=== PATIENT | female | born 1950 | race Caucasian/White ===

== ENCOUNTER → 2017-08-19 10:47 | Outpatient (CLI) | payer MEDICARE, SELFPAY ==
--- NOTE | 2017-08-19 | DI.ECHO.S_ITS ---
[facility]---------+ [facility] +---------+ : : [address] : : : : [id number] : : : : Phone: [phone]+ Echocardiogram Report + + :Name: TODD WELLER Study Date: 08/19/2017 Height: 67 in : :[facility] Weight: 182 lb : : Gender: Female BSA: 1.9 m2 : :: 1950 Age: 67 yrs BP: 110/58 mmHg: :Reason For Study: Aortic valve stenosis : :Ordering Physician: Irma : :Cousins Performed By: Ana Kendall : :Referring: Liset Sullivan : + + Interpretation Summary The left ventricle is normal in size. The left ventricle is hyperdynamic. The ejection fraction is estimated to be 70-75%. There has been no significant change in LV EF since the previous study. The right ventricle is normal size. The right ventricular systolic function is normal. The aortic valve is not well visualized. Leaflet mobility is mild to moderately reduced. The peak aortic velocity is 2.7 m/sec. The peak aortic velocity on the previous exam was 3.2 m/sec. The aortic valve mean gradient is 16 mmHg. The calculated aortic valve area is 1.4 cm2. There is mild to moderate aortic stenosis. Procedure: A two-dimensional transthoracic echocardiogram with color flow and Doppler was performed. The study quality was technically adequate. Comparison is made with the echocardiogram of 08-01-16. The patient was in normal sinus rhythm during the exam. Left Ventricle: The left ventricle is normal in size. There is normal left ventricular wall thickness. There is no echo evidence for significant left ventricular outflow tract obstruction. There is no thrombus. The ejection fraction is estimated to be 70-75%. The left ventricle is hyperdynamic. There has been no significant change since the previous study. There are no focal wall motion abnormalities. MV E/A: 0.69 Med Peak E' Adrian: 5.6 cm/sec E/E' med: 12.0. Right Ventricle: The right ventricle is normal size. The right ventricular systolic function is normal. Atria: The left atrium is mildly dilated. The left atrium has mildly increased in size since the prior echo exam. Right atrial size is normal. The interatrial septum is intact with no evidence for an atrial septal defect. Mitral Valve: There is mild to moderate mitral annular calcification. The mitral valve leaflets appear thickened, but open well. There is no mitral valve stenosis. There is trace mitral regurgitation. Aortic Valve: The aortic valve is not well visualized. There is discrete nodular thickening of the non- coronary cusp. The aortic valve is moderately calcified. Leaflet mobility is mild to moderately reduced. The calculated aortic valve area is 1.4 cm2. The aortic valve area is 1.2 centimeters squared by planimetry. The peak aortic velocity is 2.7 m/sec. The peak aortic velocity on the previous exam was 3.2 m/sec. The aortic valve mean gradient is 16 mmHg. Severity ratio is 0.35. There is mild to moderate aortic stenosis. No aortic regurgitation is present. Tricuspid Valve: The tricuspid valve is normal in structure and function. There is trace tricuspid regurgitation. Right ventricular systolic pressure is estimated to be 23.5 mmHg plus the clinically estimated CVP which cannot be estimated on this exam. Pulmonic Valve: The pulmonic valve is not well seen, but is grossly normal. There is trace pulmonic regurgitation. Great Vessels: The aortic root is normal size. The dimensions of the ascending aorta are normal. The inferior vena cava was not visualized. Pericardium/ Pleura There is no pericardial effusion. There is an anterior echo-free space consistent with a fat pad. There is no pleural effusion. MMode/2D Measurements & Calculations LVIDd: 4.2 cm LVOT diam: 2.2 cm LVIDs: 2.4 cm Ao root diam: 3.2 cm FS: 43.4 % Aortic Jxn: 2.5 cm EPSS: 0.86 cm asc Aorta Diam: 3.2 cm IVSd: 1.0 cm LVPWd: 0.69 cm LV norwood. diameter/BSA (cm/m^2): 2.1 LV sys. diameter/BSA (cm/m^2): 1.2 LA dimension: 4.0 cm RA long axis: 4.1 cm LA A2 area: 22.8 cm2 RA area: 14.9 cm2 LA A4 area: 19.9 cm2 RA vol: 45.7 ml LA length (vol): 5.1 cm RA : 23.5 ml/m2 LA vol: 75.9 ml RVDd major: 4.7 cm LA vol index: 39.1 ml/m2 RVD1 (basal): 3.1 cm RVD2 (mid): 2.9 cm SANG (plan): 1.2 cm2 Doppler Measurements & Calculations Ao V2 max: 273.3 cm/sec LVOT Max Adrian: 96.3 cm/sec Ao V2 mean: 187.5 cm/sec LV V1 max P.7 mmHg Ao max P.9 mmHg LV V1 VTI: 20.7 cm Ao mean P.3 mmHg SANG(I,D): 1.4 cm2 Ao V2 VTI: 59.3 cm SANG(V,D): 1.4 cm2 sev ratio: 0.35 SANG indexed to BSA (cm^2/m^2): 0.71 MV E max adrian: 67.2 cm/sec TR max adrian: 242.6 cm/sec MV A max adrian: 97.1 cm/sec TR max P.5 mmHg MV E/A: 0.69 PA V2 max: 85.6 cm/sec Med Peak E' Adrian: 5.6 cm/sec PA V2 mean: 59.4 cm/sec E/E' med: 12.0 PA mean P.6 mmHg Lat Peak E' Adrian: 4.2 cm/sec PA Accel Time: 0.14 sec E/E' lat: 16.0 E/e' average: 14.0 MV dec time: 0.26 sec MV P1/2t: 77.3 msec MVA(traced): 1.2 cm2 MV P1/2t max adrian: 66.7 cm/sec MVA(P1/2t): 2.8 cm2 Reading Physician:PM
--- NOTE | 2017-08-19 | DI.MG.S_ITS ---
BILATERAL DIGITAL SCREENING MAMMOGRAM 3D/2D WITH CAD: 08/19/2017 CLINICAL: Routine screening. Comparison is made to exams dated: 10/12/2014 mammogram, 03/22/2014 mammogram, and 08/06/2013 mammogram - [facility]. The tissue of both breasts is predominantly fatty. Current study was also evaluated with a Computer Aided Detection (CAD) system. No significant masses, calcifications, or other findings are seen in either breast. There has been no significant interval change. IMPRESSION: NEGATIVE There is no mammographic evidence of malignancy. A 1 year screening mammogram is recommended. Please note examination is limited by suboptimal patient positioning due to physical limitations and body habitus. Please evaluate posterior tissues with physical exam as they could not be included on this examination. This exam was interpreted at Station ID: [id number]. NOTE: For mammograms, a report in lay terms will be sent to the patient. Approximately 15% of breast malignancies will not be visualized mammographically. In the management of a palpable breast mass, a negative mammogram must not discourage biopsy of a clinically suspicious lesion. Electronically Signed By: Rajiv Simons M.D. cj/:08/19/2017 16:20:58 letter sent: Normal Exam ACR BI-RADS Category 1: Negative [id number]
== END ==
PROVIDERS: Family Provider Family Medicine; PCP Family Medicine; Referring Provider Internal Medicine Cardiovascular Disease; Visit Provider Family Medicine
DX: Z12.31 Encounter for screening mammogram for malignant neoplasm of breast (principal); I35.0 Nonrheumatic aortic (valve) stenosis; R01.1 Cardiac murmur, unspecified
CPT/HCPCS: 77063; 77067; 93306

== ENCOUNTER → 2017-08-21 07:16 | Outpatient (CLI) | payer MEDICARE, SELFPAY ==
[2017-08-21 08:50] LABS: Alanine Aminotransferase 68 IU/L (9-52); Albumin 3.9 g/dL (3.5-5.0); Albumin Globulin Ratio 1.3 (1.0-2.8); Alkaline Phosphatase 105 U/L (38-126); Aspartate Aminotransferase 50 IU/L (14-36); Bilirubin Total 0.4 mg/dL (0.2-1.3); Blood Urea Nitrogen 21 mg/dL (7-17); Calcium 9.7 mg/dL (8.4-10.2); Carbon Dioxide 29 mmol/L (22-32); Chloride 94 mmol/L (98-107); Cholesterol 107 mg/dL (140-199); Estimated Glomerular Filt Rate > 60.0 mL/min (>60); Glucose 251 mg/dL (80-110); HDL Cholesterol 29 mg/dL (40-60); HEMOLYSIS < 15 (0-50); LDL Cholesterol Calculated 33 mg/dL (<100); Potassium 3.9 mmol/L (3.4-5.1); Sodium 136 mmol/L (137-145); Total Protein 6.9 g/dL (6.3-8.2); Triglycerides 223 mg/dL (35-150)
== END ==
PROVIDERS: PCP Family Medicine; Visit Provider Internal Medicine Cardiovascular Disease
DX: I10 Essential (primary) hypertension (principal); E78.5 Hyperlipidemia, unspecified
CPT/HCPCS: 36415; 80053; 80061

== ENCOUNTER → 2017-09-05 07:10 | Outpatient (CLI) | payer MEDICARE, SELFPAY ==
[2017-09-05 08:40] LABS: Hemoglobin A1C% w Est Avg Glu 9.8 % (4.0-6.0)
[2017-09-05 09:06] LABS: Creatinine Urine Random 64.4 mg/dL
[2017-09-05 09:10] LABS: Microalbumi Creatinin Ratio Ur 9.3 ug/mg CR (<30); Microalbumin Urine Random 0.6 mg/dL (0-1.6)
== END ==
PROVIDERS: PCP Family Medicine; Visit Provider Family Medicine
DX: E11.9 Type 2 diabetes mellitus without complications (principal)
CPT/HCPCS: 36415; 82043; 82570; 83036

== ENCOUNTER → 2018-05-29 07:24 | Outpatient (CLI) | payer MEDICARE, SELFPAY ==
[2018-05-29 08:13] LABS: Hemoglobin A1C% w Est Avg Glu 11.3 % (4.0-6.0)
[2018-05-29 08:22] LABS: Alanine Aminotransferase 40 IU/L (9-52); Albumin 4.3 g/dL (3.5-5.0); Albumin Globulin Ratio 1.4 (1.0-2.8); Alkaline Phosphatase 112 U/L (38-126); Aspartate Aminotransferase 29 IU/L (14-36); BUN Creatinine Ratio 31.4 (6-22); Bilirubin Total 0.5 mg/dL (0.2-1.3); Blood Urea Nitrogen 22 mg/dL (7-17); Carbon Dioxide 30 mmol/L (22-32); Chloride 91 mmol/L (98-107); Cholesterol 138 mg/dL (140-199); Estimated Glomerular Filt Rate > 60.0 mL/min (>60); Globulin 3.1 g/dL (1.7-4.1); Glucose 285 mg/dL (80-110); HDL Cholesterol 37 mg/dL (40-60); HEMOLYSIS < 15 (0-50); LDL Cholesterol Calculated 47 mg/dL (<100); Magnesium 1.9 mg/dL (1.6-2.3); Potassium 3.8 mmol/L (3.4-5.1); Sodium 134 mmol/L (137-145); Total Protein 7.4 g/dL (6.3-8.2); Triglycerides 268 mg/dL (35-150)
[2018-05-29 09:43] LABS: Creatinine Urine Random 85.6 mg/dL
[2018-05-29 09:49] LABS: Microalbumi Creatinin Ratio Ur 19.8 ug/mg CR (<30); Microalbumin Urine Random 1.7 mg/dL (0-1.6)
== END ==
PROVIDERS: Visit Provider Internal Medicine
DX: E11.9 Type 2 diabetes mellitus without complications (principal); E78.5 Hyperlipidemia, unspecified; I10 Essential (primary) hypertension; Z79.4 Long term (current) use of insulin
CPT/HCPCS: 36415; 80053; 80061; 82043; 82570; 83036; 83735

== ENCOUNTER → 2018-11-20 13:02 | Outpatient (CLI) | payer MEDICARE, SELFPAY ==
--- NOTE | 2018-11-20 | DI.MG.S_ITS ---
BILATERAL DIGITAL SCREENING MAMMOGRAM 3D/2D WITH CAD: 11/20/2018 CLINICAL: Routine screening. Comparison is made to exams dated: 08/19/2017 mammogram, 08/19/2017 mammogram - [facility], and 10/12/2014 mammogram - [facility]. The tissue of both breasts is predominantly fatty. Current study was also evaluated with a Computer Aided Detection (CAD) system. There are benign calcifications in both breasts. There also is a biopsy clip in the right breast. Additionally, there are benign post operative findings in the left breast. No significant masses, calcifications, or other findings are seen in either breast. There has been no significant interval change. IMPRESSION: There is no mammographic evidence of malignancy. A 1 year screening mammogram is recommended. This exam was interpreted at Station ID: [id number]. NOTE: For mammograms, a report in lay terms will be sent to the patient. Approximately 15% of breast malignancies will not be visualized mammographically. In the management of a palpable breast mass, a negative mammogram must not discourage biopsy of a clinically suspicious lesion. Electronically Signed By: Maty ferraro/mahsa:11/20/2018 14:54:20 letter sent: Normal Exam ACR BI-RADS Category 2: Benign Finding(s) 3342F
== END ==
PROVIDERS: PCP Internal Medicine; Visit Provider Internal Medicine
DX: Z12.31 Encounter for screening mammogram for malignant neoplasm of breast (principal)
CPT/HCPCS: 77063; 77067

== ENCOUNTER → 2018-12-28 08:05 | Outpatient (CLI) | payer MEDICARE, SELFPAY ==
[2018-12-28 09:27] LABS: Hemoglobin A1C% w Est Avg Glu 8.2 % (4.0-6.0)
[2018-12-28 09:57] LABS: BUN Creatinine Ratio 27.1 (6-22); Blood Urea Nitrogen 19 mg/dL (7-17); Calcium 10.6 mg/dL (8.4-10.2); Carbon Dioxide 31 mmol/L (22-32); Chloride 94 mmol/L (98-107); Estimated Glomerular Filt Rate > 60.0 mL/min (>60); Glucose 155 mg/dL (80-110); HEMOLYSIS < 15 (0-50); Potassium 4.2 mmol/L (3.4-5.1); Sodium 138 mmol/L (137-145)
== END ==
PROVIDERS: PCP Internal Medicine; Visit Provider Internal Medicine
DX: E11.9 Type 2 diabetes mellitus without complications (principal); Z79.4 Long term (current) use of insulin
CPT/HCPCS: 36415; 80048; 83036

== ENCOUNTER → 2019-08-20 08:08 | Outpatient (CLI) | payer MEDICARE, SELFPAY ==
[2019-08-20 09:39] LABS: Hemoglobin A1C% w Est Avg Glu 8.8 % (4.0-6.0)
[2019-08-20 09:51] LABS: Alanine Aminotransferase 34 IU/L (<35); Albumin 4.5 g/dL (3.5-5.0); Albumin Globulin Ratio 1.7 (1.0-2.8); Alkaline Phosphatase 89 U/L (38-126); Aspartate Aminotransferase 49 IU/L (14-36); BUN Creatinine Ratio 27.4 (6-22); Bilirubin Total 0.4 mg/dL (0.2-1.3); Blood Urea Nitrogen 20 mg/dL (7-17); Calcium 10.4 mg/dL (8.4-10.2); Carbon Dioxide 29 mmol/L (22-32); Chloride 95 mmol/L (98-107); Cholesterol 133 mg/dL (140-199); Estimated Glomerular Filt Rate > 60.0 mL/min (>60); Globulin 2.7 g/dL (1.7-4.1); Glucose 163 mg/dL (80-110); HDL Cholesterol 36 mg/dL (40-60); HEMOLYSIS < 15 (0-50); LDL Cholesterol Calculated 47 mg/dL (<100); Potassium 4.5 mmol/L (3.4-5.1); Sodium 136 mmol/L (137-145); Total Protein 7.2 g/dL (6.3-8.2); Triglycerides 252 mg/dL (35-150)
[2019-08-20 10:42] LABS: Creatinine Urine Random 134.1 mg/dL
[2019-08-20 10:46] LABS: Microalbumi Creatinin Ratio Ur 21.6 ug/mg CR (<30); Microalbumin Urine Random 2.9 mg/dL (0-1.6)
== END ==
PROVIDERS: PCP Internal Medicine; Referring Provider Internal Medicine; Visit Provider Internal Medicine
DX: E11.9 Type 2 diabetes mellitus without complications (principal); E78.5 Hyperlipidemia, unspecified; I10 Essential (primary) hypertension; Z79.4 Long term (current) use of insulin
CPT/HCPCS: 36415; 80053; 80061; 82043; 82570; 83036

== ENCOUNTER → 2019-09-17 09:02 | Outpatient (CLI) | payer MEDICARE, SELFPAY ==
--- NOTE | 2019-09-17 09:35 | DI.ECHO.S_ITS ---
Echocardiogram Report + + :Name: TODD WELLER Study Date: 09/17/2019 Height: 62 in : :[facility] Weight: 185 lb : : Gender: Female BSA: 1.8 m2 : :: 1950 Age: 69 yrs BP: 110/65 mmHg: :Reason For Study: : : Performed By: Nickolas Burgos : :Referring: RANDY ARANDA : + + Interpretation Summary The left ventricle is normal in size. The left ventricle is hyperdynamic. The ejection fraction is estimated to be 70-75%. There is no echo evidence for significant left ventricular outflow tract obstruction. MV E/A: 0.61 Med Peak E' Adrian: 2.9 cm/sec E/E' med: 22.4 The right ventricle is normal in size and function. The aortic valve is moderately calcified. There is moderate to severely reduced leaflet mobility. The peak aortic velocity is 3.72 m/sec. The aortic valve mean gradient is 34.7 mmHg. The peak aortic velocity on the previous exam was 2.7 m/sec. The calculated aortic valve area is 1.0 cm2. There is moderate to severe aortic stenosis. Compared to the prior echo study, there has been an increase in the severity of aortic stenosis. Procedure: A two-dimensional transthoracic echocardiogram with color flow and Doppler was performed. The study quality was technically adequate. Comparison is made with the echocardiogram of 08/19/17. The subcostal views were difficult to obtain and are suboptimal in quality. The suprasternal notch views were difficult to obtain and are suboptimal in quality. The patient was in normal sinus rhythm during the exam. Left Ventricle: The left ventricle is normal in size. Proximal septal thickening is noted. There is no echo evidence for significant left ventricular outflow tract obstruction. There is no thrombus. The ejection fraction is estimated to be 70-75%. The left ventricle is hyperdynamic. There are no focal wall motion abnormalities. MV E/A: 0.61 Med Peak E' Adrian: 2.9 cm/sec E/E' med: 22.4. Right Ventricle: The right ventricle is normal in size and function. Atria: The left atrium is moderately dilated. The left atrium has mildly increased in size since the prior echo exam. Right atrial size is normal. The interatrial septum is intact with no evidence for an atrial septal defect. Mitral Valve: There is mild to moderate mitral annular calcification. The mitral valve chordae are thickened and/or calcified. There is trace mitral regurgitation. Aortic Valve: The aortic valve is trileaflet. The aortic valve is moderately calcified. There is moderate to severely reduced leaflet mobility. The peak aortic velocity is 3.72 m/sec. The aortic valve mean gradient is 34.7 mmHg. The calculated aortic valve area is 1.0 cm2. The aortic valve area is 0.92 centimeters squared by planimetry. There is moderate to severe aortic stenosis. The peak aortic velocity on the previous exam was 2.7 m/sec. Compared to the prior echo study, there has been an increase in the severity of aortic stenosis. There is trace aortic regurgitation. Tricuspid Valve: The tricuspid valve is normal in structure and function. There is trace tricuspid regurgitation. Right ventricular systolic pressure is estimated to be 22 mmHg plus the clinically estimated CVP which cannot be estimated on this exam. Pulmonic Valve: The pulmonic valve is not well seen, but is grossly normal. There is trace pulmonic regurgitation. Great Vessels: The aortic root is normal size. The dimensions of the ascending aorta are normal. The pulmonary artery is normal size. The inferior vena cava was not visualized. Pericardium/ Pleura There is no pericardial effusion. There is an anterior echo-free space consistent with a fat pad. There is no pleural effusion. MMode/2D Measurements & Calculations LVIDd: 4.2 cm LVOT diam: 2.2 cm LVIDs: 2.6 cm Ao root diam: 3.1 cm FS: 37.6 % asc Aorta Diam: 3.2 cm EPSS: 0.74 cm IVSd: 1.0 cm LVPWd: 0.99 cm LV norwood. diameter/BSA (cm/m^2): 2.3 LV sys. diameter/BSA (cm/m^2): 1.4 LA dimension: 3.4 cm RA long axis: 4.4 cm LA A2 area: 22.4 cm2 RA area: 14.4 cm2 LA A4 area: 22.5 cm2 RA vol: 39.9 ml LA length (vol): 5.4 cm RA : 21.6 ml/m2 LA vol: 79.8 ml LA vol index: 43.2 ml/m2 SANG (plan): 0.92 cm2 Doppler Measurements & Calculations Ao V2 max: 372.5 cm/sec LVOT Max Adrian: 97.8 cm/sec Ao V2 mean: 283.7 cm/sec LV V1 max P.8 mmHg Ao max P.5 mmHg LV V1 VTI: 23.3 cm Ao mean P.7 mmHg SANG(I,D): 1.2 cm2 Ao V2 VTI: 74.5 cm SANG(V,D): 1.0 cm2 sev ratio: 0.31 SANG indexed to BSA (cm^2/m^2): 0.66 MV E max adrian: 66.0 cm/sec TR max adrian: 233.5 cm/sec MV A max adrian: 108.9 cm/sec TR max P.8 mmHg MV E/A: 0.61 PA V2 max: 111.6 cm/sec Med Peak E' Adrian: 2.9 cm/sec PA V2 mean: 80.7 cm/sec E/E' med: 22.4 PA mean P.9 mmHg Lat Peak E' Adrian: 2.8 cm/sec PA pr(Accel): 41.3 mmHg E/E' lat: 23.2 E/e' average: 22.8 MV dec time: 0.25 sec SV(LVOT): 90.3 ml Reading Physician:04:21 PM
== END ==
PROVIDERS: PCP Internal Medicine; Referring Provider Internal Medicine Cardiovascular Disease; Visit Provider Internal Medicine Cardiovascular Disease
DX: I35.0 Nonrheumatic aortic (valve) stenosis (principal)
CPT/HCPCS: 93306

== ENCOUNTER → 2020-01-03 08:06 | Outpatient (CLI) | payer MEDICARE, SELFPAY ==
[2020-01-03 09:19] LABS: Hemoglobin A1C% w Est Avg Glu 8.9 % (4.0-6.0)
[2020-01-03 10:02] LABS: BUN Creatinine Ratio 29.8 (6-22); Blood Urea Nitrogen 17 mg/dL (7-17); Calcium 10.3 mg/dL (8.4-10.2); Carbon Dioxide 33 mmol/L (22-32); Chloride 96 mmol/L (98-107); Estimated Glomerular Filt Rate > 60.0 mL/min (>60); Glucose 187 mg/dL (80-110); HEMOLYSIS < 15 (0-50); Potassium 4.3 mmol/L (3.4-5.1); Sodium 137 mmol/L (137-145)
== END ==
PROVIDERS: PCP Internal Medicine; Referring Provider Internal Medicine; Visit Provider Internal Medicine
DX: E11.9 Type 2 diabetes mellitus without complications (principal); Z79.4 Long term (current) use of insulin
CPT/HCPCS: 36415; 80048; 83036

== ENCOUNTER 2020-09-06 23:16 | Emergency (ER) | payer MEDICARE, SELFPAY ==
[2020-09-06 23:36] VITALS: BP 215/99; PULSE 96; RESP 22; TEMP 36.8; O2SAT 96; BMI 32.9
[2020-09-06 23:49] VITALS: PULSE 90; O2SAT 93
[2020-09-06 23:51] LABS: Add Manual Diff / Slide Review NO; Basophils Absolute Auto 100 /uL (0-100); Basophils Percent Auto 0.6 % (0-2); Eosinophils Absolute Auto 0 /uL (0-450); Hematocrit 38.8 % (36-46); Hemoglobin 12.7 g/dL (12.0-16.0); Lymphocytes Absolute Auto 2000 /uL (1100-4500); Lymphocytes Percent Auto 12.6 % (25-40); Mean Corpuscular HGB Conc 32.7 % (30-36); Mean Corpuscular Hemoglobin 27.8 PG (26-34); Mean Corpuscular Volume 85.1 fL (80-100); Monocytes Absolute Auto 400 /uL (0-900); Monocytes Percent Auto 2.8 % (3-14); Neutrophils Absolute Auto 13200 /uL (1500-7000); Platelet Count 350 X10^3/uL (150-400); Red Blood Cell Count 4.55 X10^6/uL (4.0-5.2); Red Cell Distribution Width 13.9 % (11.6-14.8); White Blood Cell Count 15.7 X10^3/uL (4.5-11.0)
[2020-09-06 23:57] LABS: Alanine Aminotransferase 31 IU/L (<35); Albumin 4.7 g/dL (3.5-5.0); Albumin Globulin Ratio 1.5 (1.0-2.8); Alkaline Phosphatase 93 U/L (38-126); Aspartate Aminotransferase 39 IU/L (14-36); BUN Creatinine Ratio 41.3 (6-22); Bilirubin Total 0.8 mg/dL (0.2-1.3); Blood Urea Nitrogen 26 mg/dL (7-17); Calcium 10.8 mg/dL (8.4-10.2); Carbon Dioxide 28 mmol/L (22-32); Chloride 95 mmol/L (98-107); Estimated Glomerular Filt Rate > 60.0 mL/min (>60); Globulin 3.1 g/dL (1.7-4.1); Glucose 337 mg/dL (80-110); HEMOLYSIS < 15 (0-50); Sodium 136 mmol/L (137-145); Total Protein 7.8 g/dL (6.3-8.2)
[2020-09-06] MEDS: SODIUM CHLORIDE 0.9% 1,000 ML 1000 ML IV (23:57)
[2020-09-06] MEDS: ONDANSETRON 4 MG/2 ML INJ IV (23:58)
[2020-09-07] VITALS: PULSE 94; O2SAT 95
[2020-09-07 00:22] VITALS: BP 184/87; PULSE 95; O2SAT 93
--- NOTE | 2020-09-07 00:23 | ED_ITS ---
HPI - Nausea/Vomiting/Diarrhea General Chief complaint: Nausea/Vomiting/Diarrhea Stated complaint: nausea/vomiting Time Seen by Provider: 09/06/20 23:27 Source: patient Mode of arrival: Ambulatory Limitations: no limitations History of Present Illness HPI Narrative: Patient is a 70-year-old insulin-dependent diabetic who also reportedly smokes marijuana on a daily basis here for evaluation after she woke up 2 days ago with nausea. She also states she has had some diarrhea. Had vomiting during this time but has not had any vomiting now. She states that the symptoms do improve with taking a shower. No abdominal discomfort. States she cannot keep anything down. Is still taking her insulin. Related Data Home Medications Medication Instructions Recorded Confirmed aspirin 81 mg tablet,delayed 81 mg PO DAILY 04/28/18 01/04/20 release chlorthalidone 25 mg tablet 25 mg PO DAILY #60 tab 04/28/18 01/04/20 lactobacillus combination no.8 3 3,000 mmu cells PO DAILY 04/28/18 01/04/20 billion cell capsule (Adult Probiotic) lansoprazole 15 mg capsule,delayed 15 mg PO DAILY 04/28/18 01/04/20 release magnesium oxide 400 mg PO BID cap 04/28/18 01/04/20 Previous Rx's Medication Instructions Recorded cyclobenzaprine 10 mg tablet 10 mg PO TID PRN #30 tab 09/04/18 B-D PEN NEEDLE #100 each 02/22/19 blood sugar diagnostic (Blood #250 each 09/14/19 Glucose Test) blood-glucose meter #1 each 09/23/19 metformin 1,000 mg tablet 1,000 mg PO BIDCC #180 tab 03/24/20 (Glucophage) metoprolol succinate 100 mg 100 mg PO BID #180 tab 03/24/20 tablet,extended release 24 hr insulin glargine 100 unit/mL (3 40 unit SUBCUT HS #30 ml 03/31/20 mL) subcutaneous pen (Lantus Solostar U-100 Insulin) hydrocodone 5 mg-acetaminophen 325 1 tab PO QID PRN #360 tab 05/12/20 mg tablet ([place]) Droplet Pen [place] #250 ea 07/18/20 glipizide 5 mg tablet See Rx Instructions .ROUTE 09/04/20 .COMPLEX #180 tab lisinopril 40 mg tablet See Rx Instructions .ROUTE 09/04/20 .COMPLEX #90 tablet meloxicam 15 mg tablet (Mobic) 15 mg PO Q DAY PRN PRN #90 tab 09/04/20 simvastatin 20 mg tablet 20 mg PO HS #90 tab 09/04/20 Allergies Allergy/AdvReac Type Severity Reaction Status Date / Time No Known Allergies Allergy Uncoded 01/04/20 10:45 Review of Systems Constitutional Constitutional: Denies fever(s) Eyes Eyes: Reports system reviewed and no additional complaints, except as documented Cardiovascular Comments: No chest pain Respiratory Comments: No shortness of breath Gastrointestinal Comments: Nausea vomiting and diarrhea Genitourinary Comments: No urinary symptoms Musculoskeletal Comments: Has her chronic back pain Integumentary/Breasts Comments: No rashes Neurologic Neurologic: Reports system reviewed and no additional complaints, except as documented Psychiatric Psychiatric: Reports system reviewed and no additional complaints, except as documented Hematologic/Lymphatic On Anticoagulants: No Allergic/Immunologic Allergic/Immunologic: Reports system reviewed and no additional complaints, except as documented Patient History Medical History Anemia Ankylosing spondylitis (~1994) Aortic stenosis Chicken pox Chronic back pain Colitis Diabetes mellitus (2003) Diabetes mellitus, type II, insulin dependent Diabetic peripheral neuropathy Gastrointestinal irritation Hyperlipidemia Hypertension IBS (irritable bowel syndrome) Measles Mumps RLS (restless legs syndrome) Sepsis Surgical History Anesthesia Status post appendectomy (1964) Status post breast biopsy (1991) Status post breast biopsy (2013) Status post cholecystectomy (1991) Status post hysterectomy (1993) Family History Father Cancer Diabetes mellitus Hypertension High cholesterol Mother Heart disease Hypertension Brother Ankylosing spondylitis Son Ankylosing spondylitis Social History Smoking Status: Current every day smoker Smoking Status: Current every day smoker Substance Use Type: marijuana Exam Initial Vital Signs Initial Vital Signs: Vital Signs Temperature 98.3 F 09/06/20 23:36 Pulse Rate 96 H 09/06/20 23:36 Respiratory Rate 22 09/06/20 23:36 Blood Pressure 215/99 H 09/06/20 23:36 Pulse Oximetry 96 09/06/20 23:36 Const General: cooperative Resp Effort & Inspection: normal respiratory effort Cardio Rate: regular rate GI Inspection: normal to inspection Palpation: soft Skin General: no rashes or lesions noted Neuro General: patient alert, patient awake and patient oriented x3 Extrem General: normal to inspection Course Orders Ordered: ED Orders 09/06/20 23:35 Complete Blood Count AUTO DIFF Stat Comprehensive Metabolic Panel Stat Discontinued Medications Sodium Chloride (Normal Saline 0.9%) 1,000 mls @ 1,000 mls/hr IV BOLUS ONE Stop: 09/07/20 00:41 Last Infusion: 09/07/20 01:11 Dose: 0 mls/hr Documented by: Admin: 09/06/20 23:57 Dose: 1,000 mls/hr Documented by: CHANDAN Ondansetron HCl (Ondansetron 4 Mg/2 Ml Inj) 4 mg IV NOW ONE Stop: 09/06/20 23:43 Last Admin: 09/06/20 23:58 Dose: 4 mg Documented by: CHANDAN Ondansetron HCl (Ondansetron 4 Mg Odt Prepack) 1 bottle MISC SEEINSTR ONE Stop: 09/07/20 01:10 Last Admin: 09/07/20 01:14 Dose: 1 bottle Documented by: CHANDAN Vital Signs Vital signs: Vital Signs - 8 hr 09/06/20 23:36 09/06/20 23:49 09/07/20 00:00 Temperature 98.3 F Pulse Rate 96 H 90 94 H Respiratory Rate 22 Blood Pressure 215/99 H Pulse Oximetry 96 93 95 09/07/20 00:22 09/07/20 00:30 09/07/20 01:00 Temperature Pulse Rate 95 H 94 H 92 H Respiratory Rate Blood Pressure 184/87 H 178/78 H 166/72 H Pulse Oximetry 93 90 L 91 MDM - Nausea/Vomiting/Diarrhea Lab Data Attestation: I reviewed the patient's lab results. Result diagrams: 09/06/20 23:35 09/06/20 23:35 Labs: Lab Results 09/06/20 09/06/20 Range/Units 23:35 23:35 WBC 15.7 H (4.5-11.0) X10^3/uL RBC 4.55 (4.0-5.2) X10^6/uL Hgb 12.7 (12.0-16.0) g/dL Hct 38.8 (36-46) % MCV 85.1 (80-100) fL MCH 27.8 (26-34) PG MCHC 32.7 (30-36) % RDW 13.9 (11.6-14.8) % Plt Count 350 (150-400) X10^3/uL Neut % (Auto) 84.0 H (50-75) % Lymph % (Auto) 12.6 L (25-40) % [place] % (Auto) 2.8 L (3-14) % Eos % (Auto) 0.0 L (2-4) % Baso % (Auto) 0.6 (0-2) % Neut # (Auto) 74817 H (3915-4264) /uL Lymph # (Auto) 2000 (7523-0593) /uL [place] # (Auto) 400 (0-900) /uL Eos # (Auto) 0 (0-450) /uL Baso # (Auto) 100 (0-100) /uL Sodium 136 L (137-145) mmol/L Potassium 4.0 (3.4-5.1) mmol/L Chloride 95 L (98-107) mmol/L Carbon Dioxide 28 (22-32) mmol/L BUN 26 H (7-17) mg/dL Creatinine 0.63 (0.52-1.04) mg/dL Estimated GFR > 60.0 (>60) mL/min BUN/Creatinine Ratio 41.3 H (6-22) Glucose 337 H (80-110) mg/dL Calcium 10.8 H (8.4-10.2) mg/dL Total Bilirubin 0.8 (0.2-1.3) mg/dL AST 39 H (14-36) IU/L ALT 31 (<35) IU/L Alkaline Phosphatase 93 (38-126) U/L Total Protein 7.8 (6.3-8.2) g/dL Albumin 4.7 (3.5-5.0) g/dL Globulin 3.1 (1.7-4.1) g/dL Albumin/Globulin Ratio 1.5 (1.0-2.8) Point of Care Testing Glucose POC 335 MDM Narrative Medical decision making narrative: Patient does have leukocytosis however I suspect this is secondary to stress reaction due to all of the vomiting that she has been having. She does have a elevated blood sugar however is not acidotic. After 1 dose of nausea medication she stated that she no longer had any nausea and was able to tolerate a small amount of fluid. She was also given fluids here in the ER. Feel that we can hold on further workup for now. I have strong suspicion that her symptoms related to the amount of marijuana that she smokes. She was given return precautions follow-up instructions. She expressed understanding and agreement. Discharge Plan Departure Patient Disposition: Home Clinical Impression: Nausea, Hyperglycemia Instructions: DI for Nausea -- Adult Activity Restrictions/Additional Instructions: Use the nausea medicine as needed. Recommend that you eat a bland diet and increase your fluid intake. Return to the emergency department for any new or worsening symptoms Prescriptions: No Action (DME) B-D PEN NEEDLE Qty: 100 RF: 3 (DME) blood-glucose meter Misc See Rx Instructions .ROUTE .MEDSUPPLY Qty: 1 RF: 0 metformin [Glucophage] 1,000 mg tablet 1,000 mg PO BIDCC Qty: 180 RF: 3 metoprolol succinate 100 mg tablet extended release 24 hr 100 mg PO BID Qty: 180 RF: 3 Lantus Solostar U-100 Insulin 100 unit/mL (3 mL) insulin pen 40 unit SUBCUT HS Qty: 30 RF: 3 hydrocodone-acetaminophen [[place]] 5-325 mg tablet 1 tab PO QID PRN (Reason: joint pain) Qty: 360 RF: 0 (DME) Droplet Pen [place] 32G X 5MM Qty: 250 RF: 6 glipizide 5 mg tablet See Rx Instructions .ROUTE .COMPLEX Qty: 180 RF: 0 meloxicam [Mobic] 15 mg tablet 15 mg PO Q DAY PRN PRN (Reason: pain (scale score 4-6)) Qty: 90 RF: 0 lisinopril 40 mg tablet See Rx Instructions .ROUTE .COMPLEX Qty: 90 RF: 0 simvastatin 20 mg tablet 20 mg PO HS Qty: 90 RF: 0 chlorthalidone 25 mg tablet 25 mg PO DAILY Qty: 60 RF: 0 lansoprazole 15 mg capsule,delayed release(DR/EC) 15 mg PO DAILY RF: 0 Adult Probiotic 3 billion cell capsule 3,000 mmu cells PO DAILY RF: 0 aspirin 81 mg tablet,delayed release (DR/EC) 81 mg PO DAILY RF: 0 magnesium oxide 400 mg capsule 400 mg PO BID RF: 0 cyclobenzaprine 10 mg tablet 10 mg PO TID PRN (Reason: muscle spasm) Qty: 30 RF: 0 (DME) blood sugar diagnostic [Blood Glucose Test] Strip See Rx Instructions .ROUTE .MEDSUPPLY Qty: 250 RF: 12 Referrals: Javed Velez MD [Primary Care Provider] -
[2020-09-07 00:30] VITALS: BP 178/78; PULSE 94; O2SAT 90
[2020-09-07 01:00] VITALS: BP 166/72; PULSE 92; O2SAT 91
[2020-09-07] MEDS: ONDANSETRON 4 MG ODT PREPACK 1 BOTTLE MISC (01:14)
== END 2020-09-07 01:27 | disposition home or self-care (01) ==
PROVIDERS: Emergency Provider Emergency Medicine; PCP Internal Medicine
DX: E11.65 Type 2 diabetes mellitus with hyperglycemia (principal); Z79.4 Long term (current) use of insulin; R19.7 Diarrhea, unspecified; R11.2 Nausea with vomiting, unspecified
CPT/HCPCS: 36415; 80053; 82962; 85025; 99284; J2405

== ENCOUNTER 2020-09-08 10:09 | Inpatient (IN) | payer MEDICARE, SELFPAY ==
[2020-09-08] VITALS (23 sets, daily range): BP systolic 132–231; BP diastolic 62–116; PULSE 75–121; RESP 16–24; TEMP 36.6–38.2; O2SAT 92–99; BMI 32.9
[2020-09-08 10:57] LABS: Add Manual Diff / Slide Review NO; Basophils Absolute Auto 100 /uL (0-100); Basophils Percent Auto 0.4 % (0-2); Eosinophils Absolute Auto 0 /uL (0-450); Hematocrit 38.8 % (36-46); Hemoglobin 12.6 g/dL (12.0-16.0); Lymphocytes Absolute Auto 2000 /uL (1100-4500); Lymphocytes Percent Auto 10.6 % (25-40); Mean Corpuscular HGB Conc 32.4 % (30-36); Mean Corpuscular Hemoglobin 27.7 PG (26-34); Mean Corpuscular Volume 85.3 fL (80-100); Monocytes Absolute Auto 600 /uL (0-900); Monocytes Percent Auto 3.4 % (3-14); Neutrophils Absolute Auto 16000 /uL (1500-7000); Neutrophils Percent Auto 85.6 % (50-75); Platelet Count 394 X10^3/uL (150-400); Red Blood Cell Count 4.54 X10^6/uL (4.0-5.2); Red Cell Distribution Width 14.2 % (11.6-14.8); White Blood Cell Count 18.7 X10^3/uL (4.5-11.0)
[2020-09-08] MEDS: ONDANSETRON 4 MG/2 ML INJ IV (11:01)
[2020-09-08 11:06] LABS: Alanine Aminotransferase 34 IU/L (<35); Albumin 4.9 g/dL (3.5-5.0); Albumin Globulin Ratio 1.7 (1.0-2.8); Alkaline Phosphatase 94 U/L (38-126); Aspartate Aminotransferase 53 IU/L (14-36); BUN Creatinine Ratio 29.1 (6-22); Bilirubin Total 0.7 mg/dL (0.2-1.3); Blood Urea Nitrogen 23 mg/dL (7-17); Calcium 10.7 mg/dL (8.4-10.2); Carbon Dioxide 29 mmol/L (22-32); Chloride 91 mmol/L (98-107); Estimated Glomerular Filt Rate > 60.0 mL/min (>60); Globulin 2.9 g/dL (1.7-4.1); Glucose 399 mg/dL (80-110); HEMOLYSIS < 15 (0-50); Lipase 56 U/L (23-300); Potassium 3.3 mmol/L (3.4-5.1); Sodium 132 mmol/L (137-145); Total Protein 7.8 g/dL (6.3-8.2)
--- NOTE | 2020-09-08 11:09 | ED_ITS ---
HPI - Nausea/Vomiting/Diarrhea General Chief complaint: Nausea/Vomiting/Diarrhea Stated complaint: nausea beyond belief since Fri Time Seen by Provider: 09/08/20 10:59 Source: patient and old records reviewed Mode of arrival: Ambulatory Limitations: no limitations History of Present Illness HPI Narrative: This is a 70-year-old female comes with complaint of nausea ?beyond bone leaf? since Friday or Friday morning. Patient states she has just had nausea she denies any pain. She has not had active vomiting but has had occasional dry heaves. She has been able to sick water but has not had an appetite and not eating much oral solids. Patient denies any fevers or chills. She denies any chest pain or pressure. She denies any abdominal, back or flank pain. She has not had any major changes to bowel movements. No diarrhea, no constipation. Patient denies any polyuria, polydipsia or frequency. Patient states she has been urinating regularly. Patient has been taking Zofran which was been helpful but continues to have symptoms this morning. She has not had symptoms regularly in the past. She does have a history of ankylosing spondylitis, insulin-dependent diabetes and states her normal glucose is around 130, she takes medication for dyslipidemia as well as daily NSAIDs. Patient was seen here several days ago. She also smokes marijuana daily, no tobacco, no alcohol. Related Data Home Medications Medication Instructions Recorded Confirmed aspirin 81 mg tablet,delayed 81 mg PO DAILY 04/28/18 09/08/20 release chlorthalidone 25 mg tablet 25 mg PO DAILY #60 tab 04/28/18 09/08/20 lactobacillus combination no.8 3 3,000 mmu cells PO DAILY 04/28/18 09/08/20 billion cell capsule (Adult Probiotic) lansoprazole 15 mg capsule,delayed 15 mg PO DAILY 04/28/18 09/08/20 release magnesium oxide 400 mg PO BID cap 04/28/18 09/08/20 hydralazine 10 mg tablet 10 mg PO DAILY 09/08/20 09/08/20 insulin glargine 100 unit/mL (3 55 unit SUBCUT HS 09/08/20 09/08/20 mL) subcutaneous pen (Lantus Solostar U-100 Insulin) lisinopril 40 mg tablet 40 mg PO DAILY 09/08/20 09/08/20 Previous Rx's Medication Instructions Recorded B-D PEN NEEDLE #100 each 02/22/19 blood sugar diagnostic (Blood #250 each 09/14/19 Glucose Test) blood-glucose meter #1 each 09/23/19 metformin 1,000 mg tablet 1,000 mg PO BIDCC #180 tab 03/24/20 (Glucophage) metoprolol succinate 100 mg 100 mg PO BID #180 tab 03/24/20 tablet,extended release 24 hr hydrocodone 5 mg-acetaminophen 325 1 tab PO QID PRN #360 tab 05/12/20 mg tablet ([place]) Droplet Pen [place] #250 ea 07/18/20 glipizide 5 mg tablet See Rx Instructions .ROUTE 09/04/20 .COMPLEX #180 tab meloxicam 15 mg tablet (Mobic) 15 mg PO Q DAY PRN PRN #90 tab 09/04/20 simvastatin 20 mg tablet 20 mg PO HS #90 tab 09/04/20 Allergies Allergy/AdvReac Type Severity Reaction Status Date / Time No Known Drug Allergies Allergy Verified 09/08/20 14:16 Review of Systems Review of Systems ROS Unobtainable: All systems reviewed & are unremarkable except as noted in HPI and below Patient History Medical History Anemia Ankylosing spondylitis (~1994) Aortic stenosis Chicken pox Chronic back pain Colitis Diabetes mellitus (2003) Diabetes mellitus, type II, insulin dependent Diabetic peripheral neuropathy Gastrointestinal irritation Hyperlipidemia Hypertension IBS (irritable bowel syndrome) Measles Mumps RLS (restless legs syndrome) Sepsis Surgical History Anesthesia Status post appendectomy (1964) Status post breast biopsy (1991) Status post breast biopsy (2013) Status post cholecystectomy (1991) Status post hysterectomy (1993) Family History Father Cancer Diabetes mellitus Hypertension High cholesterol Mother Heart disease Hypertension Brother Ankylosing spondylitis Son Ankylosing spondylitis Social History household members: none Smoking Status: Former smoker alcohol intake: never Smoking Status: Current every day smoker Substance Use Type: marijuana Exam Narrative Exam Narrative: GENERAL: Alert and oriented x three, female in mild distress. HEENT: Head normocephalic, atraumatic, EOMI, pupils reactive, face symmetric, moist mucous membranes NECK: Supple, full range of motion CARDIOVASCULAR: Regular rate and rhythm without murmurs, rubs or gallops. No JVD. RESPIRATORY: Breath sounds equal bilaterally, no wheezes rales or rhonchi. No tachypnea accessory muscle use. ABDOMEN: Soft, nontender. Normoactive bowel sounds all 4 quadrants. No guarding or rebound, rigidity, no mass : No CVA tenderness bilaterally EXTREMITIES: Normal range of motion, no clubbing or edema. Neurovascularly intact NEUROLOGICAL: Cranial nerves II through XII grossly intact. Moving all extremities SKIN: Warm, dry, no petechiae, no rashes or lesions. Initial Vital Signs Initial Vital Signs: Vital Signs Temperature 97.8 F 09/08/20 10:19 Pulse Rate 108 H 09/08/20 10:19 Respiratory Rate 18 09/08/20 10:19 Blood Pressure 186/116 H 09/08/20 10:19 Pulse Oximetry 96 09/08/20 10:19 Scores qSOFA Altered Mental Status (GCS <15): No Respiratory rate greater than/equal to 22: No Systolic blood pressure less than or equal to 100: No qSOFA Total: 0 0-1 Not High Risk 1-3 High risk Course Orders Ordered: ED Orders 09/08/20 13:03 CT abdomen pelvis w con Stat 09/08/20 13:30 Urine Culture Stat Urine Microscopic Stat 09/08/20 14:19 Lactate (Lactic Acid) Stat 09/08/20 14:30 COVID19 - ADMIT ([employer] swab/PCR) Stat Acetaminophen (Acetaminophen 325 Mg Tablet) 650 mg PO Q6HR PRN PRN Reason: Fever/Mild Pain (1-3) Hydrocodone Bitart/Acetaminophen (Hydrocodone/Acet 5/325 Tablet) 1 tab PO QID PRN PRN Reason: joint pain Last Admin: 09/08/20 18:27 Dose: 1 tab Documented by: RLAZANI Aspirin (Aspirin Ec 81 Mg Tablet) 81 mg PO DAILY YANN Atorvastatin Calcium (Atorvastatin 20 Mg Tablet) 10 mg PO BEDTIME YANN Last Admin: 09/08/20 20:59 Dose: 10 mg Documented by: [email or web address] Bisacodyl (Bisacodyl 10 Mg Supp) 10 mg IA DAILY PRN PRN Reason: Constipation Chlorthalidone (Chlorthalidone 25 Mg Tablet) 25 mg PO DAILY [facility] Dextrose (Dextrose 50 % In Water 25 Gm/50 Ml Syringe) 25 gm IV PRN PRN PRN Reason: Hypoglycemia Enoxaparin Sodium (Enoxaparin 40 Mg/0.4 Ml Syringe) 40 mg SUBCUT DAILY YANN Glipizide (Glipizide 5 Mg Tablet) 5 mg PO BIDAC [facility] Hydralazine HCl (Hydralazine 10 Mg Tablet) 10 mg PO DAILY [facility] Dextrose/Lactated Ringer's (Dextrose 5%-Lactated Ringers) 1,000 mls @ 50 mls/hr IV CONT [facility] Last Admin: 09/08/20 17:29 Dose: 50 mls/hr Documented by: JACKIE Ceftriaxone Sodium 1,000 mg/ (Sodium Chloride) 100 mls @ 200 mls/hr IV Q24H [facility] Insulin Glargine (Insulin Glargine 100 Unit/Ml 3ml Pen) 55 unit SUBCUT BEDTIME [facility] Last Admin: 09/08/20 21:02 Dose: 55 unit Documented by: ULISSES Cosigned by: JACKIE Insulin Human Lispro (Insulin Lispro 100 Unit/Ml 3ml Vial) 0 unit SUBCUT ACHS [facility]; Protocol Last Admin: 09/08/20 21:03 Dose: 5 unit Documented by: ULISSES Cosigned by: JACKIE Lisinopril (Lisinopril 20 Mg Tablet) 40 mg PO DAILY [facility] Magnesium Oxide (Magnesium Oxide 400 Mg Tablet) 400 mg PO BID [facility] Last Admin: 09/08/20 20:59 Dose: 400 mg Documented by: ULISSES Meloxicam (Meloxicam 7.5 Mg Tablet) 15 mg PO DAILY PRN PRN Reason: Pain, Mild (1-3) Metformin HCl (Metformin Hcl 500 Mg Tablet) 1,000 mg PO BIDWM [facility] Last Admin: 09/08/20 17:45 Dose: 1,000 mg Documented by: JACKIE Metoclopramide HCl (Metoclopramide 10 Mg/2 Ml Inj) 5 mg IV Q6HR PRN PRN Reason: Nausea And Vomiting Metoprolol Succinate (Metoprolol Er 50 Mg Tablet) 100 mg PO BID [facility] Last Admin: 09/08/20 21:00 Dose: 100 mg Documented by: ULISSES Naloxone HCl (Naloxone 0.4 Mg/Ml Vial) 0.2 mg IV Q2MIN PRN PRN Reason: Opiate Reversal Ondansetron HCl (Ondansetron 4 Mg/2 Ml Inj) 4 mg IV Q4HR PRN PRN Reason: Nausea And Vomiting Pantoprazole Sodium (Pantoprazole Dr 20 Mg Tablet) 20 mg PO 0600 YANN Discontinued Medications Sodium Chloride (Normal Saline 0.9%) 1,000 mls @ 1,000 mls/hr IV BOLUS ONE Stop: 09/08/20 12:43 Last Infusion: 09/08/20 13:27 Dose: 0 mls/hr Documented by: Admin: 09/08/20 12:17 Dose: 1,000 mls/hr Documented by: JADEN Sodium Chloride (Normal Saline 0.9%) 1,000 mls @ 1,000 mls/hr IV BOLUS ONE Stop: 09/08/20 13:22 Last Infusion: 09/08/20 14:35 Dose: 0 mls/hr Documented by: Admin: 09/08/20 13:26 Dose: 1,000 mls/hr Documented by: JADEN Sodium Chloride (Normal Saline 0.9%) 1,000 mls @ 1,000 mls/hr IV BOLUS ONE Stop: 09/08/20 14:04 Last Infusion: 09/08/20 16:15 Dose: 0 mls/hr Documented by: Admin: 09/08/20 15:35 Dose: 1,000 mls/hr Documented by: CTRNADINE Piperacillin Sod/Tazobactam (Sod 4.5 gm/ Sodium Chloride) 100 mls @ 200 mls/hr IV NOW ONE Stop: 09/08/20 14:11 Last Infusion: 09/08/20 15:36 Dose: 0 mls/hr Documented by: Admin: 09/08/20 14:36 Dose: 200 mls/hr Documented by: CTRNADINE Ceftriaxone Sodium 1,000 mg/ (Sodium Chloride) 100 mls @ 200 mls/hr IV NOW ONE Stop: 09/08/20 17:17 Last Admin: 09/08/20 17:32 Dose: 200 mls/hr Documented by: JACKIE Metoclopramide HCl (Metoclopramide 10 Mg/2 Ml Inj) 10 mg IV NOW ONE Stop: 09/08/20 12:39 Last Admin: 09/08/20 12:49 Dose: 10 mg Documented by: JADEN Metoprolol Tartrate (Metoprolol Tartrate 5 Mg/5 Ml Inj) 5 mg IV Q5M [facility] Stop: 09/08/20 14:41 Last Admin: 09/08/20 15:57 Dose: 5 mg Documented by: CTR.VELVET Admin: 09/08/20 15:39 Dose: 5 mg Documented by: CTR.VELVET Admin: 09/08/20 15:30 Dose: 5 mg Documented by: CTR.VELVET Non-Formulary Medication (Lactobacillus Combination No.8 [Adult Probiotic]) 3,000 mmu cells PO DAILY [facility] Ondansetron HCl (Ondansetron 4 Mg/2 Ml Inj) 4 mg IV NOW ONE Stop: 09/08/20 10:45 Last Admin: 09/08/20 11:01 Dose: 4 mg Documented by: JADEN Potassium Chloride (Potassium Chloride 20 Meq/15 Ml Udc) 40 meq PO NOW ONE Stop: 09/08/20 12:23 Last Admin: 09/08/20 12:50 Dose: 40 meq Documented by: JADEN Reevaluation(s) Reevaluation #1: Patient has had increased heart rate sometimes up into the 1 teens. He even after fluids. She is tachycardic as well as hypertensive. Discussed with patient and she had not had her daily medications including her blood pressure medications or her oral diabetic medications. Patient and I also reviewed her imaging which shows possible renal cell carcinoma. Or reviewed uro logy thoughts and recommendations that they did not suspect abscess at this point. She will need to follow-up with Oncology. We discussed that does this is a definitive diagnosis and she will be further workup. Patient has been able to tolerate orals. She is feeling better after antinausea medications. Consultations Consultation #1: Dr. King, urology [facility] he recommends treating as UTI sepsis at this point. He states patient does not sound like she has a renal abscess he would recommend after treatment of UTI sepsis outpatient evaluation with Urology last Oncology but could start initially with her local urology group. Consultation #2: Dr. Rodriguez, accepts for UTI/sepsis. Hyperglycemia. Discussed mask patient case was discussed with [facility] Urology they do not feel that she has an abscess at this time and is much more suspicious for cancer. They do not recommend transfer for emergent urologic treatment (we do not have inpatient urology today) but do recommend outpatient follow-up with urology/Oncology and could be initiated with her local urology. Patient recommendations from Urology discussed. Vital Signs Vital signs: Vital Signs - 8 hr 09/08/20 13:52 09/08/20 14:00 09/08/20 14:43 Pulse Rate 115 H 110 H 121 H Respiratory Rate 20 Blood Pressure Pulse Oximetry 97 97 09/08/20 14:45 09/08/20 15:00 Pulse Rate 110 H 109 H Respiratory Rate 20 17 Blood Pressure 194/88 H 194/89 H Pulse Oximetry 96 95 MDM - Nausea/Vomiting/Diarrhea Lab Data Result diagrams: 09/08/20 10:52 09/08/20 10:52 Labs: Lab Results 09/08/20 09/08/20 09/08/20 Range/Units 10:52 10:52 10:52 WBC 18.7 H (4.5-11.0) X10^3/uL RBC 4.54 (4.0-5.2) X10^6/uL Hgb 12.6 (12.0-16.0) g/dL Hct 38.8 (36-46) % MCV 85.3 (80-100) fL MCH 27.7 (26-34) PG MCHC 32.4 (30-36) % RDW 14.2 (11.6-14.8) % Plt Count 394 (150-400) X10^3/uL Neut % (Auto) 85.6 H (50-75) % Lymph % (Auto) 10.6 L (25-40) % [place] % (Auto) 3.4 (3-14) % Eos % (Auto) 0.0 L (2-4) % Baso % (Auto) 0.4 (0-2) % Neut # (Auto) 77824 H (5387-5337) /uL Lymph # (Auto) 2000 (1929-7082) /uL [place] # (Auto) 600 (0-900) /uL Eos # (Auto) 0 (0-450) /uL Baso # (Auto) 100 (0-100) /uL VBG pH (7.33-7.43) VBG pCO2 (45-50) mmHg VBG pO2 (35-45) mmHg VBG HCO3 (23-28) mmol/L VBG Total CO2 (24-29) mmol/L VBG O2 Saturation (70-75) % VBG Base Excess (0-4) mmol/L Sodium 132 L (137-145) mmol/L Potassium 3.3 L (3.4-5.1) mmol/L Chloride 91 L (98-107) mmol/L Carbon Dioxide 29 (22-32) mmol/L BUN 23 H (7-17) mg/dL Creatinine 0.79 (0.52-1.04) mg/dL Estimated GFR > 60.0 (>60) mL/min BUN/Creatinine Ratio 29.1 H (6-22) Glucose 399 H (80-110) mg/dL Hemoglobin A1c (4.0-6.0) % Lactate 3.0 H (0.7-2.1) mmol/L Calcium 10.7 H (8.4-10.2) mg/dL Magnesium (1.6-2.3) mg/dL Total Bilirubin 0.7 (0.2-1.3) mg/dL AST 53 H (14-36) IU/L ALT 34 (<35) IU/L Alkaline Phosphatase 94 (38-126) U/L Total Creatine Kinase (30-135) U/L CK-MB (CK-2) (<2.37) ng/mL CK-MB (CK-2) Rel Index (1.5-5.0) % Troponin I (0.01-0.034) ng/mL Total Protein 7.8 (6.3-8.2) g/dL Albumin 4.9 (3.5-5.0) g/dL Globulin 2.9 (1.7-4.1) g/dL Albumin/Globulin Ratio 1.7 (1.0-2.8) Lipase 56 (23-300) U/L Procalcitonin (<0.5) ng/mL Urine RBC (0-5/HPF) Urine WBC (0-5/HPF) Urine Bacteria (None) Ur Culture Indicated? Ketones (<0.27) mmol/L SARS-CoV-2 (PCR) (Negative) 09/08/20 09/08/20 09/08/20 Range/Units 10:52 10:52 10:52 WBC (4.5-11.0) X10^3/uL RBC (4.0-5.2) X10^6/uL Hgb (12.0-16.0) g/dL Hct (36-46) % MCV (80-100) fL MCH (26-34) PG MCHC (30-36) % RDW (11.6-14.8) % Plt Count (150-400) X10^3/uL Neut % (Auto) (50-75) % Lymph % (Auto) (25-40) % [place] % (Auto) (3-14) % Eos % (Auto) (2-4) % Baso % (Auto) (0-2) % Neut # (Auto) (0564-7808) /uL Lymph # (Auto) (3608-9032) /uL [place] # (Auto) (0-900) /uL Eos # (Auto) (0-450) /uL Baso # (Auto) (0-100) /uL VBG pH (7.33-7.43) VBG pCO2 (45-50) mmHg VBG pO2 (35-45) mmHg VBG HCO3 (23-28) mmol/L VBG Total CO2 (24-29) mmol/L VBG O2 Saturation (70-75) % VBG Base Excess (0-4) mmol/L Sodium (137-145) mmol/L Potassium (3.4-5.1) mmol/L Chloride (98-107) mmol/L Carbon Dioxide (22-32) mmol/L BUN (7-17) mg/dL Creatinine (0.52-1.04) mg/dL Estimated GFR (>60) mL/min BUN/Creatinine Ratio (6-22) Glucose (80-110) mg/dL Hemoglobin A1c 9.3 H (4.0-6.0) % Lactate (0.7-2.1) mmol/L Calcium (8.4-10.2) mg/dL Magnesium (1.6-2.3) mg/dL Total Bilirubin (0.2-1.3) mg/dL AST (14-36) IU/L ALT (<35) IU/L Alkaline Phosphatase (38-126) U/L Total Creatine Kinase 232 H (30-135) U/L CK-MB (CK-2) 0.85 (<2.37) ng/mL CK-MB (CK-2) Rel Index 0.4 L (1.5-5.0) % Troponin I 0.014 (0.01-0.034) ng/mL Total Protein (6.3-8.2) g/dL Albumin (3.5-5.0) g/dL Globulin (1.7-4.1) g/dL Albumin/Globulin Ratio (1.0-2.8) Lipase (23-300) U/L Procalcitonin 0.10 (<0.5) ng/mL Urine RBC (0-5/HPF) Urine WBC (0-5/HPF) Urine Bacteria (None) Ur Culture Indicated? Ketones 0.50 H (<0.27) mmol/L SARS-CoV-2 (PCR) (Negative) 09/08/20 09/08/20 09/08/20 Range/Units 10:52 11:56 13:30 WBC (4.5-11.0) X10^3/uL RBC (4.0-5.2) X10^6/uL Hgb (12.0-16.0) g/dL Hct (36-46) % MCV (80-100) fL MCH (26-34) PG MCHC (30-36) % RDW (11.6-14.8) % Plt Count (150-400) X10^3/uL Neut % (Auto) (50-75) % Lymph % (Auto) (25-40) % [place] % (Auto) (3-14) % Eos % (Auto) (2-4) % Baso % (Auto) (0-2) % Neut # (Auto) (8264-4131) /uL Lymph # (Auto) (0878-0802) /uL [place] # (Auto) (0-900) /uL Eos # (Auto) (0-450) /uL Baso # (Auto) (0-100) /uL VBG pH 7.49 H (7.33-7.43) VBG pCO2 42.4 L (45-50) mmHg VBG pO2 48 H (35-45) mmHg VBG HCO3 32 H (23-28) mmol/L VBG Total CO2 34 H (24-29) mmol/L VBG O2 Saturation 86 H (70-75) % VBG Base Excess 9.0 H (0-4) mmol/L Sodium (137-145) mmol/L Potassium (3.4-5.1) mmol/L Chloride (98-107) mmol/L Carbon Dioxide (22-32) mmol/L BUN (7-17) mg/dL Creatinine (0.52-1.04) mg/dL Estimated GFR (>60) mL/min BUN/Creatinine Ratio (6-22) Glucose (80-110) mg/dL Hemoglobin A1c (4.0-6.0) % Lactate (0.7-2.1) mmol/L Calcium (8.4-10.2) mg/dL Magnesium 1.4 L (1.6-2.3) mg/dL Total Bilirubin (0.2-1.3) mg/dL AST (14-36) IU/L ALT (<35) IU/L Alkaline Phosphatase (38-126) U/L Total Creatine Kinase (30-135) U/L CK-MB (CK-2) (<2.37) ng/mL CK-MB (CK-2) Rel Index (1.5-5.0) % Troponin I (0.01-0.034) ng/mL Total Protein (6.3-8.2) g/dL Albumin (3.5-5.0) g/dL Globulin (1.7-4.1) g/dL Albumin/Globulin Ratio (1.0-2.8) Lipase (23-300) U/L Procalcitonin (<0.5) ng/mL Urine RBC None seen (0-5/HPF) Urine WBC 5-10/hpf H (0-5/HPF) Urine Bacteria Many (>30) H (None) Ur Culture Indicated? Specimen cultured Ketones (<0.27) mmol/L SARS-CoV-2 (PCR) (Negative) 09/08/20 09/08/20 Range/Units 14:19 14:30 WBC (4.5-11.0) X10^3/uL RBC (4.0-5.2) X10^6/uL Hgb (12.0-16.0) g/dL Hct (36-46) % MCV (80-100) fL MCH (26-34) PG MCHC (30-36) % RDW (11.6-14.8) % Plt Count (150-400) X10^3/uL Neut % (Auto) (50-75) % Lymph % (Auto) (25-40) % [place] % (Auto) (3-14) % Eos % (Auto) (2-4) % Baso % (Auto) (0-2) % Neut # (Auto) (1618-6332) /uL Lymph # (Auto) (8568-4397) /uL [place] # (Auto) (0-900) /uL Eos # (Auto) (0-450) /uL Baso # (Auto) (0-100) /uL VBG pH (7.33-7.43) VBG pCO2 (45-50) mmHg VBG pO2 (35-45) mmHg VBG HCO3 (23-28) mmol/L VBG Total CO2 (24-29) mmol/L VBG O2 Saturation (70-75) % VBG Base Excess (0-4) mmol/L Sodium (137-145) mmol/L Potassium (3.4-5.1) mmol/L Chloride (98-107) mmol/L Carbon Dioxide (22-32) mmol/L BUN (7-17) mg/dL Creatinine (0.52-1.04) mg/dL Estimated GFR (>60) mL/min BUN/Creatinine Ratio (6-22) Glucose (80-110) mg/dL Hemoglobin A1c (4.0-6.0) % Lactate 3.5 H (0.7-2.1) mmol/L Calcium (8.4-10.2) mg/dL Magnesium (1.6-2.3) mg/dL Total Bilirubin (0.2-1.3) mg/dL AST (14-36) IU/L ALT (<35) IU/L Alkaline Phosphatase (38-126) U/L Total Creatine Kinase (30-135) U/L CK-MB (CK-2) (<2.37) ng/mL CK-MB (CK-2) Rel Index (1.5-5.0) % Troponin I (0.01-0.034) ng/mL Total Protein (6.3-8.2) g/dL Albumin (3.5-5.0) g/dL Globulin (1.7-4.1) g/dL Albumin/Globulin Ratio (1.0-2.8) Lipase (23-300) U/L Procalcitonin (<0.5) ng/mL Urine RBC (0-5/HPF) Urine WBC (0-5/HPF) Urine Bacteria (None) Ur Culture Indicated? Ketones (<0.27) mmol/L SARS-CoV-2 (PCR) Negative (Negative) Point of Care Testing Glucose POC 317 Urine Dip Bedside Urine Glucose 1000 mg/dl Bedside Urine Bilirubin - Negative Bedside Urine Ketone +/- 5 Urine Specific [place] 1.020 Bedside Urine Occult Blood + Bedside Urine pH 6.0 Bedside Urine Protein + 30 Bedside Urine Urobilinogen - Negative Bedside Urine Nitrite + Positive Bedside Urine Leukocytes - Negative Esterase Imaging Data CT scan - abdomen/pelvis: Radiologist's Impression: [address] [id number] Scan ReportSigned Patient: Ben LamarMR#: [id number]: 9Acct:[id number]/Sex: 70 / FDate of Service: 09/08/20Loc: EDAccession Number: [id number] Procedure: CT abdomen pelvis w con Ordering Provider: Jennifer Andino D.O. PROCEDURE: CT ABDOMEN PELVIS W CON INDICATIONS: + nausea/vomiting, ? infection, no pain TECHNIQUE: After the administration of intravenous contrast, axial sections acquired from the lung bases to the pubic symphysis. Coronal and sagittal reformats were performed. For radiation dose reduction, the following was used: automated exposure control, adjustment of mA and/or kV according to patient size. COMPARISON: [facility], CT, ABDOMEN/PELVIS WITH CONTRAST, 03/03/2017, 21:58. FINDINGS: ABDOMEN: Lung bases: Scattered scarring/atelectasis. 2-3 mm nodule seen in the right middle lobe on image 2/3 which is indeterminate although not definitely seen on the comparison study. Additional 2 mm nodule seen in the peripheral right lower lobe on image 9/3. 3 mm left basilar pulmonary nodule on image 9/3. These 2 nodules were seen on the prior study from 2017. Heart: Mild coronary artery calcifications. No cardiomegaly. No pericardial effusion. Liver: Mild hepatic steatosis. No focal hepatic lesion identified. Gallbladder: Surgically absent. Bile ducts: Normal. Pancreas: Normal. Spleen: Normal. Adrenals: Mild nodular hypertrophy of the left adrenal gland. The right ad renal gland unremarkable. 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 There is a 1.9 cm right exophytic lesion seen on image 51/2 demonstrating solid appearance. Additional 2.5 cm left renal lesion demonstrating slightly greater expected attenuation 4 water. Additional subcentimeter renal foci, statistically cysts, although technically too small to characterize accurately and therefore nonspecific. No hydronephrosis. Nonobstructive multiple right greater than left renal calculi are noted measuring up to 5 mm on the right and 2 mm on the left. Stomach and duodenum: Normal. Bowel: Colonic diverticulosis is seen without evidence of acute complication. Appendix is not clearly identified however no suspicious pericecal inflammatory changes are seen. Other: No free fluid or air. Abdominal nodes: Normal. Aorta and IVC: Normal in size. Scattered vascular calcifications. Ventral wall: Normal. PELVIS: Bladder: Intraluminal gas seen within the bladder which could be due to recent catheterization although cannot exclude infection with gas-forming organism or occult fistula and therefore recommend correlation to history. Inguinal region: No hernia. Pelvic nodes: Normal. Bones: Spondylytic changes and facet arthropathy. No vertebral body compression fracture. There is ankylosis of both SI joints, and prominent multilevel synde smophyte formation throughout the visualized spine suggestive of ankylosing spondylitis. Diffuse osteopenia. IMPRESSION: No acute abnormality identified. Exophytic solid-appearing lesion involving the right kidney, which is new and suspicious for renal cell carcinoma until proven otherwise. Urology surgical consultation recommended. Additional 2.5 cm complex hyperdense left renal cyst although recommend attention to this area on subsequent surveillance studies to document stability and exclude neoplasm. Bilateral nonobstructive renal calculi. Right middle lobe 2-3 mm pulmonary nodule which is indeterminate. Recommend follow-up with CT in 1 year. No evidence of bowel obstruction. Osseous findings compatible with ankylosing spondylitis. Additional chronic and incidental findings as above. Dictated by: Tavares William M.D. on 09/08/2020 at 14:17 Approved by: Tavares William M.D. on 09/08/2020 at 14:27 MDM Narrative Medical decision making narrative: This is a 70-year-old female comes in with complaint of nausea. Patient has heart rate into the 90s, she has leukocytosis but has had this for several years. Patient has been afebrile had just her main issue is continued nausea. Patient's labs show hyperglycemia, lactate of 3, patient does not appear to be in DKA. Her anion gap is only 12, her bicarb is appropriate, she does have ketones by her VBG does not show acidosis. Patient's on further evaluation has nitrite positive urine it did take some time to obtain this which delayed patient's final diagnosis. Patient appears to have urosepsis, she is not hypotensive but rather hypertensive likely secondary to not having her hypertensive medications. Patient has noted on imaging to have a solid-appearing lesion on the right kidney which is new patient also has a 2.5 cm complex hyperdense left renal cyst 0 recommended to be evaluated further to exclude neoplasm. There is no signs of obstruction on her CT, there are calculi in the kidney but not within the ureter. Discussed with Urology from [facility] they do not feel that patient should be treated as an abscess at this time but are far more suspicious for cancer, they would recommend treating as UTI sepsis and then outpatient follow-up for renal cell carcinoma with urology and oncology. Spoke with our hospitalist who agrees to admission. IV Zosyn was initiated, patient was able to tolerate oral potassium here for replacement. Troponin was negative with no acute EKG changes after several days of symptoms. Critical Care Time Critical Care Time Critical Care Time: Yes Total Critical Care Time: 125 Attestation: The high probability of a clinically significant, sudden or life threatening deterioration of the [multiorgan] system(s) required my full and direct attention, intervention and personal management. The aggregate critical care dickson e was [] minutes. This time is in addition to time spent performing reported procedures but includes the following: [x] Data Review and interpretation [x] Patient assessment and monitoring of vital signs [x] Documentation [x] Medication orders and management Discharge Plan Departure Patient Disposition: Admitted As Inpatient Clinical Impression: Acute UTI, Sepsis, Left kidney mass, Hyperglycemia Admit Date/Time: 09/08/20 15:07 Admit Provider: Trino Rodriguez
--- NOTE | 2020-09-08 11:44 | DI.RAD.S_ITS ---
PROCEDURE: XR ACUTE ABDOMEN SERIES INDICATIONS: nausea TECHNIQUE: One view chest and two views of the abdomen were acquired. COMPARISON: [facility], , ABDOMEN ACUTE SERIES, 07/24/2013, 8:53. FINDINGS: Surgical changes and devices: Cholecystectomy clips are present. Chest: Lungs are clear. Heart size is normal. No pleural effusions. No pneumoperitoneum. Abdomen: Bowel gas pattern is normal. No suspicious calcifications. Liver shadow appears enlarged. Bones: No suspicious bony lesions. IMPRESSION: No visualized obstruction. Dictated by: Lolly Jones M.D. on 09/08/2020 at 13:00 Approved by: Lolly Jones M.D. on 09/08/2020 at 13:03
[2020-09-08 12:16] LABS: HCO3 VBG 32 mmol/L (23-28); Oxygen Saturation VBG 86 % (70-75); PCO2 VBG 42.4 mmHg (45-50); PO2 VBG 48 mmHg (35-45); Total CO2 VBG 34 mmol/L (24-29); pH VBG 7.49 (7.33-7.43)
[2020-09-08] MEDS: SODIUM CHLORIDE 0.9% 1,000 ML 1000 ML IV ×3 (12:17→15:35)
[2020-09-08 12:46] LABS: Creatine Kinase 232 U/L (30-135)
[2020-09-08] MEDS: METOCLOPRAMIDE 10 MG/2 ML INJ IV (12:49)
[2020-09-08] MEDS: POTASSIUM CHLORIDE 20 MEQ/15 ML UDC 40 MEQ PO (12:50)
[2020-09-08 12:59] LABS: Troponin I 0.014 ng/mL (0.01-0.034)
[2020-09-08 13:01] LABS: CKMB % Relative Index 0.4 % (1.5-5.0); Creatine Kinase MB 0.85 ng/mL (<2.37)
--- NOTE | 2020-09-08 13:03 | DI.CT.S_ITS ---
PROCEDURE: CT ABDOMEN PELVIS W CON INDICATIONS: + nausea/vomiting, ? infection, no pain TECHNIQUE: After the administration of intravenous contrast, axial sections acquired from the lung bases to the pubic symphysis. Coronal and sagittal reformats were performed. For radiation dose reduction, the following was used: automated exposure control, adjustment of mA and/or kV according to patient size. COMPARISON: [facility], CT, ABDOMEN/PELVIS WITH CONTRAST, 03/03/2017, 21:58. FINDINGS: ABDOMEN: Lung bases: Scattered scarring/atelectasis. 2-3 mm nodule seen in the right middle lobe on image 2/3 which is indeterminate although not definitely seen on the comparison study. Additional 2 mm nodule seen in the peripheral right lower lobe on image 9/3. 3 mm left basilar pulmonary nodule on image 9/3. These 2 nodules were seen on the prior study from 2017. Heart: Mild coronary artery calcifications. No cardiomegaly. No pericardial effusion. Liver: Mild hepatic steatosis. No focal hepatic lesion identified. Gallbladder: Surgically absent. Bile ducts: Normal. Pancreas: Normal. Spleen: Normal. Adrenals: Mild nodular hypertrophy of the left adrenal gland. The right adrenal gland unremarkable. 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 There is a 1.9 cm right exophytic lesion seen on image 51/2 demonstrating solid appearance. Additional 2.5 cm left renal lesion demonstrating slightly greater expected attenuation 4 water. Additional subcentimeter renal foci, statistically cysts, although technically too small to characterize accurately and therefore nonspecific. No hydronephrosis. Nonobstructive multiple right greater than left renal calculi are noted measuring up to 5 mm on the right and 2 mm on the left. Stomach and duodenum: Normal. Bowel: Colonic diverticulosis is seen without evidence of acute complication. Appendix is not clearly identified however no suspicious pericecal inflammatory changes are seen. Other: No free fluid or air. Abdominal nodes: Normal. Aorta and IVC: Normal in size. Scattered vascular calcifications. Ventral wall: Normal. PELVIS: Bladder: Intraluminal gas seen within the bladder which could be due to recent catheterization although cannot exclude infection with gas-forming organism or occult fistula and therefore recommend correlation to history. Inguinal region: No hernia. Pelvic nodes: Normal. Bones: Spondylytic changes and facet arthropathy. No vertebral body compression fracture. There is ankylosis of both SI joints, and prominent multilevel syndesmophyte formation throughout the visualized spine suggestive of ankylosing spondylitis. Diffuse osteopenia. IMPRESSION: No acute abnormality identified. Exophytic solid-appearing lesion involving the right kidney, which is new and suspicious for renal cell carcinoma until proven otherwise. Urology surgical consultation recommended. Additional 2.5 cm complex hyperdense left renal cyst although recommend attention to this area on subsequent surveillance studies to document stability and exclude neoplasm. Bilateral nonobstructive renal calculi. Right middle lobe 2-3 mm pulmonary nodule which is indeterminate. Recommend follow-up with CT in 1 year. No evidence of bowel obstruction. Osseous findings compatible with ankylosing spondylitis. Additional chronic and incidental findings as above. Dictated by: Tavares William M.D. on 09/08/2020 at 14:17 Approved by: Tavares William M.D. on 09/08/2020 at 14:27
[2020-09-08 13:45] LABS: RBC Urine None Seen (0-5/HPF)
[2020-09-08 13:56] LABS: Bacteria Urine Many (>30); Culture Indicated Urine Specimen Cultured; WBC Urine 5-10/HPF (0-5/HPF)
[2020-09-08 14:33] LABS: Reflexed Lactate in 2 Hours Y
[2020-09-08] MEDS: PIPERACILLIN/TAZO 4.5 GM in SODIUM CHLORIDE 0.9% 100 ML 200 ML IV (14:36)
[2020-09-08 14:48] LABS: Lactate (Lactic Acid) 3.5 mmol/L (0.7-2.1)
[2020-09-08] MEDS: METOPROLOL TARTRATE 5 MG/5 ML INJ IV ×3 (15:30→15:57)
[2020-09-08 15:46] LABS: COVID19 - ADMIT (NP swab/PCR) Negative (Negative)
[2020-09-08 16:22] LABS: Reflexed Lactate in 2 Hours Y
[2020-09-08] MEDS: DEXTROSE 5%-LACTATED RINGERS 1,000 ML 50 ML IV (17:29)
[2020-09-08] MEDS: cefTRIAXone 1,000 MG in SODIUM CHLORIDE 0.9% 100 ML 200 ML IV (17:32)
[2020-09-08] MEDS: METFORMIN HCL 500 MG TABLET 1000 MG PO (17:45)
[2020-09-08] MEDS: HYDROCODONE/ACET 5/325 TABLET 1 TAB PO ×2 (18:27→21:55)
--- NOTE | 2020-09-08 20:01 | P.HP_ITS ---
History of Present Illness History of Present Illness Date Patient Seen: 09/08/20 Time Patient Seen: 20:01 Chief complaint: nausea beyond belief since Fri Narrative: Patient is a 70-year-old female [place] who presented to the ED with a chief complaint of nausea ?beyond bone leaf? since Friday or Friday morning. Patient states she has just had nausea she denies any pain. She has not had active vomiting but has had occasional dry heaves. She has been able to sip water but has not had an appetite and not eating much oral solids. Patient denies any fevers, body aches, chills, chest pain, pressure, abdominal, back, or flank pain. Patient states that she has had soft stools slightly runny but not liquid several times a day for the past 3 days. Patient denies any polyuria, polydipsia or frequency. Patient states she has been urinating regularly. Patient has been taking Zofran which was been helpful but continues to have symptoms this morning. She has not had these symptoms in the past. She does have a history of ankylosing spondylitis, insulin-dependent diabetes and states her normal glucose is around 130,dyslipidemia, hypertension, restless leg syndrome, chronic low back pain in which she takes daily NSAIDs, and aortic sten osis. Patient was seen in the ED 09/07/20 for hyperglycemia-blood sugar 307, and hypertension. She also smokes marijuana daily. Patient did noted that her symptoms on 09/07/20 improved while taking a shower. Upon admit patient denies any symptoms with the exception of exacerbation of her chronic back pain. Patient currently denies any nausea and no further diarrhea. Reviewing the patient's chart she appears to be a patient of Dr. Velez and according to office visit review of 2019 patient was on chronic opiates/pain contract. Patient's vitals upon admit she was slightly febrile with a tempe rature of 99.2?, uncontrolled hypertension the blood pressure 179/97, heart rate 87, respirations 17, O2 saturation 96% on room air. Patient demonstrated respiratory and metabolic alkalosis her VBG's showed a pH 7.49, pCO2 of 42.4, HC03 of 32, and O2 saturation of 86%, base excess 9.0. Patient's wbc's were elevated at 18.7 and a left shift with neutrophils at 16,000. Sofa score of 1. Patient had minor electrolyte imbalances Na 132, Cl 91, BUN 23, potassium 3.3. Patient was given 40 mEq potassium in ED. patient's blood sugar was elevated at 399, lactate elevated 3.5, total creatinine kinase 232, CK-MB index 0.4%, and patient was positive for ketones 0.50, her troponin while normal was also slightly elevated at 0.014. UA had many bacteria and was sent for culture. Patient's x-ray of chest in abdomen showed no visualization of obstruction. Patient's abdomen pelvis CT did demonstrate an exophytic solid-appearing lesion involving the right kidney, which is new and suspicious for renal cell carcinoma until proven otherwise. Patient admitted for acute UTI with respiratory/metabolic alkalosis, and hypokalemia. Patient History Medical History Anemia Ankylosing spondylitis (~1994) Aortic stenosis Chicken pox Chronic back pain Colitis Diabetes mellitus (2003) Diabetes mellitus, type II, insulin dependent Diabetic peripheral neuropathy Gastrointestinal irritation Hyperlipidemia Hypertension IBS (irritable bowel syndrome) Measles Mumps RLS (restless legs syndrome) Sepsis Surgical History Anesthesia Status post appendectomy (1964) Status post breast biopsy (1991) Status post breast biopsy (2013) Status post cholecystectomy (1991) Status post hysterectomy (1993) Family & Social History Family History Father Cancer Diabetes mellitus Hypertension High cholesterol Mother Heart disease Hypertension Brother Ankylosing spondylitis Son Ankylosing spondylitis Social History: household members patient is and lives alone. Prior Living Arrangements House Safety & Behavioral: Feels Safe in Current Yes Environment Been Physically Hurt or No Threatened By a Person Suicidal Ideation Description None Suicide Plan Description No Plan Tobacco & Substance use: Smoking Status Former smoker alcohol intake never Substance Use Type marijuana Meds Home Medications and Allergies Home Medications Medication Instructions Recorded Confirmed Type aspirin 81 mg tablet,delayed 81 mg PO DAILY 04/28/18 09/08/20 History release chlorthalidone 25 mg tablet 25 mg PO DAILY #60 tab 04/28/18 09/08/20 History lactobacillus combination no.8 3 3,000 mmu cells PO DAILY 04/28/18 09/08/20 History billion cell capsule (Adult Probiotic) lansoprazole 15 mg capsule,delayed 15 mg PO DAILY 04/28/18 09/08/20 History release magnesium oxide 400 mg PO BID cap 04/28/18 09/08/20 History B-D PEN NEEDLE #100 each 02/22/19 09/08/20 Rx blood sugar diagnostic (Blood #250 each 09/14/19 09/08/20 Rx Glucose Test) blood-glucose meter #1 each 09/23/19 09/08/20 Rx metformin 1,000 mg tablet 1,000 mg PO BIDCC #180 tab 03/24/20 09/08/20 Rx (Glucophage) metoprolol succinate 100 mg 100 mg PO BID #180 tab 03/24/20 09/08/20 Rx tablet,extended release 24 hr hydrocodone 5 mg-acetaminophen 325 1 tab PO QID PRN #360 tab 05/12/20 09/08/20 Rx mg tablet (Willard) Droplet Pen [place] #250 ea 07/18/20 09/08/20 Rx glipizide 5 mg tablet See Rx Instructions .ROUTE 09/04/20 09/08/20 Rx .COMPLEX #180 tab meloxicam 15 mg tablet (Mobic) 15 mg PO Q DAY PRN PRN #90 tab 09/04/20 09/08/20 Rx simvastatin 20 mg tablet 20 mg PO HS #90 tab 09/04/20 09/08/20 Rx hydralazine 10 mg tablet 10 mg PO DAILY 09/08/20 09/08/20 History insulin glargine 100 unit/mL (3 55 unit SUBCUT HS 09/08/20 09/08/20 History mL) subcutaneous pen (Lantus Solostar U-100 Insulin) lisinopril 40 mg tablet 40 mg PO DAILY 09/08/20 09/08/20 History Allergies Allergy/AdvReac Type Severity Reaction Status Date / Time No Known Drug Allergies Allergy Verified 09/08/20 14:16 Review of Systems Review of Systems Narrative: Patient complaining her chronic low back pain, and denies any symptoms other than documented in the HPI. Exam Vital Signs (past 8 hours): - 09/08/20 12:37 09/08/20 13:00 09/08/20 13:05 Temperature Pulse Rate 97 H 93 H 97 H Respiratory Rate Blood Pressure 227/98 H 231/104 H Pulse Oximetry 93 92 94 09/08/20 13:08 09/08/20 13:52 09/08/20 14:00 Temperature Pulse Rate 97 H 115 H 110 H Respiratory Rate Blood Pressure 202/86 H Pulse Oximetry 93 97 97 09/08/20 14:43 09/08/20 14:45 09/08/20 15:00 Temperature Pulse Rate 121 H 110 H 109 H Respiratory Rate 20 20 17 Blood Pressure 194/88 H 194/89 H Pulse Oximetry 96 95 09/08/20 15:30 09/08/20 15:31 09/08/20 15:36 Temperature Pulse Rate 110 H 103 H 95 H Respiratory Rate 24 24 21 Blood Pressure 207/84 H 213/96 H Pulse Oximetry 94 94 94 09/08/20 15:40 09/08/20 15:45 09/08/20 15:50 Temperature Pulse Rate 96 H 94 H 92 H Respiratory Rate 22 23 20 Blood Pressure 209/99 H 205/100 H 188/103 H Pulse Oximetry 95 95 96 09/08/20 15:55 09/08/20 16:00 09/08/20 16:43 Temperature 99.2 F Pulse Rate 95 H 91 H 87 Respiratory Rate 22 24 17 Blood Pressure 207/97 H 208/98 H 179/97 H Pulse Oximetry 96 95 96 Oxygen Delivery Method Room Air Narrative Exam Narrative: General: Patient is a well-developed, well-nourished female in no distress at this time. HEENT: Normocephalic, atraumatic, extraocular muscles intact, oral pharynx is clear and mucous membranes are moist. Neck is supple and symmetric, trachea is midline, no adenopathy, no thyroid enlargement, nontender, no masses palpated. Negative for JVD-wears glasses. Chest: Normal AP diameter and contour without kyphoscoliosis, no nasal flaring, retractions, or tachypneic labored Lungs: Auscultation of all lung leonard without rhonchi, or rales, positive for occansional expiratory wheezing throughout, and decreased in the left lower lobe. Cardio: S1 & S2 with regular rate and rhythm with a +3 whooshing murmur, without rubs, or gallops, no carotid bruit, no cardiac pulsations present. Abdomen: Soft nontender, negative for organomegaly, or masses. Bowel sounds are present in all 4 quadrants without guarding or rebound, no CVA tenderness. Musculoskeletal: Muscle strength and tone are equal within normal limits, no deformity, crepitus, effusions, cyanosis, clubbing or edema present. Full range of motion intact radial and pedal pulses are normal. Skin: Warm dry and intact without rashes, ulcerations or petechiae. Neuro: Alert and orientated x3, strength is +5/5 in all extremities, sensation to touch intact, no gross deficits noted of cranial nerves. Psych: Patient has a well-kept appearance, appropriate affect, mental status attitude thought context and judgment are appropriate for age. Objective Labs Result Diagrams: 09/08/20 10:52 09/08/20 10:52 Labs: Laboratory Results - last 24 hr 09/08/20 09/08/20 09/08/20 10:52 10:52 10:52 WBC 18.7 H RBC 4.54 Hgb 12.6 Hct 38.8 MCV 85.3 MCH 27.7 MCHC 32.4 RDW 14.2 Plt Count 394 Neut % (Auto) 85.6 H Lymph % (Auto) 10.6 L Schley % (Auto) 3.4 Eos % (Auto) 0.0 L Baso % (Auto) 0.4 Neut # (Auto) 81959 H Lymph # (Auto) 2000 Schley # (Auto) 600 Eos # (Auto) 0 Baso # (Auto) 100 VBG pH VBG pCO2 VBG pO2 VBG HCO3 VBG Total CO2 VBG O2 Saturation VBG Base Excess Sodium 132 L Potassium 3.3 L Chloride 91 L Carbon Dioxide 29 BUN 23 H Creatinine 0.79 Estimated GFR > 60.0 BUN/Creatinine Ratio 29.1 H Glucose 399 H Lactate 3.0 H Calcium 10.7 H Total Bilirubin 0.7 AST 53 H ALT 34 Alkaline Phosphatase 94 Total Creatine Kinase CK-MB (CK-2) CK-MB (CK-2) Rel Index Troponin I Total Protein 7.8 Albumin 4.9 Globulin 2.9 Albumin/Globulin Ratio 1.7 Lipase 56 Procalcitonin Urine RBC Urine WBC Urine Bacteria Ur Culture Indicated? Ketones SARS-CoV-2 (PCR) 09/08/20 09/08/20 09/08/20 10:52 10:52 11:56 WBC RBC Hgb Hct MCV MCH MCHC RDW Plt Count Neut % (Auto) Lymph % (Auto) Schley % (Auto) Eos % (Auto) Baso % (Auto) Neut # (Auto) Lymph # (Auto) Schley # (Auto) Eos # (Auto) Baso # (Auto) VBG pH 7.49 H VBG pCO2 42.4 L VBG pO2 48 H VBG HCO3 32 H VBG Total CO2 34 H VBG O2 Saturation 86 H VBG Base Excess 9.0 H Sodium Potassium Chloride Carbon Dioxide BUN Creatinine Estimated GFR BUN/Creatinine Ratio Glucose Lactate Calcium Total Bilirubin AST ALT Alkaline Phosphatase Total Creatine Kinase 232 H CK-MB (CK-2) 0.85 CK-MB (CK-2) Rel Index 0.4 L Troponin I 0.014 Total Protein Albumin Globulin Albumin/Globulin Ratio Lipase Procalcitonin 0.10 Urine RBC Urine WBC Urine Bacteria Ur Culture Indicated? Ketones 0.50 H SARS-CoV-2 (PCR) 09/08/20 09/08/20 09/08/20 13:30 14:19 14:30 WBC RBC Hgb Hct MCV MCH MCHC RDW Plt Count Neut % (Auto) Lymph % (Auto) Schley % (Auto) Eos % (Auto) Baso % (Auto) Neut # (Auto) Lymph # (Auto) Schley # (Auto) Eos # (Auto) Baso # (Auto) VBG pH VBG pCO2 VBG pO2 VBG HCO3 VBG Total CO2 VBG O2 Saturation VBG Base Excess Sodium Potassium Chloride Carbon Dioxide BUN Creatinine Estimated GFR BUN/Creatinine Ratio Glucose Lactate 3.5 H Calcium Total Bilirubin AST ALT Alkaline Phosphatase Total Creatine Kinase CK-MB (CK-2) CK-MB (CK-2) Rel Index Troponin I Total Protein Albumin Globulin Albumin/Globulin Ratio Lipase Procalcitonin Urine RBC None seen Urine WBC 5-10/hpf H Urine Bacteria Many (>30) H Ur Culture Indicated? Specimen cultured Ketones SARS-CoV-2 (PCR) Negative Assessment & Plan Assessment & Plan narrative: 1. Respiratory and metabolic alkalosis, acute, present on admission -unsure as to the cause to the patient's alkalosis suspect uncontrolled diabetes and hypertension have contributed and infection of unknown origin which may be related to renal mass. Upon admit patient was stable and in no distress and did not appear septic. Patient had minor electrolyte imbalances Na 132, Cl 91, BUN 23, potassium 3.3. Patient was given 40 mEq potassium in ED. patient's blood sugar was eleva virgen at 399, lactate elevated 3.5, total creatinine kinase 232, CK-MB index 0.4%, and patient was positive for ketones 0.50, - VBG's showed a pH 7.49, pCO2 of 42.4, HC03 of 32, and O2 saturation of 86%, base excess 9.0. - vital signs q.4 hours, intake and output monitored Q shift, weight measure daily, diet:Corrected carbohydrate, Sepsis bundle provided in the ED. -fluids: D5 LR at 50 -patient given Zosyn in ED, started on Rocephin 1 g q.day -patient's troponin 1. 0.014, 2. 0.041 -a.m. labs CBC, CMP, VBG, Trop X3 2. Hypokalemia, acute, present on admission -40 mEq p.o. potassium in ED -monitor electrolytes 3. Leukocytosis, possible UTI-sent for culture, acute, present on admission --WBC's were elevated at 18.7 and a left shift with neutrophils at 16,000. Sofa score of 1. -while the patient is WBCs are elevated I question a UTI as the urine results lacked documented nitrates though culture was ordered. -Rocephin 1 g q.day 4. Right renal Lesion acute, present on admission -CT of abdomen/ pelvis No acute abnormality identified. Exophytic solid- appearing lesion involving the right kidney, which is new and suspicious for renal cell carcinoma until proven otherwise. Urology surgical consultation recommended. Additional 2.5 cm complex hyperdense left renal cyst although recommend attention to this area on subsequent surveillance studies to document stability and exclude neoplasm. Bilateral nonobstructive renal calculi. Right middle lobe 2-3 mm pulmonary nodule which is indeterminate. Recommend follow-up with CT in 1 year. -a discharge referral for follow-up with endocrinology. 3. Essential hypertension, acute on chronic, present on admission, uncontrolled -continue patient's chlorothalidone, metoprolol, lisinopril 4. Insulin-dependent type 2 diabetes, acute on chronic, present on admission-uncontrolled -blood sugar on admit 399 -patient admitted under diabetes protocol, blood sugar checks ACHS, monitor for hypoglycemia -A1c:9.9, stopped patient's glipizide as it should not be taken with insulin, continue patient's metformin, Lantus changed to 30 units b.i.d., an added Humalog 15 units preprandial, continue postprandial high-dose sliding scale per protocol. -patient needs follow-up visit with her primary care provider and repeat A1c in 3 months. 5. Hyperlipidemia caused by diabetes, chronic, present on admission -continue patient's simvastatin 6. GERD, chronic, present on admission -continue patient's Lansoprazole Code status: Full code Surrogate decision maker:Jordan MARCUM PCR: Negative VTE/DVT prophylaxis: Lovenox 40 mg and SCDs Estimated length of stay: Less than 2 midnights Scores GCS [place] coma scale eye opening: Spontaneous [place] coma scale verbal response: Orientated [place] coma scale motor response: Obey commands Jennifer coma scale total score: 15 SOFA PaO2/FIO2: >=400 mmHg Platelets: >= 150 Bilirubin: < 1.2 mg/dL Hypotension: MAP >= 70 mmHg [place] Coma Scale: 15 Renal: < 1.2 mg/dL SOFA Score: 0 Wells' Criteria for PE Clinical signs and symptoms of DVT: No PE is #1 Dx or equally likely: No Heart rate > 100: No Immobilization at least 3 days or surg in previous 4 weeks: No History of PE or DVT: No Hemoptysis: No Malignancy w/Treatment within 6 months or palliative: No Wells' PE Score total: 0 Quality MIPS - Admit I confirm the patient?s Advance Care Plan is present, Code status is documented, Surrogate decision maker is in patient?s record [If Yes, STOP here]: Yes
[2020-09-08 20:36] LABS: Magnesium 1.4 mg/dL (1.6-2.3)
[2020-09-08 20:38] LABS: Hemoglobin A1C% w Est Avg Glu 9.3 % (4.0-6.0)
[2020-09-08] MEDS: ATORVASTATIN 20 MG TABLET 10 MG PO (20:59)
[2020-09-08] MEDS: MAGNESIUM OXIDE 400 MG TABLET PO (20:59)
[2020-09-08] MEDS: METOPROLOL ER 50 MG TABLET 100 MG PO (21:00)
[2020-09-08] MEDS: INSULIN GLARGINE 100 UNIT/ML 3ML PEN 55 UNIT SUBCUT (21:02)
[2020-09-08] MEDS: INSULIN LISPRO 100 UNIT/ML 3ML VIAL SUBCUT (21:03)
[2020-09-08 21:10] LABS: Troponin I 0.041 ng/mL (0.01-0.034)
[2020-09-09] VITALS (20 sets, daily range): BP systolic 127–193; BP diastolic 62–94; PULSE 70–86; RESP 16–18; TEMP 36.3–37; O2SAT 93–96
[2020-09-09] MEDS: METOCLOPRAMIDE 10 MG/2 ML INJ 5 MG IV ×3 (00:58→14:22)
[2020-09-09] MEDS: MAGNESIUM SULFATE 2 GM/50 ML PIGGYBACK IV (05:09)
[2020-09-09 05:40] LABS: HCO3 VBG 32 mmol/L (23-28); PCO2 VBG 46.6 mmHg (45-50); PO2 VBG 32 mmHg (35-45)
[2020-09-09 05:41] LABS: Oxygen Saturation VBG 63 % (70-75); Total CO2 VBG 33 mmol/L (24-29); pH VBG 7.45 (7.33-7.43)
[2020-09-09 06:12] LABS: Add Manual Diff / Slide Review NO; Basophils Absolute Auto 100 /uL (0-100); Basophils Percent Auto 0.3 % (0-2); Eosinophils Absolute Auto 0 /uL (0-450); Hematocrit 35.2 % (36-46); Hemoglobin 11.4 g/dL (12.0-16.0); Lymphocytes Absolute Auto 5200 /uL (1100-4500); Lymphocytes Percent Auto 27.8 % (25-40); Mean Corpuscular HGB Conc 32.4 % (30-36); Mean Corpuscular Hemoglobin 27.7 PG (26-34); Mean Corpuscular Volume 85.6 fL (80-100); Monocytes Absolute Auto 1400 /uL (0-900); Monocytes Percent Auto 7.5 % (3-14); Neutrophils Absolute Auto 12000 /uL (1500-7000); Neutrophils Percent Auto 64.4 % (50-75); Platelet Count 326 X10^3/uL (150-400); Red Blood Cell Count 4.11 X10^6/uL (4.0-5.2); Red Cell Distribution Width 14.1 % (11.6-14.8); White Blood Cell Count 18.6 X10^3/uL (4.5-11.0)
[2020-09-09 06:27] LABS: Alanine Aminotransferase 30 IU/L (<35); Albumin 3.6 g/dL (3.5-5.0); Albumin Globulin Ratio 1.4 (1.0-2.8); Alkaline Phosphatase 65 U/L (38-126); Aspartate Aminotransferase 48 IU/L (14-36); BUN Creatinine Ratio 22.4 (6-22); Bilirubin Total 0.4 mg/dL (0.2-1.3); Blood Urea Nitrogen 15 mg/dL (7-17); Carbon Dioxide 32 mmol/L (22-32); Chloride 95 mmol/L (98-107); Estimated Glomerular Filt Rate > 60.0 mL/min (>60); Globulin 2.5 g/dL (1.7-4.1); Glucose 165 mg/dL (80-110); HEMOLYSIS < 15 (0-50); Sodium 134 mmol/L (137-145); Total Protein 6.1 g/dL (6.3-8.2)
[2020-09-09] MEDS: PANTOPRAZOLE DR 20 MG TABLET PO (06:36)
[2020-09-09 06:52] LABS: Potassium 2.6 mmol/L (3.4-5.1)
[2020-09-09] MEDS: POTASSIUM CHLORIDE IN WATER 10 MEQ/100 ML PIGGYBACK 100 MEQ IV ×4 (08:07→14:18)
[2020-09-09] MEDS: POTASSIUM CHLORIDE 20 MEQ/15 ML UDC 40 MEQ PO (08:38)
[2020-09-09] MEDS: ONDANSETRON 4 MG/2 ML INJ IV ×2 (09:00→16:52)
[2020-09-09] MEDS: INSULIN GLARGINE 100 UNIT/ML 3ML PEN 30 UNIT SUBCUT ×2 (09:47→21:38)
[2020-09-09] MEDS: METFORMIN HCL 500 MG TABLET 1000 MG PO ×2 (09:51→19:19)
[2020-09-09] MEDS: lisinopriL 20 MG TABLET 40 MG PO (10:00)
[2020-09-09] MEDS: ASPIRIN EC 81 MG TABLET PO (10:00)
[2020-09-09] MEDS: HYDRALAZINE 10 MG TABLET PO (10:00)
[2020-09-09] MEDS: ENOXAPARIN 40 MG/0.4 ML SYRINGE SUBCUT (10:00)
[2020-09-09] MEDS: MAGNESIUM OXIDE 400 MG TABLET PO ×2 (10:06→21:34)
[2020-09-09] MEDS: METOPROLOL ER 50 MG TABLET 100 MG PO ×2 (10:06→21:33)
[2020-09-09] MEDS: HYDROCODONE/ACET 5/325 TABLET 1 TAB PO ×2 (10:08→19:19)
--- NOTE | 2020-09-09 12:32 | CM.DANOTE ---
DCP: Case received, EMR reviewed and met with patient. Introduced self and role. Was able to obtain information from patient regarding her baseline activity status prior to hospitalization, as well as her current living situation. DCP assessment completed with information currently available. Patient is a 70 year old female who admitted yesterday afternoon to the care of the hospitalist team. PCP: Dr. Velez. Payer: confirmed: Medicare/[employer]. Patient came to the hospital via private vehicle secondary to having increased nausea and vomiting. Patient holds diagnosis of UTI, and also has history of renal abscess. She is under the care of urologist. Patient is also noted to have hypokalemia. Met with patient in her room. She was mobilizing independently with her IV pole. Indicated, she was still having nausea. Confirmed with patient that she resides here in [place] alone, she is a . She does have sons, Austen is local and point of contact, and she has another son named Jordan who lives in [place]. Patient indicated that she is independent, drives, uses no DME supplies. P: DCP to continue to follow. Patient should be able to go home when she is medically stable. Mally Vides RN/Ski Molder
[2020-09-09 15:54] LABS: Carbon Dioxide 28 mmol/L (22-32); Chloride 96 mmol/L (98-107); HEMOLYSIS < 15 (0-50); Potassium 3.4 mmol/L (3.4-5.1); Sodium 134 mmol/L (137-145)
[2020-09-09] MEDS: LORazepam 2 MG/ML INJ 1 MG IV ×2 (16:52→21:36)
[2020-09-09] MEDS: cefTRIAXone 1,000 MG in SODIUM CHLORIDE 0.9% 100 ML 200 ML IV (17:04)
--- NOTE | 2020-09-09 17:05 | PM.PN.1 ---
Subjective Subjective Date Patient Seen: 09/09/20 Interval history: Patient is 70-year-old female with history of hypertension, diabetes requiring insulin control, aortic stenosis, chronic cannabis intake presented with chief complaint of intractable severe nausea. Patient has continued severe nausea only minimally relieved by IV Zofran and Reglan. No vomiting. Exam Vital Signs (past 8 hours): - 09/09/20 10:00 09/09/20 10:06 09/09/20 12:00 Temperature 98.6 F Pulse Rate 70 70 78 Pulse Rate [Orthostatic Lying] Pulse Rate [Orthostatic Sitting] Pulse Rate [Orthostatic Standing] Respiratory Rate 18 Blood Pressure 155/70 H 155/75 H 189/94 H Blood Pressure [Orthostatic Lying] Blood Pressure [Orthostatic Sitting] Blood Pressure [Orthostatic Standing] Pulse Oximetry 95 09/09/20 12:42 09/09/20 15:37 09/09/20 15:38 Temperature Pulse Rate 71 71 71 Pulse Rate [Orthostatic Lying] Pulse Rate [Orthostatic Sitting] Pulse Rate [Orthostatic Standing] Respiratory Rate Blood Pressure 177/80 H 177/80 H 177/80 H Blood Pressure [Orthostatic Lying] Blood Pressure [Orthostatic Sitting] Blood Pressure [Orthostatic Standing] Pulse Oximetry 95 09/09/20 15:41 Temperature 98.1 F Pulse Rate 74 Pulse Rate [Orthostatic Lying] 74 Pulse Rate [Orthostatic Sitting] 79 Pulse Rate [Orthostatic Standing] 75 Respiratory Rate 16 Blood Pressure 192/90 H Blood Pressure [Orthostatic Lying] 192/90 H Blood Pressure [Orthostatic Sitting] 149/84 H Blood Pressure [Orthostatic Standing] 180/78 H Pulse Oximetry 95 Oxygen Delivery Method Room Air Oxygen Flow Rate 0 Narrative Exam Narrative: Exam: Alert and cooperative female Objective Labs Result Diagrams: 09/09/20 05:30 09/09/20 15:35 Labs: Laboratory Results - last 24 hr 09/08/20 09/08/20 09/08/20 10:52 10:52 20:34 WBC RBC Hgb Hct MCV MCH MCHC RDW Plt Count Neut % (Auto) Lymph % (Auto) [place] % (Auto) Eos % (Auto) Baso % (Auto) Neut # (Auto) Lymph # (Auto) [place] # (Auto) Eos # (Auto) Baso # (Auto) VBG pH VBG pCO2 VBG pO2 VBG HCO3 VBG Total CO2 VBG O2 Saturation VBG Base Excess Sodium Potassium Chloride Carbon Dioxide BUN Creatinine Estimated GFR BUN/Creatinine Ratio Glucose Hemoglobin A1c 9.3 H Calcium Magnesium 1.4 L Total Bilirubin AST ALT Alkaline Phosphatase Troponin I 0.041 H Total Protein Albumin Globulin Albumin/Globulin Ratio 09/09/20 09/09/20 09/09/20 05:28 05:30 05:30 WBC 18.6 H RBC 4.11 Hgb 11.4 L Hct 35.2 L MCV 85.6 MCH 27.7 MCHC 32.4 RDW 14.1 Plt Count 326 Neut % (Auto) 64.4 D Lymph % (Auto) 27.8 [place] % (Auto) 7.5 Eos % (Auto) 0.0 L Baso % (Auto) 0.3 Neut # (Auto) 82149 H Lymph # (Auto) 5200 H [place] # (Auto) 1400 H Eos # (Auto) 0 Baso # (Auto) 100 VBG pH 7.45 H VBG pCO2 46.6 VBG pO2 32 L VBG HCO3 32 H VBG Total CO2 33 H VBG O2 Saturation 63 L VBG Base Excess 8.0 H Sodium 134 L Potassium 2.6 L* Chloride 95 L Carbon Dioxide 32 BUN 15 Creatinine 0.67 Estimated GFR > 60.0 BUN/Creatinine Ratio 22.4 H Glucose 165 H D Hemoglobin A1c Calcium 9.0 Magnesium Total Bilirubin 0.4 AST 48 H ALT 30 Alkaline Phosphatase 65 Troponin I 0.040 H Total Protein 6.1 L Albumin 3.6 Globulin 2.5 Albumin/Globulin Ratio 1.4 09/09/20 15:35 WBC RBC Hgb Hct MCV MCH MCHC RDW Plt Count Neut % (Auto) Lymph % (Auto) [place] % (Auto) Eos % (Auto) Baso % (Auto) Neut # (Auto) Lymph # (Auto) [place] # (Auto) Eos # (Auto) Baso # (Auto) VBG pH VBG pCO2 VBG pO2 VBG HCO3 VBG Total CO2 VBG O2 Saturation VBG Base Excess Sodium 134 L Potassium 3.4 Chloride 96 L Carbon Dioxide 28 BUN Creatinine Estimated GFR BUN/Creatinine Ratio Glucose Hemoglobin A1c Calcium Magnesium Total Bilirubin AST ALT Alkaline Phosphatase Troponin I Total Protein Albumin Globulin Albumin/Globulin Ratio [facility] Medical History Anemia Ankylosing spondylitis (~1994) Aortic stenosis Chicken pox Chronic back pain Colitis Diabetes mellitus (2003) Diabetes mellitus, type II, insulin dependent Diabetic peripheral neuropathy Gastrointestinal irritation Hyperlipidemia Hypertension IBS (irritable bowel syndrome) Measles Mumps RLS (restless legs syndrome) Sepsis Surgical History Anesthesia Status post appendectomy (1964) Status post breast biopsy (1991) Status post breast biopsy (2013) Status post cholecystectomy (1991) Status post hysterectomy (1993) Family History Father Cancer Diabetes mellitus Hypertension High cholesterol Mother Heart disease Hypertension Brother Ankylosing spondylitis Son Ankylosing spondylitis Social History household members: none Smoking Status: Former smoker alcohol intake: never Assessment & Plan Assessment & Plan narrative: 1. Intractable nausea -this is likely hyperemesis cannabis syndrome, less likely UTI -ordered lorazepam 1 mg IV q.4 hours as needed -continue IV Zofran and Reglan -try topical capsaicin q.6 hours as needed -counseled regarding cannabis cessation -continue IV hydration 2. Urinary tract infection -unclear whether clinical or subclinical bacteriuria as patient has no dysuria, fever, flank or abdominal pain -elevated WBC likely from other cause, patient is certainly not appearing septic -urine culture growing Gram-negative bacilli -continue Zosyn but narrow antibiotics once culture sensitivities are back 3. Left renal mass -CT of abdomen/ pelvis No acute abnormality identified. Exophytic solid-appearing lesion involving the right kidney, which is new and suspicious for renal cell carcinoma until proven otherwise -patient advised of findings and for outpatient urology consultation -Additional 2.5 cm complex hyperdense left renal cyst, bilateral nonobstructive renal calculi. -right middle lobe 2-3 mm pulmonary nodule which is indeterminate. Recommend follow-up with CT in 1 year. 4. Leukocytosis acute on chronic -patient has chronic leukocytosis documented back to at least 2017 -I suspect this is secondary to either a chronic leukemia or primary renal cell carcinoma identified on CT -outpatient Hematology consult recommended 5. Acute on chronic hypertension -patient with severe BP elevation, likely poor baseline control as patient states blood pressures usually run 150-160 systolic -patient hydralazine dosage was not correct on med reconciliation -resume home medications hydralazine 20 mg t.i.d., lisinopril 40 mg q.d., metoprolol succinate ER 100 mg b.i.d. -chlorthalidone held due to hypokalemia but ordered restart on 09/10 6. Acute hypokalemia -corrected with ora/IV potassium supplement -continue KCL 20 mEq p.o. q.d. 7. Insulin-requiring type 2 diabetes, uncontrolled -blood sugar on admit 399 -A1c 9.9 -Lantus increased to 30 units b.i.d., NovoLog sliding scale -continued metformin 1000 mg b.i.d., hold glipizide -monitor for hypoglycemia with decreased p.o. intake due to nausea
[2020-09-09] MEDS: POTASSIUM CHLORIDE 20 MEQ TAB 40 MEQ PO (19:16)
[2020-09-09] MEDS: HYDRALAZINE 10 MG TABLET 20 MG PO (19:16)
[2020-09-09] MEDS: ATORVASTATIN 20 MG TABLET 10 MG PO (21:35)
--- NOTE | 2020-09-09 23:48 | PC.NURSE ---
Hypertensive. Resumed pt's home BP meds. addition to Reglan and Zofran, pt. received Ativan for nausea. Pt. became very drowsy with Ativan, difficult to arouse, but VSS. Pt later reported that Ativan was very effective for nausea and she was able to eat a few bites of dinner.
[2020-09-10] VITALS (22 sets, daily range): BP systolic 113–182; BP diastolic 57–89; PULSE 72–90; RESP 15–18; TEMP 36.1–36.7; O2SAT 91–97
[2020-09-10] MEDS: LORazepam 2 MG/ML INJ 1 MG IV ×5 (03:23→20:16)
[2020-09-10 05:26] LABS: Add Manual Diff / Slide Review NO; Basophils Absolute Auto 100 /uL (0-100); Basophils Percent Auto 0.4 % (0-2); Eosinophils Absolute Auto 0 /uL (0-450); Eosinophils Percent Auto 0.1 % (2-4); Hematocrit 33.7 % (36-46); Hemoglobin 11.1 g/dL (12.0-16.0); Lymphocytes Absolute Auto 5200 /uL (1100-4500); Lymphocytes Percent Auto 30.7 % (25-40); Mean Corpuscular Hemoglobin 27.9 PG (26-34); Mean Corpuscular Volume 84.7 fL (80-100); Monocytes Absolute Auto 1300 /uL (0-900); Monocytes Percent Auto 7.5 % (3-14); Neutrophils Absolute Auto 10400 /uL (1500-7000); Neutrophils Percent Auto 61.3 % (50-75); Platelet Count 317 X10^3/uL (150-400); Red Blood Cell Count 3.98 X10^6/uL (4.0-5.2); White Blood Cell Count 16.9 X10^3/uL (4.5-11.0)
[2020-09-10 05:54] LABS: Alanine Aminotransferase 35 IU/L (<35); Albumin 3.3 g/dL (3.5-5.0); Albumin Globulin Ratio 1.4 (1.0-2.8); Alkaline Phosphatase 67 U/L (38-126); Aspartate Aminotransferase 49 IU/L (14-36); BUN Creatinine Ratio 23.8 (6-22); Bilirubin Total 0.4 mg/dL (0.2-1.3); Blood Urea Nitrogen 15 mg/dL (7-17); Calcium 8.8 mg/dL (8.4-10.2); Carbon Dioxide 31 mmol/L (22-32); Chloride 98 mmol/L (98-107); Estimated Glomerular Filt Rate > 60.0 mL/min (>60); Globulin 2.3 g/dL (1.7-4.1); Glucose 69 mg/dL (80-110); HEMOLYSIS < 15 (0-50); Sodium 136 mmol/L (137-145); Total Protein 5.6 g/dL (6.3-8.2)
[2020-09-10 06:12] LABS: Magnesium 1.8 mg/dL (1.6-2.3)
[2020-09-10] MEDS: POTASSIUM CHLORIDE IN WATER 10 MEQ/100 ML PIGGYBACK 100 MEQ IV ×4 (06:42→14:00)
[2020-09-10] MEDS: PANTOPRAZOLE DR 20 MG TABLET PO (06:42)
--- NOTE | 2020-09-10 07:30 | PM.PN.1 ---
Subjective Subjective Date Patient Seen: 09/10/20 Interval history: This is 70-year-old female with history of hypertension, diabetes requiring insulin control, aortic stenosis, chronic cannabis intake who presented with a chief complaint of intractable severe nausea. Patient has continued severe nausea and vomiting only relieved by hot showers and Lorazepam. Her shower this morning was almost 30 minutes long. (I rounded on 5 other patients, returning to find that she was still in the shower.) The WBC remains high at 16.9 with a low K level of 3.0. The Lactate was 3.2 on 09/08. She is also on Ceftriaxone for an e.coli UTI. Exam Vital Signs (past 8 hours): - 09/10/20 00:00 09/10/20 00:37 09/10/20 02:00 Temperature 98.0 F Pulse Rate 72 Pulse Rate [Orthostatic Lying] 85 Pulse Rate [Orthostatic Sitting] 80 Pulse Rate [Orthostatic Standing] 80 Respiratory Rate 16 Blood Pressure 182/84 H Blood Pressure [Orthostatic Lying] 138/73 Blood Pressure [Orthostatic Sitting] 143/77 H Blood Pressure [Orthostatic Standing] 143/72 H Pulse Oximetry 94 94 09/10/20 03:59 09/10/20 04:00 Temperature 97.0 F L Pulse Rate 74 Pulse Rate [Orthostatic Lying] Pulse Rate [Orthostatic Sitting] Pulse Rate [Orthostatic Standing] Respiratory Rate 16 Blood Pressure 123/62 Blood Pressure [Orthostatic Lying] Blood Pressure [Orthostatic Sitting] Blood Pressure [Orthostatic Standing] Pulse Oximetry 91 93 Oxygen Delivery Method Room Air Oxygen Flow Rate 0 Narrative Exam Narrative: She is alert and oriented X 3. She is in moderate distress from severe nausea. Heart is regular rate and rhythm without murmur Lungs are clear to auscultation bilaterally Abdomen is soft, bowel sounds positive, nontender Extremities have no ankle edema Objective Labs Result Diagrams: 09/10/20 05:10 09/10/20 05:10 Labs: Laboratory Results - last 24 hr 09/09/20 09/10/20 09/10/20 15:35 05:10 05:10 WBC 16.9 H RBC 3.98 L Hgb 11.1 L Hct 33.7 L MCV 84.7 MCH 27.9 MCHC 33.0 RDW 14.0 Plt Count 317 Neut % (Auto) 61.3 Lymph % (Auto) 30.7 [place] % (Auto) 7.5 Eos % (Auto) 0.1 L Baso % (Auto) 0.4 Neut # (Auto) 91906 H Lymph # (Auto) 5200 H [place] # (Auto) 1300 H Eos # (Auto) 0 Baso # (Auto) 100 Sodium 134 L 136 L Potassium 3.4 3.0 L Chloride 96 L 98 Carbon Dioxide 28 31 BUN 15 Creatinine 0.63 Estimated GFR > 60.0 BUN/Creatinine Ratio 23.8 H Glucose 69 L Calcium 8.8 Magnesium Total Bilirubin 0.4 AST 49 H ALT 35 H Alkaline Phosphatase 67 Total Protein 5.6 L Albumin 3.3 L Globulin 2.3 Albumin/Globulin Ratio 1.4 09/10/20 05:10 WBC RBC Hgb Hct MCV MCH MCHC RDW Plt Count Neut % (Auto) Lymph % (Auto) [place] % (Auto) Eos % (Auto) Baso % (Auto) Neut # (Auto) Lymph # (Auto) [place] # (Auto) Eos # (Auto) Baso # (Auto) Sodium Potassium Chloride Carbon Dioxide BUN Creatinine Estimated GFR BUN/Creatinine Ratio Glucose Calcium Magnesium 1.8 Total Bilirubin AST ALT Alkaline Phosphatase Total Protein Albumin Globulin Albumin/Globulin Ratio [facility] Medical History Anemia Ankylosing spondylitis (~1994) Aortic stenosis Chicken pox Chronic back pain Colitis Diabetes mellitus (2003) Diabetes mellitus, type II, insulin dependent Diabetic peripheral neuropathy Gastrointestinal irritation Hyperlipidemia Hypertension IBS (irritable bowel syndrome) Measles Mumps RLS (restless legs syndrome) Sepsis Surgical History Anesthesia Status post appendectomy (1964) Status post breast biopsy (1991) Status post breast biopsy (2013) Status post cholecystectomy (1991) Status post hysterectomy (1993) Family History Father Cancer Diabetes mellitus Hypertension High cholesterol Mother Heart disease Hypertension Brother Ankylosing spondylitis Son Ankylosing spondylitis Social History household members: none Smoking Status: Former smoker alcohol intake: never Assessment & Plan Assessment & Plan narrative: 1. Intractable nausea of hyperemesis cannabis syndrome -Continue lorazepam 1 mg IV q.4 hours as needed -continue IV Zofran and Reglan -try topical capsaicin q.6 hours as needed -counseled regarding cannabis cessation -continue IV hydration 2. E. Coli Urinary tract infection -unclear whether clinical or subclinical bacteriuria as patient has no dysuria, fever, flank or abdominal pain -elevated WBC likely from other cause, patient does not appear septic -plan 3 day of IV Ceftriaxone (stop on 09/13) 3. Left renal mass -CT of abdomen/ pelvis No acute abnormality identified. Exophytic solid-appearing lesion involving the right kidney, which is new and suspicious for renal cell carcinoma until proven otherwise -patient advised of findings and for outpatient urology consultation -Additional 2.5 cm complex hyperdense left renal cyst, bilateral nonobstructive renal calculi. -right middle lobe 2-3 mm pulmonary nodule which is indeterminate. Recommend follow-up with CT in 1 year. 4. Leukocytosis acute on chronic -patient has chronic leukocytosis documented back to at least 2017 -I suspect this is secondary to either a chronic leukemia or primary renal cell carcinoma identified on CT -outpatient Hematology consult recommended 5. Acute on chronic hypertension -patient with severe BP elevation, likely poor baseline control as patient states blood pressures usually run 150-160 systolic -patient hydralazine dosage was not correct on med reconciliation -continue home medications hydralazine 20 mg t.i.d., lisinopril 40 mg q.d., metoprolol succinate ER 100 mg b.i.d. -chlorthalidone held due to hypokalemia but will restart on 09/10 6. Acute hypokalemia -corrected with oral/IV potassium supplement twice now -continue KCL 20 mEq p.o. q.d. 7. Insulin-requiring type 2 diabetes, uncontrolled -blood sugar on admit 399 -A1c 9.9 -Lantus increased to 30 units b.i.d., NovoLog high dose sliding scale -continue metformin 1000 mg b.i.d., hold glipizide -monitor for hypoglycemia with decreased p.o. intake due to nausea
[2020-09-10] MEDS: METOPROLOL ER 50 MG TABLET 100 MG PO ×2 (08:22→20:17)
[2020-09-10] MEDS: HYDRALAZINE 10 MG TABLET 20 MG PO ×2 (08:23→16:49)
[2020-09-10] MEDS: ASPIRIN EC 81 MG TABLET PO (08:24)
[2020-09-10] MEDS: CHLORTHALIDONE 25 MG TABLET PO (08:25)
[2020-09-10] MEDS: lisinopriL 20 MG TABLET 40 MG PO (08:25)
[2020-09-10] MEDS: POTASSIUM CHLORIDE 20 MEQ TAB PO (08:25)
[2020-09-10] MEDS: MAGNESIUM OXIDE 400 MG TABLET PO ×2 (08:25→20:17)
[2020-09-10] MEDS: METFORMIN HCL 500 MG TABLET 1000 MG PO ×2 (08:26→16:49)
[2020-09-10] MEDS: HYDROCODONE/ACET 5/325 TABLET 1 TAB PO ×2 (09:26→20:31)
[2020-09-10] MEDS: ENOXAPARIN 40 MG/0.4 ML SYRINGE SUBCUT (09:27)
[2020-09-10] MEDS: INSULIN GLARGINE 100 UNIT/ML 3ML PEN 20 UNIT SUBCUT (09:28)
[2020-09-10] MEDS: METOCLOPRAMIDE 10 MG/2 ML INJ 5 MG IV (11:11)
[2020-09-10] MEDS: cefTRIAXone 1,000 MG in SODIUM CHLORIDE 0.9% 100 ML 200 ML IV (16:49)
[2020-09-10] MEDS: DEXTROSE 5%-LACTATED RINGERS 1,000 ML 50 ML IV (16:55)
[2020-09-10] MEDS: ONDANSETRON 4 MG/2 ML INJ IV (18:36)
[2020-09-10] MEDS: ATORVASTATIN 20 MG TABLET 10 MG PO (20:17)
[2020-09-10] MEDS: INSULIN GLARGINE 100 UNIT/ML 3ML PEN 30 UNIT SUBCUT (21:19)
[2020-09-10] MEDS: INSULIN LISPRO 100 UNIT/ML 3ML VIAL SUBCUT (21:19)
[2020-09-10] MEDS: HYDRALAZINE 10 MG TABLET 25 MG PO (23:44)
[2020-09-11] VITALS (15 sets, daily range): BP systolic 102–183; BP diastolic 65–90; PULSE 71–98; RESP 16–18; TEMP 36.2–36.9; O2SAT 93–99
[2020-09-11] MEDS: LORazepam 2 MG/ML INJ 1 MG IV ×4 (01:18→17:15)
[2020-09-11] MEDS: HYDROCODONE/ACET 5/325 TABLET 1 TAB PO ×4 (01:18→23:54)
--- NOTE | 2020-09-11 03:29 | PC.NURSE ---
Patient is alert and oriented. Breath sounds CTA with RA sat of 97%. HRR w/murmur. No drop in BP/HR when going from lying to sitting to standing and denies any dizziness when up. Denied nausea but requested Ativan to keep nausea managed. BT present and up to bathroom and had loose, brown stool; states she has been having loose stools for several days. Denies dysuria, frequency or urgency with urination. Is able to move self in bed. Up to bathroom with SBA. Complains of chronic back pain and was medicated with Vicodin. Generalized redness to upper back with small patches of scaly skin noted; denied itching. Chronic bilateral foot neuropathy. Fall risk score is moderate and bed alarm is activated.
[2020-09-11 05:37] LABS: Add Manual Diff / Slide Review NO; Basophils Absolute Auto 100 /uL (0-100); Basophils Percent Auto 0.6 % (0-2); Eosinophils Absolute Auto 100 /uL (0-450); Eosinophils Percent Auto 0.4 % (2-4); Hematocrit 32.8 % (36-46); Hemoglobin 10.8 g/dL (12.0-16.0); Lymphocytes Absolute Auto 4800 /uL (1100-4500); Lymphocytes Percent Auto 29.7 % (25-40); Mean Corpuscular Hemoglobin 28.1 PG (26-34); Monocytes Absolute Auto 900 /uL (0-900); Monocytes Percent Auto 5.8 % (3-14); Neutrophils Absolute Auto 10300 /uL (1500-7000); Neutrophils Percent Auto 63.5 % (50-75); Platelet Count 279 X10^3/uL (150-400); Red Blood Cell Count 3.86 X10^6/uL (4.0-5.2); Red Cell Distribution Width 14.1 % (11.6-14.8); White Blood Cell Count 16.2 X10^3/uL (4.5-11.0)
[2020-09-11 05:44] LABS: Alanine Aminotransferase 39 IU/L (<35); Albumin 3.2 g/dL (3.5-5.0); Albumin Globulin Ratio 1.5 (1.0-2.8); Alkaline Phosphatase 71 U/L (38-126); Aspartate Aminotransferase 44 IU/L (14-36); BUN Creatinine Ratio 22.9 (6-22); Bilirubin Total 0.4 mg/dL (0.2-1.3); Blood Urea Nitrogen 16 mg/dL (7-17); Calcium 8.8 mg/dL (8.4-10.2); Carbon Dioxide 31 mmol/L (22-32); Chloride 100 mmol/L (98-107); Estimated Glomerular Filt Rate > 60.0 mL/min (>60); Globulin 2.2 g/dL (1.7-4.1); Glucose 108 mg/dL (80-110); HEMOLYSIS < 15 (0-50); Potassium 3.1 mmol/L (3.4-5.1); Sodium 135 mmol/L (137-145); Total Protein 5.4 g/dL (6.3-8.2)
[2020-09-11] MEDS: PANTOPRAZOLE DR 20 MG TABLET PO (06:05)
--- NOTE | 2020-09-11 07:37 | P.PN_ITS ---
Subjective Subjective Date Patient Seen: 09/11/20 Interval history: She is asleep, sedated by the Lorazepam, during my interaction with her. She stirs just barely enough to acknowledge me and follow directions. So far the lorazepam seems to be helping her nausea this morning. Her labs are notable for a continue low potassium of 3.1 along with a continued high white blood count of 16.2. The AST is 44 with an ALT of 39 and albumin of 3.2. She has been intolerant of the IV potassium and so additional oral potassium will need to be given today. Exam Vital Signs (past 8 hours): - 09/10/20 23:44 09/10/20 23:55 09/11/20 05:00 Temperature 97.4 F L 97.2 F L Pulse Rate 80 81 79 Pulse Rate [Orthostatic Lying] 81 Pulse Rate [Orthostatic Sitting] 84 Pulse Rate [Orthostatic Standing] 87 Respiratory Rate 18 18 Blood Pressure 164/75 H 113/57 L 133/67 Blood Pressure [Orthostatic Lying] 113/57 L Blood Pressure [Orthostatic Sitting] 134/75 Blood Pressure [Orthostatic Standing] 131/70 Pulse Oximetry 97 93 Oxygen Delivery Method Room Air Oxygen Flow Rate 0 Narrative Exam Narrative: Sedated by the lorazepam. No apparent distress Heart is regular rate and rhythm without murmur Lungs are clear to auscultation bilaterally Extremities have no ankle edema Abdomen is not tender. Bowel sounds are active. No organomegaly. Objective Labs Result Diagrams: 09/11/20 05:00 09/11/20 05:00 Labs: Laboratory Results - last 24 hr 09/11/20 09/11/20 05:00 05:00 WBC 16.2 H RBC 3.86 L Hgb 10.8 L Hct 32.8 L MCV 85.0 MCH 28.1 MCHC 33.0 RDW 14.1 Plt Count 279 Neut % (Auto) 63.5 Lymph % (Auto) 29.7 [place] % (Auto) 5.8 Eos % (Auto) 0.4 L Baso % (Auto) 0.6 Neut # (Auto) 17582 H Lymph # (Auto) 4800 H [place] # (Auto) 900 Eos # (Auto) 100 Baso # (Auto) 100 Sodium 135 L Potassium 3.1 L Chloride 100 Carbon Dioxide 31 BUN 16 Creatinine 0.70 Estimated GFR > 60.0 BUN/Creatinine Ratio 22.9 H Glucose 108 Calcium 8.8 Total Bilirubin 0.4 AST 44 H ALT 39 H Alkaline Phosphatase 71 Total Protein 5.4 L Albumin 3.2 L Globulin 2.2 Albumin/Globulin Ratio 1.5 PFSH Medical History Anemia Ankylosing spondylitis (~1994) Aortic stenosis Chicken pox Chronic back pain Colitis Diabetes mellitus (2003) Diabetes mellitus, type II, insulin dependent Diabetic peripheral neuropathy Gastrointestinal irritation Hyperlipidemia Hypertension IBS (irritable bowel syndrome) Measles Mumps RLS (restless legs syndrome) Sepsis Surgical History Anesthesia Status post appendectomy (1964) Status post breast biopsy (1991) Status post breast biopsy (2013) Status post cholecystectomy (1991) Status post hysterectomy (1993) Family History Father Cancer Diabetes mellitus Hypertension High cholesterol Mother Heart disease Hypertension Brother Ankylosing spondylitis Son Ankylosing spondylitis Social History household members: none Smoking Status: Former smoker alcohol intake: never Assessment & Plan Assessment & Plan narrative: 1. Intractable nausea of hyperemesis cannabis syndrome -Continue lorazepam 1 mg IV q.4 hours as needed, perhaps she is turning the corner today. -continue IV Zofran and Reglan as needed -counseled regarding cannabis cessation -continue IV hydration 2. E. Coli Urinary tract infection -unclear whether clinical or subclinical bacteriuria as patient has no dysuria, fever, flank or abdominal pain -persistent elevated WBC of 16.2 likely from other cause, patient does not appear septic -plan 3 days of IV Ceftriaxone (stop on 09/13) 3. Left renal mass -CT of abdomen/ pelvis No acute abnormality identified. Exophytic solid- appearing lesion involving the right kidney, which is new and suspicious for renal cell carcinoma until proven otherwise -patient advised of findings and for outpatient urology consultation -Additional 2.5 cm complex hyperdense left renal cyst, bilateral nonobstructive renal calculi. -right middle lobe 2-3 mm pulmonary nodule which is indeterminate. Recommend follow-up with CT in 1 year. 4. Leukocytosis acute on chronic -patient has chronic leukocytosis documented back to at least 2017 -I suspect this is secondary to either a chronic leukemia or primary renal cell carcinoma identified on CT -outpatient Hematology consult recommended 5. Acute on chronic hypertension -patient with severe BP elevation, likely poor baseline control as patient states blood pressures usually run 150-160 systolic -patient hydralazine dosage was not correct on med reconciliation -continue home medications hydralazine 20 mg t.i.d., lisinopril 40 mg q.d., metoprolol succinate ER 100 mg b.i.d. -chlorthalidone held due to hypokalemia but restarted on 7 am 6. Acute hypokalemia -corrected with oral/IV potassium supplement 3 days now -increase KCL 20 mEq p.o. to BID and resume Chlorthalidone on 09/11 -Follow K level closely 7. Insulin-requiring type 2 diabetes, uncontrolled -blood sugar on admit 399 -A1c 9.9 -Lantus increased to 30 units b.i.d., NovoLog high dose sliding scale -continue metformin 1000 mg b.i.d., hold glipizide -monitor for hypoglycemia with decreased p.o. intake due to nausea
[2020-09-11] MEDS: POTASSIUM CHLORIDE 20 MEQ TAB PO ×2 (08:31→16:45)
[2020-09-11] MEDS: METFORMIN HCL 500 MG TABLET 1000 MG PO ×2 (08:31→16:45)
[2020-09-11] MEDS: HYDRALAZINE 25 MG TABLET PO ×3 (08:31→19:41)
[2020-09-11] MEDS: CHLORTHALIDONE 25 MG TABLET PO (08:31)
[2020-09-11] MEDS: METOPROLOL ER 50 MG TABLET 100 MG PO ×2 (08:32→19:41)
[2020-09-11] MEDS: ASPIRIN EC 81 MG TABLET PO (08:32)
[2020-09-11] MEDS: lisinopriL 20 MG TABLET 40 MG PO (08:32)
[2020-09-11] MEDS: MAGNESIUM OXIDE 400 MG TABLET PO ×2 (08:32→19:41)
[2020-09-11] MEDS: ENOXAPARIN 40 MG/0.4 ML SYRINGE SUBCUT (08:32)
[2020-09-11] MEDS: METOCLOPRAMIDE 10 MG/2 ML INJ 5 MG IV ×2 (08:34→18:24)
[2020-09-11] MEDS: POTASSIUM CHLORIDE IN WATER 10 MEQ/100 ML PIGGYBACK 100 MEQ IV (11:22)
--- NOTE | 2020-09-11 11:52 | PC.NURSE ---
Day shift: IV potassium burning/hurting Pt's arm. Dr Barber informed and med to be changed to oral.
--- NOTE | 2020-09-11 12:55 | PC.NURSE ---
Day shift: Pt reports nausea after eating approx 75% of lunch at approx 1250.
[2020-09-11] MEDS: POTASSIUM CHLORIDE 20 MEQ TAB 40 MEQ PO (13:19)
--- NOTE | 2020-09-11 13:38 | PC.NURSE ---
Day shift: Dr Barber informed of Pt's coffee ground stool this afternoon. Per MD cortes the next BM.
[2020-09-11] MEDS: INSULIN LISPRO 100 UNIT/ML 3ML VIAL SUBCUT (17:14)
[2020-09-11] MEDS: DEXTROSE 5%-LACTATED RINGERS 1,000 ML 50 ML IV (17:19)
[2020-09-11] MEDS: ATORVASTATIN 20 MG TABLET 10 MG PO (19:41)
[2020-09-11] MEDS: INSULIN GLARGINE 100 UNIT/ML 3ML PEN 30 UNIT SUBCUT (22:52)
[2020-09-11] MEDS: MELOXICAM 7.5 MG TABLET 15 MG PO (23:54)
[2020-09-12] VITALS (16 sets, daily range): BP systolic 138–188; BP diastolic 65–94; PULSE 73–90; RESP 16–18; TEMP 36–37.1; O2SAT 93–97
[2020-09-12 05:28] LABS: Add Manual Diff / Slide Review NO; Basophils Absolute Auto 100 /uL (0-100); Eosinophils Absolute Auto 200 /uL (0-450); Eosinophils Percent Auto 1.4 % (2-4); Hematocrit 31.7 % (36-46); Hemoglobin 10.6 g/dL (12.0-16.0); Lymphocytes Absolute Auto 5400 /uL (1100-4500); Lymphocytes Percent Auto 40.3 % (25-40); Mean Corpuscular HGB Conc 33.5 % (30-36); Mean Corpuscular Hemoglobin 28.6 PG (26-34); Mean Corpuscular Volume 85.3 fL (80-100); Monocytes Absolute Auto 700 /uL (0-900); Monocytes Percent Auto 5.1 % (3-14); Neutrophils Absolute Auto 7000 /uL (1500-7000); Neutrophils Percent Auto 52.2 % (50-75); Platelet Count 251 X10^3/uL (150-400); Red Blood Cell Count 3.71 X10^6/uL (4.0-5.2); Red Cell Distribution Width 14.1 % (11.6-14.8); White Blood Cell Count 13.4 X10^3/uL (4.5-11.0)
[2020-09-12] MEDS: PANTOPRAZOLE DR 20 MG TABLET PO (05:30)
[2020-09-12 05:56] LABS: Lipase 88 U/L (23-300)
[2020-09-12 06:01] LABS: Alanine Aminotransferase 33 IU/L (<35); Albumin Globulin Ratio 1.5 (1.0-2.8); Alkaline Phosphatase 68 U/L (38-126); Aspartate Aminotransferase 29 IU/L (14-36); BUN Creatinine Ratio 19.5 (6-22); Bilirubin Total 0.4 mg/dL (0.2-1.3); Blood Urea Nitrogen 15 mg/dL (7-17); Calcium 9.1 mg/dL (8.4-10.2); Carbon Dioxide 31 mmol/L (22-32); Chloride 101 mmol/L (98-107); Estimated Glomerular Filt Rate > 60.0 mL/min (>60); Glucose 113 mg/dL (80-110); HEMOLYSIS < 15 (0-50); Potassium 3.6 mmol/L (3.4-5.1); Sodium 136 mmol/L (137-145)
[2020-09-12] MEDS: HYDROCODONE/ACET 5/325 TABLET 1 TAB PO ×2 (07:00→21:24)
--- NOTE | 2020-09-12 07:07 | PC.NURSE ---
Pt. wanted to sit up in chair, there is no chair alarms available for her chair, Pt. said she will call and won't get up without help
[2020-09-12] MEDS: ONDANSETRON 4 MG/2 ML INJ IV (09:59)
[2020-09-12] MEDS: INSULIN LISPRO 100 UNIT/ML 3ML VIAL SUBCUT ×2 (10:01→12:35)
[2020-09-12] MEDS: ENOXAPARIN 40 MG/0.4 ML SYRINGE SUBCUT (10:02)
[2020-09-12] MEDS: lisinopriL 20 MG TABLET 40 MG PO (10:02)
[2020-09-12] MEDS: ASPIRIN EC 81 MG TABLET PO (10:02)
[2020-09-12] MEDS: POTASSIUM CHLORIDE 20 MEQ TAB PO ×2 (10:02→16:15)
[2020-09-12] MEDS: METFORMIN HCL 500 MG TABLET 1000 MG PO ×2 (10:03→16:14)
[2020-09-12] MEDS: MAGNESIUM OXIDE 400 MG TABLET PO ×2 (10:03→21:25)
[2020-09-12] MEDS: HYDRALAZINE 25 MG TABLET PO ×3 (10:03→21:26)
[2020-09-12] MEDS: METOPROLOL ER 50 MG TABLET 100 MG PO ×2 (10:03→21:26)
[2020-09-12] MEDS: CHLORTHALIDONE 25 MG TABLET PO (10:07)
[2020-09-12] MEDS: LORazepam 2 MG/ML INJ 1 MG IV ×3 (11:01→21:25)
[2020-09-12] MEDS: cefTRIAXone 1,000 MG in SODIUM CHLORIDE 0.9% 100 ML 200 ML IV (12:34)
--- NOTE | 2020-09-12 13:21 | PC.NURSE ---
Day shift: Pt asking for another dose of IV Ativan at approx 1315. Next dose available at 1500. Dr Tobin informed. No changes made at this time.
--- NOTE | 2020-09-12 16:03 | P.PN_ITS ---
Subjective Subjective Interval history: Today she has episodes where she feels improved, but then after eating has developed significant nausea. She says she feels terrible. Exam Vital Signs (past 8 hours): - 09/12/20 10:00 09/12/20 10:26 09/12/20 11:00 Temperature 98.7 F Pulse Rate 73 86 Pulse Rate [Orthostatic Lying] 84 Respiratory Rate 18 16 Blood Pressure 187/80 H Blood Pressure [Orthostatic Lying] 138/78 Pulse Oximetry 96 97 09/12/20 14:26 Temperature Pulse Rate Pulse Rate [Orthostatic Lying] Respiratory Rate Blood Pressure Blood Pressure [Orthostatic Lying] Pulse Oximetry 94 Oxygen Delivery Method Room Air Oxygen Flow Rate 0 Narrative Exam Narrative: GEN: lying on bench, looks in mild distress CV: RRR with no murmurs PULM: Lungs are clear to auscultation bilaterally EXT: no ankle edema ABD: nontender, normal bowel sounds. No organomegaly. Objective Labs Result Diagrams: 09/12/20 05:15 09/12/20 05:15 Labs: Laboratory Results - last 24 hr 09/12/20 09/12/20 09/12/20 05:15 05:15 05:15 WBC 13.4 H RBC 3.71 L Hgb 10.6 L Hct 31.7 L MCV 85.3 MCH 28.6 MCHC 33.5 RDW 14.1 Plt Count 251 Neut % (Auto) 52.2 Lymph % (Auto) 40.3 H [place] % (Auto) 5.1 Eos % (Auto) 1.4 L Baso % (Auto) 1.0 Neut # (Auto) 7000 Lymph # (Auto) 5400 H [place] # (Auto) 700 Eos # (Auto) 200 Baso # (Auto) 100 Sodium 136 L Potassium 3.6 Chloride 101 Carbon Dioxide 31 BUN 15 Creatinine 0.77 Estimated GFR > 60.0 BUN/Creatinine Ratio 19.5 Glucose 113 H Calcium 9.1 Total Bilirubin 0.4 AST 29 ALT 33 Alkaline Phosphatase 68 Total Protein 5.0 L Albumin 3.0 L Globulin 2.0 Albumin/Globulin Ratio 1.5 Lipase 88 D [facility] Medical History Anemia Ankylosing spondylitis (~1994) Aortic stenosis Chicken pox Chronic back pain Colitis Diabetes mellitus (2003) Diabetes mellitus, type II, insulin dependent Diabetic peripheral neuropathy Gastrointestinal irritation Hyperlipidemia Hypertension IBS (irritable bowel syndrome) Measles Mumps RLS (restless legs syndrome) Sepsis Surgical History Anesthesia Status post appendectomy (1964) Status post breast biopsy (1991) Status post breast biopsy (2013) Status post cholecystectomy (1991) Status post hysterectomy (1993) Family History Father Cancer Diabetes mellitus Hypertension High cholesterol Mother Heart disease Hypertension Brother Ankylosing spondylitis Son Ankylosing spondylitis Social History household members: none Smoking Status: Former smoker alcohol intake: never Assessment & Plan Assessment & Plan narrative: 1. Intractable nausea of hyperemesis cannabis syn drome -Continue lorazepam 1 mg IV q.4 hours as needed, perhaps she is turning the corner today. -continue IV Zofran and Reglan as needed -counseled regarding cannabis cessation -continue IV hydration 2. E. Coli Urinary tract infection -WBC improved slightly to 13.4 -plan 3 days of IV Ceftriaxone (stop on 09/13) 3. Left renal mass -CT of abdomen/ pelvis No acute abnormality identified. Exophytic solid- appearing lesion involving the right kidney, which is new and suspicious for renal cell carcinoma until proven otherwise -patient advised of findings and for outpatient urology consultation -Additional 2.5 cm complex hyperdense left renal cyst, bilateral nonobstructive renal calculi. -right middle lobe 2-3 mm pulmonary nodule which is indeterminate. Recommend follow-up with CT in 1 year. 4. Leukocytosis acute on chronic -patient has chronic leukocytosis documented back to at least 2017 -I suspect this is secondary to either a chronic leukemia or primary renal cell carcinoma identified on CT -outpatient Hematology consult recommended 5. Acute on chronic hypertension -patient with severe BP elevation, likely poor baseline control as patient states blood pressures usually run 150-160 systolic -patient hydralazine dosage was not correct on med reconciliation -continue home medications hydralazine 20 mg t.i.d., lisinopril 40 mg q.d., metoprolol succinate ER 100 mg b.i.d. -chlorthalidone held due to hypokalemia but restarted on 09/12 am 6. Acute hypokalemia -corrected with oral/IV potassium supplement 3 days now -increase KCL 20 mEq p.o. to BID and resume Chlorthalidone on 09/11 -Follow K level closely 7. Insulin-requiring type 2 diabetes, uncontrolled -blood sugar on admit 399 -A1c 9.9 -Lantus increased to 30 units b.i.d., NovoLog high dose sliding scale -continue metformin 1000 mg b.i.d., hold glipizide -monitor for hypoglycemia with decreased p.o. intake due to nausea
[2020-09-12] MEDS: CAPSAICIN 30 APPLIC/TUBE CREAM..G. TOP (16:41)
[2020-09-12] MEDS: ONDANSETRON 4 MG ODT SL (17:32)
[2020-09-12] MEDS: METOCLOPRAMIDE 10 MG/2 ML INJ 5 MG IV (18:38)
[2020-09-12] MEDS: ATORVASTATIN 20 MG TABLET 10 MG PO (21:25)
[2020-09-12] MEDS: INSULIN GLARGINE 100 UNIT/ML 3ML PEN 30 UNIT SUBCUT (22:37)
--- NOTE | 2020-09-12 22:58 | PC.NURSE ---
shift summary- Pt c/o nausea consistently and receiving ativan 1mg ivp Q-4hrs. Admin zofran at 1730 and raglan at 1830, norco 5mg, back pain 8/10 at 2124 along with ativan 1mg. SBA in room and pt requested to take shower for comfort of nausea and back pain times 2 this shift, twice during day shift. Pt with bilat foot neuropathy and chronic back pain. 94% RA, LS exp wheezing to bases. 1600 lying down BP 184/94 84, admin hydralizine 25mg PO, hr later lying down BP 182/83, 89. Orthostatic taken at 1930. RFA SL. BG at 1600- 105 no intervention given, 2029 BG-153- no intervention needed, admin lantus 30 unit @ 2200 due to pt still in shower. Pt took 2 showers this shift each for at least an hour long, foir comfort of nausea and back pain.
[2020-09-13] VITALS (12 sets, daily range): BP systolic 119–155; BP diastolic 55–89; PULSE 70–102; RESP 16–18; TEMP 36–37; O2SAT 93–97
[2020-09-13 05:14] LABS: Hematocrit 34.2 % (36-46); Hemoglobin 11.3 g/dL (12.0-16.0); Mean Corpuscular HGB Conc 33.1 % (30-36); Mean Corpuscular Hemoglobin 28.2 PG (26-34); Mean Corpuscular Volume 85.3 fL (80-100); Platelet Count 267 X10^3/uL (150-400); Red Blood Cell Count 4.01 X10^6/uL (4.0-5.2); White Blood Cell Count 15.3 X10^3/uL (4.5-11.0)
[2020-09-13] MEDS: LORazepam 2 MG/ML INJ 1 MG IV (05:17)
[2020-09-13 05:18] LABS: BUN Creatinine Ratio 17.6 (6-22); Blood Urea Nitrogen 12 mg/dL (7-17); Calcium 9.6 mg/dL (8.4-10.2); Carbon Dioxide 30 mmol/L (22-32); Chloride 99 mmol/L (98-107); Estimated Glomerular Filt Rate > 60.0 mL/min (>60); Glucose 103 mg/dL (80-110); HEMOLYSIS < 15 (0-50); Potassium 3.6 mmol/L (3.4-5.1); Sodium 134 mmol/L (137-145)
[2020-09-13] MEDS: SODIUM CHLORIDE 0.9% FLUSH 10 ML IV ×3 (05:18→21:48)
[2020-09-13] MEDS: PANTOPRAZOLE DR 20 MG TABLET PO (05:18)
[2020-09-13] MEDS: HYDROCODONE/ACET 5/325 TABLET 1 TAB PO ×3 (06:09→19:18)
[2020-09-13] MEDS: METFORMIN HCL 500 MG TABLET 1000 MG PO ×2 (10:16→17:28)
[2020-09-13] MEDS: CHLORTHALIDONE 25 MG TABLET PO (10:18)
[2020-09-13] MEDS: POTASSIUM CHLORIDE 20 MEQ TAB PO ×2 (10:18→17:28)
[2020-09-13] MEDS: ENOXAPARIN 40 MG/0.4 ML SYRINGE SUBCUT (10:19)
[2020-09-13] MEDS: INSULIN LISPRO 100 UNIT/ML 3ML VIAL SUBCUT ×2 (10:20→17:33)
[2020-09-13] MEDS: INSULIN GLARGINE 100 UNIT/ML 3ML PEN 30 UNIT SUBCUT ×2 (10:21→21:03)
[2020-09-13] MEDS: cefTRIAXone 1,000 MG in SODIUM CHLORIDE 0.9% 100 ML 200 ML IV (11:40)
--- NOTE | 2020-09-13 13:34 | P.PN_ITS ---
Subjective Subjective Date Patient Seen: 09/13/20 Time Patient Seen: 13:35 Interval history: Overall feels to be improving. She still gets quite nauseous with meals, ativan she states works the best but is IV. Denies chest pain, shortness of breath, abdominal pain, dysuria. WBC increased slightly from yesterday but otherwise stable from other recent lab values. Exam Vital Signs (past 8 hours): - 09/13/20 09:00 09/13/20 09:57 09/13/20 10:07 Temperature 98.1 F Pulse Rate 88 Pulse Rate [Orthostatic Lying] 96 H Pulse Rate [Orthostatic Sitting] 88 Pulse Rate [Orthostatic Standing] 91 H Respiratory Rate 16 Blood Pressure 136/72 Blood Pressure [Orthostatic Lying] 140/74 Blood Pressure [Orthostatic Sitting] 136/72 Blood Pressure [Orthostatic Standing] 155/72 H Pulse Oximetry 97 97 09/13/20 10:16 09/13/20 10:31 09/13/20 10:33 Temperature Pulse Rate 77 77 70 Pulse Rate [Orthostatic Lying] Pulse Rate [Orthostatic Sitting] Pulse Rate [Orthostatic Standing] Respiratory Rate Blood Pressure 140/74 140/74 140/77 Blood Pressure [Orthostatic Lying] Blood Pressure [Orthostatic Sitting] Blood Pressure [Orthostatic Standing] Pulse Oximetry Oxygen Delivery Method Room Air Oxygen Flow Rate 0 Narrative Exam Narrative: GEN: sitting upright in hospital bed, no acute distress but fairly stiff with limited movement due to nausea. CV: RRR with no murmurs PULM: Lungs are clear to auscultation bilaterally EXT: no ankle edema ABD: nontender, normal bowel sounds. No organomegaly Objective Labs Result Diagrams: 09/13/20 04:45 09/13/20 04:45 Labs: Laboratory Results - last 24 hr 09/13/20 09/13/20 04:45 04:45 WBC 15.3 H RBC 4.01 Hgb 11.3 L Hct 34.2 L MCV 85.3 MCH 28.2 MCHC 33.1 RDW 14.0 Plt Count 267 Sodium 134 L Potassium 3.6 Chloride 99 Carbon Dioxide 30 BUN 12 Creatinine 0.68 Estimated GFR > 60.0 BUN/Creatinine Ratio 17.6 Glucose 103 Calcium 9.6 PFSH Medical History Anemia Ankylosing spondylitis (~1994) Aortic stenosis Chicken pox Chronic back pain Colitis Diabetes mellitus (2003) Diabetes mellitus, type II, insulin dependent Diabetic peripheral neuropathy Gastrointestinal irritation Hyperlipidemia Hypertension IBS (irritable bowel syndrome) Measles Mumps RLS (restless legs syndrome) Sepsis Surgical History Anesthesia Status post appendectomy (1964) Status post breast biopsy (1991) Status post breast biopsy (2013) Status post cholecystectomy (1991) Status post hysterectomy (1993) Family History Father Cancer Diabetes mellitus Hypertension High cholesterol Mother Heart disease Hypertension Brother Ankylosing spondylitis Son Ankylosing spondylitis Social History household members: none Smoking Status: Former smoker alcohol intake: never Assessment & Plan Assessment & Plan narrative: 1. Intractable nausea of hyperemesis cannabis syndrome -will change to PO lorazepam today, with other PO agents in attempt to simulate home trial given continued improvement. -counseled regarding cannabis cessation, she is not interested in cessation. -will stop IV fluids to make sure she can tolerate enough PO intake at home. 2. E. Coli Urinary tract infection -WBC improved slightly to 13.4 yesterday, slightly increased today. -completed 3 day course of ceftriaxone today. Check WBC tomorrow. 3. Left renal mass -CT of abdomen/ pelvis No acute abnormality identified. Exophytic solid- appearing lesion involving the right kidney, which is new and suspicious for renal cell carcinoma until proven otherwise -patient advised of findings and for outpatient urology consultation -Additional 2.5 cm complex hyperdense left renal cyst, bilateral nonobstructive renal calculi. -right middle lobe 2-3 mm pulmonary nodule which is indeterminate. Recommend follow-up with CT in 1 year. 4. Leukocytosis acute on chronic -patient has chronic leukocytosis documented back to at least 2017 -suspect this is secondary to either a chronic leukemia or primary renal cell carcinoma identified on CT -outpatient Hematology consult recommended 5. Acute on chronic hypertension -patient with severe BP elevation, likely poor baseline control as patient states blood pressures usually run 150-160 systolic -patient hydralazine dosage was not correct on med reconciliation -continue home medications hydralazine 20 mg t.i.d., lisinopril 40 mg q.d., metoprolol succinate ER 100 mg b.i.d. -chlorthalidone held due to hypokalemia but restarted on 7 am -BP improved today 09/13. 6. Acute hypokalemia -corrected with oral/IV potassium supplement 3 days now. Now improved to 3.6 without further additional repletion other than noted below. -increased KCL 20 mEq p.o. to BID and resume Chlorthalidone on 09/11 -Follow K level closely 7. Insulin-requiring type 2 diabetes, uncontrolled -blood sugar on admit 399 -A1c 9.9 -Lantus increased to 30 units b.i.d., NovoLog high dose sliding scale -continue metformin 1000 mg b.i.d., hold glipizide -monitor for hypoglycemia with decreased p.o. intake due to nausea
[2020-09-13] MEDS: HYDRALAZINE 25 MG TABLET PO ×2 (14:55→20:59)
[2020-09-13] MEDS: LORazepam 0.5 MG TABLET PO ×2 (14:57→21:02)
--- NOTE | 2020-09-13 15:25 | PC.NURSE ---
Pt. A&Ox3. Pt able to eat almost half of breakfast tray. After meal complains of nausea and given 1mg ativan PRN. She declines a.m. medications after two as she reports she is too nauseated RN reattempted to give po medications. Multiple hot showers this a.m., declines lunch, SSI insulin held BG 200. This afternoon pt tearful due to nausea. Given po ativan PRN with PRN hydrocodone for 7/10 back pain. Pt's BP 140's /80's. Negative ortho static BP this shift. Continuous monitoring.
[2020-09-13] MEDS: ONDANSETRON 4 MG ODT SL (17:47)
[2020-09-13] MEDS: ATORVASTATIN 20 MG TABLET 10 MG PO (21:00)
[2020-09-13] MEDS: MAGNESIUM OXIDE 400 MG TABLET PO (21:00)
[2020-09-13] MEDS: METOPROLOL ER 50 MG TABLET 100 MG PO (21:03)
--- NOTE | 2020-09-13 23:13 | PC.NURSE ---
pt took two showers today to help relieve her nausea. pt reports she has been having black diarrhea since she was admitted. will guaiac stool.
[2020-09-14] VITALS (7 sets, daily range): BP systolic 100–136; BP diastolic 49–69; PULSE 76–93; RESP 13–18; TEMP 36.5–36.9; O2SAT 95–97
[2020-09-14] MEDS: HYDROCODONE/ACET 5/325 TABLET 1 TAB PO ×2 (00:15→06:20)
--- NOTE | 2020-09-14 02:53 | PC.NURSE ---
Patient is alert and oriented. Breath sounds CTA with RA sat of 96%. HRR. Denied nausea at time of assessment. BT present; had 250cc liquid brown/green stool. Had stool on previous shift which was guaiac negative. Denied dysuria, frequency or urgency with urination. Is able to move self in bed. Up to bathroom with SBA as was a little unsteady at shift change. Chronic bilateral foot neuropathy. Complained of chronic back pain and was medicated with Vicodin and is currently sleeping. Fall risk score is moderate and bed alarm is activated.
[2020-09-14] MEDS: PANTOPRAZOLE DR 20 MG TABLET PO (06:18)
[2020-09-14] MEDS: CHLORTHALIDONE 25 MG TABLET PO (09:34)
[2020-09-14] MEDS: ENOXAPARIN 40 MG/0.4 ML SYRINGE SUBCUT (09:34)
[2020-09-14] MEDS: ASPIRIN EC 81 MG TABLET PO (09:34)
[2020-09-14] MEDS: MAGNESIUM OXIDE 400 MG TABLET PO (09:39)
[2020-09-14] MEDS: METFORMIN HCL 500 MG TABLET 1000 MG PO (09:40)
[2020-09-14] MEDS: POTASSIUM CHLORIDE 20 MEQ TAB PO (09:40)
[2020-09-14] MEDS: SODIUM CHLORIDE 0.9% FLUSH 10 ML IV (09:41)
[2020-09-14] MEDS: INSULIN LISPRO 100 UNIT/ML 3ML VIAL SUBCUT (09:50)
[2020-09-14] MEDS: INSULIN GLARGINE 100 UNIT/ML 3ML PEN 30 UNIT SUBCUT (09:55)
[2020-09-14] MEDS: SODIUM CHLORIDE 0.9% 500 ML 1000 ML IV (10:20)
[2020-09-14] MEDS: METOPROLOL ER 50 MG TABLET 100 MG PO (11:26)
--- NOTE | 2020-09-14 13:23 | PC.NURSE ---
Pt A&Ox3, received this a.m. lying in bed. She requests a shower this a.m. showering x2 hours after eaitng about 50% of breakfast for c/o back pain and nausea. She reports good effect after shower wanting to lie down and sleep. She reports dark green liquid diarrhea x3. After shower her BP was 100/49, HR 70's. Notified MD. Pt asymptomatic of low blood pressure, but held chlorithalidone, lisinopril and hydralazine. After she received 500cc NS bolus of IVF, administered metoprolol per orders. Upon reassessment at noon, BP 130's/80's HR 80's. Pt reports feeling overall improved and expresses wanting to discharge home. Pt cleared for discharge today and grandson arrived to escort patient home. She acknowledges understanding of medications, follow up instructions, and recomendations.
--- NOTE | 2020-09-16 00:19 | PM.DS.1 ---
History of Present Illness History of Present Illness Chief complaint: nausea beyond belief since Fri Narrative: Patient is a 70-year-old female Ben Lamar who presented to the ED with a chief complaint of nausea ?beyond bone leaf? since Friday or Friday morning. Patient states she has just had nausea she denies any pain. She has not had active vomiting but has had occasional dry heaves. She has been able to sip water but has not had an appetite and not eating much oral solids. Patient denies any fevers, body aches, chills, chest pain, pressure, abdominal, back, or flank pain. Patient states that she has had soft stools slightly runny but not liquid several times a day for the past 3 days. Patient denies any polyuria, polydipsia or frequency. Patient states she has been urinating regularly. Patient has been taking Zofran which was been helpful but continues to have symptoms this morning. She has not had these symptoms in the past. She does have a history of ankylosing spondylitis, insulin-dependent diabetes and states her normal glucose is around 130,dyslipidemia, hypertension, restless leg syndrome, chronic low back pain in which she takes daily NSAIDs, and aortic stenosis. Patient was seen in the ED 09/07/20 for hyperglycemia-blood sugar 307, and hypertension. She also smokes marijuana daily. Patient did noted that her symptoms on 09/07/20 improved while taking a shower. Upon admit patient denies any symptoms with the exception of exacerbation of her chronic back pain. Patient currently denies any nausea and no further diarrhea. Reviewing the patient's chart she appears to be a patient of Dr. Velez and according to office visit review of 2019 patient was on chronic opiates/pain contract. Patient's vitals upon admit she was slightly febrile with a temperature of 99.2?, uncontrolled hypertension the blood pressure 179/97, heart rate 87, respirations 17, O2 saturation 96% on room air. Patient demonstrated respiratory and metabolic alkalosis her VBG's showed a pH 7.49, pCO2 of 42.4, HC03 of 32, and O2 saturation of 86%, base excess 9.0. Patient's wbc's were elevated at 18.7 and a left shift with neutrophils at 16,000. Sofa score of 1. Patient had minor electrolyte imbalances Na 132, Cl 91, BUN 23, potassium 3.3. Patient was given 40 mEq potassium in ED. patient's blood sugar was elevated at 399, lactate elevated 3.5, total creatinine kinase 232, CK-MB index 0.4%, and patient was positive for ketones 0.50, her troponin while normal was also slightly elevated at 0.014. UA had many bacteria and was sent for culture. Patient's x-ray of chest in abdomen showed no visualization of obstruction. Patient's abdomen pelvis CT did demonstrate an exophytic solid-appearing lesion involving the right kidney, which is new and suspicious for renal cell carcinoma until proven otherwise. Patient admitted for acute UTI with respiratory/metabolic alkalosis, and hypokalemia. Discharge Providers Provider Date of admission: 09/09/20 15:28 Discharge Date: 09/14/20 Primary care physician: Javed Velez MD Discharge provider: Rj Tobin MD Summary Hospital Course Discharge Diagnosis: 1. Nausea from hyperemesis cannabis syndrome 2. E. Coli UTI 3. Left renal mass 4. Pulmonary nodule 5. Leukocytosis, chronic since at least 2016 6. Hypertension 7. Hypokalemia 8. Type 2 Diabetes, insulin dependent Hospital Course: Ms. Lamar presented with nausea and vomiting. She admitted to cannabis use frequently and had no interest in quitting after counselling. She improved with frequent showering. She was found to have an E. coli UTI and did get antibiotics for this. She had a CT of the abdomen which showed an exophytic solid-appearing lesion involving the right kidney, which is new and suspicious for renal cell carcinoma. She should have follow up with urology and oncology. She had a chronically elevated leukocytosis dating back to 2017 for which she should see oncology. She had hypokalemia that improved with repletion. Exam Vital Signs (past 8 hours): Oxygen Delivery Method Room Air Oxygen Flow Rate 0 Narrative Exam Narrative: GEN: sitting upright in hospital bed, no acute distress CV: RRR with no murmurs PULM: Lungs are clear to auscultation bilaterally EXT: no ankle edema ABD: nontender, normal bowel sounds. No organomegaly Objective Labs Result Diagrams: 09/13/20 04:45 09/13/20 04:45 [facility] Medical History Anemia Ankylosing spondylitis (~1994) Aortic stenosis Chicken pox Chronic back pain Colitis Diabetes mellitus (2003) Diabetes mellitus, type II, insulin dependent Diabetic peripheral neuropathy Gastrointestinal irritation Hyperlipidemia Hypertension IBS (irritable bowel syndrome) Measles Mumps RLS (restless legs syndrome) Sepsis Surgical History Anesthesia Status post appendectomy (1964) Status post breast biopsy (1991) Status post breast biopsy (2013) Status post cholecystectomy (1991) Status post hysterectomy (1993) Family History Father Cancer Diabetes mellitus Hypertension High cholesterol Mother Heart disease Hypertension Brother Ankylosing spondylitis Son Ankylosing spondylitis Social History household members: none Smoking Status: Former smoker alcohol intake: never Discharge Plan Discharge Plan Patient Disposition: Home Provider Discharge Comment: Ms. Lamar came in with nausea and vomiting. Likely from cannabis, she felt somewhat better with treatment with ativan. She will be given a little ativan for the nausea. She is uninterested in quitting though this is likely the cause of her symptoms. She also has an elevated white count and has a mass on her kidney, she should follow up with oncology for both these things. A referral was placed for Dr. Mishra in [place], oncologist. Her blood pressure was on the lower side here, so she should hold off on taking her chlorthalidone, hydralazine, and lisinopril until her blood pressure begins to be higher. She should follow up with her primary doctor within one week. Discharge orders & Medications Prescriptions: New ondansetron 4 mg Tablet,Disintegrating 4 mg sublingual Q6HR PRN (Reason: Nausea) Qty: 12 RF: 0 potassium chloride [Klor-Con M20] 20 mEq Tablet,Er Particles/Crystals 20 meq PO BIDWM Qty: 30 RF: 0 lorazepam 0.5 mg Tablet 0.5 mg PO Q6HR PRN (Reason: Nausea) Qty: 20 RF: 0 loperamide 2 mg Capsule 2 mg PO QID PRN (Reason: Diarrhea) Qty: 20 RF: 0 Continued metformin [Glucophage] 1,000 mg tablet 1,000 mg PO BIDCC Qty: 180 RF: 3 metoprolol succinate 100 mg tablet extended release 24 hr 100 mg PO BID Qty: 180 RF: 3 glipizide 5 mg tablet See Rx Instructions .ROUTE .COMPLEX Qty: 180 RF: 0 meloxicam [Mobic] 15 mg tablet 15 mg PO Q DAY PRN PRN (Reason: pain (scale score 4-6)) Qty: 90 RF: 0 simvastatin 20 mg tablet 20 mg PO HS Qty: 90 RF: 0 lansoprazole 15 mg capsule,delayed release(DR/EC) 15 mg PO DAILY RF: 0 Adult Probiotic 3 billion cell capsule 3,000 mmu cells PO DAILY RF: 0 aspirin 81 mg tablet,delayed release (DR/EC) 81 mg PO DAILY RF: 0 Lantus Solostar U-100 Insulin 100 unit/mL (3 mL) insulin pen 55 unit SUBCUT HS RF: 0 Discontinued chlorthalidone 25 mg tablet 25 mg PO DAILY Qty: 60 RF: 0 magnesium oxide 400 mg capsule 400 mg PO BID RF: 0 lisinopril 40 mg tablet 40 mg PO DAILY RF: 0 hydralazine 10 mg tablet 20 mg PO TID RF: 0 No Action (DME) B-D PEN NEEDLE Qty: 100 RF: 3 (DME) blood-glucose meter Misc See Rx Instructions .ROUTE .MEDSUPPLY Qty: 1 RF: 0 (DME) Droplet Pen [place] 32G X 5MM Qty: 250 RF: 6 hydrocodone-acetaminophen 5-325 mg tablet 1 tab PO QID PRN (Reason: joint pain) Qty: 120 RF: 0 (DME) blood sugar diagnostic [Blood Glucose Test] Strip See Rx Instructions .ROUTE .MEDSUPPLY Qty: 250 RF: 12 Follow up/Referrals: Javed Velez MD [Primary Care Provider] - Elena Mishra MD [Physician] - (chronic leukocytosis, possible renal cell cancer) Diet/Activity/Treatments Diet: Diet as Tolerated Visit Report/Discharge Packet Instructions: Potassium, Ondansetron, Cannabinoid Hyperemesis Syndrome, DI for Cannabinoid Hyperemesis Syndrome, Loperamide (By mouth), Lorazepam (By mouth) Discharge Data Primary Care Provider: Javed Velez Quality MIPS - DC The patient has current or prior documentation of left ventricular ejection fraction (LVEF) less than 40%, or moderate or severely depressed left ventricular systolic function.: No
== END 2020-09-14 12:45 | disposition home or self-care (01) | DRG 392 ==
LOC: ED 15:08 → AC 15:11
PROVIDERS: Family Medicine; Internal Medicine; Nurse Practitioner Family; Admitting Provider Internal Medicine; Emergency Provider Emergency Medicine; PCP Internal Medicine; Referring Provider Emergency Medicine; Visit Provider Internal Medicine
DX: R11.2 Nausea with vomiting, unspecified (principal); N39.0 Urinary tract infection, site not specified; E87.4 Mixed disorder of acid-base balance; F12.99 Cannabis use, unspecified with unspecified cannabis-induced disorder; B96.20 Unspecified Escherichia coli [E. coli] as the cause of diseases classified elsewhere; E87.6 Hypokalemia; I10 Essential (primary) hypertension; E11.42 Type 2 diabetes mellitus with diabetic polyneuropathy; E11.65 Type 2 diabetes mellitus with hyperglycemia; Z79.84 Long term (current) use of oral hypoglycemic drugs; E78.5 Hyperlipidemia, unspecified; K21.9 Gastro-esophageal reflux disease without esophagitis; N28.9 Disorder of kidney and ureter, unspecified; I35.0 Nonrheumatic aortic (valve) stenosis; Z87.891 Personal history of nicotine dependence; Z20.822 Contact with and (suspected) exposure to COVID-19
CPT/HCPCS: 36415; 74022; 74177; 80048; 80051; 80053; 81003; 81015; 82009; 82550; 82553; 82805; 82962; 83036; 83605; 83690; 83735; 84145; 84484; 85025; 85027; 87040; 87077; 87086; 87186; 87635; 93005; 94760; 96361; 96365; 96374; 96375; 99284; 99285; 99291; 99292; C9803; G0378; J0696; J1650; J1815; J2060; J2405; J2543; J2765; J3475; J7121; Q9967

== ENCOUNTER → 2020-10-12 10:36 | Outpatient (CLI) | payer MEDICARE, OTHER, SELFPAY ==
[2020-09-08 16:22] VITALS: BMI 32.9
[2020-10-12 11:41] LABS: Add Manual Diff / Slide Review NO; Basophils Absolute Auto 100 /uL (0-100); Basophils Percent Auto 0.7 % (0-2); Eosinophils Absolute Auto 200 /uL (0-450); Eosinophils Percent Auto 1.4 % (2-4); Hematocrit 36.6 % (36-46); Lymphocytes Absolute Auto 3500 /uL (1100-4500); Lymphocytes Percent Auto 25.3 % (25-40); Mean Corpuscular HGB Conc 32.9 % (30-36); Mean Corpuscular Hemoglobin 27.7 PG (26-34); Mean Corpuscular Volume 84.2 fL (80-100); Monocytes Absolute Auto 700 /uL (0-900); Monocytes Percent Auto 5.4 % (3-14); Neutrophils Absolute Auto 9200 /uL (1500-7000); Neutrophils Percent Auto 67.2 % (50-75); Platelet Count 424 X10^3/uL (150-400); Red Blood Cell Count 4.35 X10^6/uL (4.0-5.2); Red Cell Distribution Width 14.4 % (11.6-14.8); White Blood Cell Count 13.8 X10^3/uL (4.5-11.0)
[2020-10-12 11:54] LABS: Alanine Aminotransferase 24 IU/L (<35); Albumin 4.1 g/dL (3.5-5.0); Albumin Globulin Ratio 1.5 (1.0-2.8); Alkaline Phosphatase 82 U/L (38-126); Aspartate Aminotransferase 35 IU/L (14-36); BUN Creatinine Ratio 23.6 (6-22); Bilirubin Total 0.5 mg/dL (0.2-1.3); Blood Urea Nitrogen 17 mg/dL (7-17); Calcium 10.3 mg/dL (8.4-10.2); Carbon Dioxide 26 mmol/L (22-32); Chloride 97 mmol/L (98-107); Estimated Glomerular Filt Rate > 60.0 mL/min (>60); Globulin 2.7 g/dL (1.7-4.1); Glucose 304 mg/dL (80-110); HEMOLYSIS < 15 (0-50); Sodium 135 mmol/L (137-145); Total Protein 6.8 g/dL (6.3-8.2)
--- NOTE | 2020-10-12 11:58 | DI.CT.S_ITS ---
PROCEDURE: CT ABDOMEN WO/W CON INDICATIONS: Renal mass TECHNIQUE: Optional 5 mm thick noncontrast images acquired from the diaphragm to the iliac crests. After the administration of intravenous contrast, 5 mm thick images again acquired from the diaphragm to the iliac crests in the arterial and urographic phases. 5 mm thick coronal and sagittal reformats were then acquired. For radiation dose reduction, the following was used: automated exposure control, adjustment of mA and/or kV according to patient size. COMPARISON: [facility], CT, CT ABDOMEN PELVIS W CON, 09/08/2020, 13:27. [facility], CT, ABDOMEN/PELVIS WITH CONTRAST, 03/03/2017, 21:58. FINDINGS: Image quality: Excellent. Lung bases: Lung bases are clear. Heart size is normal. Genitourinary: Minimal interval growth of a exophytic hypervascular mass off the mid to lower pole of the right kidney, previously measuring 1.9 cm on 09/08/2020 and now measuring 2.0 cm. This is highly consistent with a small exophytic renal cell carcinoma. A middle pole low-density lesion in the left kidney with minimal peripheral calcification measuring 2.5 cm is consistent with a benign lesion. It has Hounsfield measurement on precontrast imaging is 25. On arterial phase imaging, the Hounsfield measurement is 22. On delayed imaging, the Hounsfield measurement is 29. No further workup of this lesion is required. Other solid organs: Liver is normal in size and enhancement. Gallbladder is surgically absent. Biliary system is non dilated. Pancreas enhances normally. Spleen is normal in size and enhancement. No adrenal nodules. Peritoneum and bowel: Unenhanced bowel loops are normal in wall thickness and caliber. No free fluid or air. Nodes and vessels: No retroperitoneal or mesenteric adenopathy by size criteria. Aorta and inferior vena cava are normal in caliber. Bones: No suspicious bony lesions. Old superior endplate compression of L2. Fusion of L4-L5 vertebral bodies. This may be an auto fusion. As stated in the previous report findings are suspicious for ankylosing spondylitis. Miscellaneous: No ventral hernias. IMPRESSION: 1. Minimal interval growth of a very small exophytic renal cell carcinoma off the right kidney, measuring 2.0 cm. 2. The left renal lesion is a benign cystic lesion. Dictated by: Pierre Rosas M.D. on 10/12/2020 at 13:47 Approved by: Pierre Rosas M.D. on 10/12/2020 at 14:06
== END ==
PROVIDERS: Internal Medicine Medical Oncology; PCP Internal Medicine; Referring Provider Urology; Visit Provider Urology
DX: D72.829 Elevated white blood cell count, unspecified (principal); N28.89 Other specified disorders of kidney and ureter
CPT/HCPCS: 36415; 74170; 80053; 85025; 88184; Q9967

== ENCOUNTER → 2021-02-13 11:53 | Outpatient (CLI) | payer MEDICARE, OTHER, SELFPAY ==
[2020-09-08 16:22] VITALS: BMI 32.9
[2021-02-13 12:52] LABS: Glucose 250 mg/dL (80-110); Potassium 4.2 mmol/L (3.4-5.1); Sodium 135 mmol/L (137-145)
== END ==
PROVIDERS: PCP Internal Medicine; Referring Provider Internal Medicine Cardiovascular Disease; Visit Provider Internal Medicine Cardiovascular Disease
DX: I10 Essential (primary) hypertension (principal)
CPT/HCPCS: 36415; 80048

== ENCOUNTER → 2021-03-17 09:04 | Outpatient (CLI) | payer MEDICARE, OTHER, SELFPAY ==
[2020-09-08 16:22] VITALS: BMI 32.9
[2021-03-17 09:47] LABS: Add Manual Diff / Slide Review NO; Basophils Absolute Auto 100 /uL (0-100); Basophils Percent Auto 0.4 % (0-2); Eosinophils Absolute Auto 400 /uL (0-450); Eosinophils Percent Auto 2.7 % (2-4); Hematocrit 36.8 % (36-46); Hemoglobin 12.1 g/dL (12.0-16.0); Lymphocytes Absolute Auto 4900 /uL (1100-4500); Lymphocytes Percent Auto 30.4 % (25-40); Mean Corpuscular Hemoglobin 27.7 PG (26-34); Monocytes Absolute Auto 1000 /uL (0-900); Monocytes Percent Auto 5.9 % (3-14); Neutrophils Absolute Auto 9800 /uL (1500-7000); Neutrophils Percent Auto 60.6 % (50-75); Platelet Count 395 X10^3/uL (150-400); Red Blood Cell Count 4.38 X10^6/uL (4.0-5.2); Red Cell Distribution Width 14.9 % (11.6-14.8); White Blood Cell Count 16.1 X10^3/uL (4.5-11.0)
[2021-03-17 09:54] LABS: Hemoglobin A1C% w Est Avg Glu 8.8 % (4.0-6.0)
[2021-03-17 10:01] LABS: Alanine Aminotransferase 22 IU/L (<35); Albumin 4.3 g/dL (3.5-5.0); Albumin Globulin Ratio 1.7 (1.0-2.8); Alkaline Phosphatase 80 U/L (38-126); Aspartate Aminotransferase 30 IU/L (14-36); BUN Creatinine Ratio 28.4 (6-22); Bilirubin Total 0.4 mg/dL (0.2-1.3); Blood Urea Nitrogen 19 mg/dL (7-17); Calcium 10.6 mg/dL (8.4-10.2); Carbon Dioxide 31 mmol/L (22-32); Chloride 97 mmol/L (98-107); Estimated Glomerular Filt Rate > 60.0 mL/min (>60); Globulin 2.6 g/dL (1.7-4.1); Glucose 132 mg/dL (80-110); HEMOLYSIS < 15 (0-50); Lactate Dehydrogenase 363 U/L (313-618); Sodium 136 mmol/L (137-145); Total Protein 6.9 g/dL (6.3-8.2)
== END ==
PROVIDERS: Internal Medicine Medical Oncology; PCP Internal Medicine; Referring Provider Internal Medicine; Visit Provider Internal Medicine
DX: E11.9 Type 2 diabetes mellitus without complications (principal); D72.9 Disorder of white blood cells, unspecified
CPT/HCPCS: 80053; 83036; 83615; 85025

== ENCOUNTER → 2021-04-06 10:41 | Outpatient (CLI) | payer MEDICARE, OTHER, SELFPAY ==
[2020-09-08 16:22] VITALS: BMI 32.9
--- NOTE | 2021-04-06 10:42 | DI.US.S_ITS ---
PROCEDURE: US RENAL COMPLETE INDICATIONS: RIGHT RENAL LESION TECHNIQUE: Real-time scanning was performed of the kidneys and bladder, with image documentation. COMPARISON: [facility], CT, CT ABDOMEN WO/W CON, 04/06/2021, 11:05. FINDINGS: Kidneys: Kidneys are normal in size. Right kidney measures 11.6 cm long; left kidney measures 10.7 cm long. Right renal cortical thickness is 1.7 cm; left renal cortical thickness is 1.5 cm. Renal cortical echotexture is normal. 7 mm right renal calculus noted without obstruction. Exophytic isoechoic cortical mass noted associated with the inferior lateral right renal cortex measures 1.8 x 1.6 x 1.8 cm corresponding with the prior CT. No vascularity detected by ultrasound. Bladder: nondistended Miscellaneous: No free pelvic fluid. IMPRESSION: Exophytic 1.8 cm right renal cortical mass lesion corresponds with a prior CT Nonobstructive 7 mm right renal calculus. No hydronephrosis bilaterally. Approved by: Juan Torres M.D. on 04/06/2021 at 11:30
--- NOTE | 2021-04-06 10:52 | DI.CT.S_ITS ---
PROCEDURE: CT ABDOMEN WO/W CON INDICATIONS: Right renal lesion TECHNIQUE: Optional 5 mm thick noncontrast images acquired from the diaphragm to the iliac crests. After the administration of intravenous contrast, 5 mm thick images again acquired from the diaphragm to the iliac crests in the arterial and urographic phases. 5 mm thick coronal and sagittal reformats were then acquired. For radiation dose reduction, the following was used: automated exposure control, adjustment of mA and/or kV according to patient size. COMPARISON: [facility], CT, PE STUDY (CTA CHEST), 12/28/2012, 14:59. [facility], CT, ABDOMEN/PELVIS WITH CONTRAST, 07/28/2013, 13:25. [facility], CT, ABDOMEN/PELVIS WITH CONTRAST, 03/03/2017, 21:58. [facility], CT, CT ABDOMEN PELVIS W CON, 09/08/2020, 13:27. [facility], US, US RENAL COMPLETE, 04/06/2021, 10:56. [facility], CT, CT ABDOMEN WO/W CON, 10/12/2020, 12:01. FINDINGS: Image quality: Excellent. Lung bases: Small nodules within the right middle, right lower and left lower lobes measuring up to 0.4 cm appears stable compared to the prior study of 12/28/2012. There is mild atelectasis and scarring redemonstrated within the lung bases. Heart size is normal. Genitourinary: An exophytic mass extending posterolaterally from the inferior pole of the right kidney measures up to approximately 1.8 x 1.8 x 1.6 cm, stable in size compared to the recent prior studies. No evidence of adjacent perinephric solid organ invasion or renal vein invasion. Multiple nonobstructing right renal stones are redemonstrated including clustered stones measuring up to 1.1 cm in aggregate dimension. There is no hydronephrosis. A complex left renal cyst with linear wall calcification is redemonstrated. Other solid organs: Evaluation of the liver demonstrates no focal hepatic lesions. The gallbladder is surgically absent. Biliary system is non-dilated. Pancreas enhances normally. No peripancreatic fat stranding or fluid collections. No pancreatic duct dilatation. The spleen is normal in size. No adrenal nodules. Peritoneum and bowel: Visualized bowel loops are normal in wall thickness and caliber. No free fluid or air. Nodes and vessels: No retroperitoneal or mesenteric adenopathy by size criteria. Aorta and inferior vena cava are normal in caliber. Bones: No suspicious bony lesions. No vertebral body compression fractures. There is fusion of multiple vertebral bodies throughout the visualized thoracic and lumbar spine redemonstrated consistent with ankylosing spondylitis. There is also ankylosis of the partially visualized sacroiliac joints. Miscellaneous: No ventral hernias. IMPRESSION: 1. Exophytic right renal mass appears stable in size compared to the recent prior studies. No evidence of adjacent perinephric invasion or renal vein invasion. 2. No evidence of lymphadenopathy in the abdomen. 3. Findings consistent with ankylosing spondylitis redemonstrated. Dictated by: Mohan Andino M.D. on 04/06/2021 at 17:17 Approved by: Mohan Andino M.D. on 04/06/2021 at 17:31 A
== END ==
PROVIDERS: PCP Internal Medicine; Referring Provider Urology; Visit Provider Urology
DX: N28.89 Other specified disorders of kidney and ureter (principal)
CPT/HCPCS: 74170; 76770

== ENCOUNTER → 2021-04-16 13:32 | Outpatient (CLI) | payer MEDICARE, OTHER, SELFPAY ==
[2020-09-08 16:22] VITALS: BMI 32.9
== END ==
PROVIDERS: PCP Internal Medicine; Visit Provider Urology
DX: C91.10 Chronic lymphocytic leukemia of B-cell type not having achieved remission (principal); N39.0 Urinary tract infection, site not specified; N28.89 Other specified disorders of kidney and ureter
CPT/HCPCS: 81002; 87077; 87086; 87186; 99213

== ENCOUNTER → 2021-06-23 08:28 | Outpatient (CLI) | payer MEDICARE, OTHER, SELFPAY ==
[2020-09-08 16:22] VITALS: BMI 32.9
[2021-06-23 09:36] LABS: Hemoglobin A1C% w Est Avg Glu 9.2 % (4.0-6.0)
[2021-06-23 10:18] LABS: BUN Creatinine Ratio 26.6 (6-22); Blood Urea Nitrogen 17 mg/dL (7-17); Carbon Dioxide 31 mmol/L (22-32); Chloride 97 mmol/L (98-107); Estimated Glomerular Filt Rate > 60 mL/min (>60); Glucose 192 mg/dL (80-110); HEMOLYSIS < 15 (0-50); Sodium 137 mmol/L (137-145)
[2021-06-23 10:19] LABS: Potassium 4.4 mmol/L (3.4-5.1)
== END ==
PROVIDERS: PCP Internal Medicine; Referring Provider Internal Medicine; Visit Provider Internal Medicine
DX: E11.9 Type 2 diabetes mellitus without complications (principal); C91.10 Chronic lymphocytic leukemia of B-cell type not having achieved remission; N28.89 Other specified disorders of kidney and ureter; Z79.4 Long term (current) use of insulin; I10 Essential (primary) hypertension; E78.5 Hyperlipidemia, unspecified
CPT/HCPCS: 36415; 80048; 83036

== ENCOUNTER → 2021-10-08 09:51 | Outpatient (CLI) | payer MEDICARE, OTHER, SELFPAY ==
[2020-09-08 16:22] VITALS: BMI 32.9
[2021-10-08 11:46] LABS: BUN Creatinine Ratio 24.4 (6-22); Blood Urea Nitrogen 21 mg/dL (7-17); Carbon Dioxide 28 mmol/L (22-32); Chloride 97 mmol/L (98-107); Estimated Glomerular Filt Rate > 60 mL/min (>60); Glucose 251 mg/dL (80-110); HEMOLYSIS < 15 (0-50); Sodium 135 mmol/L (137-145)
== END ==
PROVIDERS: PCP Internal Medicine; Referring Provider Urology; Visit Provider Urology
DX: N28.89 Other specified disorders of kidney and ureter (principal)
CPT/HCPCS: 36415; 80048

== ENCOUNTER → 2021-10-10 11:49 | Outpatient (CLI) | payer MEDICARE, OTHER, SELFPAY ==
[2020-09-08 16:22] VITALS: BMI 32.9
--- NOTE | 2021-10-10 11:50 | DI.CT.S_ITS ---
PROCEDURE: CT ABDOMEN RENAL PROTOCOL INDICATIONS: Renal mass TECHNIQUE: After the administration of intravenous contrast, 5 mm thick images acquired from the diaphragm to the iliac crests in the arterial and urographic phases. 5 mm thick coronal and sagittal reformats were acquired. For radiation dose reduction, the following was used: automated exposure control, adjustment of mA and/or kV according to patient size. COMPARISON: 03/17/2021 FINDINGS: Image quality: Evaluation is limited by early contrast injection prior to the intended noncontrast phase. Lung bases: Basilar scarring/atelectasis. Stable small right lower lobe nodule. Genitourinary: Left interpolar region indeterminate lesion with small peripheral calcification measuring 25 millimeters, previously 26 millimeters, previously shown to be nonenhancing and likely a Bosniak 2 cyst. Exophytic lesion arising from the right lower pole measuring 18 millimeters, previously 17 millimeters. Subcentimeter lesions are too small to characterize. No hydronephrosis or renal calculi. Solid organs: Liver is unremarkable. Cholecystectomy. Biliary tree, pancreas, spleen, and adrenals are unremarkable. Peritoneum and bowel: Unremarkable. Nodes and vessels: Coronary artery calcifications. Aortoiliac atherosclerotic calcifications. No abdominal aortic aneurysm. Bones: Spondylosis. No acute or suspicious osseous lesion. Sacroiliac ankylosis. Contiguous calcification of the anterior longitudinal ligament. These are compatible with ankylosing spondylitis. Stable L2 superior endplate deformity. Miscellaneous: No ventral hernias. IMPRESSION: Evaluation on this study is limited by premature contrast injection, performed before the intended noncontrast phase. However, in conjunction with prior noncontrast images from 04/06/2021 CT: Stable exophytic right lower pole renal mass measuring 18 millimeters. No lymphadenopathy or venous invasion. Stable left Bosniak 2 nonenhancing cyst in the interpolar region. Other stable/incidental findings above. Dictated by: Taye Bowser M.D. on 10/10/2021 at 13:34 Approved by: Taye Bowser M.D. on 10/10/2021 at 13:45
== END ==
PROVIDERS: PCP Internal Medicine; Referring Provider Urology; Visit Provider Urology
DX: N28.89 Other specified disorders of kidney and ureter (principal)
CPT/HCPCS: 74170; Q9967

== ENCOUNTER → 2021-11-19 08:16 | Outpatient (CLI) | payer MEDICARE, OTHER, SELFPAY ==
[2020-09-08 16:22] VITALS: BMI 32.9
[2021-11-19 10:10] LABS: Hemoglobin A1C% w Est Avg Glu 9.9 % (4.0-6.0)
[2021-11-19 11:26] LABS: BUN Creatinine Ratio 30.3 (6-22); Blood Urea Nitrogen 20 mg/dL (7-17); Calcium 9.7 mg/dL (8.4-10.2); Carbon Dioxide 29 mmol/L (22-32); Chloride 95 mmol/L (98-107); Estimated Glomerular Filt Rate > 60 mL/min (>60); Glucose 239 mg/dL (80-110); HEMOLYSIS < 15 (0-50); Sodium 135 mmol/L (137-145)
== END ==
PROVIDERS: PCP Internal Medicine; Referring Provider Internal Medicine; Visit Provider Internal Medicine
DX: E11.9 Type 2 diabetes mellitus without complications (principal); Z79.4 Long term (current) use of insulin
CPT/HCPCS: 36415; 80048; 83036

== ENCOUNTER → 2022-02-14 09:18 | Outpatient (CLI) | payer MEDICARE, OTHER, SELFPAY ==
[2020-09-08 16:22] VITALS: BMI 32.9
[2022-02-14 10:55] LABS: BUN Creatinine Ratio 26.9 (6-22); Blood Urea Nitrogen 21 mg/dL (7-17); Calcium 10.1 mg/dL (8.4-10.2); Carbon Dioxide 34 mmol/L (22-32); Chloride 94 mmol/L (98-107); Estimated Glomerular Filt Rate > 60 mL/min (>60); Glucose 84 mg/dL (80-110); HEMOLYSIS < 15 (0-50); Potassium 3.5 mmol/L (3.4-5.1); Sodium 140 mmol/L (137-145)
== END ==
PROVIDERS: PCP Internal Medicine; Referring Provider Internal Medicine; Visit Provider Internal Medicine
DX: E11.9 Type 2 diabetes mellitus without complications (principal); I10 Essential (primary) hypertension; Z79.4 Long term (current) use of insulin
CPT/HCPCS: 36415; 80048; 83036

== ENCOUNTER → 2022-04-10 11:09 | Outpatient (CLI) | payer MEDICARE, OTHER, SELFPAY ==
[2020-09-08 16:22] VITALS: BMI 32.9
--- NOTE | 2022-04-10 11:10 | DI.CT.S_ITS ---
PROCEDURE: CT ABDOMEN RENAL PROTOCOL INDICATIONS: Follow-up right renal mass, complex cyst left TECHNIQUE: Optional 5 mm thick noncontrast images acquired from the diaphragm to the iliac crests. After the administration of intravenous contrast, 5 mm thick images again acquired from the diaphragm to the iliac crests in the arterial and urographic phases. 5 mm thick coronal and sagittal reformats were then acquired. For radiation dose reduction, the following was used: automated exposure control, adjustment of mA and/or kV according to patient size. COMPARISON: [facility], CT, ABDOMEN/PELVIS WITH CONTRAST, 03/03/2017, 21:58. [facility], CT, CT ABDOMEN WO/W CON, 04/06/2021, 11:05. [facility], CT, CT ABDOMEN WO/W CON, 10/12/2020, 12:01. [facility], CT, CT ABDOMEN PELVIS W CON, 09/08/2020, 13:27. [facility], CT, CT ABDOMEN RENAL PROTOCOL, 10/10/2021, 11:54. FINDINGS: Image quality: Excellent. Lung bases: A 5 mm pulmonary nodule is present within the posterior right lower lobe (series 8/image 6). This is not visualized on prior studies; however this region of the lung was not necessarily imaged on prior CTs of the abdomen and pelvis. Atelectasis or scar is present at the right lung base, as before. Genitourinary: No hydronephrosis. There are multiple right nonobstructing renal calculi, the largest of which measures 1.1 cm in diameter and approximately 300 Hounsfield units in density. An enhancing exophytic renal mass is redemonstrated off the midpole of the right kidney which measures 1.5 cm in the coronal plane on the current study and measured 1.8 cm in the coronal plane on the study dated September 08, 2020. No new suspicious renal mass lesions. A complicated cyst is present within the left kidney which measures 2.8 cm on the current study and is unchanged from the study dated September 08, 2020. Other solid organs: Liver is normal in size and enhancement. Gallbladder is surgically absent . Biliary system is non dilated. Pancreas enhances normally. Spleen is normal in size and enhancement. No adrenal nodules. Peritoneum and bowel: Unenhanced bowel loops are normal in wall thickness and caliber. No free fluid or air. Nodes and vessels: A solitary retroperitoneal node measures 1.1 cm on the current study and is unchanged from the study dated October 10, 2021. No other retroperitoneal or mesenteric adenopathy. Aorta and inferior vena cava are normal in caliber. There are scattered atheromatous calcifications throughout the aorta and iliac arteries bilaterally. Bones: Severe degenerative change and chronic appearing compression deformity at the superior L2 endplate is redemonstrated. No vertebral body compression fractures. Miscellaneous: No ventral hernias. IMPRESSION: 1. 5 mm right lower lobe pulmonary nodule not visualized on the prior studies. It is unclear whether this is a new nodule or is simply more superior than the extent of the prior CT examinations. 6-12 month follow-up recommended. Please see follow-up guidelines below. 2. Stable enhancing exophytic mass within the right kidney when compared with the study dated September 08, 2020. 3. Stable complicated appearing cyst within the left kidney. Bosniak 2. No further follow-up recommended. Fleischner Society criteria for SOLID lung nodule followup. Nodule size (mm)Low-risk patientHigh-risk patient<6 (single or multiple)No routine followup.Optional CT at 12 months. 6-8 (single or multiple)CT at 6-12 months, then optional CT at 18-24 mo.CT at 6-12 months, then CT at 18-24 months. >8 (single)CT at 3 months, PET-CT, or biopsy. Same as for low-risk pts. >8 (multiple)CT at 3-6 months, then optional CT at 18-24 mo.CT at 3-6 months, then CT at 18-24 months. Fleischner Society criteria for SUB-SOLID lung nodule followup. Solitary pure ground-glass nodules<6 mm (ground glass or part solid)No followup needed. 6 mm or larger (ground glass)CT at 6-12 months to confirm persistence, then CT every 2 years until 5 years.6 mm or larger (part solid)CT at 3-6 months to confirm persistence, then annual CT until 5 years if unchanged and solid component remains <6 mm. Multiple sub-solid nodules<6 mmCT at 3-6 months, then CT consider at 2 & 4 years for high risk patients. [address] at 3-6 months. Subsequent management based on most suspicious lesions. Recommendations do not apply to lung cancer screening, patients with immunosuppression, or patients with known primary cancer. Dictated by: Maty Liz M.D. on 04/10/2022 at 14:52 Approved by: Maty Liz M.D. on 04/10/2022 at 15:54
== END ==
PROVIDERS: PCP Internal Medicine; Referring Provider Urology; Visit Provider Urology
DX: N28.89 Other specified disorders of kidney and ureter (principal); N28.1 Cyst of kidney, acquired; R91.1 Solitary pulmonary nodule; N20.0 Calculus of kidney; Z90.49 Acquired absence of other specified parts of digestive tract
CPT/HCPCS: 74170; Q9967

== ENCOUNTER → 2022-05-10 08:42 | Outpatient (CLI) | payer MEDICARE, OTHER, SELFPAY ==
[2020-09-08 16:22] VITALS: BMI 32.9
--- NOTE | 2022-05-10 | DI.ECHO.S_ITS ---
[facility] [address] [place]. [address] [place] [facility]---------+ [facility] +---------+ : : [id number] : : : : [place], [place] : : : : [id number] : : : : Phone: [phone]+ Echocardiogram Report + + :Name: TODD WELLER Study Date: 05/10/2022 Height: 62 in : :[facility] : Weight: 190 lb : : Gender: Female BSA: 1.9 m2 : :: 1950 Age: 72 yrs BP: 162/76 mmHg: :Reason For Study: Nonrheumatic aortic stenosis : :Ordering Physician: Randy : :Kehinde Aranda Performed By: Ilsa Weller : :Referring: RANDY ARANDA : + + Interpretation Summary The left ventricular cavity is small. There is mild concentric left ventricular hypertrophy. The ejection fraction is estimated to be 65-70%. The right ventricle is normal in size and function. The aortic valve is not well visualized. The aortic valve is heavily calcified. The peak aortic velocity is 4.78 m/sec. The aortic valve mean gradient is 63.3 mmHg. The peak aortic velocity on the previous exam was 3.72 m/sec. sev ratio: 0.17 SANG indexed to BSA (cm^2/m^2): 0.30 There is severe aortic stenosis. Compared to the prior echo study, there has been an increase in the severity of aortic stenosis. There is mild aortic regurgitation. The IVC is of normal diameter and collapses greater than 50% with a sniff. This suggests a low right atrial pressure of 3 mm Hg. Procedure: A two-dimensional transthoracic echocardiogram with color flow and Doppler was performed. The study quality was technically difficult. The patient was in sinus rhythm with heart rates between 80-87 bpm during the exam. Left Ventricle: Left ventricular wall thickness is mildly increased. The left ventricular cavity is small. There is mild concentric left ventricular hypertrophy. There is no echo evidence for significant left ventricular outflow tract obstruction. There is no thrombus. The ejection fraction is estimated to be 65-70%. There are no focal wall motion abnormalities. MV E/A: 0.63 Med Peak E' Bernabe: 6.2 cm/sec E/E' med: 15.0. Right Ventricle: The right ventricle is normal in size and function. Atria: The left atrium has mildly decreased in size since the prior echo exam. The left atrium is mildly dilated. Right atrial size is normal. There is no Doppler evidence for an interatrial shunt. Mitral Valve: The mitral valve leaflets are mildly calcified. The mitral valve leaflets appear to open well. There is mild to moderate mitral annular calcification. There is trace mitral regurgitation. Aortic Valve: The aortic valve is heavily calcified. There is severely reduced leaflet mobility. The aortic valve is not well visualized. There is severe aortic stenosis. Compared to the prior echo study, there has been an increase in the severity of aortic stenosis. The peak aortic velocity is 4.78 m/sec. The aortic valve mean gradient is 63.3 mmHg. The peak aortic velocity on the previous exam was 3.72 m/sec. There is mild aortic regurgitation. Tricuspid Valve: The tricuspid valve is normal in structure and function. There is trace tricuspid regurgitation. Pulmonary artery pressures cannot be estimated because of the lack of a measurable TR jet velocity. Pulmonic Valve: The pulmonic valve is not well visualized. There is no pulmonic valvular regurgitation. Great Vessels: The aortic root is normal size. The ascending aorta is normal in size. The IVC is of normal diameter and collapses greater than 50% with a sniff. This suggests a low right atrial pressure of 3 mm Hg. Pericardium/ Pleura There is an anterior echo-free space consistent with a fat pad. There is no pericardial effusion. There is no pleural effusion. MMode/2D Measurements & Calculations LVIDd: 3.8 cm LVOT diam: 2.1 cm LVIDs: 2.5 cm Ao root diam: 3.2 cm FS: 35.5 % asc Aorta Diam: 2.5 cm EPSS: 0.98 cm IVSd: 1.3 cm LVPWd: 1.2 cm LV norwood. diameter/BSA (cm/m^2): 2.0 LV sys. diameter/BSA (cm/m^2): 1.3 LA A2 area: 19.3 cm2 RA long axis: 4.4 cm LA A4 area: 18.6 cm2 RA area: 17.9 cm2 LA length (vol): 5.3 cm RA vol: 62.0 ml LA vol: 57.5 ml RA : 33.1 ml/m2 LA vol index: 30.8 ml/m2 RVD1 (basal): 3.5 cm TAPSE: 2.6 cm Doppler Measurements & Calculations Ao V2 max: 478.4 cm/sec LVOT Max Bernabe: 87.9 cm/sec Ao V2 mean: 386.8 cm/sec LV V1 max P.1 mmHg Ao max P.6 mmHg LV V1 VTI: 20.2 cm Ao mean P.3 mmHg SANG(I,D): 0.56 cm2 Ao V2 VTI: 121.5 cm SANG(V,D): 0.62 cm2 sev ratio: 0.17 SANG indexed to BSA (cm^2/m^2): 0.30 AI P1/2t: 351.6 msec AI dec slope: 355.2 cm/sec2 MV E max bernabe: 93.3 cm/sec TR max bernabe: 213.9 cm/sec MV A max bernabe: 147.4 cm/sec TR max P.3 mmHg MV E/A: 0.63 PA V2 max: 111.2 cm/sec Med Peak E' Bernabe: 6.2 cm/sec PA V2 mean: 84.9 cm/sec E/E' med: 15.0 PA mean P.1 mmHg Lat Peak E' Bernabe: 3.4 cm/sec E/E' lat: 27.5 E/e' average: 21.2 MV dec time: 0.28 sec MVA(VTI): 2.1 cm2 MV V2 mean: 105.3 cm/sec SV(LVOT): 68.5 ml MV mean P.9 mmHg MV V2 VTI: 32.8 cm Reading Physician:03:25 PM
[2022-05-10 10:08] LABS: Add Manual Diff / Slide Review NO; Basophils Absolute Auto 100 /uL (0-100); Basophils Percent Auto 0.7 % (0-2); Eosinophils Absolute Auto 300 /uL (0-450); Eosinophils Percent Auto 1.8 % (2-4); Hematocrit 36.4 % (36-46); Hemoglobin 12.1 g/dL (12.0-16.0); Lymphocytes Absolute Auto 5000 /uL (1100-4500); Lymphocytes Percent Auto 32.7 % (25-40); Mean Corpuscular HGB Conc 33.1 % (30-36); Mean Corpuscular Hemoglobin 28.4 PG (26-34); Mean Corpuscular Volume 85.9 fL (80-100); Monocytes Absolute Auto 1000 /uL (0-900); Monocytes Percent Auto 6.5 % (3-14); Neutrophils Absolute Auto 8900 /uL (1500-7000); Neutrophils Percent Auto 58.3 % (50-75); Platelet Count 394 X10^3/uL (150-400); Red Blood Cell Count 4.24 X10^6/uL (4.0-5.2); Red Cell Distribution Width 15.2 % (11.6-14.8); White Blood Cell Count 15.3 X10^3/uL (4.5-11.0)
[2022-05-10 10:18] LABS: Hemoglobin A1C% w Est Avg Glu 6.2 % (4.0-6.0)
[2022-05-10 10:47] LABS: Alanine Aminotransferase 22 IU/L (<35); Albumin 4.1 g/dL (3.5-5.0); Albumin Globulin Ratio 1.6 (1.0-2.8); Alkaline Phosphatase 73 U/L (38-126); Aspartate Aminotransferase 28 IU/L (14-36); BUN Creatinine Ratio 28.4 (6-22); Bilirubin Total 0.4 mg/dL (0.2-1.3); Blood Urea Nitrogen 23 mg/dL (7-17); Calcium 10.2 mg/dL (8.4-10.2); Carbon Dioxide 33 mmol/L (22-32); Chloride 94 mmol/L (98-107); Estimated Glomerular Filt Rate > 60 mL/min (>60); Globulin 2.6 g/dL (1.7-4.1); Glucose 92 mg/dL (80-110); HEMOLYSIS < 15 (0-50); Potassium 3.9 mmol/L (3.4-5.1); Sodium 135 mmol/L (137-145); Total Protein 6.7 g/dL (6.3-8.2)
[2022-05-10 11:03] LABS: Lactate Dehydrogenase 259 U/L (120-246)
== END ==
PROVIDERS: Internal Medicine Medical Oncology; PCP Internal Medicine; Referring Provider Internal Medicine Cardiovascular Disease; Visit Provider Internal Medicine Cardiovascular Disease
DX: E11.9 Type 2 diabetes mellitus without complications (principal); I08.0 Rheumatic disorders of both mitral and aortic valves; Z79.4 Long term (current) use of insulin; C91.10 Chronic lymphocytic leukemia of B-cell type not having achieved remission
CPT/HCPCS: 36415; 80053; 83036; 83615; 85025; 93306

== ENCOUNTER → 2022-08-27 16:06 | Outpatient (CLI) | payer MEDICARE, OTHER, SELFPAY ==
[2020-09-08 16:22] VITALS: BMI 32.9
[2022-08-27 17:09] LABS: Prothrombin Time 11.9 SECONDS (10.1-12.7)
[2022-08-27 17:18] LABS: Add Manual Diff / Slide Review NO; Basophils Absolute Auto 100 /uL (0-100); Basophils Percent Auto 0.7 % (0-2); Eosinophils Absolute Auto 200 /uL (0-450); Eosinophils Percent Auto 1.3 % (2-4); Hematocrit 34.6 % (36-46); Hemoglobin 11.6 g/dL (12.0-16.0); Lymphocytes Absolute Auto 3800 /uL (1100-4500); Lymphocytes Percent Auto 27.7 % (25-40); Mean Corpuscular HGB Conc 33.5 % (30-36); Mean Corpuscular Hemoglobin 28.1 PG (26-34); Mean Corpuscular Volume 83.8 fL (80-100); Monocytes Absolute Auto 900 /uL (0-900); Monocytes Percent Auto 6.3 % (3-14); Neutrophils Absolute Auto 8900 /uL (1500-7000); Platelet Count 389 X10^3/uL (150-400); Red Blood Cell Count 4.13 X10^6/uL (4.0-5.2); White Blood Cell Count 13.8 X10^3/uL (4.5-11.0)
[2022-08-27 17:26] LABS: BUN Creatinine Ratio 28.4 (6-22); Blood Urea Nitrogen 25 mg/dL (7-17); Calcium 10.1 mg/dL (8.4-10.2); Carbon Dioxide 28 mmol/L (22-32); Chloride 96 mmol/L (98-107); Estimated Glomerular Filt Rate > 60 mL/min (>60); Glucose 108 mg/dL (80-110); HEMOLYSIS < 15 (0-50); Potassium 4.4 mmol/L (3.4-5.1); Sodium 135 mmol/L (137-145)
== END ==
PROVIDERS: PCP Internal Medicine; Referring Provider Internal Medicine Interventional Cardiology; Visit Provider Internal Medicine Interventional Cardiology
DX: I35.0 Nonrheumatic aortic (valve) stenosis (principal)
CPT/HCPCS: 36415; 80048; 85025; 85610

== ENCOUNTER → 2022-10-09 10:38 | Outpatient (CLI) | payer MEDICARE, OTHER, SELFPAY ==
[2020-09-08 16:22] VITALS: BMI 32.9
[2022-10-09 11:35] LABS: BUN Creatinine Ratio 22.3 (6-22); Blood Urea Nitrogen 21 mg/dL (7-17); Calcium 9.9 mg/dL (8.4-10.2); Carbon Dioxide 29 mmol/L (22-32); Chloride 97 mmol/L (98-107); Estimated Glomerular Filt Rate > 60 mL/min (>60); Glucose 173 mg/dL (80-110); HEMOLYSIS < 15 (0-50); Potassium 4.2 mmol/L (3.4-5.1); Sodium 135 mmol/L (137-145)
== END ==
PROVIDERS: PCP Internal Medicine; Referring Provider Urology; Visit Provider Urology
DX: N20.0 Calculus of kidney (principal); N28.89 Other specified disorders of kidney and ureter
CPT/HCPCS: 36415; 80048

== ENCOUNTER → 2022-10-11 12:45 | Outpatient (CLI) | payer MEDICARE, OTHER, SELFPAY ==
[2020-09-08 16:22] VITALS: BMI 32.9
--- NOTE | 2022-10-11 12:46 | DI.CT.S_ITS ---
PROCEDURE: CT ABDOMEN RENAL PROTOCOL INDICATIONS: Right renal mass/kidney stones TECHNIQUE: Optional 5 mm thick noncontrast images acquired from the diaphragm to the iliac crests. After the administration of intravenous contrast, 5 mm thick images again acquired from the diaphragm to the iliac crests in the arterial and urographic phases. 5 mm thick coronal and sagittal reformats were then acquired. For radiation dose reduction, the following was used: automated exposure control, adjustment of mA and/or kV according to patient size. COMPARISON: [facility], RG, CTA CHEST ABDOMEN PELVIS ANGIO, 07/25/2022, 12:39. [facility], CT, CT ABDOMEN RENAL PROTOCOL, 04/10/2022, 11:17. FINDINGS: Image quality: Excellent. Lung bases: Stable small right middle and lower lobe lung nodules. Aortic valvuloplasty. Normal size heart. No pericardial effusion. Prominent posterior mediastinal periaortic lymph nodes bilaterally stable at 9 mm in short axis maximally. Genitourinary: Under rotated right kidney. Three discrete calcifications in the collecting system, the largest measuring 1.2 cm with Hounsfield units of 466. Size and number are stable compared to most recent prior study. No left collecting system calcifications. Partially exophytic proteinaceous cystic structure in the left kidney with a short linear mural calcification and fine septations is stable at 2.6 cm. An exophytic enhancing soft tissue mass arising from the inferior aspect of the right kidney measuring 1.3 cm demonstrates enhancement postcontrast and is also stable in size. No hydronephrosis or hydroureter. The collecting systems are opacified normally with contrast Other solid organs: Surgically absent gallbladder. No biliary dilatation. Normal liver, pancreas, and spleen. Chronic left adrenal thickening. Normal right adrenal. Peritoneum and bowel: Stomach and visible bowel loops are normal. Nodes and vessels: There are several periceliac lymph nodes which are borderline enlarged. One of the largest measures 1.4 cm in short axis, minimally increased size. No visible mesenteric masses. Aorta and IVC are normal caliber. Bones: Demineralized osseous structures and changes of ankylosing spondylitis in the visible thoracic and upper lumbar spine. There is a superior endplate central indentation of L1. No suspicious bone lesions. Miscellaneous: No ventral hernias. IMPRESSION: 1. Stable enhancing right renal mass. 2. Stable mildly complicated left renal cystic mass, Bosniak two. 3. Stable nonobstructing right intrarenal calculi. 4. Stable posterior mediastinal and retroperitoneal adenopathy, nonspecific given long-term stability. 5. Chronic changes of ankylosing spondylitis without acute fracture. Dictated by: Steff Palacios M.D. on 10/11/2022 at 17:10 Approved by: Steff Palacios M.D. on 10/11/2022 at 17:26
== END ==
PROVIDERS: PCP Internal Medicine; Referring Provider Urology; Visit Provider Urology
DX: N20.0 Calculus of kidney (principal); N28.89 Other specified disorders of kidney and ureter; R59.0 Localized enlarged lymph nodes; M45.5 Ankylosing spondylitis of thoracolumbar region; Z90.49 Acquired absence of other specified parts of digestive tract
CPT/HCPCS: 74170; Q9967

== ENCOUNTER 2022-11-04 02:19 | Inpatient (IN) | payer MEDICARE, OTHER, SELFPAY ==
[2020-09-08 16:22] VITALS: BMI 32.9
[2022-11-04] VITALS (34 sets, daily range): BP systolic 116–229; BP diastolic 55–99; PULSE 78–100; RESP 16–53; TEMP 36.3–36.9; O2SAT 92–98; BMI 34.7; BMI 35.2
--- NOTE | 2022-11-04 02:23 | DI.RAD.S_ITS ---
PROCEDURE: XR CHEST 1V INDICATIONS: cough, congestion, htn TECHNIQUE: One view of the chest was acquired. COMPARISON: [facility], CR, CHEST 1 VIEW, 03/03/2017, 20:43. Outside Facility, RG, CTA CHEST ABDOMEN PELVIS ANGIO, 07/25/2022, 12:39. FINDINGS: Surgical changes and devices: A prosthetic heart valve is present. Lungs and pleura: Lungs are clear. No pleural effusions or pneumothorax. Mediastinum: Mediastinal contours appear normal. Heart size is normal. Bones and chest wall: No suspicious bony lesions. Overlying soft tissues appear unremarkable. IMPRESSION: No acute cardiopulmonary abnormality. There is no significant discrepancy when compared to the overnight preliminary report. Approved by: Go Parmar M.D. on 11/04/2022 at 8:07
--- NOTE | 2022-11-04 02:46 | ED.GENADULT ---
HPI - General Adult General Chief complaint: Hypertension Stated complaint: HTN and flu symptoms Time Seen by Provider: 11/04/22 02:23 Source: patient and EMS Mode of arrival: EMS Limitations: no limitations History of Present Illness HPI narrative: This is a 72-year-old female with history of TAVR 1 month ago, hypertension, diabetes on insulin, dyslipidemia an aspirin 81 mg daily, patient also has history of CLL and right renal mass who presents with complaint of flu-like symptoms for the past 4 5 days. Patient states she also had very high blood pressure at home. She states she is felt unwell with subjective fevers on and off for the past 4 or 5 days, muscle aches and general fatigue. She denies headache, denies vision changes. Denies chest pain or pressure, no shortness of breath. She is had nausea the entire time but no vomiting. She states she has not been taking much oral intake because of nausea. She has been having some diarrhea. No black or bloody stools. She denies abdominal back or flank pain. Denies dysuria urgency or frequency. She states her legs are very uncomfortable she does have restless leg but does not take oral medication for it. Patient notes she would her prior surgery a month ago. Denies any drug allergies. Does use tobacco, occasional alcohol, no illicit other than THC occasionally. Dr. Velez is her primary care physician. Related Data Home Medications Medication Instructions Recorded Confirmed aspirin 81 mg tablet,delayed 81 mg PO DAILY 04/28/18 10/16/22 release lactobacillus combination no.8 3 3,000 mmu cells PO DAILY 04/28/18 10/16/22 billion cell capsule (Adult Probiotic) lansoprazole 15 mg capsule,delayed 15 mg PO DAILY 04/28/18 10/16/22 release hydrochlorothiazide PO DAILY 10/17/20 10/16/22 Previous Rx's Medication Instructions Recorded B-D PEN NEEDLE #100 ea 02/22/19 blood-glucose meter #1 ea 09/23/19 lancets 33 gauge (OneTouch Delica #100 ea 12/05/20 Lancets) meloxicam 15 mg tablet (Mobic) 15 mg PO Q DAY PRN PRN pain (scale 03/20/21 score 4-6) #90 tabs Disabled Parking #1 ea 03/26/21 Droplet Pen Marceline #250 ea 06/22/21 blood sugar diagnostic (Blood #250 ea 07/31/21 Glucose Test strips) glipizide 5 mg tablet 5 mg PO BID #180 tabs 12/31/21 simvastatin 20 mg tablet 20 mg PO HS #90 tabs 12/31/21 insulin glargine 100 unit/mL (3 65 unit (0.65 mL) SUBCUT HS #45 mL 01/09/22 mL) subcutaneous pen (Lantus Solostar U-100 Insulin) metformin 1,000 mg tablet 1,000 mg PO BIDCC #180 tabs 01/14/22 pioglitazone 30 mg tablet 30 mg PO DAILY #90 tabs 03/06/22 lisinopril 40 mg tablet 40 mg PO DAILY #90 tabs 05/13/22 metoprolol succinate 100 mg 100 mg PO BID #180 tabs 07/29/22 tablet,extended release 24 hr hydrocodone 5 mg-acetaminophen 325 1 tab PO QID PRN joint pain #120 10/17/22 mg tablet tabs Allergies Allergy/AdvReac Type Severity Reaction Status Date / Time No Known Drug Allergies Allergy Verified 10/16/22 10:43 Review of Systems Review of Systems ROS Unobtainable: All systems reviewed & are unremarkable except as noted in HPI and below Patient History Medical History Anemia Ankylosing spondylitis (~1994) Aortic stenosis Arthritis Cancer Cannabis hyperemesis syndrome concurrent with and due to cannabis abuse Chicken pox Chronic back pain CLL (chronic lymphocytic leukemia) Colitis Complex renal cyst Diabetes mellitus (2003) Diabetes mellitus, type II, insulin dependent Diabetic peripheral neuropathy Gastrointestinal irritation Hyperlipidemia Hypertension IBS (irritable bowel syndrome) Kidney stones Measles Mumps Pulmonary nodule Right renal mass RLS (restless legs syndrome) Sepsis Surgical History Anesthesia History of appendectomy History of cholecystectomy History of vaginal hysterectomy Status post appendectomy (1964) Status post breast biopsy (1991) Status post breast biopsy (2013) Status post cholecystectomy (1991) Status post hysterectomy (1993) Family History Father Cancer Diabetes mellitus Hypertension High cholesterol Mother Heart disease Hypertension Brother Ankylosing spondylitis Son Ankylosing spondylitis Social History marital status: number of children: 2 household members: none Smoking Status: Current every day smoker alcohol intake: never caffeine: No Smoking Status: Current every day smoker Substance Use Type: marijuana Exam Narrative Exam Narrative: GEN: Elderly female, alert and oriented x 3, patient appears to be in mild distress. Patient is slightly diaphoretic. HEENT: Atraumatic, pupils are equal round reactive to light, extraocular movements are intact, nares are clear, there is no conjunctival pallor. Throat is clear without any exudates, erythema, tonsillar enlargement or uvular deviation HEART: Regular rate and rhythm without murmur, clicks, rubs. Pulses are equal in upper and lower extremities LUNGS:Lungs clear to auscultation, no wheezes, rales, crackles, chest moves symmetrically ABD:bowel sounds normal, soft, non-tender, no guarding, rebound, rigidity, no masses noted, no hepatosplenomegaly, no pulsatile mass or bruit. :No CVA tenderness MSCL: Non-tender, no muscle atrophy, muscles strength 5/5 upper and lower extremities, full range of motion. NEURO:CN 2-12 intact, sensation normal SKIN: No rash, erythema or other skin changes noted. Initial Vital Signs Initial Vital Signs: Vital Signs Temperature 98.1 F 11/04/22 02:20 Pulse Rate 92 H 11/04/22 02:20 Respiratory Rate 28 H 11/04/22 02:20 Blood Pressure 228/93 H 11/04/22 02:20 Pulse Oximetry 97 11/04/22 02:20 Oxygen Delivery Method Room Air 11/04/22 02:20 Course Orders Ordered: ED Orders 11/04/22 EKG-12 Lead Routine 11/04/22 02:23 XR chest 1V Stat EKG-12 Lead Stat 11/04/22 02:24 Respiratory Panel (Film Array) Stat 11/04/22 02:40 Blood Culture Stat Complete Blood Count AUTO DIFF Stat Comprehensive Metabolic Panel Stat Lactate (Lactic Acid) Stat Lipase Stat NT-proBNP (BNP-Adult 18+) Stat PTT Partial Thromboplastin Chava Stat Procalcitonin Stat Prothrombin Time INR Stat Troponin & CK Cardiac Panel Stat 11/04/22 03:18 CT abdomen pelvis w con Stat CT angio chest PE protocol Stat 11/04/22 04:10 Urinalysis and Microscopic Stat Urine Culture Stat 11/04/22 04:37 Trop I [Troponin I] Stat Acetaminophen (Acetaminophen 325 Mg Tablet) 650 mg PO Q6H PRN PRN Reason: Fever/Mild Pain (1-3) Hydrocodone Bitart/Acetaminophen (Hydrocodone/Acet 5/325 Tablet) 1 tab PO QID PRN PRN Reason: joint pain Aspirin (Aspirin Ec 81 Mg Tablet) 81 mg PO DAILY YANN Atorvastatin Calcium (Atorvastatin 20 Mg Tablet) 10 mg PO BEDTIME YANN Hydrochlorothiazide (Hydrochlorothiazide 25 Mg Tablet) 25 mg PO DAILY YANN Hydromorphone HCl (Hydromorphone 0.5 Mg Inj) 0.5 mg IV Q2H PRN PRN Reason: Pain, Severe (7-10) Sodium Chloride (Normal Saline 0.9%) 1,000 mls @ 150 mls/hr IV CONT YANN Last Admin: 11/04/22 04:09 Dose: 150 mls/hr Documented By: RUSLAN Insulin Glargine (Insulin Glargine 100 Unit/Ml 3ml Pen) 65 unit SUBCUT BEDTIME [facility] Lisinopril (Lisinopril 20 Mg Tablet) 40 mg PO DAILY [facility] Metoprolol Succinate (Metoprolol Er 50 Mg Tablet) 100 mg PO BID [facility] Naloxone HCl (Naloxone 0.4 Mg/Ml Vial) 0.2 mg IV Q2MIN PRN PRN Reason: Opiate Reversal Nitroglycerin (Nitroglycerin 0.4 Mg Sl Tab) 0.4 mg SL [id number] PRN PRN Reason: Chest Pain Last Admin: 11/04/22 02:47 Dose: 0.4 mg Documented By: RUSLAN Non-Formulary Medication (Lansoprazole) 15 mg PO DAILY [facility] Ondansetron HCl (Ondansetron 4 Mg/2 Ml Inj) 4 mg IV Q8HR PRN PRN Reason: Nausea And Vomiting Discontinued Medications Sodium Chloride (Normal Saline 0.9%) 1,000 mls @ 1,000 mls/hr IV BOLUS ONE Stop: 11/04/22 04:16 Last Infusion: 11/04/22 04:18 Dose: 0 mls/hr Documented By: Admin: 11/04/22 02:55 Dose: 1,000 mls/hr Documented By: NAVNEET Piperacillin Sod/Tazobactam (Sod 4.5 gm/ Sodium Chloride) 100 mls @ 200 mls/hr IV NOW ONE Stop: 11/04/22 03:20 Last Infusion: 11/04/22 04:08 Dose: 0 mls/hr Documented By: Admin: 11/04/22 03:30 Dose: 200 mls/hr Documented By: NAVNEET Lorazepam (Lorazepam 2 Mg/Ml Inj) 0.5 mg IV NOW ONE Stop: 11/04/22 03:22 Last Admin: 11/04/22 03:24 Dose: 0.5 mg Documented By: NAVNEET Lorazepam (Lorazepam 2 Mg/Ml Inj) 0.5 mg IV NOW ONE Stop: 11/04/22 04:53 Last Admin: 11/04/22 05:06 Dose: 0.5 mg Documented By: RUSLAN Metoprolol Succinate (Metoprolol Er 50 Mg Tablet) 100 mg PO DAILY ONE Stop: 11/04/22 04:55 Last Admin: 11/04/22 05:06 Dose: 100 mg Documented By: RUSLAN Ondansetron HCl (Ondansetron 4 Mg/2 Ml Inj) 4 mg IV NOW ONE Stop: 11/04/22 02:24 Last Admin: 11/04/22 02:49 Dose: 4 mg Documented By: RUSLAN Vital Signs Vital signs: Vital Signs - 8 hr 11/04/22 02:20 11/04/22 02:47 11/04/22 02:25 Temperature 98.1 F Pulse Rate 92 H 90 89 Respiratory Rate 28 H 32 H Blood Pressure 228/93 H Pulse Oximetry 97 98 Oxygen Delivery Method Room Air 11/04/22 02:30 11/04/22 02:30 11/04/22 02:34 Temperature Pulse Rate 84 Respiratory Rate 27 H Blood Pressure 220/88 H 203/89 H Pulse Oximetry 96 Oxygen Delivery Method 11/04/22 02:34 11/04/22 02:53 11/04/22 02:53 Temperature Pulse Rate 86 93 H Respiratory Rate 28 H 20 Blood Pressure 186/77 H Pulse Oximetry 98 95 Oxygen Delivery Method 11/04/22 03:00 11/04/22 03:00 11/04/22 03:30 Temperature Pulse Rate 96 H 91 H Respiratory Rate 53 H 30 H Blood Pressure 205/89 H Pulse Oximetry 97 97 Oxygen Delivery Method 11/04/22 03:32 11/04/22 03:32 11/04/22 04:05 Temperature Pulse Rate 85 Respiratory Rate 27 H Blood Pressure 116/59 L Pulse Oximetry 97 94 Oxygen Delivery Method 11/04/22 04:06 11/04/22 04:06 11/04/22 04:16 Temperature Pulse Rate 98 H 96 H Respiratory Rate Blood Pressure 197/92 H Pulse Oximetry 97 97 Oxygen Delivery Method 11/04/22 04:16 11/04/22 04:30 11/04/22 04:52 Temperature Pulse Rate 100 H 97 H Respiratory Rate 27 H Blood Pressure 192/83 H Pulse Oximetry 98 96 Oxygen Delivery Method 11/04/22 04:52 11/04/22 05:16 11/04/22 05:17 Temperature Pulse Rate 91 H 89 Respiratory Rate 26 H 18 Blood Pressure 188/83 H Pulse Oximetry 94 97 Oxygen Delivery Method 11/04/22 05:17 11/04/22 05:30 11/04/22 05:30 Temperature Pulse Rate 88 Respiratory Rate 19 Blood Pressure 205/87 H 217/83 H Pulse Oximetry 93 Oxygen Delivery Method Room Air 11/04/22 05:52 11/04/22 05:52 11/04/22 06:00 Temperature Pulse Rate 97 H Respiratory Rate 24 Blood Pressure 229/98 H 222/99 H Pulse Oximetry 97 Oxygen Delivery Method 11/04/22 06:00 Temperature Pulse Rate 96 H Respiratory Rate 32 H Blood Pressure Pulse Oximetry 98 Oxygen Delivery Method Medical Decision Making Lab Data 11/04/22 02:40 11/04/22 02:40 Labs: Lab Results 11/04/22 11/04/22 11/04/22 Range/Units 02:24 02:40 02:40 WBC 14.3 H (4.5-11.0) X10^3/uL RBC 4.22 (4.0-5.2) X10^6/uL Hgb 11.1 L (12.0-16.0) g/dL Hct 34.5 L (36-46) % MCV 81.8 (80-100) fL MCH 26.4 (26-34) PG MCHC 32.3 (30-36) % RDW 14.8 (11.6-14.8) % Plt Count 341 (150-400) X10^3/uL Neut % (Auto) 79.9 H (50-75) % Lymph % (Auto) 14.0 L (25-40) % [place] % (Auto) 5.4 (3-14) % Eos % (Auto) 0.2 L (2-4) % Baso % (Auto) 0.5 (0-2) % Neut # (Auto) 81208 H (2552-1936) /uL Lymph # (Auto) 2000 (3740-2225) /uL [place] # (Auto) 800 (0-900) /uL Eos # (Auto) 0 (0-450) /uL Baso # (Auto) 100 (0-100) /uL PT 12.7 (10.1-12.7) SECONDS INR 1.1 (0.9-1.3) APTT 31 (26-36) SECONDS Sodium (137-145) mmol/L Potassium (3.4-5.1) mmol/L Chloride (98-107) mmol/L Carbon Dioxide (22-32) mmol/L BUN (7-17) mg/dL Creatinine (0.52-1.04) mg/dL Estimated GFR (>60) mL/min BUN/Creatinine Ratio (6-22) Glucose (80-110) mg/dL Lactate (0.7-2.1) mmol/L Calcium (8.4-10.2) mg/dL Total Bilirubin (0.2-1.3) mg/dL AST (14-36) IU/L ALT (<35) IU/L Alkaline Phosphatase (38-126) U/L Total Creatine Kinase (30-135) U/L Troponin I (0.01-0.034) ng/mL NT-Pro-B Natriuret Pep (<125) pg/mL Total Protein (6.3-8.2) g/dL Albumin (3.5-5.0) g/dL Globulin (1.7-4.1) g/dL Albumin/Globulin Ratio (1.0-2.8) Lipase (23-300) U/L Procalcitonin (<0.5) ng/mL Urine Color Urine Appearance Urine pH (4.5-8.0) Ur Specific Schaller (1.000-1.035) Urine Protein (Negative) Urine Glucose (UA) (Negative) g/dL Urine Ketones (NEGATIVE) Urine Occult Blood (Negative) Urine Nitrate (Negative) Urine Bilirubin (NEGATIVE) Urine Urobilinogen (0.2) E.U./dL Ur Leukocyte Esterase (NEGATIVE) Urine RBC (0-5/HPF) Urine WBC (0-5/HPF) Ur Squamous Epith Cells (0-5/HPF) Urine Bacteria (None) Ur Culture Indicated? Chlamy pneumoniae PCR Not detected (Not Detect) Adenovirus (PCR) Not detected (Not Detect) B. pertussis DNA (PCR) Not detected (Not Detecte) B.parapertussis DNA PCR Not detected (Not Detecte) Coronavirus OC43 (PCR) Not detected (Not Detect) Coronavirus HKU1 (PCR) Not detected (Not Detect) Coronavirus 229E (PCR) Not detected (Not Detect) SARS-CoV-2 (PCR) Not detected (Not Detecte) Coronavirus NL63 (PCR) Not detected (Not Detect) Human Metapneumovir PCR Not detected (Not Detect) Influenza Type A (PCR) Not detected (Not Detect) Influenza Type B (PCR) Not detected (Not Detect) M. pneumoniae (PCR) Not detected (Not Detect) Parainfluenza 1 (PCR) Not detected (Not Detect) Parainfluenza 2 (PCR) Not detected (Not Detect) Parainfluenza 3 (PCR) Not detected (Not Detect) Parainfluenza 4 (PCR) Not detected (Not Detect) RSV (PCR) Not detected (Not Detect) Entero/Rhino (PCR) Not detected (Not Detect) 11/04/22 11/04/22 11/04/22 Range/Units 02:40 02:40 04:10 WBC (4.5-11.0) X10^3/uL RBC (4.0-5.2) X10^6/uL Hgb (12.0-16.0) g/dL Hct (36-46) % MCV (80-100) fL MCH (26-34) PG MCHC (30-36) % RDW (11.6-14.8) % Plt Count (150-400) X10^3/uL Neut % (Auto) (50-75) % Lymph % (Auto) (25-40) % [place] % (Auto) (3-14) % Eos % (Auto) (2-4) % Baso % (Auto) (0-2) % Neut # (Auto) (6053-0290) /uL Lymph # (Auto) (1397-2750) /uL [place] # (Auto) (0-900) /uL Eos # (Auto) (0-450) /uL Baso # (Auto) (0-100) /uL PT (10.1-12.7) SECONDS INR (0.9-1.3) APTT (26-36) SECONDS Sodium 138 (137-145) mmol/L Potassium 3.6 (3.4-5.1) mmol/L Chloride 97 L (98-107) mmol/L Carbon Dioxide 28 (22-32) mmol/L BUN 16 (7-17) mg/dL Creatinine 0.66 (0.52-1.04) mg/dL Estimated GFR > 60 (>60) mL/min BUN/Creatinine Ratio 24.2 H (6-22) Glucose 176 H (80-110) mg/dL Lactate 3.9 H (0.7-2.1) mmol/L Calcium 10.4 H (8.4-10.2) mg/dL Total Bilirubin 0.5 (0.2-1.3) mg/dL AST 33 (14-36) IU/L ALT 25 (<35) IU/L Alkaline Phosphatase 91 (38-126) U/L Total Creatine Kinase 50 (30-135) U/L Troponin I 0.012 (0.01-0.034) ng/mL NT-Pro-B Natriuret Pep 472 H (<125) pg/mL Total Protein 7.4 (6.3-8.2) g/dL Albumin 4.3 (3.5-5.0) g/dL Globulin 3.1 (1.7-4.1) g/dL Albumin/Globulin Ratio 1.4 (1.0-2.8) Lipase 68 (23-300) U/L Procalcitonin 0.08 (<0.5) ng/mL Urine Color Yellow Urine Appearance Clear Urine pH 5.5 (4.5-8.0) Ur Specific Schaller 1.015 (1.000-1.035) Urine Protein Trace H (Negative) Urine Glucose (UA) Negative (Negative) g/dL Urine Ketones Negative (NEGATIVE) Urine Occult Blood Negative (Negative) Urine Nitrate Positive H (Negative) Urine Bilirubin Negative (NEGATIVE) Urine Urobilinogen 0.2 (0.2) E.U./dL Ur Leukocyte Esterase Negative (NEGATIVE) Urine RBC None seen (0-5/HPF) Urine WBC 1-5/hpf (0-5/HPF) Ur Squamous Epith Cells None seen (0-5/HPF) Urine Bacteria Many (>30) H (None) Ur Culture Indicated? Specimen cultured Chlamy pneumoniae PCR (Not Detect) Adenovirus (PCR) (Not Detect) B. pertussis DNA (PCR) (Not Detecte) B.parapertussis DNA PCR (Not Detecte) Coronavirus OC43 (PCR) (Not Detect) Coronavirus HKU1 (PCR) (Not Detect) Coronavirus 229E (PCR) (Not Detect) SARS-CoV-2 (PCR) (Not Detecte) Coronavirus NL63 (PCR) (Not Detect) Human Metapneumovir PCR (Not Detect) Influenza Type A (PCR) (Not Detect) Influenza Type B (PCR) (Not Detect) M. pneumoniae (PCR) (Not Detect) Parainfluenza 1 (PCR) (Not Detect) Parainfluenza 2 (PCR) (Not Detect) Parainfluenza 3 (PCR) (Not Detect) Parainfluenza 4 (PCR) (Not Detect) RSV (PCR) (Not Detect) Entero/Rhino (PCR) (Not Detect) 11/04/22 11/04/22 Range/Units 04:37 04:37 WBC (4.5-11.0) X10^3/uL RBC (4.0-5.2) X10^6/uL Hgb (12.0-16.0) g/dL Hct (36-46) % MCV (80-100) fL MCH (26-34) PG MCHC (30-36) % RDW (11.6-14.8) % Plt Count (150-400) X10^3/uL Neut % (Auto) (50-75) % Lymph % (Auto) (25-40) % [place] % (Auto) (3-14) % Eos % (Auto) (2-4) % Baso % (Auto) (0-2) % Neut # (Auto) (1895-7789) /uL Lymph # (Auto) (9951-4845) /uL [place] # (Auto) (0-900) /uL Eos # (Auto) (0-450) /uL Baso # (Auto) (0-100) /uL PT (10.1-12.7) SECONDS INR (0.9-1.3) APTT (26-36) SECONDS Sodium (137-145) mmol/L Potassium (3.4-5.1) mmol/L Chloride (98-107) mmol/L Carbon Dioxide (22-32) mmol/L BUN (7-17) mg/dL Creatinine (0.52-1.04) mg/dL Estimated GFR (>60) mL/min BUN/Creatinine Ratio (6-22) Glucose (80-110) mg/dL Lactate 3.5 H (0.7-2.1) mmol/L Calcium (8.4-10.2) mg/dL Total Bilirubin (0.2-1.3) mg/dL AST (14-36) IU/L ALT (<35) IU/L Alkaline Phosphatase (38-126) U/L Total Creatine Kinase (30-135) U/L Troponin I 0.014 (0.01-0.034) ng/mL NT-Pro-B Natriuret Pep (<125) pg/mL Total Protein (6.3-8.2) g/dL Albumin (3.5-5.0) g/dL Globulin (1.7-4.1) g/dL Albumin/Globulin Ratio (1.0-2.8) Lipase (23-300) U/L Procalcitonin (<0.5) ng/mL Urine Color Urine Appearance Urine pH (4.5-8.0) Ur Specific Schaller (1.000-1.035) Urine Protein (Negative) Urine Glucose (UA) (Negative) g/dL Urine Ketones (NEGATIVE) Urine Occult Blood (Negative) Urine Nitrate (Negative) Urine Bilirubin (NEGATIVE) Urine Urobilinogen (0.2) E.U./dL Ur Leukocyte Esterase (NEGATIVE) Urine RBC (0-5/HPF) Urine WBC (0-5/HPF) Ur Squamous Epith Cells (0-5/HPF) Urine Bacteria (None) Ur Culture Indicated? Chlamy pneumoniae PCR (Not Detect) Adenovirus (PCR) (Not Detect) B. pertussis DNA (PCR) (Not Detecte) B.parapertussis DNA PCR (Not Detecte) Coronavirus OC43 (PCR) (Not Detect) Coronavirus HKU1 (PCR) (Not Detect) Coronavirus 229E (PCR) (Not Detect) SARS-CoV-2 (PCR) (Not Detecte) Coronavirus NL63 (PCR) (Not Detect) Human Metapneumovir PCR (Not Detect) Influenza Type A (PCR) (Not Detect) Influenza Type B (PCR) (Not Detect) M. pneumoniae (PCR) (Not Detect) Parainfluenza 1 (PCR) (Not Detect) Parainfluenza 2 (PCR) (Not Detect) Parainfluenza 3 (PCR) (Not Detect) Parainfluenza 4 (PCR) (Not Detect) RSV (PCR) (Not Detect) Entero/Rhino (PCR) (Not Detect) Urine Dip Bedside Urine Glucose Negative Bedside Urine Bilirubin - Negative Bedside Urine Ketone - Negative Urine Specific Schaller 1.015 Bedside Urine Occult Blood - Negative Bedside Urine pH 6.0 Bedside Urine Protein +/- 15 Bedside Urine Urobilinogen - Negative Bedside Urine Nitrite + Positive Bedside Urine Leukocytes - Negative Esterase Point of care testing: Urine Dip Bedside Urine Glucose Negative Bedside Urine Bilirubin - Negative Bedside Urine Ketone - Negative Urine Specific Schaller 1.015 Bedside Urine Occult Blood - Negative Bedside Urine pH 6.0 Bedside Urine Protein +/- 15 Bedside Urine Urobilinogen - Negative Bedside Urine Nitrite + Positive Bedside Urine Leukocytes - Negative Esterase Imaging Data Chest x-ray: Radiologist's Impression: Normal lung volumes, lungs are clear, no pneumothorax or pleural effusion. No cardiomegaly. Status post TAVR. No passive venous congestion. No midline shift or tracheal deviation. No acute fracture. CT scan - chest: Radiologist's Impression: Enlarged mediastinal and hilar lymph nodes possibly reactive, there is clinical concern for lymphoproliferative disorder such as lymphoma PET-CT should be considered. Bilateral pulmonary nodules measuring 3 mm. Consider some 12 month follow-up CT. Nodular appearance of thyroid gland. Recommend dedicated thyroid ultrasound. Thoracic normal in caliber. Aortic valvuloplasty. Lung windows demonstrate dependent atelectasis and pleural parenchymal scarring at the lung apices. No pulmonary infiltrate. No suspicious lytic or sclerotic osseous lesions noted. CT scan - abdomen/pelvis: Radiologist's Impression: Dependent bilateral lower lobe atelectasis. Mild intrahepatic biliary ductal dilation status post cholecystectomy. Liver otherwise unremarkable. Pancreas, spleen and adrenal glands are normal. Nonobstructing right intrarenal calculi. Stable enhancing structure in the lower pole of the right kidney, cyst within the midpole of the left kidney with mural calcification measuring 2.5 cm. No mesenteric or retroperitoneal lymphadenopathy. No abdominal ascites. No free fluid in the pelvis or adenopathy. Bladder is unremarkable, postsurgical findings hysterectomy. Cyst within the left ovary measuring 1.5 cm, appendix is not seen. ECG Data Attestation: I personally reviewed and interpreted this ECG as follows: Prior ECG tracings: available for review Interpretation: Normal sinus rhythm with sinus arrhythmia rate 82 OK 194 QRS 86 and QTC 446. No acute ST elevation or depression noted appears similar to prior from 09/08/2020. Sinus rhythm with sinus arrhythmia, rate 82 OK 216 QRS of 90 QTC of 469. No acute ST elevation depression noted. No dynamic changes. EKG 3 sinus rhythm, rate of 72 OK 170 QRS of 118 and QTC 514. EKG appears similar to earlier from 2 day with no dynamic changes. Patient had 13 beats when complex tachycardia on his telemetry but is not appreciated in lead V1 is appreciated only in lead 2 do not believe patient was having true ventricular tachycardia. [facility] Narrative Medical decision making narrative: 68-year-old female presents with complaint of nausea without vomiting diarrhea generally feeling unwell muscle aches and fatigue and subjective fevers for the past 5 days. Patient has had increased oral intake. She is hypertensive upon arrival and with EMS, no tachycardia, no fever she is slightly diaphoretic. She is a white count of 14.3 she is consistently elevated in general, she typically runs between 13 and 14 for her white count. Hemoglobin is 11.1 that is 11.6 on 08/27/2022 with platelets 341, patient has a leftward shift. No bandemia noted. Coags are negative. Sodium is 138, potassium 3 6, chloride 97 CO2 of 28 BUN 16 creatinine 0.66. Glucose appropriate 176, lactate elevated at 3.9 with a calcium of 10.4. Patient's LFTs are negative, troponin was negative and repeated again and is 0.14. With a BNP of 472 and a negative procalcitonin. Respiratory panel was negative. Chest x-ray shows no acute change. Repeat lactate 3.5 after a L fluids. Patient was given dose of nitro for hypertension, had some mild improvement to 180. Patient was given fluids, Zofran for nausea, she is quite a bit of restless leg and is constantly moving her legs. She states typically she used a heating blanket at home and deferred warm blankets. She was given 0.5 of lorazepam for this. Patient was covered with a dose of Zosyn for potential infection with her recent surgery although I less suspicious for sepsis with her hypertension. Patient had CT angio of the chest as well as abdomen pelvis for her GI symptoms as well as recent surgery. These show no clear acute change but does show enlarged mediastinal and hilar lymph could be reactive but potential for lymphoproliferative disorder, bilateral pulmonary nodules, nodular thyroid gland. Some dependent atelectasis and pleural parenchymal scarring. CT abdomen does not show any clear infectious changes. Patient has been quite hypertensive here in the department she also has quite a bit of restless legs so seemed additional dose of Ativan which was helpful in her home metoprolol dose. Patient notes she has missed several doses of her home medications secondary to nausea. She is been avoiding taking anything. She is been able to keep her oral medication down here today. Discussed with Dr. Marcano, [facility] hospitalist: regarding UTI with nausea and hypertension secondary potentially not being able take her medications versus hypertensive urgency. No obvious end-organ damage but patient does have lactic acid doses. She does have a nitrite positive urine which he is treated with Zosyn. Patient was given fluids. Patient accepted for admission. Patient seen by Dr. Marcano in the department. Discharge Plan Departure Patient Disposition: Admitted As Inpatient Clinical Impression: Acute UTI, Hypertension, Nausea, Acidosis, lactic Admit Date/Time: 11/04/22 06:03 Admit Provider: Eric Marcano
[2022-11-04] MEDS: NITROGLYCERIN 0.4 MG SL TAB SL (02:47)
[2022-11-04] MEDS: ONDANSETRON 4 MG/2 ML INJ IV ×4 (02:49→18:53)
[2022-11-04 02:54] LABS: Add Manual Diff / Slide Review NO; Basophils Absolute Auto 100 /uL (0-100); Basophils Percent Auto 0.5 % (0-2); Eosinophils Absolute Auto 0 /uL (0-450); Eosinophils Percent Auto 0.2 % (2-4); Hematocrit 34.5 % (36-46); Hemoglobin 11.1 g/dL (12.0-16.0); Lymphocytes Absolute Auto 2000 /uL (1100-4500); Mean Corpuscular HGB Conc 32.3 % (30-36); Mean Corpuscular Hemoglobin 26.4 PG (26-34); Mean Corpuscular Volume 81.8 fL (80-100); Monocytes Absolute Auto 800 /uL (0-900); Monocytes Percent Auto 5.4 % (3-14); Neutrophils Absolute Auto 11400 /uL (1500-7000); Neutrophils Percent Auto 79.9 % (50-75); Platelet Count 341 X10^3/uL (150-400); Red Blood Cell Count 4.22 X10^6/uL (4.0-5.2); Red Cell Distribution Width 14.8 % (11.6-14.8); White Blood Cell Count 14.3 X10^3/uL (4.5-11.0)
[2022-11-04] MEDS: SODIUM CHLORIDE 0.9% 1,000 ML 1000 ML IV (02:55)
[2022-11-04 03:02] LABS: Lactate (Lactic Acid) 3.9 mmol/L (0.7-2.1)
[2022-11-04 03:03] LABS: Alanine Aminotransferase 25 IU/L (<35); Albumin 4.3 g/dL (3.5-5.0); Albumin Globulin Ratio 1.4 (1.0-2.8); Alkaline Phosphatase 91 U/L (38-126); Aspartate Aminotransferase 33 IU/L (14-36); BUN Creatinine Ratio 24.2 (6-22); Bilirubin Total 0.5 mg/dL (0.2-1.3); Blood Urea Nitrogen 16 mg/dL (7-17); Calcium 10.4 mg/dL (8.4-10.2); Carbon Dioxide 28 mmol/L (22-32); Chloride 97 mmol/L (98-107); Creatine Kinase 50 U/L (30-135); Estimated Glomerular Filt Rate > 60 mL/min (>60); Globulin 3.1 g/dL (1.7-4.1); Glucose 176 mg/dL (80-110); HEMOLYSIS < 15 (0-50); INR 1.1 (0.9-1.3); Lipase 68 U/L (23-300); Potassium 3.6 mmol/L (3.4-5.1); Prothrombin Time 12.7 SECONDS (10.1-12.7); Sodium 138 mmol/L (137-145); Total Protein 7.4 g/dL (6.3-8.2)
[2022-11-04 03:06] LABS: PTT Partial Thromboplastin Tim 31 SECONDS (26-36)
[2022-11-04 03:15] LABS: NT-proBNP (BNP-Adult 18+) 472 pg/mL (<125); Troponin I 0.012 ng/mL (0.01-0.034)
--- NOTE | 2022-11-04 03:18 | DI.CT.S_ITS ---
PROCEDURE: CT ABDOMEN PELVIS W CON INDICATIONS: Chills, n/v/d x 5 days, TAVR x 6 weeks ago. TECHNIQUE: After the administration of intravenous contrast, axial sections acquired from the lung bases to the pubic symphysis. Coronal and sagittal reformats were performed. For radiation dose reduction, the following was used: automated exposure control, adjustment of mA and/or kV according to patient size. COMPARISON: Outside Facility, RG, CTA CHEST ABDOMEN PELVIS ANGIO, 07/25/2022, 12:39. [facility], CT, CT ABDOMEN RENAL PROTOCOL, 10/11/2022, 13:07. [facility], CT, CT ABDOMEN PELVIS W CON, 09/08/2020, 13:27. FINDINGS: Image quality: Excellent. Lung bases: Right basilar atelectasis is seen.. Heart: Heart size is enlarged, no pericardial effusion. Prosthetic aortic valve is noted. ABDOMEN: Liver: Unremarkable. Gallbladder: Gallbladder is surgically absent. Biliary ducts: The biliary duct sizes are within normal limits for post cholecystectomy patients. Pancreas: Unremarkable. Spleen: Unremarkable. Adrenal Glands: No discrete adrenal nodules. Kidneys and Ureters: Patient's known enhancing exophytic soft tissue mass in inferior aspect of right kidney remains stable in size and appearance and measures 1.3 cm in size. Nonobstructing right-sided renal calculi are again seen and unchanged. 2.6 cm left renal cyst with mural calcification and fine septation is again seen and unchanged. No hydronephrosis or hydroureter. Stomach and Bowel: There is no bowel obstruction. Distended stomach lumen is noted without significant gastric wall thickening. No gross small bowel or colon wall thickening. No abnormal mesenteric fat stranding. Sigmoid diverticulosis is seen without CT evidence of acute diverticulitis. No abscess collection. Peritoneum: No abnormal intraperitoneal fluid. No free air. Ventral Wall: No hernias. Abdominal Nodes: No retroperitoneal or mesenteric adenopathy by size criteria. Vessels: Aorta and inferior vena cava are normal in size. PELVIS: Pelvic Organs: Unremarkable. Bladder: Unremarkable. Pelvic Nodes: No enlarged lymph nodes. Miscellaneous: No hernias are seen. Bones: No suspicious bony lesions. Degenerative disc disease throughout thoracic and lumbar spine is seen with features suggestive of ankylosing spondylitis unchanged from prior studies. Chronic appearing superior endplate compression deformity at L2 level is seen. IMPRESSION: 1. Distended gastric lumen which could represent gastroparesis suggest clinical correlation. No significant gastric wall thickening. No bowel obstruction or abnormal bowel wall thickening. No abscess collection. No free fluid or free air. Sigmoid diverticulosis without CT evidence of acute diverticulitis. 2. Stable appearance of bilateral kidneys with stable appearing enhancing mass in right kidney lower pole and stable proteinaceous cyst in left kidney. No hydronephrosis or hydroureter. 3. Chronic changes of ankylosing spondylitis without acute compression deformity. Dictated by: Pierce Tang M.D. on 11/04/2022 at 9:04 Approved by: Pierce Tang M.D. on 11/04/2022 at 9:12
--- NOTE | 2022-11-04 03:18 | DI.CT.S_ITS ---
PROCEDURE: CT ANGIO CHEST PE PROTOCOL INDICATIONS: Chills, n/v/d x 5 days, TAVR x 6 weeks ago TECHNIQUE: After the administration of intravenous contrast, 2 mm thick sections acquired from the pulmonary apices to the posterior costophrenic angles. 3-dimensional maximum intensity projection (MIP) coronal and sagittal reformats were then acquired through the thorax. For radiation dose reduction, the following was used: automated exposure control, adjustment of mA and/or kV according to patient size. COMPARISON: Outside Facility, RG, CTA CHEST ABDOMEN PELVIS ANGIO, 07/25/2022, 12:39. FINDINGS: Image quality: Excellent. Pulmonary arteries: Pulmonary arteries are normal in size, and demonstrate no intraluminal filling defects to suggest central pulmonary embolism. Lungs and pleura: Dependent atelectasis is seen in the lungs bilaterally. No focal consolidation is seen. No pleural effusions or pneumothorax. Central and peripheral airways are patent. Multiple small bilateral pulmonary nodules are seen the do not appear significantly changed when compared to 07/25/2022. Mediastinum: Heart size is normal, without pericardial effusion. A prosthetic aortic valve is present. Mild coronary artery calcifications. Numerous mediastinal and hilar lymph nodes are present, which are nonspecific and likely reactive. A 1.4 cm short axis lymph node is seen in the prevascular space (50/4). A right hilar lymph node measures 1.3 cm in short axis (78/4). Thoracic aorta is normal in caliber and enhancement. Esophagus is normal in caliber, without hiatal hernia. Bones and chest wall: No suspicious bony lesions. Anterior syndesmophytes are seen throughout the thoracic spine suggestive of possible ankylosing spondylitis. Right-sided thyroid nodules are partially obscured by streak artifact. No axillary or supraclavicular adenopathy. Abdomen: The left adrenal gland appears thickened without focal nodularity identified. Visualized upper abdominal solid organs appear normal in the early arterial phase of enhancement. IMPRESSION: 1. No acute pulmonary embolus. 2. Numerous small and mildly enlarged mediastinal and hilar lymph nodes are seen that do not appear significantly changed when compared to the CT from 07/25/2022. Findings may be reactive although a lymphoproliferative disorder such as lymphoma is not excluded. 3. Multiple thyroid nodules. Recommend follow-up outpatient thyroid ultrasound if not previously performed. There is no significant discrepancy when compared to the overnight preliminary report. Approved by: Go Parmar M.D. on 11/04/2022 at 8:18
[2022-11-04 03:20] LABS: Procalcitonin 0.08 ng/mL (<0.5)
[2022-11-04] MEDS: LORazepam 2 MG/ML INJ 0.5 MG IV ×2 (03:24→05:06)
[2022-11-04] MEDS: PIPERACILLIN/TAZO 4.5 GM in SODIUM CHLORIDE 0.9% 100 ML IV (03:30)
[2022-11-04 03:40] LABS: Adenovirus Not Detected (Not Detect); B. parapertussis Not Detected (Not Detecte); Bordetella pertussis Not Detected (Not Detecte); Chlamydophila pneumoniae Not Detected (Not Detect); Coronavirus 229E Not Detected (Not Detect); Coronavirus HKU1 Not Detected (Not Detect); Coronavirus NL 63 Not Detected (Not Detect); Coronavirus OC43 Not Detected (Not Detect); Human Metapneumovirus Not Detected (Not Detect); Human Rhinovirus/Enterovirus Not Detected (Not Detect); Influenza A Not Detected (Not Detect); Influenza B Not Detected (Not Detect); Parainfluenza Virus 1 Not Detected (Not Detect); Parainfluenza Virus 2 Not Detected (Not Detect); Parainfluenza Virus 3 Not Detected (Not Detect); Parainfluenza Virus 4 Not Detected (Not Detect); Respiratory Syncytial Virus Not Detected (Not Detect); SARS- CoV-2 Not Detected (Not Detecte)
[2022-11-04 03:41] LABS: Mycoplasma pneumoniae Not Detected (Not Detect)
[2022-11-04] MEDS: SODIUM CHLORIDE 0.9% 1,000 ML 150 ML IV ×2 (04:09→14:03)
[2022-11-04 04:47] LABS: Reflexed Lactate in 2 Hours Y
[2022-11-04 04:56] LABS: Lactate 2HR (Lactic Acid Rflx) 3.5 mmol/L (0.7-2.1)
[2022-11-04] MEDS: METOPROLOL ER 50 MG TABLET 100 MG PO ×3 (05:06→20:38)
[2022-11-04 05:07] LABS: Troponin I 0.014 ng/mL (0.01-0.034)
[2022-11-04 05:32] LABS: Appearance Urine UA CLEAR; Bilirubin Urine UA NEGATIVE (NEGATIVE); Color Urine UA YELLOW; Glucose Urine UA NEGATIVE (Negative); Ketones Urine UA NEGATIVE (NEGATIVE); Leukocyte Esterase Urine UA NEGATIVE (NEGATIVE); Nitrite Urine UA POSITIVE (Negative); Occult Blood Urine UA NEGATIVE (Negative); Protein Urine UA TRACE (Negative); Specific Gravity Urine UA 1.015 (1.000-1.035); Urobilinogen Urine UA 0.2 E.U./dL (0.2)
[2022-11-04 05:33] LABS: pH Urine UA 5.5 (4.5-8.0)
[2022-11-04 05:39] LABS: Bacteria Urine Many (>30); Culture Indicated Urine Specimen Cultured; RBC Urine None Seen (0-5/HPF); Squamous Epithelial Cell Urine None Seen (0-5/HPF); WBC Urine 1-5/HPF (0-5/HPF)
--- NOTE | 2022-11-04 06:41 | P.HP_ITS ---
History of Present Illness History of Present Illness Chief complaint: HTN and flu symptoms Narrative: 72-year-old female with history of TAVR 1 month ago, hypertension, diabetes on insulin, dyslipidemia an aspirin 81 mg daily, patient also has history of CLL and right renal mass who presents with complaint of flu-like symptoms for the past 4 5 days.? Patient states she also had very high blood pressure at home.? She states she is felt unwell with subjective fevers on and off for the past 4 or 5 days, muscle aches and general fatigue.? She denies headache, denies vision changes.? Denies chest pain or pressure, no shortness of breath.? She is had nausea the entire time but no vomiting.? She states she has not been taking much oral intake because of nausea.? She has been having some diarrhea.? No black or bloody stools.? She denies abdominal back or flank pain.? Denies dysuria urgency or frequency.? She states her legs are very uncomfortable she does have restless leg but does not take oral medication for it.? Patient notes she would her prior surgery a month ago.? Denies any drug allergies.? Does use tobacco, occasional alcohol, no illicit other than THC occasionally.? Dr. Velez is her primary care physician. FORMERLY [facility], 1928–1983 Medical History Anemia Ankylosing spondylitis (~1994) Aortic stenosis Arthritis Cancer Cannabis hyperemesis syndrome concurrent with and due to cannabis abuse Chicken pox Chronic back pain CLL (chronic lymphocytic leukemia) Colitis Complex renal cyst Diabetes mellitus (2003) Diabetes mellitus, type II, insulin dependent Diabetic peripheral neuropathy Gastrointestinal irritation Hyperlipidemia Hypertension IBS (irritable bowel syndrome) Kidney stones Measles Mumps Pulmonary nodule Right renal mass RLS (restless legs syndrome) Sepsis Surgical History Anesthesia History of appendectomy History of cholecystectomy History of vaginal hysterectomy Status post appendectomy (1964) Status post breast biopsy (1991) Status post breast biopsy (2013) Status post cholecystectomy (1991) Status post hysterectomy (1993) Family History Father Cancer Diabetes mellitus Hypertension High cholesterol Mother Heart disease Hypertension Brother Ankylosing spondylitis Son Ankylosing spondylitis Social History marital status: number of children: 2 household members: none Smoking Status: Current every day smoker alcohol intake: never caffeine: No Meds Home Medications and Allergies Home Medications Medication Instructions Recorded Confirmed Type aspirin 81 mg tablet,delayed 81 mg PO DAILY 04/28/18 10/16/22 History release lactobacillus combination no.8 3 3,000 mmu cells PO DAILY 04/28/18 10/16/22 History billion cell capsule (Adult Probiotic) lansoprazole 15 mg capsule,delayed 15 mg PO DAILY 04/28/18 10/16/22 History release B-D PEN NEEDLE #100 ea 02/22/19 10/16/22 Rx blood-glucose meter #1 ea 09/23/19 10/16/22 Rx hydrochlorothiazide PO DAILY 10/17/20 10/16/22 History lancets 33 gauge (FlorentinoTouch Delbiju #100 ea 12/05/20 10/16/22 Rx Lancets) meloxicam 15 mg tablet (Mobic) 15 mg PO Q DAY PRN PRN pain (scale 03/20/21 Rx score 4-6) #90 tabs Disabled Parking #1 ea 03/26/21 10/16/22 Rx Droplet Pen [place] #250 ea 06/22/21 10/16/22 Rx blood sugar diagnostic (Blood #250 ea 07/31/21 10/16/22 Rx Glucose Test strips) glipizide 5 mg tablet 5 mg PO BID #180 tabs 12/31/21 10/16/22 Rx simvastatin 20 mg tablet 20 mg PO HS #90 tabs 12/31/21 10/16/22 Rx insulin glargine 100 unit/mL (3 65 unit (0.65 mL) SUBCUT HS #45 mL 01/09/22 10/16/22 Rx mL) subcutaneous pen (Lantus Solostar U-100 Insulin) metformin 1,000 mg tablet 1,000 mg PO BIDCC #180 tabs 01/14/22 10/16/22 Rx pioglitazone 30 mg tablet 30 mg PO DAILY #90 tabs 03/06/22 10/16/22 Rx lisinopril 40 mg tablet 40 mg PO DAILY #90 tabs 05/13/22 10/16/22 Rx metoprolol succinate 100 mg 100 mg PO BID #180 tabs 07/29/22 10/16/22 Rx tablet,extended release 24 hr hydrocodone 5 mg-acetaminophen 325 1 tab PO QID PRN joint pain #120 10/17/22 Rx mg tablet tabs Allergies Allergy/AdvReac Type Severity Reaction Status Date / Time No Known Drug Allergies Allergy Verified 10/16/22 10:43 Review of Systems Constitutional Constitutional: Reports as per HPI and Reports system reviewed and no additional complaints, except as documented Eyes Eyes: Reports as per HPI and Reports system reviewed and no additional complaints, except as documented ENT Ears, Nose, Mouth, and Throat: Yes as per HPI, Yes system reviewed and no additional complaints, except as documented, No dysphagia, No neck pain and No odynophagia Cardiovascular Cardiovascular: Reports system reviewed and no additional complaints, except as documented Respiratory Respiratory: Reports system reviewed and no additional complaints, except as documented Gastrointestinal Gastrointestinal: Denies as per HPI, Reports system reviewed and no additional complaints, except as documented, Denies abdominal pain, Denies belching, Denies melena, Denies bloating, Denies hematochezia, Denies change in bowel habits, Denies tenesmus, Denies change in stool character, Denies coffee ground emesis, Denies constipation, Denies cramping, Denies dysphagia, Denies excessive flatus, Denies heartburn, Denies loose stools, Denies nausea, Denies odynophagia, Denies vomiting, Denies hematemesis and Reports other Musculoskeletal Musculoskeletal: Denies as per HPI, Denies system reviewed and no additional complaints, except as documented, Denies abnormal gait, Denies back pain, Denies myalgias, Denies arthralgias, Denies joint swelling, Denies muscle cramps, Mario es muscle weakness, Denies neck pain, Denies numbness and Denies radiating pain into limb Neurologic Neurologic: Denies abnormal gait, Denies confusion and Denies numbness Psychiatric Psychiatric: Denies as per HPI, Reports system reviewed and no additional complaints, except as documented, Denies abnormal sleep pattern, Denies anxiety, Denies change in appetite, Denies confusion, Denies depression and Denies auditory hallucinations Exam Vital Signs (past 8 hours): - 11/04/22 02:20 11/04/22 02:47 11/04/22 02:25 Temperature 98.1 F Pulse Rate 92 H 90 89 Respiratory Rate 28 H 32 H Blood Pressure 228/93 H Pulse Oximetry 97 98 Oxygen Delivery Method Room Air 11/04/22 02:30 11/04/22 02:30 11/04/22 02:34 Temperature Pulse Rate 84 Respiratory Rate 27 H Blood Pressure 220/88 H 203/89 H Pulse Oximetry 96 Oxygen Delivery Method 11/04/22 02:34 11/04/22 02:53 11/04/22 02:53 Temperature Pulse Rate 86 93 H Respiratory Rate 28 H 20 Blood Pressure 186/77 H Pulse Oximetry 98 95 Oxygen Delivery Method 11/04/22 03:00 11/04/22 03:00 11/04/22 03:30 Temperature Pulse Rate 96 H 91 H Respiratory Rate 53 H 30 H Blood Pressure 205/89 H Pulse Oximetry 97 97 Oxygen Delivery Method 11/04/22 03:32 11/04/22 03:32 11/04/22 04:05 Temperature Pulse Rate 85 Respiratory Rate 27 H Blood Pressure 116/59 L Pulse Oximetry 97 94 Oxygen Delivery Method 11/04/22 04:06 11/04/22 04:06 11/04/22 04:16 Temperature Pulse Rate 98 H 96 H Respiratory Rate Blood Pressure 197/92 H Pulse Oximetry 97 97 Oxygen Delivery Method 11/04/22 04:16 11/04/22 04:30 11/04/22 04:52 Temperature Pulse Rate 100 H 97 H Respiratory Rate 27 H Blood Pressure 192/83 H Pulse Oximetry 98 96 Oxygen Delivery Method 11/04/22 04:52 11/04/22 05:16 11/04/22 05:17 Temperature Pulse Rate 91 H 89 Respiratory Rate 26 H 18 Blood Pressure 188/83 H Pulse Oximetry 94 97 Oxygen Delivery Method 11/04/22 05:17 11/04/22 05:30 11/04/22 05:30 Temperature Pulse Rate 88 Respiratory Rate 19 Blood Pressure 205/87 H 217/83 H Pulse Oximetry 93 Oxygen Delivery Method Room Air 11/04/22 05:52 11/04/22 05:52 11/04/22 06:00 Temperature Pulse Rate 97 H Respiratory Rate 24 Blood Pressure 229/98 H 222/99 H Pulse Oximetry 97 Oxygen Delivery Method 11/04/22 06:00 11/04/22 06:11 11/04/22 06:11 Temperature Pulse Rate 96 H 96 H Respiratory Rate 32 H 28 H Blood Pressure 193/88 H Pulse Oximetry 98 98 Oxygen Delivery Method 11/04/22 06:15 11/04/22 06:15 11/04/22 06:29 Temperature Pulse Rate 96 H 100 H Respiratory Rate 46 H 21 Blood Pressure 195/89 H Pulse Oximetry 98 97 Oxygen Delivery Method 11/04/22 06:29 11/04/22 06:30 Temperature Pulse Rate 100 H Respiratory Rate 20 Blood Pressure 210/96 H Pulse Oximetry 97 Oxygen Delivery Method Oxygen Delivery Method Room Air Const General: cooperative, comfortable and well developed Orientation: alert and oriented x3 HENMT Head: normal to inspection and atraumatic Face and sinus: normal facial exam Mouth: oral mucosae normal and moist mucous membranes Throat: posterior oropharynx normal Eyes General: appearance normal, both eyes and all related structures Pupils: PERRL EOM: EOM intact bilaterally Neck Neck: normal visual inspection and full ROM Chest Chest: normal inspection of the chest Resp Effort & Inspection: normal respiratory effort and able to speak in complete sentences Auscultation: clear to auscultation bilaterally Cardio Palpation: normal PMI Rate: regular rate Rhythm: regular rhythm Heart Sounds: S1 normal and S2 normal GI Inspection: normal to inspection Palpation: soft and no hepatosplenomegaly Auscultation: normal bowel sounds Skin General: no rashes or lesions noted Neuro General: patient alert, patient awake, patient oriented x3 and no focal motor deficits Cognition: normal cognition Motor: muscle tone normal throughout Sensory Exam: no sensory deficits noted Extrem General: full ROM and no calf tenderness Psych Appearance: grossly normal Mental Status: mental status grossly normal Speech and Movement: speech and movement normal Objective Labs 11/04/22 02:40 11/04/22 02:40 Labs: Laboratory Results - last 24 hr 11/04/22 11/04/22 11/04/22 02:24 02:40 02:40 WBC 14.3 H RBC 4.22 Hgb 11.1 L Hct 34.5 L MCV 81.8 MCH 26.4 MCHC 32.3 RDW 14.8 Plt Count 341 Neut % (Auto) 79.9 H Lymph % (Auto) 14.0 L [place] % (Auto) 5.4 Eos % (Auto) 0.2 L Baso % (Auto) 0.5 Neut # (Auto) 08567 H Lymph # (Auto) 2000 [place] # (Auto) 800 Eos # (Auto) 0 Baso # (Auto) 100 PT 12.7 INR 1.1 APTT 31 Sodium Potassium Chloride Carbon Dioxide BUN Creatinine Estimated GFR BUN/Creatinine Ratio Glucose Lactate Calcium Total Bilirubin AST ALT Alkaline Phosphatase Total Creatine Kinase Troponin I NT-Pro-B Natriuret Pep Total Protein Albumin Globulin Albumin/Globulin Ratio Lipase Procalcitonin Urine Color Urine Appearance Urine pH Ur Specific [place] Urine Protein Urine Glucose (UA) Urine Ketones Urine Occult Blood Urine Nitrate Urine Bilirubin Urine Urobilinogen Ur Leukocyte Esterase Urine RBC Urine WBC Ur Squamous Epith Cells Urine Bacteria Ur Culture Indicated? Chlamy pneumoniae PCR Not detected Adenovirus (PCR) Not detected B. pertussis DNA (PCR) Not detected B.parapertussis DNA PCR Not detected Coronavirus OC43 (PCR) Not detected Coronavirus HKU1 (PCR) Not detected Coronavirus 229E (PCR) Not detected SARS-CoV-2 (PCR) Not detected Coronavirus NL63 (PCR) Not detected Human Metapneumovir PCR Not detected Influenza Type A (PCR) Not detected Influenza Type B (PCR) Not detected M. pneumoniae (PCR) Not detected Parainfluenza 1 (PCR) Not detected Parainfluenza 2 (PCR) Not detected Parainfluenza 3 (PCR) Not detected Parainfluenza 4 (PCR) Not detected RSV (PCR) Not detected Entero/Rhino (PCR) Not detected 11/04/22 11/04/22 11/04/22 02:40 02:40 04:10 WBC RBC Hgb Hct MCV MCH MCHC RDW Plt Count Neut % (Auto) Lymph % (Auto) [place] % (Auto) Eos % (Auto) Baso % (Auto) Neut # (Auto) Lymph # (Auto) [place] # (Auto) Eos # (Auto) Baso # (Auto) PT INR APTT Sodium 138 Potassium 3.6 Chloride 97 L Carbon Dioxide 28 BUN 16 Creatinine 0.66 Estimated GFR > 60 BUN/Creatinine Ratio 24.2 H Glucose 176 H Lactate 3.9 H Calcium 10.4 H Total Bilirubin 0.5 AST 33 ALT 25 Alkaline Phosphatase 91 Total Creatine Kinase 50 Troponin I 0.012 NT-Pro-B Natriuret Pep 472 H Total Protein 7.4 Albumin 4.3 Globulin 3.1 Albumin/Globulin Ratio 1.4 Lipase 68 Procalcitonin 0.08 Urine Color Yellow Urine Appearance Clear Urine pH 5.5 Ur Specific [place] 1.015 Urine Protein Trace H Urine Glucose (UA) Negative Urine Ketones Negative Urine Occult Blood Negative Urine Nitrate Positive H Urine Bilirubin Negative Urine Urobilinogen 0.2 Ur Leukocyte Esterase Negative Urine RBC None seen Urine WBC 1-5/hpf Ur Squamous Epith Cells None seen Urine Bacteria Many (>30) H Ur Culture Indicated? Specimen cultured Chlamy pneumoniae PCR Adenovirus (PCR) B. pertussis DNA (PCR) B.parapertussis DNA PCR Coronavirus OC43 (PCR) Coronavirus HKU1 (PCR) Coronavirus 229E (PCR) SARS-CoV-2 (PCR) Coronavirus NL63 (PCR) Human Metapneumovir PCR Influenza Type A (PCR) Influenza Type B (PCR) M. pneumoniae (PCR) Parainfluenza 1 (PCR) Parainfluenza 2 (PCR) Parainfluenza 3 (PCR) Parainfluenza 4 (PCR) RSV (PCR) Entero/Rhino (PCR) 11/04/22 11/04/22 04:37 04:37 WBC RBC Hgb Hct MCV MCH MCHC RDW Plt Count Neut % (Auto) Lymph % (Auto) [place] % (Auto) Eos % (Auto) Baso % (Auto) Neut # (Auto) Lymph # (Auto) [place] # (Auto) Eos # (Auto) Baso # (Auto) PT INR APTT Sodium Potassium Chloride Carbon Dioxide BUN Creatinine Estimated GFR BUN/Creatinine Ratio Glucose Lactate 3.5 H Calcium Total Bilirubin AST ALT Alkaline Phosphatase Total Creatine Kinase Troponin I 0.014 NT-Pro-B Natriuret Pep Total Protein Albumin Globulin Albumin/Globulin Ratio Lipase Procalcitonin Urine Color Urine Appearance Urine pH Ur Specific [place] Urine Protein Urine Glucose (UA) Urine Ketones Urine Occult Blood Urine Nitrate Urine Bilirubin Urine Urobilinogen Ur Leukocyte Esterase Urine RBC Urine WBC Ur Squamous Epith Cells Urine Bacteria Ur Culture Indicated? Chlamy pneumoniae PCR Adenovirus (PCR) B. pertussis DNA (PCR) B.parapertussis DNA PCR Coronavirus OC43 (PCR) Coronavirus HKU1 (PCR) Coronavirus 229E (PCR) SARS-CoV-2 (PCR) Coronavirus NL63 (PCR) Human Metapneumovir PCR Influenza Type A (PCR) Influenza Type B (PCR) M. pneumoniae (PCR) Parainfluenza 1 (PCR) Parainfluenza 2 (PCR) Parainfluenza 3 (PCR) Parainfluenza 4 (PCR) RSV (PCR) Entero/Rhino (PCR) Assessment & Plan Assessment and plan (1) Hypertensive urgency: Status: Acute Plan: -Restart lisinopril, metoprolol -- Hydralazine as needed (2) Acidosis, lactic: Status: Acute Plan: -Start fluids and monitor (3) CLL (chronic lymphocytic leukemia): Status: Acute Plan: - Outpatient follow-up (4) Diabetes mellitus, type II, insulin dependent: Status: Chronic Plan: -Continue to monitor blood sugar. -Continue prior to admission Insulin. -Continue diabetic diet with sliding scale insulins with NovoLog sliding scale. -Long-acting insulins in appropriate dosing with Detemir. -hypoglycemia protocol as needed (5) Hyperlipidemia: Qualifiers: Hyperlipidemia type: mixed hyperlipidemia Qualified Code(s): E78.2 - Mixed hyperlipidemia Status: Chronic Plan: -restart statines (6) RLS (restless legs syndrome): Problem details: With colitis attacks Status: Chronic Plan: -Ativan prn -restart home meds (7) Chronic back pain: Qualifiers: Back pain location: back pain in unspecified location Back pain laterality: unspecified Qualified Code(s): M54.9 - Dorsalgia, unspecified; G89.29 - Other chronic pain Status: Chronic Plan: -pain meds prn Time Spent With Patient Time with patient: 50 to 69 minutes with 50% spent counseling/coordinating care Quality VTE Deep Vein Thrombosis/Pulmonary Embolism Present on Admission: No MIPS - Admit I confirm the patient?s Advance Care Plan is present, Code status is documented, Surrogate decision maker is in patient?s record [If Yes, STOP here]: Yes MIPS - Meds 'Current medications' to include all prescriptions, [id number] products, herbals, cannabis/cannabidiol products, and vitamin/mineral/dietary (nutritional) supplements. I have utilized all available resources to obtain, update, or review the patient?s current medications. [If Yes, STOP here]: Yes
[2022-11-04] MEDS: HYDROCODONE/ACET 5/325 TABLET 1 TAB PO ×2 (07:00→21:25)
[2022-11-04] MEDS: PANTOPRAZOLE DR 20 MG TABLET PO (07:24)
--- NOTE | 2022-11-04 07:37 | PM.PN.1 ---
Subjective Subjective Date Patient Seen: 11/04/22 Time Patient Seen: 07:37 Interval history: 72-year-old female well known to me admitted inadvertently to the hospitalist service who have already seen her today and done history and physical. She presented with generalized malaise as well as significant hypertension. She also has significant nausea. Patient with a history of nausea thought to be secondary to hyperemesis cannabis syndrome at least in the past. She is status post TAVR in August. She is been off of her oral antihypertensive therapy because of her nausea primarily it seems. Imaging is essentially unremarkable. A bit of potentially reactive lymphadenopathy on her chest CT. She does have an elevated lactate level. Also positive urinalysis and was given a single dose of Zosyn in the ER. Exam Vital Signs (past 8 hours): - 11/04/22 02:20 11/04/22 02:47 11/04/22 02:25 Temperature 98.1 F Pulse Rate 92 H 90 89 Respiratory Rate 28 H 32 H Blood Pressure 228/93 H Pulse Oximetry 97 98 Oxygen Delivery Method Room Air 11/04/22 02:30 11/04/22 02:30 11/04/22 02:34 Temperature Pulse Rate 84 Respiratory Rate 27 H Blood Pressure 220/88 H 203/89 H Pulse Oximetry 96 Oxygen Delivery Method 11/04/22 02:34 11/04/22 02:53 11/04/22 02:53 Temperature Pulse Rate 86 93 H Respiratory Rate 28 H 20 Blood Pressure 186/77 H Pulse Oximetry 98 95 Oxygen Delivery Method 11/04/22 03:00 11/04/22 03:00 11/04/22 03:30 Temperature Pulse Rate 96 H 91 H Respiratory Rate 53 H 30 H Blood Pressure 205/89 H Pulse Oximetry 97 97 Oxygen Delivery Method 11/04/22 03:32 11/04/22 03:32 11/04/22 04:05 Temperature Pulse Rate 85 Respiratory Rate 27 H Blood Pressure 116/59 L Pulse Oximetry 97 94 Oxygen Delivery Method 11/04/22 04:06 11/04/22 04:06 11/04/22 04:16 Temperature Pulse Rate 98 H 96 H Respiratory Rate Blood Pressure 197/92 H Pulse Oximetry 97 97 Oxygen Delivery Method 11/04/22 04:16 11/04/22 04:30 11/04/22 04:52 Temperature Pulse Rate 100 H 97 H Respiratory Rate 27 H Blood Pressure 192/83 H Pulse Oximetry 98 96 Oxygen Delivery Method 11/04/22 04:52 11/04/22 05:16 11/04/22 05:17 Temperature Pulse Rate 91 H 89 Respiratory Rate 26 H 18 Blood Pressure 188/83 H Pulse Oximetry 94 97 Oxygen Delivery Method 11/04/22 05:17 11/04/22 05:30 11/04/22 05:30 Temperature Pulse Rate 88 Respiratory Rate 19 Blood Pressure 205/87 H 217/83 H Pulse Oximetry 93 Oxygen Delivery Method Room Air 11/04/22 05:52 11/04/22 05:52 11/04/22 06:00 Temperature Pulse Rate 97 H Respiratory Rate 24 Blood Pressure 229/98 H 222/99 H Pulse Oximetry 97 Oxygen Delivery Method 11/04/22 06:00 11/04/22 06:11 11/04/22 06:11 Temperature Pulse Rate 96 H 96 H Respiratory Rate 32 H 28 H Blood Pressure 193/88 H Pulse Oximetry 98 98 Oxygen Delivery Method 11/04/22 06:15 11/04/22 06:15 11/04/22 06:29 Temperature Pulse Rate 96 H 100 H Respiratory Rate 46 H 21 Blood Pressure 195/89 H Pulse Oximetry 98 97 Oxygen Delivery Method 11/04/22 06:29 11/04/22 06:30 11/04/22 06:30 Temperature Pulse Rate 100 H 78 Respiratory Rate 20 Blood Pressure 210/96 H 210/96 H Pulse Oximetry 97 Oxygen Delivery Method Oxygen Delivery Method Room Air Objective Labs 11/04/22 02:40 11/04/22 02:40 Labs: Laboratory Results - last 24 hr 11/04/22 11/04/22 11/04/22 02:24 02:40 02:40 WBC 14.3 H RBC 4.22 Hgb 11.1 L Hct 34.5 L MCV 81.8 MCH 26.4 MCHC 32.3 RDW 14.8 Plt Count 341 Neut % (Auto) 79.9 H Lymph % (Auto) 14.0 L [place] % (Auto) 5.4 Eos % (Auto) 0.2 L Baso % (Auto) 0.5 Neut # (Auto) 73181 H Lymph # (Auto) 2000 [place] # (Auto) 800 Eos # (Auto) 0 Baso # (Auto) 100 PT 12.7 INR 1.1 APTT 31 Sodium Potassium Chloride Carbon Dioxide BUN Creatinine Estimated GFR BUN/Creatinine Ratio Glucose Lactate Calcium Total Bilirubin AST ALT Alkaline Phosphatase Total Creatine Kinase Troponin I NT-Pro-B Natriuret Pep Total Protein Albumin Globulin Albumin/Globulin Ratio Lipase Procalcitonin Urine Color Urine Appearance Urine pH Ur Specific [place] Urine Protein Urine Glucose (UA) Urine Ketones Urine Occult Blood Urine Nitrate Urine Bilirubin Urine Urobilinogen Ur Leukocyte Esterase Urine RBC Urine WBC Ur Squamous Epith Cells Urine Bacteria Ur Culture Indicated? Chlamy pneumoniae PCR Not detected Adenovirus (PCR) Not detected B. pertussis DNA (PCR) Not detected B.parapertussis DNA PCR Not detected Coronavirus OC43 (PCR) Not detected Coronavirus HKU1 (PCR) Not detected Coronavirus 229E (PCR) Not detected SARS-CoV-2 (PCR) Not detected Coronavirus NL63 (PCR) Not detected Human Metapneumovir PCR Not detected Influenza Type A (PCR) Not detected Influenza Type B (PCR) Not detected M. pneumoniae (PCR) Not detected Parainfluenza 1 (PCR) Not detected Parainfluenza 2 (PCR) Not detected Parainfluenza 3 (PCR) Not detected Parainfluenza 4 (PCR) Not detected RSV (PCR) Not detected Entero/Rhino (PCR) Not detected 11/04/22 11/04/22 11/04/22 02:40 02:40 04:10 WBC RBC Hgb Hct MCV MCH MCHC RDW Plt Count Neut % (Auto) Lymph % (Auto) [place] % (Auto) Eos % (Auto) Baso % (Auto) Neut # (Auto) Lymph # (Auto) [place] # (Auto) Eos # (Auto) Baso # (Auto) PT INR APTT Sodium 138 Potassium 3.6 Chloride 97 L Carbon Dioxide 28 BUN 16 Creatinine 0.66 Estimated GFR > 60 BUN/Creatinine Ratio 24.2 H Glucose 176 H Lactate 3.9 H Calcium 10.4 H Total Bilirubin 0.5 AST 33 ALT 25 Alkaline Phosphatase 91 Total Creatine Kinase 50 Troponin I 0.012 NT-Pro-B Natriuret Pep 472 H Total Protein 7.4 Albumin 4.3 Globulin 3.1 Albumin/Globulin Ratio 1.4 Lipase 68 Procalcitonin 0.08 Urine Color Yellow Urine Appearance Clear Urine pH 5.5 Ur Specific [place] 1.015 Urine Protein Trace H Urine Glucose (UA) Negative Urine Ketones Negative Urine Occult Blood Negative Urine Nitrate Positive H Urine Bilirubin Negative Urine Urobilinogen 0.2 Ur Leukocyte Esterase Negative Urine RBC None seen Urine WBC 1-5/hpf Ur Squamous Epith Cells None seen Urine Bacteria Many (>30) H Ur Culture Indicated? Specimen cultured Chlamy pneumoniae PCR Adenovirus (PCR) B. pertussis DNA (PCR) B.parapertussis DNA PCR Coronavirus OC43 (PCR) Coronavirus HKU1 (PCR) Coronavirus 229E (PCR) SARS-CoV-2 (PCR) Coronavirus NL63 (PCR) Human Metapneumovir PCR Influenza Type A (PCR) Influenza Type B (PCR) M. pneumoniae (PCR) Parainfluenza 1 (PCR) Parainfluenza 2 (PCR) Parainfluenza 3 (PCR) Parainfluenza 4 (PCR) RSV (PCR) Entero/Rhino (PCR) 11/04/22 11/04/22 04:37 04:37 WBC RBC Hgb Hct MCV MCH MCHC RDW Plt Count Neut % (Auto) Lymph % (Auto) [place] % (Auto) Eos % (Auto) Baso % (Auto) Neut # (Auto) Lymph # (Auto) [place] # (Auto) Eos # (Auto) Baso # (Auto) PT INR APTT Sodium Potassium Chloride Carbon Dioxide BUN Creatinine Estimated GFR BUN/Creatinine Ratio Glucose Lactate 3.5 H Calcium Total Bilirubin AST ALT Alkaline Phosphatase Total Creatine Kinase Troponin I 0.014 NT-Pro-B Natriuret Pep Total Protein Albumin Globulin Albumin/Globulin Ratio Lipase Procalcitonin Urine Color Urine Appearance Urine pH Ur Specific [place] Urine Protein Urine Glucose (UA) Urine Ketones Urine Occult Blood Urine Nitrate Urine Bilirubin Urine Urobilinogen Ur Leukocyte Esterase Urine RBC Urine WBC Ur Squamous Epith Cells Urine Bacteria Ur Culture Indicated? Chlamy pneumoniae PCR Adenovirus (PCR) B. pertussis DNA (PCR) B.parapertussis DNA PCR Coronavirus OC43 (PCR) Coronavirus HKU1 (PCR) Coronavirus 229E (PCR) SARS-CoV-2 (PCR) Coronavirus NL63 (PCR) Human Metapneumovir PCR Influenza Type A (PCR) Influenza Type B (PCR) M. pneumoniae (PCR) Parainfluenza 1 (PCR) Parainfluenza 2 (PCR) Parainfluenza 3 (PCR) Parainfluenza 4 (PCR) RSV (PCR) Entero/Rhino (PCR) [facility] Medical History (Updated 11/04/22 @ 07:41 by Javed Velez MD) Anemia Ankylosing spondylitis (~1994) Aortic stenosis Arthritis Cancer Cannabis hyperemesis syndrome concurrent with and due to cannabis abuse Chicken pox Chronic back pain CLL (chronic lymphocytic leukemia) Colitis Complex renal cyst Diabetes mellitus (2003) Diabetes mellitus, type II, insulin dependent Diabetic peripheral neuropathy Gastrointestinal irritation Hyperlipidemia Hypertension IBS (irritable bowel syndrome) Kidney stones Measles Mumps Pulmonary nodule Right renal mass RLS (restless legs syndrome) Sepsis Surgical History (Updated 11/04/22 @ 07:41 by Javed Velez MD) Anesthesia History of appendectomy History of cholecystectomy History of vaginal hysterectomy Status post appendectomy (1964) Status post breast biopsy (1991) Status post breast biopsy (2013) Status post cholecystectomy (1991) Status post hysterectomy (1993) Status post transcatheter aortic valve replacement (~08/2022) Family History Father Cancer Diabetes mellitus Hypertension High cholesterol Mother Heart disease Hypertension Brother Ankylosing spondylitis Son Ankylosing spondylitis Social History marital status: number of children: 2 household members: none Smoking Status: Current every day smoker alcohol intake: never caffeine: No Assessment & Plan Assessment & Plan narrative: 1. Hypertensive urgency-give patient her usual oral medications. I am going to go ahead and put some topical nitroglycerin on her for now but I think once we get her usual meds into her with the assistance of something for her nausea her numbers should come down. She is really quite asymptomatic fortunately 2. Generalized malaise with myalgias not feeling well etcetera-no clear etiology beyond perhaps the UTI. Perhaps a more systemic infection. Continue to monitor for now. 3. UTI-I will continue with IV antibiotics until we have culture results, both blood culture and urine culture 4. Diabetes-continue with insulin long-acting as well as coverage 5. Nausea-no clear etiology for this at this point beyond her known issue with the cannabis. Continue with aggressive antiemetic therapies 6. Chronic pain syndrome-patient chronically on opiate narcotics. Unknown whether she is having some element of withdrawal from this as well contributing to her nausea as above. Patient should have access to some form of oral opiates for her chronic pain and in effort to calm down her GI tract etcetera I appreciate the hospitalist service seeing patient and providing her initial admission etcetera. Quality VTE Deep Vein Thrombosis/Pulmonary Embolism Present on Admission: No
--- NOTE | 2022-11-04 08:17 | DI.ECHO.S_ITS ---
[facility]---------+ [facility] +---------+ : : [address] : : : : [id number] : : : : Phone: [phone] Echocardiogram Report + + :Name: TODD WELLER Study Date: 11/04/2022 Height: 62 in : :[facility] ReadingLocation: Weight: 190 lb : : Gender: Female BSA: 1.9 m2 : :: 1950 Age: 72 yrs BP: 207/79 mmHg: :Reason For Study: S/P TAVR : :Ordering Physician: ISAIAH, : :HAYDE Galan Performed By: Ilsa Vargas : :Referring: HAYDE COLON : + + Interpretation Summary The ejection fraction is estimated to be 60-65%. There is a prosthetic aortic valve. There is trace perivalvular regurgitation around the prosthetic aortic valve. The aortic valve mean gradient is 6.8 mmHg. There is mild mitral regurgitation. Procedure: A two-dimensional transthoracic echocardiogram with color flow and Doppler was performed. The study quality was technically difficult. Comparison is made with the echocardiogram of 05/10/2022. The patient was in sinus rhythm with heart rates between 66-86 bpm during the exam. Left Ventricle: The left ventricle is normal in size and wall thickness. The ejection fraction is estimated to be 60-65%. Left ventricular wall motion is normal. Right Ventricle: The right ventricle is at the upper limits of normal in size. The right ventricular systolic function is normal. Atria: The left atrium is mildly dilated. Right atrial size is normal. There is no Doppler evidence for an interatrial shunt. Mitral Valve: The mitral valve leaflets are mildly calcified. The mitral valve leaflets appear moderately thickened, but open well. The mitral valve mean gradient is 4.0 mmHg. There is mild mitral regurgitation. Aortic Valve: There is a prosthetic aortic valve. There is trace perivalvular regurgitation around the prosthetic aortic valve. The peak aortic velocity is 1.8 m/sec. The aortic valve mean gradient is 6.8 mmHg. Tricuspid Valve: The tricuspid valve is normal in structure and function. There is trace tricuspid regurgitation. Pulmonic Valve: The pulmonic valve is not well visualized. There is trace pulmonic regurgitation. Great Vessels: The aortic root is normal size. The ascending aorta could not be visualized. The inferior vena cava was not well visualized. Pericardium/ Pleura There is no pericardial effusion. There is no pleural effusion. MMode/2D Measurements & Calculations LVIDd: 5.2 cm LVOT diam: 1.9 cm LVIDs: 3.2 cm FS: 37.5 % IVSd: 0.93 cm LVPWd: 0.96 cm LV [place]. diameter/BSA (cm/m^2): 2.8 LV sys. diameter/BSA (cm/m^2): 1.7 LA A2 area: 23.0 cm2 RA long axis: 4.9 cm LA A4 area: 21.8 cm2 RA area: 16.2 cm2 LA length (vol): 5.5 cm RA vol: 45.5 ml LA vol: 77.0 ml RA : 24.3 ml/m2 LA vol index: 41.2 ml/m2 RVD1 (basal): 4.1 cm RVD2 (mid): 3.2 cm TAPSE: 2.2 cm Doppler Measurements & Calculations Ao V2 max: 180.8 cm/sec LVOT Max Bernabe: 99.4 cm/sec Ao V2 mean: 122.8 cm/sec LV V1 max P.0 mmHg Ao max P.1 mmHg LV V1 VTI: 20.7 cm Ao mean P.8 mmHg SANG(I,D): 1.7 cm2 Ao V2 VTI: 36.8 cm SANG(V,D): 1.6 cm2 sev ratio: 0.56 SANG indexed to BSA (cm^2/m^2): 0.89 AI P1/2t: 356.8 msec AI dec slope: 361.8 cm/sec2 MV E max bernabe: 107.4 cm/sec PA V2 max: 101.8 cm/sec MV A max bernabe: 153.4 cm/sec PA V2 mean: 73.4 cm/sec MV E/A: 0.70 PA mean P.3 mmHg Med Peak E' Bernabe: 4.3 cm/sec PA pr(Accel): 22.5 mmHg E/E' med: 24.9 Lat Peak E' Bernabe: 6.0 cm/sec E/E' lat: 17.8 E/e' average: 21.4 MV dec time: 0.28 sec MVA(VTI): 1.7 cm2 MV V2 mean: 94.0 cm/sec SV(LVOT): 61.1 ml MV mean P.0 mmHg MV V2 VTI: 37.0 cm Reading Physician:04:47 PM
[2022-11-04] MEDS: ASPIRIN EC 81 MG TABLET PO (08:26)
[2022-11-04] MEDS: NITROGLYCERIN OINT 1 INCH/GM OINT...G. TOP (08:27)
[2022-11-04] MEDS: PIPERACILLIN/TAZO 3.375 GM in SODIUM CHLORIDE 0.9% 100 ML IV ×3 (08:27→23:37)
[2022-11-04] MEDS: hydroCHLOROthiazide 25 MG TABLET PO (08:28)
[2022-11-04] MEDS: lisinopriL 20 MG TABLET 40 MG PO (08:28)
[2022-11-04 08:54] LABS: BUN Creatinine Ratio 21.8 (6-22); Blood Urea Nitrogen 12 mg/dL (7-17); Calcium 9.4 mg/dL (8.4-10.2); Carbon Dioxide 25 mmol/L (22-32); Chloride 99 mmol/L (98-107); Estimated Glomerular Filt Rate > 60 mL/min (>60); Glucose 212 mg/dL (80-110); HEMOLYSIS < 15 (0-50); Potassium 3.3 mmol/L (3.4-5.1); Sodium 136 mmol/L (137-145)
[2022-11-04 10:59] LABS: Lactate (Lactic Acid) 2.5 mmol/L (0.7-2.1)
[2022-11-04 12:51] LABS: Reflexed Lactate in 2 Hours Y
[2022-11-04] MEDS: POTASSIUM CHLORIDE IN WATER 10 MEQ/100 ML PIGGYBACK 100 MEQ IV ×6 (17:11→22:45)
[2022-11-04] MEDS: INSULIN LISPRO 100 UNIT/ML 3ML VIAL SUBCUT (17:16)
--- NOTE | 2022-11-04 18:58 | PC.NURSE ---
attempted to eat lunch and dinner today but patient c/o nausea after a few bites, zofran given
[2022-11-04] MEDS: ATORVASTATIN 20 MG TABLET 10 MG PO (20:37)
[2022-11-04] MEDS: SODIUM CHLORIDE 0.9% FLUSH 10 ML IV (20:51)
--- NOTE | 2022-11-04 20:57 | PC.NURSE ---
Paged Dr. Dietrich to report CBG. 139. Ordered to give only 30 units of Lantus. Will enter new order & implement order.
[2022-11-04] MEDS: INSULIN GLARGINE 100 UNIT/ML 3ML PEN 30 UNIT SUBCUT (21:17)
[2022-11-05] VITALS (9 sets, daily range): BP systolic 156–203; BP diastolic 58–85; PULSE 62–82; RESP 18–19; TEMP 35.6–36.6; O2SAT 93–96
[2022-11-05] MEDS: HYDROCODONE/ACET 5/325 TABLET 1 TAB PO ×4 (02:17→22:34)
[2022-11-05] MEDS: ONDANSETRON 4 MG/2 ML INJ IV ×2 (02:29→07:02)
[2022-11-05] MEDS: SODIUM CHLORIDE 0.9% FLUSH 10 ML IV ×3 (02:29→20:19)
[2022-11-05] MEDS: SODIUM CHLORIDE 0.9% 1,000 ML 150 ML IV ×3 (03:42→20:47)
[2022-11-05] MEDS: PANTOPRAZOLE DR 20 MG TABLET PO (05:31)
--- NOTE | 2022-11-05 07:21 | P.PN_ITS ---
Subjective Subjective Date Patient Seen: 11/05/22 Time Patient Seen: 07:21 Interval history: Patient's blood pressure much improved although certainly not perfect on her usual medications Still having some emesis and not really taking much of anything in orally Somewhat hypokalemic with IV potassium infused. Labs pending this morning. All cultures negative thus far Echocardiogram done yesterday unremarkable. Bioprosthetic valve in place without evidence of complication Exam Vital Signs (past 8 hours): - 11/05/22 00:00 11/05/22 03:34 Temperature 96.7 F L 97.7 F Pulse Rate 76 78 Respiratory Rate 18 18 Blood Pressure 156/63 H 174/58 H Pulse Oximetry 93 94 Oxygen Flow Rate 0 0 Oxygen Delivery Method Room Air Oxygen Flow Rate 0 Objective Labs 11/04/22 02:40 11/04/22 08:30 Labs: Laboratory Results - last 24 hr 11/04/22 11/04/22 08:30 10:23 Sodium 136 L Potassium 3.3 L Chloride 99 Carbon Dioxide 25 BUN 12 Creatinine 0.55 Estimated GFR > 60 BUN/Creatinine Ratio 21.8 Glucose 212 H Lactate 2.5 H Calcium 9.4 PFSH Medical History (Updated 11/04/22 @ 07:41 by Javed Velez MD) Anemia Ankylosing spondylitis (~1994) Aortic stenosis Arthritis Cancer Cannabis hyperemesis syndrome concurrent with and due to cannabis abuse Chicken pox Chronic back pain CLL (chronic lymphocytic leukemia) Colitis Complex renal cyst Diabetes mellitus (2003) Diabetes mellitus, type II, insulin dependent Diabetic peripheral neuropathy Gastrointestinal irritation Hyperlipidemia Hypertension IBS (irritable bowel syndrome) Kidney stones Measles Mumps Pulmonary nodule Right renal mass RLS (restless legs syndrome) Sepsis Surgical History (Updated 11/04/22 @ 07:41 by Javed Velez MD) Anesthesia History of appendectomy History of cholecystectomy History of vaginal hysterectomy Status post appendectomy (1964) Status post breast biopsy (1991) Status post breast biopsy (2013) Status post cholecystectomy (1991) Status post hysterectomy (1993) Status post transcatheter aortic valve replacement (~08/2022) Family History Father Cancer Diabetes mellitus Hypertension High cholesterol Mother Heart disease Hypertension Brother Ankylosing spondylitis Son Ankylosing spondylitis Social History marital status: number of children: 2 household members: none Smoking Status: Current every day smoker alcohol intake: never caffeine: No Assessment & Plan Assessment & Plan narrative: 1. Hypertensive urgency-much improved back unusual medication which is facilitated by the antiemetics. No plan for immediate change in medication at this time. Blood pressure not perfectly controlled but as other symptoms improve expect this to improve as well. 2. Generalized malaise with myalgias not feeling well etcetera-no clear etiology beyond perhaps the UTI. Perhaps a more systemic infection. Continue to monitor for now. 3. UTI-I will continue with IV antibiotics until we have culture results, both blood culture and urine culture. Cultures negative thus far but continue antibiotics for now. 4. Diabetes-continue with insulin long-acting as well as coverage. Insulin doses reduced slightly because of limited oral intake. Continue to monitor and hopefully as GI symptoms improve and oral intake increases will need to go back to higher dose insulin 5. Nausea-no clear etiology for this at this point beyond her known issue with the cannabis. Continue with aggressive antiemetic therapies. Based on prior experience with this patient she will likely have symptoms for another 24-72 hours until they begin to improve. Continue with aggressive antiemetic therapy, I will add metoclopramide to her regimen, and hopefully she will improve sooner rather than later 6. Chronic pain syndrome-patient chronically on opiate narcotics. Unknown wheth er she is having some element of withdrawal from this as well contributing to her nausea as above. Patient should have access to some form of oral opiates for her chronic pain and in effort to calm down her GI tract etcetera Quality VTE Deep Vein Thrombosis/Pulmonary Embolism Present on Admission: No
[2022-11-05 08:36] LABS: Blood Urea Nitrogen 8 mg/dL (7-17); Calcium 9.2 mg/dL (8.4-10.2); Carbon Dioxide 29 mmol/L (22-32); Chloride 96 mmol/L (98-107); Estimated Glomerular Filt Rate > 60 mL/min (>60); Glucose 195 mg/dL (80-110); HEMOLYSIS < 15 (0-50); Magnesium 1.4 mg/dL (1.6-2.3); Sodium 131 mmol/L (137-145)
[2022-11-05] MEDS: METOCLOPRAMIDE HCL 5 MG TABLET PO ×3 (09:02→17:34)
[2022-11-05] MEDS: PIPERACILLIN/TAZO 3.375 GM in SODIUM CHLORIDE 0.9% 100 ML IV ×2 (09:02→16:38)
[2022-11-05] MEDS: lisinopriL 20 MG TABLET 40 MG PO (09:03)
[2022-11-05] MEDS: ASPIRIN EC 81 MG TABLET PO (09:03)
[2022-11-05] MEDS: hydroCHLOROthiazide 25 MG TABLET PO (09:03)
[2022-11-05] MEDS: INSULIN LISPRO 100 UNIT/ML 3ML VIAL SUBCUT ×3 (09:03→17:33)
[2022-11-05] MEDS: METOPROLOL ER 50 MG TABLET 100 MG PO ×2 (09:03→20:17)
[2022-11-05] MEDS: MAGNESIUM CHLORIDE 64 MG TABLET 128 MG PO (10:17)
[2022-11-05] MEDS: POTASSIUM CHLORIDE 20 MEQ TAB 40 MEQ PO ×2 (10:17→17:33)
--- NOTE | 2022-11-05 14:07 | CM.DANOTE ---
DCP Assessment Note: Patient is a 72yo female here under the care of Dr. Velez following a hypertensive emergency. PCP Javed Velez Payer Medicare and [employer] reviewed EMR. BUILDING ESTIMATOR entered room and introduced self and role. Patient was siting up in bed, appeared A/Ox4, and was eating some soup. Patient lives alone in her home, is active/independent/drives at baseline. Patient has a walker/cane but she does not use them regularly. Patient's son, Jordan, is her reported DPOA ([phone]) but lives in [place]. Patient reports feeling better and has been up and moving. Likely d/c tomorrow if medically stable. Reports no needs at this time. Patient reports she has the ride figured out but didn't elaborate on that. Plan: home when medically stable. no needs identified at this time. transport in POV. CM team will continue to follow as needed. GARY Moscoso Discharge Planning/Care Management CM Discharge Assessment Start: 11/05/22 14:03 Freq: Status: Active Protocol: Document 11/05/22 14:04 (Rec: 11/05/22 14:07 [id number]) Discharge Planning Assessment Assigned Men'S Garment Fitter GARY Meng DPOA/Assigned Designee Name Jordan Lamar (son) Contact Information [phone] Advance Directives? No History Provided By Patient,Medical Record Prior Living Arrangements House Household Members none Type of transporation used prior to Drives own vehicle admit Independent with ADL's Yes Is patient alert and oriented? Yes DME Already Rented / Owned FWW / Walker,Cane Comment has walker and cane but doesn' t use them regularly Comment none at this time Barriers to Discharge No Discharge Plan Home Transportation Arrangement I have it figure out Referrals Initiated None needed Whiteboard Updated in Patient Room with Yes name and ext. # of Men'S Garment Fitter Review Status In Process Next Review Type Continued Stay Review
[2022-11-05] MEDS: ENOXAPARIN 40 MG/0.4 ML SYRINGE SUBCUT (14:24)
[2022-11-05] MEDS: AMLODIPINE 5 MG TABLET PO (17:35)
[2022-11-05] MEDS: INSULIN GLARGINE 100 UNIT/ML 3ML PEN 30 UNIT SUBCUT (20:14)
[2022-11-05] MEDS: ATORVASTATIN 20 MG TABLET 10 MG PO (20:16)
[2022-11-06] VITALS (9 sets, daily range): BP systolic 122–197; BP diastolic 46–69; PULSE 70–84; RESP 16–18; TEMP 35.9–37.1; O2SAT 93–96
[2022-11-06] MEDS: PIPERACILLIN/TAZO 3.375 GM in SODIUM CHLORIDE 0.9% 100 ML IV ×4 (00:09→23:41)
[2022-11-06] MEDS: SODIUM CHLORIDE 0.9% 1,000 ML 150 ML IV (03:13)
[2022-11-06] MEDS: HYDROCODONE/ACET 5/325 TABLET 1 TAB PO ×3 (03:13→19:10)
--- NOTE | 2022-11-06 04:27 | PC.NURSE ---
BP 191/67 (90) HR 80s. call center support consultant Dr. Palmer informed, order is to give morning dose of lisinopril 40mg NOW instead of 0900.
[2022-11-06] MEDS: lisinopriL 20 MG TABLET 40 MG PO (04:31)
[2022-11-06] MEDS: PANTOPRAZOLE DR 20 MG TABLET PO (05:12)
[2022-11-06 06:48] LABS: BUN Creatinine Ratio 13.8 (6-22); Blood Urea Nitrogen 8 mg/dL (7-17); Calcium 9.2 mg/dL (8.4-10.2); Carbon Dioxide 29 mmol/L (22-32); Chloride 95 mmol/L (98-107); Estimated Glomerular Filt Rate > 60 mL/min (>60); Glucose 167 mg/dL (80-110); HEMOLYSIS < 15 (0-50); Magnesium 1.5 mg/dL (1.6-2.3); Potassium 2.9 mmol/L (3.4-5.1); Sodium 133 mmol/L (137-145)
[2022-11-06] MEDS: SODIUM CHLORIDE 0.9% FLUSH 10 ML IV ×3 (06:54→21:42)
[2022-11-06] MEDS: ONDANSETRON 4 MG/2 ML INJ IV (06:54)
[2022-11-06] MEDS: HYDROMORPHONE 0.5 MG INJ IV ×2 (06:54→23:41)
--- NOTE | 2022-11-06 07:53 | P.PN_ITS ---
Subjective Subjective Date Patient Seen: 11/06/22 Time Patient Seen: 07:53 Interval history: Patient improved, better oral intake Remains hypokalemic and hypomagnesemic. No growth from urine or blood cultures Exam Vital Signs (past 8 hours): - 11/06/22 00:41 11/06/22 03:34 11/06/22 04:31 Temperature 98.1 F 97.7 F Pulse Rate 71 84 Respiratory Rate 18 16 Blood Pressure 176/57 H 197/69 H 191/67 H Pulse Oximetry 93 96 Oxygen Flow Rate 0 0 Oxygen Delivery Method Room Air Oxygen Flow Rate 0 Objective Labs 11/04/22 02:40 11/06/22 06:03 Labs: Laboratory Results - last 24 hr 11/05/22 11/06/22 08:10 06:03 Sodium 131 L 133 L Potassium 3.0 L 2.9 L Chloride 96 L 95 L Carbon Dioxide 29 29 BUN 8 8 Creatinine 0.47 L 0.58 Estimated GFR > 60 > 60 BUN/Creatinine Ratio 17.0 13.8 Glucose 195 H 167 H Calcium 9.2 9.2 Magnesium 1.4 L 1.5 L PFSH Medical History (Updated 11/04/22 @ 07:41 by Javed Velez MD) Anemia Ankylosing spondylitis (~1994) Aortic stenosis Arthritis Cancer Cannabis hyperemesis syndrome concurrent with and due to cannabis abuse Chicken pox Chronic back pain CLL (chronic lymphocytic leukemia) Colitis Complex renal cyst Diabetes mellitus (2003) Diabetes mellitus, type II, insulin dependent Diabetic peripheral neuropathy Gastrointestinal irritation Hyperlipidemia Hypertension IBS (irritable bowel syndrome) Kidney stones Measles Mumps Pulmonary nodule Right renal mass RLS (restless legs syndrome) Sepsis Surgical History (Updated 11/04/22 @ 07:41 by Javed Velez MD) Anesthesia History of appendectomy History of cholecystectomy History of vaginal hysterectomy Status post appendectomy (1964) Status post breast biopsy (1991) Status post breast biopsy (2013) Status post cholecystectomy (1991) Status post hysterectomy (1993) Status post transcatheter aortic valve replacement (~08/2022) Family History Father Cancer Diabetes mellitus Hypertension High cholesterol Mother Heart disease Hypertension Brother Ankylosing spondylitis Son Ankylosing spondylitis Social History marital status: number of children: 2 household members: none Smoking Status: Current every day smoker alcohol intake: never caffeine: No Assessment & Plan Assessment & Plan narrative: 1. Hypertensive urgency-much improved back unusual medication which is facilitated by the antiemetics. Patient has required additional antihypertens marciano therapy. Still poorly controlled. 2. Generalized malaise with myalgias not feeling well etcetera-no clear etiology. I think some physical therapy makes sense and I will order that 3. UTI urine culture as well as blood cultures negative. I am going to discontinue antibiotic therapy at this point. Do not believe patient has or had an active UTI 4. Diabetes-continue with insulin long-acting as well as coverage. Insulin doses reduced slightly because of limited oral intake. Continue to monitor and hopefully as GI symptoms improve and oral intake increases will need to go back to higher dose insulin 5. Nausea-no clear etiology for this at this point beyond her known issue with the cannabis. Continue with aggressive antiemetic therapies. Based on prior experience with this patient she will likely have symptoms for another 24-72 hours until they begin to improve. Continue with aggressive antiemetic therapy, I will add metoclopramide to her regimen, and hopefully she will improve sooner rather than later 6. Chronic pain syndrome-patient chronically on opiate narcotics. Unknown whether she is having some element of withdrawal from this as well contributing to her nausea as above. Patient should have access to some form of oral opiates for her chronic pain and in effort to calm down her GI tract etcetera 7. Hypokalemia and hypomagnesemia-will replace these parenterally. If indeed her stomach is much improved can begin to add back oral replacement therapy as well. Quality VTE Deep Vein Thrombosis/Pulmonary Embolism Present on Admission: No
[2022-11-06] MEDS: INSULIN LISPRO 100 UNIT/ML 3ML VIAL SUBCUT ×3 (08:26→16:49)
[2022-11-06] MEDS: MAGNESIUM OXIDE 400 MG TABLET PO (08:29)
[2022-11-06] MEDS: METOCLOPRAMIDE HCL 5 MG TABLET PO ×3 (08:29→17:00)
[2022-11-06] MEDS: ASPIRIN EC 81 MG TABLET PO (08:29)
[2022-11-06] MEDS: AMLODIPINE 5 MG TABLET 10 MG PO (08:30)
[2022-11-06] MEDS: METOPROLOL ER 50 MG TABLET 100 MG PO ×2 (08:30→21:34)
[2022-11-06] MEDS: ENOXAPARIN 40 MG/0.4 ML SYRINGE SUBCUT (08:31)
[2022-11-06] MEDS: hydroCHLOROthiazide 25 MG TABLET PO (08:32)
[2022-11-06] MEDS: MAGNESIUM SULFATE 2 GM/50 ML PIGGYBACK IV (08:53)
[2022-11-06] MEDS: POTASSIUM CHLORIDE IN WATER 10 MEQ/100 ML PIGGYBACK 100 MEQ IV ×8 (08:53→17:30)
--- NOTE | 2022-11-06 15:50 | PT.IIE ---
Current Diagnoses Chronic lymphocytic leukemia of B-cell type not having achieved remission (11/04/22) Type 2 diabetes mellitus without complications (11/04/22) Mixed hyperlipidemia (11/04/22) Acidosis, unspecified (11/04/22) Restless legs syndrome (11/04/22) Other chronic pain (11/04/22) Hypertensive urgency (11/04/22) Dorsalgia, unspecified (11/04/22) manager terminal (current) use of insulin (11/04/22) Surgical History (Last Updated 11/04/22 @ 07:41 by Javed Velez MD) Anesthesia History of appendectomy History of cholecystectomy History of vaginal hysterectomy Status post appendectomy (1964) Status post breast biopsy (1991) Status post breast biopsy (2013) Status post cholecystectomy (1991) Status post hysterectomy (1993) Status post transcatheter aortic valve replacement (~08/2022) Medical History (Last Updated 11/04/22 @ 07:41 by Javed Velez MD) Anemia Ankylosing spondylitis (~1994) Aortic stenosis Arthritis Cancer Cannabis hyperemesis syndrome concurrent with and due to cannabis abuse Chicken pox Chronic back pain CLL (chronic lymphocytic leukemia) Colitis Complex renal cyst Diabetes mellitus (2003) Diabetes mellitus, type II, insulin dependent Diabetic peripheral neuropathy Gastrointestinal irritation Hyperlipidemia Hypertension IBS (irritable bowel syndrome) Kidney stones Measles Mumps Pulmonary nodule Right renal mass RLS (restless legs syndrome) Sepsis Physical Therapy Inpatient Evaluation/Re-Eval M1 PT/OT-IP Prior Functional Status Start: 11/06/22 16:26 Freq: NEEDED Status: Active Protocol: Document 11/06/22 15:50 DLM (Rec: 11/06/22 16:35 DLM [id number]) Medical Review Prior Functional Status Medical History Reviewed Yes Diet/Fluid Consistency Regular Communication WFL, glasses Mobility and Gait Independent without device, has a cane she uses if she feels she needs it. She has neuropathy in her feet so she wears shoes to protect her feet when walking. 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 Her neck pain and limited motion affects her activites. She gets groceries delivered. She stands for her showers with a rail. Prior Functional Level (Other details) she plans to have family/ friends stay with her a few days after discharge to help as needed Social History Household Members none Living Arrangements House Number of Floors (Floors) Two Floors Number of Stairs To Enter/Railing? laundry on second level, does not have to do stairs Home Environment Standard Height Toilet,Walk in Shower Home Equipment Shower Seat with Backrest,Grab Bars Near Toilet,Grab Bars In Shower Employment Status Retired Additional Social History Comment she reports no recent falls at home M2 PT-IP Current Condition Start: 11/06/22 16:26 Freq: NEEDED Status: Active Protocol: Document 11/06/22 15:50 DLM (Rec: 11/06/22 16:35 DLM [id number]) Physical Therapy Current Condition Current Condition Evaluation Date 11/06/22 Treatment Diagnosis HTN emergency, decreased activity tolerance Onset Date 11/04/22 M3 PT-IP Subjective Start: 11/06/22 16:26 Freq: NEEDED Status: Active Protocol: Document 11/06/22 15:50 DLM (Rec: 11/06/22 16:35 DLM [id number]) Subjective Physical Therapy Visit Type Type Initial Evaluation Visit Start Time 15:10 Visit Stop Time 15:50 Total Visit Minutes 40 Number of SOLUTION LEAD Visits 0 Physical Therapy Visit Comments Patient Comments She feels a lot better. No dizziness/light-headedness. She hopes to go home tomorrow. Patient Goals Discharge home with support of family/friends M4 PT-IP Mobility and Gait Start: 11/06/22 16:26 Freq: NEEDED Status: Active Protocol: Document 11/06/22 15:50 DLM (Rec: 11/06/22 16:35 DLM [id number]) PT-Transfer Assessment Sit to and From Stand Sit to and from Stand Independent,Use of Upper Extremities Equipment Transfer Assistive Device None Transfers Transfer Destination Chair Transfer Technique Stand Step Pivot Transfer Ability Level of Assist Standby Assistance,Use of Upper Extremities Comments Mobility Comments Pt reports she is independent getting in/out of bed. She wants to stay up in the chair at this time. Noted pt has unsteadiness in standing with initiation of gait and she catches herself on vogel/ furniture. She prefers to touch furniture as she ambulates in the room. Gait Assessment Gait Gait Assistance Required: Standby Assistance Assistive Devices Assistive Device None Gait Deviations General Gait Pattern Decreased Stride Length,Wide Based Gait Factors Limiting Gait Function Factors Limiting Gait Function Decreased Activity Tolerance, Decreased Sensation Comments Gait Comments she intermittently has lateral stagger with initiation of gait that she reaches out for furniture or wall to help correct, no losses of balance observed with gait in the todd , limited cervical spine ROM makes it challenging for her to respond to distractions, she is unable to hold head erect so has head tipped down Stair Climbing Assessment Evaluation Level of Assist On Stairs Independent Devices Stair Climbing Assistive Devices Left Railing Technique/Endurance Stair Climbing Direction Ascend and Descend Stair Climbing Technique Step Over Step Number of Steps Climbed 3 Query Text: Stair Climbing Set # Repetitions (reps) 1 Comments Stair Climbing Comments helped manage IV pole PT-Balance Assessment Sitting Balance and Reactions Static Sitting Balance Ability Good Dynamic Sitting Balance Ability Good Standing Balance and Reactions Static Standing Balance Ability Good Dynamic Standing Balance Ability Good Device Used none Balance Tests Single Limb Standing can hold 3 sec each LE Romberg increased sway but no loss of balance Tandem Standing can hold semi-tandem, needs assist for tandem Comments Other Balance Tests/Deviations/Treatment chronic back and neck pain : Functional Assessments Functional Tests Tinetti Balance and Gait Assessment Balance 10/23, Gait 10/19 M5 PT-IP Objective Assessments Start: 11/06/22 16:26 Freq: NEEDED Status: Active Protocol: Document 11/06/22 15:50 DLM (Rec: 11/06/22 16:52 DLM [id number]) Orientation Orientation/Cognition Level of Alertness Alert Orientation Name,Age,Birthday,Month,Date, Year,Day of Week,Place, Situation Language Function Ability No Deficits Noted Safety Awareness Understands Safety Issues Memory Description No Deficits Noted Comments glasses Gross Range of Motion Upper Extremity ROM Assessment Within Functional Limits Lower Extremity ROM Assessment Within Functional Limits Strength Upper Extremity Strength Assessment Within Functional Limits Lower Extremity Strength Assessment Within Functional Limits Comments Strength Comments cervical spine has very little ROM, she can not hold her head erect, pain with attempts to move her neck actively Coordination Assessment Gross Coordination Gross Coordination WNL Sensation Assessment Sensation Gross Sensation Right LE Impaired,Left LE Impaired Sensation Description Numbness Comments Sensation Comments numbness in feet with history of peripheral neuropathy She reports her feet get hot and she likes socks off at rest, agrees to wear them when up she reports she can feet hot/ cold in her feet Muscle Tone Muscle Tone WNL Yes M6 PT-IP Treatment Start: 11/06/22 16:26 Freq: NEEDED Status: Active Protocol: Document 11/06/22 15:50 DLM (Rec: 11/06/22 16:52 DLM [id number]) Physical Therapy Treatment Education Education Provided Safety Other Treatments Other Treatment Performed Educated pt to manage her fall risks. Recommend pt NOT manage the IV pole to avoid feet injuries while hospitalized, she is also at increased risk for increasing her neck pain pushing the IV pole. I discussed these issues with the patient and her nurse M7 PT-IP Assessment and Plan Start: 11/06/22 16:26 Freq: NEEDED Status: Active Protocol: Document 11/06/22 15:50 DLM (Rec: 11/06/22 16:52 DLM [id number]) PT Summary Assessment and Plan Potential Rehabilitation Potential Good Status of Condition at Evaluation Evolving Summary Impairments Balance,Sensation,Activity Tolerance Progress Towards Goals Safe For Discharge Assessment Summary Ben is alert and sitting up in the recliner. She has been up moving with nursing. She reports feeling much better today. She feels she is safe to return home if her blood pressure stays down. She tolerated gait in the halls well. She was able to go up/ down stairs without difficulty . She presents with mild decrease in her standing balance with mild visual dependent related to her peripheral neuropathy and complicated by her limited cervical spine motion. Pt reports she attended out-pt PT for her neck in the past and it was not helpful. She reports being careful at home but is open to using her cane more often. Recommend she use the cane when ambulating out of the house to decrease her fall risks. She appears safe to discharge home when she is medically cleared. Recommend she have nursing supervision/ SBA while hospitalized to keep her paths clear, turn lights on when needed and manage the IV pole. Will discharge physical therapy at this time due to no skilled needs identified at this time. Pt appears to be at her baseline for functional mobility and gait. Frequency of Treatment Frequency Of Treatment Discharge Treatment Plan Other Recommendations and Next Treatment no further needs identified at [facility] this time Precautions Other Precautions fall risk in the hospital due to peripheral neuropathy in her feet and limited cervical spine range of motion Recommendations To Nursing Amount of Assist Needed Standby Assistance Discharge Recommendations PT Discharge Recommendations Home with Assistance Other Discharge Recommendations Family and friends will be helping at discharge Transportation Needs at Discharge Private Vehicle
--- NOTE | 2022-11-06 16:39 | CM.DPC ---
DCP Continued: Per nursing staff, Rosie would like to keep another day. No additional needs from CM team. Plan: patient will d/c home when stable. Transport with friend in POV. CM team will follow as needed. GARY Moscoso
[2022-11-06] MEDS: ATORVASTATIN 20 MG TABLET 10 MG PO (21:33)
[2022-11-06] MEDS: INSULIN GLARGINE 100 UNIT/ML 3ML PEN 30 UNIT SUBCUT (21:41)
[2022-11-07] VITALS (10 sets, daily range): BP systolic 123–182; BP diastolic 44–66; PULSE 66–74; RESP 18–19; TEMP 36–36.9; O2SAT 93–97
[2022-11-07] MEDS: HYDROCODONE/ACET 5/325 TABLET 1 TAB PO ×4 (01:56→21:11)
[2022-11-07 06:44] LABS: BUN Creatinine Ratio 15.8 (6-22); Blood Urea Nitrogen 12 mg/dL (7-17); Calcium 8.9 mg/dL (8.4-10.2); Carbon Dioxide 28 mmol/L (22-32); Chloride 98 mmol/L (98-107); Estimated Glomerular Filt Rate > 60 mL/min (>60); Glucose 166 mg/dL (80-110); HEMOLYSIS < 15 (0-50); Magnesium 1.9 mg/dL (1.6-2.3); Potassium 2.9 mmol/L (3.4-5.1); Sodium 134 mmol/L (137-145)
--- NOTE | 2022-11-07 07:31 | PM.PN.1 ---
Subjective Subjective Date Patient Seen: 11/07/22 Time Patient Seen: 07:31 Interval history: Patient's again hypokalemic this morning. Magnesium and potassium both replaced parenterally yesterday magnesium normal this morning Blood pressure better overall although not perfect Blood sugars creeping up likely secondary to increased oral intake, although this is still very limited Patient feels like she could go home today if everything else was all right Exam Vital Signs (past 8 hours): - 11/07/22 00:43 11/07/22 04:00 11/07/22 06:20 Temperature 98.1 F 97.9 F 98.4 F Pulse Rate 68 69 66 Respiratory Rate 18 18 18 Blood Pressure 139/47 L 123/46 L 153/48 H Pulse Oximetry 93 95 96 Oxygen Flow Rate 0 0 0 Oxygen Delivery Method Room Air Oxygen Flow Rate 0 Objective Labs 11/04/22 02:40 11/07/22 05:32 Labs: Laboratory Results - last 24 hr 11/07/22 05:32 Sodium 134 L Potassium 2.9 L Chloride 98 Carbon Dioxide 28 BUN 12 Creatinine 0.76 Estimated GFR > 60 BUN/Creatinine Ratio 15.8 Glucose 166 H Calcium 8.9 Magnesium 1.9 PFSH Medical History Anemia Ankylosing spondylitis (~1994) Aortic stenosis Arthritis Cancer Cannabis hyperemesis syndrome concurrent with and due to cannabis abuse Chicken pox Chronic back pain CLL (chronic lymphocytic leukemia) Colitis Complex renal cyst Diabetes mellitus (2003) Diabetes mellitus, type II, insulin dependent Diabetic peripheral neuropathy Gastrointestinal irritation Hyperlipidemia Hypertension IBS (irritable bowel syndrome) Kidney stones Measles Mumps Pulmonary nodule Right renal mass RLS (restless legs syndrome) Sepsis Surgical History Anesthesia History of appendectomy History of cholecystectomy History of vaginal hysterectomy Status post appendectomy (1964) Status post breast biopsy (1991) Status post breast biopsy (2013) Status post cholecystectomy (1991) Status post hysterectomy (1993) Status post transcatheter aortic valve replacement (~08/2022) Family History Father Cancer Diabetes mellitus Hypertension High cholesterol Mother Heart disease Hypertension Brother Ankylosing spondylitis Son Ankylosing spondylitis Social History marital status: number of children: 2 household members: none Smoking Status: Current every day smoker alcohol intake: never caffeine: No Assessment & Plan Assessment & Plan narrative: 1. Hypertensive urgency-blood pressure is much improved. Continue current medications 2. Generalized malaise with myalgias not feeling well etcetera-was up with physical therapy yesterday. Appears to be safe on her feet a little unsteady but approaching baseline. Certainly much improved over admission status 3. UTI-antibiotics have been discontinued (although I neglected to do that yesterday have accomplished this morning) do not believe there is an active infectious issue here. 4. Diabetes-continue with insulin long-acting as well as coverage. Insulin doses reduced slightly because of limited oral intake. Continue to monitor and hopefully as GI symptoms improve and oral intake increases will need to go back to higher dose insulin 5. Nausea-definitely improved. Patient feels like she could go home as above 6. Chronic pain syndrome-continue patient on her meds seems satisfactory at this point. 7. Hypokalemia and hypomagnesemia-will continue with oral replacement of magnesium and potassium but add some IV potassium as well given that she was at 2.9 this morning. Plan to recheck later this afternoon and again in the morning. If we can get her closer to normal than I would feel comfortable discharging her probably tomorrow Quality VTE Deep Vein Thrombosis/Pulmonary Embolism Present on Admission: No
[2022-11-07] MEDS: PANTOPRAZOLE DR 20 MG TABLET PO (07:40)
[2022-11-07] MEDS: POTASSIUM CHLORIDE 20 MEQ TAB 40 MEQ PO ×2 (07:44→14:18)
[2022-11-07] MEDS: POTASSIUM CHLORIDE IN WATER 10 MEQ/100 ML PIGGYBACK 100 MEQ IV ×4 (07:55→14:18)
[2022-11-07] MEDS: METOCLOPRAMIDE HCL 5 MG TABLET PO ×2 (08:08→15:53)
[2022-11-07] MEDS: ENOXAPARIN 40 MG/0.4 ML SYRINGE SUBCUT (08:08)
[2022-11-07] MEDS: ASPIRIN EC 81 MG TABLET PO (08:08)
[2022-11-07] MEDS: METOPROLOL ER 50 MG TABLET 100 MG PO ×2 (08:14→21:11)
[2022-11-07] MEDS: hydroCHLOROthiazide 25 MG TABLET PO (08:14)
[2022-11-07] MEDS: lisinopriL 20 MG TABLET 40 MG PO (08:15)
[2022-11-07] MEDS: AMLODIPINE 5 MG TABLET 10 MG PO (08:15)
[2022-11-07] MEDS: INSULIN LISPRO 100 UNIT/ML 3ML VIAL SUBCUT ×4 (08:21→21:15)
[2022-11-07] MEDS: NYSTATIN POWDER 15GM 1 APPLIC TOP ×2 (09:10→21:16)
[2022-11-07] MEDS: SODIUM CHLORIDE 0.9% FLUSH 10 ML IV ×2 (09:11→21:15)
[2022-11-07] MEDS: MAGNESIUM OXIDE 400 MG TABLET PO ×2 (09:11→21:12)
[2022-11-07] MEDS: ONDANSETRON 4 MG/2 ML INJ IV (15:28)
--- NOTE | 2022-11-07 16:17 | CM.DPC ---
DCP Continued: Per provider note, wants to keep patient one more day for her potassium and magnesium. Plan: Home no needs from CM team. Patient reported she had her ride taken care of, may consider confirming she has transportation home. CM team will continue to follow as needed. GARY Moscoso
[2022-11-07 17:31] LABS: HEMOLYSIS 15 (0-50); Potassium 4.6 mmol/L (3.4-5.1)
--- NOTE | 2022-11-07 18:32 | PC.NURSE ---
Pt A&OX4, She reports not having slept well during the night. SBP elevated in 180's this a.m. Upon reassessment after scheduled antihypertensive medications given SBP 130's-140's. She has improved po intake today eating about 1/2 of meals. BG this evening 207. Pt complained of K+ IV PB burning with administration and RN administered at half rate. Upon recheck K+ this evening Md notified of results of 4.6 and stated not necessary to administer remaining 2 bags IVPB K+. Continuous monitoring.
[2022-11-07] MEDS: ATORVASTATIN 20 MG TABLET 10 MG PO (21:12)
[2022-11-07] MEDS: INSULIN GLARGINE 100 UNIT/ML 3ML PEN 30 UNIT SUBCUT (21:14)
[2022-11-08 04:09] VITALS: BP 178/79; PULSE 82; RESP 19; TEMP 35.8; O2SAT 97
[2022-11-08] MEDS: HYDROCODONE/ACET 5/325 TABLET 1 TAB PO (04:50)
[2022-11-08 06:52] LABS: BUN Creatinine Ratio 20.8 (6-22); Blood Urea Nitrogen 16 mg/dL (7-17); Carbon Dioxide 30 mmol/L (22-32); Chloride 100 mmol/L (98-107); Estimated Glomerular Filt Rate > 60 mL/min (>60); Glucose 191 mg/dL (80-110); HEMOLYSIS < 15 (0-50); Sodium 134 mmol/L (137-145)
[2022-11-08] MEDS: METOCLOPRAMIDE HCL 5 MG TABLET PO (07:59)
[2022-11-08 08:00] VITALS: BP 150/51; PULSE 67; RESP 16; TEMP 36.8; O2SAT 98
[2022-11-08 08:01] VITALS: BP 150/51; PULSE 72
[2022-11-08] MEDS: PANTOPRAZOLE DR 20 MG TABLET PO (08:01)
[2022-11-08] MEDS: AMLODIPINE 5 MG TABLET 10 MG PO (08:01)
[2022-11-08] MEDS: ASPIRIN EC 81 MG TABLET PO (08:01)
[2022-11-08] MEDS: lisinopriL 20 MG TABLET 40 MG PO (08:01)
[2022-11-08] MEDS: METOPROLOL ER 50 MG TABLET 100 MG PO (08:01)
[2022-11-08] MEDS: MAGNESIUM OXIDE 400 MG TABLET PO (08:01)
[2022-11-08] MEDS: INSULIN LISPRO 100 UNIT/ML 3ML VIAL SUBCUT (08:03)
[2022-11-08] MEDS: NYSTATIN POWDER 15GM 1 APPLIC TOP (08:05)
[2022-11-08] MEDS: SODIUM CHLORIDE 0.9% FLUSH 10 ML IV (08:07)
--- NOTE | 2022-11-08 08:41 | CM.DPC ---
DCP Discharge Home Per MD, pt's labs more stable and pt medically cleared to discharge home today and no identified barriers to discharge. Per RN, no concerns noted at this time. Plan: Patient to d/c home via POV today and outpt f/u and no further SW needs at this time. GARY Mckeon
--- NOTE | 2022-11-08 12:38 | PC.NURSE ---
Pt is A&OX4, this a.m. VSS, afebrile on RA. She ambulates in her room independently. She denies need for prn pain medication this a.m. She denies n/v and tolerates breakfast well.MD at bedside this a.m clearing patient for discharge home. She verbalizes understanding of medications, activity and follow up appointment recommendation with MD Velez in two weeks. She is escorted by w/ch to private vehicle with friend for discharge home with all belongings.
--- NOTE | 2022-11-14 07:40 | PM.DS.1 ---
History of Present Illness History of Present Illness Date Patient Seen: 11/08/22 Time Patient Seen: 08:00 Chief complaint: HTN and flu symptoms Narrative: 72-year-old female with history of TAVR 1 month ago, hypertension, diabetes on insulin, dyslipidemia an aspirin 81 mg daily, patient also has history of CLL and right renal mass who presents with complaint of flu-like symptoms for the past 4 5 days.? Patient states she also had very high blood pressure at home.? She states she is felt unwell with subjective fevers on and off for the past 4 or 5 days, muscle aches and general fatigue.? She denies headache, denies vision changes.? Denies chest pain or pressure, no shortness of breath.? She is had nausea the entire time but no vomiting.? She states she has not been taking much oral intake because of nausea.? She has been having some diarrhea.? No black or bloody stools.? She denies abdominal back or flank pain.? Denies dysuria urgency or frequency.? She states her legs are very uncomfortable she does have restless leg but does not take oral medication for it.? Patient notes she would her prior surgery a month ago.? Denies any drug allergies.? Does use tobacco, occasional alcohol, no illicit other than THC occasionally.? Dr. Velez is her primary care physician. {From Dr. Marcano's H&P 11/04/22} Discharge Providers Provider Date of admission: 11/04/22 06:03 Discharge Date: 11/08/22 Primary care physician: Javed Velez MD Consults: 11/06/22 08:42 Consult to Physical Therapy Evaluate & Treat Comment: Physician Instructions: Evaluate and Treat Discharge provider: Javed Velez MD Summary Hospital Course Discharge Diagnosis: 1. Nausea vomiting 2. Hypertensive urgency 3. Acute UTI 4. Lactic acidosis 5. CLL 6. Diabetes type 2 7. Cannabis hyperemesis syndrome 8. Chronic back pain 9. Chronic opiate dependence 10. Hypokalemia Hospital Course: Patient was admitted as above with persistent nausea vomiting rather significant hypertension etcetera. Hypertension thought to be secondary to inability to keep her usual medications down and indeed when she was rehydrated her nausea was better controlled and her usual medications were restarted she had much improvement in blood pressure. However blood pressure remains somewhat elevated require additional antihypertensive medication but by time of discharge blood pressure was adequately controlled No clear etiology for her lactic acidosis was ever discovered significantly improved with hydration but there was never any evidence of any significant infectious etiology. Patient has findings of a possible UTI were soft at best Patient's nausea and vomiting thought to be secondary to her hyperemesis cannabis type syndrome when she is presented with previously. No other etiology was discovered during her hospitalization and evaluation as noted in the chart Patient had some significant electrolyte disturbances that were corrected eventually. Once these were all corrected remained stable patient was felt to be stable for discharge as she was taking oral intake again and blood pressure was much better controlled and she was discharged home Status at Discharge Cognitive/behavioral status at discharge: at baseline, oriented Functional status at discharge: independent ambulation Overall status at discharge: patient is progressing back to baseline Exam Vital Signs (past 8 hours): Oxygen Delivery Method Room Air Oxygen Flow Rate 0 Objective Labs 11/04/22 02:40 11/08/22 06:25 [facility] Medical History Anemia Ankylosing spondylitis (~1994) Aortic stenosis Arthritis Cancer Cannabis hyperemesis syndrome concurrent with and due to cannabis abuse Chicken pox Chronic back pain CLL (chronic lymphocytic leukemia) Colitis Complex renal cyst Diabetes mellitus (2003) Diabetes mellitus, type II, insulin dependent Diabetic peripheral neuropathy Gastrointestinal irritation Hyperlipidemia Hypertension IBS (irritable bowel syndrome) Kidney stones Measles Mumps Pulmonary nodule Right renal mass RLS (restless legs syndrome) Sepsis Surgical History Anesthesia History of appendectomy History of cholecystectomy History of vaginal hysterectomy Status post appendectomy (1964) Status post breast biopsy (1991) Status post breast biopsy (2013) Status post cholecystectomy (1991) Status post hysterectomy (1993) Status post transcatheter aortic valve replacement (~08/2022) Family History Father Cancer Diabetes mellitus Hypertension High cholesterol Mother Heart disease Hypertension Brother Ankylosing spondylitis Son Ankylosing spondylitis Social History marital status: number of children: 2 household members: none Smoking Status: Current every day smoker alcohol intake: never caffeine: No Discharge Plan Discharge Plan Patient Disposition: Home Discharge orders & Medications Prescriptions: New amlodipine [Norvasc] 5 mg Tablet 10 mg PO DAILY Qty: 30 3RF nystatin [Nystop] 100,000 unit/gram Powder 1 applic topical BID Qty: 60 0RF potassium chloride 8 mEq capsule, extended release 8 meq PO DAILY Qty: 30 0RF Continued simvastatin 20 mg tablet 20 mg PO HS Qty: 90 3RF glipizide 5 mg tablet 5 mg PO BID Qty: 180 3RF Lantus Solostar U-100 Insulin 100 unit/mL (3 mL) insulin pen 65 unit SUBCUT HS Qty: 45 11RF metformin 1,000 mg tablet 1,000 mg PO BIDCC Qty: 180 3RF pioglitazone 30 mg tablet 30 mg PO DAILY Qty: 90 3RF lisinopril 40 mg tablet 40 mg PO DAILY Qty: 90 2RF metoprolol succinate 100 mg tablet extended release 24 hr 100 mg PO BID Qty: 180 3RF hydrocodone-acetaminophen 5-325 mg tablet 1 tab PO QID PRN (Reason: joint pain) Qty: 120 0RF lansoprazole 15 mg capsule,delayed release(DR/EC) 15 mg PO DAILY Adult Probiotic 3 billion cell capsule 3,000 mmu cells PO DAILY aspirin 81 mg tablet,delayed release (DR/EC) 81 mg PO DAILY Discontinued hydrochlorothiazide 50 mg Tablet 50 mg PO DAILY Patient Comments: unsure of exact dose No Action (DME) B-D PEN NEEDLE Qty: 100 3RF Dose Instruction: As directed Rx Instructions: 5mm mini B-D. Insulin pen needle 31G x 5. USE 1X A DAY (DME) blood-glucose meter Misc See Rx Instructions .ROUTE .MEDSUPPLY Qty: 1 0RF Rx Instructions: One Touch Ultra Blood Glucose Meter - Use as directed to test blood sugar. 4x daily (DME) lancets [OneTouch Delica Lancets] 33 gauge misc See Rx Instructions .Route Qty: 100 12RF Rx Instructions: As directed to test blood sugar 4x daily (DME) Disabled Parking See Rx Instructions .ROUTE .MEDSUPPLY Qty: 1 0RF Rx Instructions: Patient qualifies for disabled parking as per the attached form. (DME) Droplet Pen [place] 32G X 5MM Qty: 250 6RF Dose Instruction: As directed Rx Instructions: Use 1x daily w/Insulin Pen. (DME) Blood Glucose Test Strip See Rx Instructions .ROUTE .MEDSUPPLY Qty: 250 12RF Rx Instructions: use to test blood sugar up to four times daily Follow up/Referrals: Javed Velez MD [Primary Care Provider] - 2 Weeks Discharge Health Status Multidrug resistant organism: No MDRO Diet/Activity/Treatments Diet: Diet as Tolerated and Carb-consistent/Diabetic Visit Report/Discharge Packet Stand Alone Forms: Patient Portal/API, Stroke Signs & Symptoms Discharge Data Primary Care Provider: Javed Veelz Discharges patient from system. Discharge Date/Time: 11/08/22 10:30 Quality VTE Deep Vein Thrombosis/Pulmonary Embolism Present on Admission: No
== END 2022-11-08 10:30 | disposition home or self-care (01) | DRG 305 ==
LOC: ED 05:55 → AC 06:40
PROVIDERS: Internal Medicine; Admitting Provider Internal Medicine; Emergency Provider Emergency Medicine; PCP Internal Medicine; Referring Provider Emergency Medicine; Visit Provider Internal Medicine
DX: I16.0 Hypertensive urgency (principal); E87.21 Acute metabolic acidosis; C91.10 Chronic lymphocytic leukemia of B-cell type not having achieved remission; F11.20 Opioid dependence, uncomplicated; E11.9 Type 2 diabetes mellitus without complications; E78.2 Mixed hyperlipidemia; G25.81 Restless legs syndrome; I10 Essential (primary) hypertension; G89.29 Other chronic pain; M54.9 Dorsalgia, unspecified; E87.6 Hypokalemia; E78.5 Hyperlipidemia, unspecified; E83.42 Hypomagnesemia; R11.2 Nausea with vomiting, unspecified; R53.81 Other malaise; F17.210 Nicotine dependence, cigarettes, uncomplicated; Z95.2 Presence of prosthetic heart valve; Z79.4 Long term (current) use of insulin; F12.90 Cannabis use, unspecified, uncomplicated; Z79.84 Long term (current) use of oral hypoglycemic drugs
CPT/HCPCS: 36415; 71045; 71275; 74177; 80048; 80053; 81001; 81003; 82550; 82962; 83605; 83690; 83735; 83880; 84132; 84145; 84484; 85025; 85610; 85730; 87040; 87086; 87633; 93005; 93306; 96365; 96375; 96376; 97162; 99233; 99238; 99284; J1170; J1650; J1815; J2060; J2405; J2543; J3475; Q9967

== ENCOUNTER → 2022-11-23 11:50 | Outpatient (CLI) | payer MEDICARE, OTHER, SELFPAY ==
[2022-11-04 09:08] VITALS: BMI 35.2
[2022-11-23 12:04] LABS: Add Manual Diff / Slide Review NO; Basophils Absolute Auto 100 /uL (0-100); Basophils Percent Auto 1.2 % (0-2); Eosinophils Absolute Auto 100 /uL (0-450); Hematocrit 31.8 % (36-46); Hemoglobin 10.4 g/dL (12.0-16.0); Lymphocytes Absolute Auto 2400 /uL (1100-4500); Mean Corpuscular HGB Conc 32.7 % (30-36); Mean Corpuscular Hemoglobin 26.5 PG (26-34); Mean Corpuscular Volume 80.9 fL (80-100); Monocytes Absolute Auto 600 /uL (0-900); Monocytes Percent Auto 4.9 % (3-14); Neutrophils Absolute Auto 8900 /uL (1500-7000); Neutrophils Percent Auto 72.9 % (50-75); Platelet Count 375 X10^3/uL (150-400); Red Blood Cell Count 3.93 X10^6/uL (4.0-5.2); Red Cell Distribution Width 15.2 % (11.6-14.8); White Blood Cell Count 12.2 X10^3/uL (4.5-11.0)
[2022-11-23 12:19] LABS: Hemoglobin A1C% w Est Avg Glu 6.9 % (4.0-6.0)
[2022-11-23 12:20] LABS: Cholesterol 174 mg/dL (140-199); HDL Cholesterol 51 mg/dL (40-60); LDL Cholesterol Calculated 74 mg/dL (<100); Magnesium 1.9 mg/dL (1.6-2.3); Triglycerides 246 mg/dL (35-150)
[2022-11-23 12:48] LABS: HEMOLYSIS < 15 (0-50); Lactate Dehydrogenase 258 U/L (120-246)
[2022-11-23 13:03] LABS: Alanine Aminotransferase 22 IU/L (<35); Albumin Globulin Ratio 1.7 (1.0-2.8); Alkaline Phosphatase 80 U/L (38-126); Aspartate Aminotransferase 30 IU/L (14-36); BUN Creatinine Ratio 21.8 (6-22); Bilirubin Total 0.3 mg/dL (0.2-1.3); Blood Urea Nitrogen 17 mg/dL (7-17); Calcium 10.5 mg/dL (8.4-10.2); Carbon Dioxide 24 mmol/L (22-32); Chloride 102 mmol/L (98-107); Estimated Glomerular Filt Rate > 60 mL/min (>60); Globulin 2.4 g/dL (1.7-4.1); Glucose 166 mg/dL (80-110); Potassium 4.5 mmol/L (3.4-5.1); Sodium 135 mmol/L (137-145); Total Protein 6.4 g/dL (6.3-8.2)
== END ==
PROVIDERS: Internal Medicine Medical Oncology; PCP Internal Medicine; Referring Provider Internal Medicine; Visit Provider Internal Medicine
DX: E11.9 Type 2 diabetes mellitus without complications (principal); I10 Essential (primary) hypertension; C91.10 Chronic lymphocytic leukemia of B-cell type not having achieved remission; E87.20 Acidosis, unspecified; N28.1 Cyst of kidney, acquired; E78.2 Mixed hyperlipidemia; Z94.81 Bone marrow transplant status
CPT/HCPCS: 36415; 80053; 80061; 83036; 83615; 83735; 85025

== ENCOUNTER → 2023-02-22 11:18 | Outpatient (CLI) | payer MEDICARE, OTHER, SELFPAY ==
[2022-11-04 09:08] VITALS: BMI 35.2
[2023-02-22 12:44] LABS: Creatinine Urine Random 65.7 mg/dL
[2023-02-22 13:14] LABS: BUN Creatinine Ratio 16.7 (6-22); Blood Urea Nitrogen 12 mg/dL (7-17); Calcium 10.4 mg/dL (8.4-10.2); Carbon Dioxide 28 mmol/L (22-32); Chloride 101 mmol/L (98-107); Estimated Glomerular Filt Rate > 60 mL/min (>60); Glucose 160 mg/dL (80-110); HEMOLYSIS < 15 (0-50); Potassium 4.8 mmol/L (3.4-5.1); Sodium 137 mmol/L (137-145)
[2023-02-22 13:16] LABS: Microalbumi Creatinin Ratio Ur 388.1 ug/mg CR (<30); Microalbumin Urine Random 25.5 mg/dL (0-1.6)
== END ==
PROVIDERS: PCP Internal Medicine; Referring Provider Internal Medicine; Visit Provider Urology
DX: N20.1 Calculus of ureter (principal); N28.1 Cyst of kidney, acquired; N28.89 Other specified disorders of kidney and ureter
CPT/HCPCS: 36415; 80048; 82043; 82570

== ENCOUNTER → 2023-03-24 10:51 | Outpatient (CLI) | payer MEDICARE, OTHER, SELFPAY ==
[2022-11-04 09:08] VITALS: BMI 35.2
--- NOTE | 2023-03-24 10:53 | DI.CT.S_ITS ---
PROCEDURE: CT CHEST W CON INDICATIONS: PULMONARY NODULE ENLARGED MEDIASTINAL NODES TECHNIQUE: After the administration of intravenous contrast, 5 mm thick sections acquired from the pulmonary apices to the posterior costophrenic angles. 1 mm axial lung, 5 mm thick coronal and sagittal reformats and 7 mm axial MIP were acquired. For radiation dose reduction, the following was used: automated exposure control, adjustment of mA and/or kV according to patient size. COMPARISON: Outside Facility, RG, CTA CHEST ABDOMEN PELVIS ANGIO, 07/25/2022, 12:39. [facility], CT, CT ANGIO CHEST PE PROTOCOL, 11/04/2022, 3:32. FINDINGS: Image quality: Diagnostic. Lower Neck: No enlarged lymph nodes. Thyroid: Multiple thyroid nodules, largest measuring 2.1 centimeter on the right. Axillae: No enlarged lymph nodes. Chest Wall: Unremarkable. Bones: Diffuse idiopathic skeletal hyperostosis. Lungs and Pleura: No pneumothorax or pleural effusions. Multiple juxtapleural nodules are again seen, not significantly changed since 07/25/2022. No nodule measures greater than 6 millimeters. Heart: Heart size is normal. No pericardial effusion. Prosthetic aortic valve. Calcification of the mitral valve. Thoracic Vessels: The aorta and pulmonary arteries demonstrate normal size. Mediastinum and Neva: Stable enlarged mediastinal lymph nodes compared with 07/25/2022 Esophagus: No wall thickening. No hiatal hernia. Upper Abdomen: Visualized upper abdomen solid organs and bowel loops appear normal. IMPRESSION: Stable mediastinal adenopathy. Differential includes a lymphoproliferative disorder versus sarcoidosis. Stable juxtapleural pulmonary nodules, favoring benign intrapulmonary lymph nodes. Diffuse idiopathic skeletal hyperostosis. Findings may indicate ankylosing spondylosis. Bilateral thyroid nodules, largest measuring 2.1 centimeters. Recommend dedicated thyroid ultrasound if not performed in the past. Dictated by: Emilio Zimmerman M.D. on 03/24/2023 at 15:59 Approved by: Emilio Zimmerman M.D. on 03/24/2023 at 16:06
--- NOTE | 2023-03-24 10:53 | DI.CT.S_ITS ---
PROCEDURE: CT ABDOMEN RENAL PROTOCOL INDICATIONS: F/U L AND R RENAL LESION TECHNIQUE: Optional 5 mm thick noncontrast images acquired from the diaphragm to the iliac crests. After the administration of intravenous contrast, 5 mm thick images again acquired from the diaphragm to the iliac crests in the arterial and urographic phases. 5 mm thick coronal and sagittal reformats were then acquired. For radiation dose reduction, the following was used: automated exposure control, adjustment of mA and/or kV according to patient size. COMPARISON: [facility], CT, CT ABDOMEN RENAL PROTOCOL, 10/11/2022, 13:07. FINDINGS: Image quality: Diagnostic. Kidneys and Ureters: Slight interval growth of the enhancing , exophytic mass on the inferior, lateral margin of the right kidney measuring 2.8 x 1.6 centimeter, previously 2.5 x 1.7 centimeter. The mass does not extend beyond the perirenal fascia. Renal vein is widely patent. Stable Bosniak 2 cystic mass on the lateral margin of the left kidney. Moderate burden of right-sided nonobstructing nephrolithiasis. No hydronephrosis. OTHER: Lower chest: Prominent number of nonenlarged periaortic lymph nodes. Prosthetic aortic valve. Liver: No solid mass. Gallbladder: Cholecystectomy. Biliary ducts: No biliary dilation. Pancreas: No ductal dilation. Spleen: Size is within normal limits. Adrenal Glands: No adrenal nodules. Stomach and Bowel: Normal colonic caliber, without significant wall thickening. Peritoneum: No abnormal intraperitoneal fluid. No free air. Ventral Wall: No hernia. Abdominal Nodes: Similar enlarged retroperitoneal lymph nodes. Vessels: Aorta and inferior vena cava are normal in size. Bones: No aggressive osseous abnormality. Diffuse idiopathic skeletal hyperostosis. IMPRESSION: Slight interval growth of the 2.8 x 1.6 centimeter exophytic right renal mass. The mass does not extend beyond the perirenal fascia. No venous invasion. Stable Bosniak 2 cystic mass of the left kidney. Stable retroperitoneal adenopathy and prominent number of posterior mediastinal lymph nodes. Findings are indeterminate but a low-grade lymphoma is not entirely excluded based on the size and number. Suspected ankylosing spondylitis. Dictated by: Emilio Zimmerman M.D. on 03/24/2023 at 12:57 Approved by: Emilio Zimmerman M.D. on 03/24/2023 at 13:07
== END ==
PROVIDERS: PCP Internal Medicine; Referring Provider Urology; Visit Provider Urology
DX: N28.89 Other specified disorders of kidney and ureter (principal); R91.8 Other nonspecific abnormal finding of lung field; R59.9 Enlarged lymph nodes, unspecified; E04.2 Nontoxic multinodular goiter; C91.10 Chronic lymphocytic leukemia of B-cell type not having achieved remission; N28.1 Cyst of kidney, acquired; N20.0 Calculus of kidney
CPT/HCPCS: 71260; 74170; Q9967

== ENCOUNTER → 2023-04-16 09:08 | Outpatient (CLI) | payer MEDICARE, OTHER, SELFPAY ==
[2022-11-04 09:08] VITALS: BMI 35.2
--- NOTE | 2023-04-16 | DI.ECHO.S_ITS ---
[facility] +---------+ : : [address] : : : : [id number] : : : : Phone: [phone] Echocardiogram Report + + :Name: TODD WELLER Study Date: 04/16/2023 Height: 62 in : :[facility] ReadingLocation: Weight: 185 lb : : Gender: Female BSA: 1.8 m2 : :: 1950 Age: 73 yrs BP: 165/81 mmHg: :Reason For Study: AORTIC STENOSIS : :Ordering Physician: GRACIELA, : :OCHOA Performed By: Ilsa Vargas : :Referring: MIESHA ZUÑIGA : + + Interpretation Summary The left ventricle is normal in size. There is mild concentric left ventricular hypertrophy. The left ventricular ejection fraction is normal. The ejection fraction is estimated to be 60-65%. No significant change in LVEF from the previous study. The right ventricle is mildly dilated. The right ventricular systolic function is normal. There is mild to moderate mitral annular calcification. Mildly decreased excursion of the posterior mitral leaflet. Mean gradient 4.8 mmHg. Suspect mild mitral stenosis. In May 2022 mean gradient 4.9 mmHg. There is a bioprosthetic aortic valve. The prosthetic aortic valve is well-seated. The peak aortic velocity is 1.96 m/sec. The aortic valve mean gradient is 8 mmHg. The peak aortic velocity on the previous exam was 1.8 m/sec. There is mild perivalvular regurgitation around the prosthetic aortic valve. Previously trivial AR. The IVC is of normal diameter and collapses greater than 50% with a sniff. This suggests a low right atrial pressure of 3 mm Hg. Procedure: A two-dimensional transthoracic echocardiogram with color flow and Doppler was performed. The study quality was technically difficult. Comparison is made with the echocardiogram of 11/04/2022. The heart rate ranged between 77-88 bpm during the study. The patient was in normal sinus rhythm during the exam. Left Ventricle: The left ventricle is normal in size. There is mild concentric left ventricular hypertrophy. There has been no significant change since the previous study. There is no thrombus. The ejection fraction is estimated to be 60-65%. The left ventricular ejection fraction is normal. There has been no significant change since the previous exam. There are no focal wall motion abnormalities. MV E/A: 0.78 Med Peak E' Adrian: 5.8 cm/sec E/E' med: 18.4. Right Ventricle: The right ventricle is mildly dilated. The right ventricular systolic function is normal. Atria: The left atrium is mildly dilated. There has been no significant change since the previous study. Right atrial size is normal. There is no Doppler evidence for an interatrial shunt. Mitral Valve: There is mild to moderate mitral annular calcification. The mitral valve leaflets are mildly calcified. Decreased excursion of the posterior mitral leaflet. Mean gradient 4.8 mmHg. Suspect mild mitral stenosis. The mitral valve mean gradient is 4.8 mmHg. In May 2022 mean gradient 4.9 mmHg. There is trace mitral regurgitation. Aortic Valve: There is a bioprosthetic aortic valve. There is mild perivalvular regurgitation around the prosthetic aortic valve. The prosthetic aortic valve is well-seated. The peak aortic velocity is 1.96 m/sec. The aortic valve mean gradient is 8 mmHg. The peak aortic velocity on the previous exam was 1.8 m/sec. Tricuspid Valve: The tricuspid valve is normal in structure and function. There is trace tricuspid regurgitation. Pulmonic Valve: The pulmonic valve is not well seen, but is grossly normal. There is mild pulmonic regurgitation. Great Vessels: The aortic root is not well visualized but is probably normal size. The dimensions of the ascending aorta are normal. The IVC is of normal diameter and collapses greater than 50% with a sniff. This suggests a low right atrial pressure of 3 mm Hg. Pericardium/ Pleura There is no pericardial effusion. There is an anterior echo-free space consistent with a fat pad. There is no pleural effusion. MMode/2D Measurements & Calculations LVIDd: 4.3 cm LVOT diam: 2.0 cm LVIDs: 3.1 cm asc Aorta Diam: 3.1 cm FS: 29.5 % IVSd: 1.2 cm LVPWd: 1.2 cm LV norwood. diameter/BSA (cm/m^2): 2.4 LV sys. diameter/BSA (cm/m^2): 1.7 LA A2 area: 19.6 cm2 RA long axis: 4.9 cm LA A4 area: 21.2 cm2 RA area: 18.7 cm2 LA length (vol): 5.6 cm RA vol: 60.4 ml LA vol: 63.2 ml RA : 32.7 ml/m2 LA vol index: 34.2 ml/m2 IVC diam: 1.8 cm RVD1 (basal): 4.4 cm TAPSE: 2.5 cm Doppler Measurements & Calculations Ao V2 max: 196.4 cm/sec LVOT Max Adrian: 106.4 cm/sec Ao V2 mean: 132.4 cm/sec LV V1 max P.5 mmHg Ao max P.4 mmHg LV V1 VTI: 26.0 cm Ao mean P.9 mmHg SANG(I,D): 2.2 cm2 Ao V2 VTI: 39.3 cm SANG(V,D): 1.8 cm2 sev ratio: 0.66 SANG indexed to BSA (cm^2/m^2): 1.2 AI P1/2t: 436.1 msec AI dec slope: 273.8 cm/sec2 MV E max adrian: 106.6 cm/sec TR max adrian: 266.0 cm/sec MV A max adrian: 137.5 cm/sec TR max P.3 mmHg MV E/A: 0.78 PA V2 max: 89.6 cm/sec Med Peak E' Adrian: 5.8 cm/sec PA V2 mean: 62.5 cm/sec E/E' med: 18.4 PA mean P.8 mmHg Lat Peak E' Adrian: 5.2 cm/sec PA pr(Accel): 37.9 mmHg E/E' lat: 20.4 E/e' average: 19.4 MV dec time: 0.26 sec MVA(VTI): 2.2 cm2 MV V2 mean: 101.5 cm/sec SV(LVOT): 85.6 ml MV mean P.8 mmHg MV V2 VTI: 38.3 cm Reading Physician:02:19 PM
--- NOTE | 2023-04-16 09:10 | DI.RAD.S_ITS ---
PROCEDURE: XR KUB INDICATIONS: Follow-up left and right renal lesion TECHNIQUE: One view of the abdomen acquired. COMPARISON: [facility], CT, CT ABDOMEN RENAL PROTOCOL, 03/24/2023, 11:01. [facility], CR, XR ACUTE ABDOMEN SERIES, 09/08/2020, 12:10. FINDINGS: Surgical changes and devices: Cholecystectomy clips. Bowel: Bowel gas pattern is normal. Soft tissues: No suspicious abdominal calcifications. Visualized solid organ contours appear normal in size. Bones: No suspicious bony lesions. IMPRESSION: No nephrolithiasis appreciated. Dictated by: Emilio Zimmerman M.D. on 04/16/2023 at 14:40 Approved by: Emilio Zimmerman M.D. on 04/16/2023 at 14:46
== END ==
PROVIDERS: PCP Internal Medicine; Referring Provider Internal Medicine; Visit Provider Internal Medicine
DX: I34.81 Nonrheumatic mitral (valve) annulus calcification (principal); I35.1 Nonrheumatic aortic (valve) insufficiency; N20.0 Calculus of kidney; Z95.2 Presence of prosthetic heart valve
CPT/HCPCS: 74018; 93306

== ENCOUNTER → 2023-06-10 07:30 | Outpatient (CLI) | payer MEDICARE, OTHER, SELFPAY ==
[2022-11-04 09:08] VITALS: BMI 35.2
[2023-06-10 08:16] LABS: Add Manual Diff / Slide Review NO; Basophils Absolute Auto 100 /uL (0-100); Basophils Percent Auto 0.7 % (0-2); Eosinophils Absolute Auto 300 /uL (0-450); Eosinophils Percent Auto 2.5 % (2-4); Hematocrit 33.4 % (36-46); Hemoglobin 10.7 g/dL (12.0-16.0); Lymphocytes Absolute Auto 3200 /uL (1100-4500); Lymphocytes Percent Auto 28.8 % (25-40); Mean Corpuscular HGB Conc 32.1 % (30-36); Mean Corpuscular Hemoglobin 26.1 PG (26-34); Mean Corpuscular Volume 81.4 fL (80-100); Monocytes Absolute Auto 800 /uL (0-900); Monocytes Percent Auto 7.5 % (3-14); Neutrophils Absolute Auto 6800 /uL (1500-7000); Neutrophils Percent Auto 60.5 % (50-75); Platelet Count 402 X10^3/uL (150-400); Red Blood Cell Count 4.11 X10^6/uL (4.0-5.2); Red Cell Distribution Width 16.1 % (11.6-14.8); White Blood Cell Count 11.2 X10^3/uL (4.5-11.0)
[2023-06-10 08:34] LABS: Hemoglobin A1C% w Est Avg Glu 5.9 % (4.0-6.0)
[2023-06-10 08:51] LABS: Alanine Aminotransferase 13 IU/L (<35); Albumin 4.1 g/dL (3.5-5.0); Albumin Globulin Ratio 1.6 (1.0-2.8); Alkaline Phosphatase 80 U/L (38-126); Aspartate Aminotransferase 21 IU/L (14-36); BUN Creatinine Ratio 22.9 (6-22); Bilirubin Total 0.4 mg/dL (0.2-1.3); Blood Urea Nitrogen 16 mg/dL (7-17); Calcium 10.1 mg/dL (8.4-10.2); Carbon Dioxide 29 mmol/L (22-32); Chloride 102 mmol/L (98-107); Cholesterol 172 mg/dL (140-199); Estimated Glomerular Filt Rate > 60 mL/min (>60); Globulin 2.6 g/dL (1.7-4.1); Glucose 64 mg/dL (80-110); HDL Cholesterol 50 mg/dL (40-60); HEMOLYSIS < 15 (0-50); LDL Cholesterol Calculated 77 mg/dL (<100); Potassium 4.4 mmol/L (3.4-5.1); Sodium 138 mmol/L (137-145); Total Protein 6.7 g/dL (6.3-8.2); Triglycerides 226 mg/dL (35-150)
[2023-06-12 13:52] LABS: Calcium 10.2 mg/dL (8.7-10.3); Parathyroid Hormone, Intact 63 pg/mL (15-65)
== END ==
PROVIDERS: PCP Internal Medicine; Referring Provider Internal Medicine; Visit Provider Internal Medicine
DX: I35.0 Nonrheumatic aortic (valve) stenosis (principal); E11.9 Type 2 diabetes mellitus without complications; C91.10 Chronic lymphocytic leukemia of B-cell type not having achieved remission; Z79.4 Long term (current) use of insulin; I10 Essential (primary) hypertension; D35.1 Benign neoplasm of parathyroid gland
CPT/HCPCS: 36415; 80053; 80061; 82310; 83036; 83970; 85025

== ENCOUNTER → 2023-10-20 12:14 | Outpatient (CLI) | payer MEDICARE, OTHER, SELFPAY ==
[2022-11-04 09:08] VITALS: BMI 35.2
[2023-10-20 13:08] LABS: Estimated Glomerular Filt Rate > 60 mL/min (>60)
== END ==
PROVIDERS: PCP Internal Medicine; Referring Provider Urology; Visit Provider Urology
DX: N20.0 Calculus of kidney (principal)
CPT/HCPCS: 82565

== ENCOUNTER → 2023-10-22 10:20 | Outpatient (CLI) | payer MEDICARE, OTHER, SELFPAY ==
[2022-11-04 09:08] VITALS: BMI 35.2
--- NOTE | 2023-10-22 10:23 | DI.CT.S_ITS ---
PROCEDURE: CT ABDOMEN RENAL PROTOCOL INDICATIONS: Follow-up renal lesions TECHNIQUE: Optional 5 mm thick noncontrast images acquired from the diaphragm to the iliac crests. After the administration of intravenous contrast, 5 mm thick images again acquired from the diaphragm to the iliac crests in the arterial and urographic phases. 5 mm thick coronal and sagittal reformats were then acquired. For radiation dose reduction, the following was used: automated exposure control, adjustment of mA and/or kV according to patient size. COMPARISON: [facility], CT, CT ABDOMEN RENAL PROTOCOL, 10/10/2021, 11:54. [facility], CT, CT ABDOMEN RENAL PROTOCOL, 03/24/2023, 11:01. FINDINGS: Image quality: Diagnostic. Kidneys and Ureters: No hydronephrosis. Small nonobstructing right kidney stones. -Right kidney inferior pole exophytic lesion measuring 2 x 1.5 cm, (3/), previously 2.4 x 1.4 cm, and more remotely 2 x 1.6 cm in 2021. Mild enhancement. -Left kidney inferior pole complicated cyst with peripheral calcification measuring 2.8 cm is unchanged. No convincing enhancement. OTHER: Lower chest: TAVR stent. No pleural effusion. Mild dependent atelectasis. Liver: No solid mass. Gallbladder: Absent. Biliary ducts: No biliary dilation. Pancreas: No ductal dilation. Spleen: Size is within normal limits. Adrenal Glands: No adrenal nodules. Stomach and Bowel: Normal colonic caliber, without significant wall thickening. Peritoneum: No abnormal intraperitoneal fluid. No free air. Ventral Wall: No hernia. Abdominal Nodes: No retroperitoneal or mesenteric adenopathy by size criteria. Shotty retroperitoneal lymph nodes. Vessels: Aorta and inferior vena cava are normal in size. Bones: No aggressive osseous abnormality. Scoliosis. Bridging vertebral body osteophytes or syndesmophytes. This could be due to ankylosing spondylitis. IMPRESSION: 1. Right kidney inferior pole mass measuring 2 cm is not felt to be significantly changed compared to 2021. Concerning for indolent neoplasm. 2. Left kidney inferior pole complicated cyst measuring 2.8 cm is unchanged. 3. No hydronephrosis. Small nonobstructing right kidney stones. 4. Shotty retroperitoneal lymph nodes are unchanged. Recommend follow-up MRI renal protocol in 6-12 months. Dictated by: Leon Acuna M.D. on 10/23/2023 at 22:19 Approved by: Leon Acuna M.D. on 10/23/2023 at 22:31
--- NOTE | 2023-10-22 10:23 | DI.RAD.S_ITS ---
PROCEDURE: XR KUB INDICATIONS: Follow-up right kidney stones TECHNIQUE: One view of the abdomen acquired. COMPARISON: [facility], CR, XR KUB, 04/16/2023, 10:09. FINDINGS: Surgical changes and devices: Right upper quadrant cholecystectomy clips. Bowel: Bowel gas pattern is normal. Soft tissues: No suspicious abdominal calcifications. Visualized solid organ contours appear normal in size. Bones: No suspicious bony lesions. Levoconvex scoliosis of the lumbar spine. IMPRESSION: No nephrolithiasis is appreciated. Dictated by: Richard Duarte M.D. on 10/22/2023 at 15:13 Approved by: Richard Duarte M.D. on 10/22/2023 at 15:16
== END ==
PROVIDERS: PCP Internal Medicine; Referring Provider Urology; Visit Provider Urology
DX: C91.10 Chronic lymphocytic leukemia of B-cell type not having achieved remission (principal); N20.0 Calculus of kidney; N28.1 Cyst of kidney, acquired; N28.89 Other specified disorders of kidney and ureter; Z87.442 Personal history of urinary calculi; Z90.49 Acquired absence of other specified parts of digestive tract
CPT/HCPCS: 74018; 74170; Q9967

== ENCOUNTER → 2023-11-13 11:14 | Outpatient (CLI) | payer MEDICARE, OTHER, SELFPAY ==
[2022-11-04 09:08] VITALS: BMI 35.2
== END ==
PROVIDERS: PCP Internal Medicine; Visit Provider Urology
DX: N28.89 Other specified disorders of kidney and ureter (principal); N28.1 Cyst of kidney, acquired; N20.0 Calculus of kidney; R39.9 Unspecified symptoms and signs involving the genitourinary system
CPT/HCPCS: 81002; 87077; 87086; 87186; 99214

== ENCOUNTER → 2023-12-05 07:30 | Outpatient (CLI) | payer MEDICARE, OTHER, SELFPAY ==
[2022-11-04 09:08] VITALS: BMI 35.2
[2023-12-05 08:10] LABS: Add Manual Diff / Slide Review NO; Basophils Absolute Auto 100 /uL (0-100); Basophils Percent Auto 0.5 % (0-2); Eosinophils Absolute Auto 200 /uL (0-450); Eosinophils Percent Auto 1.7 % (2-4); Hematocrit 34.4 % (36-46); Hemoglobin 11.1 g/dL (12.0-16.0); Lymphocytes Absolute Auto 2900 /uL (1100-4500); Lymphocytes Percent Auto 21.9 % (25-40); Mean Corpuscular HGB Conc 32.4 % (30-36); Mean Corpuscular Hemoglobin 26.6 PG (26-34); Monocytes Absolute Auto 1000 /uL (0-900); Monocytes Percent Auto 7.5 % (3-14); Neutrophils Absolute Auto 9000 /uL (1500-7000); Neutrophils Percent Auto 68.4 % (50-75); Platelet Count 407 X10^3/uL (150-400); Red Blood Cell Count 4.19 X10^6/uL (4.0-5.2); Red Cell Distribution Width 15.5 % (11.6-14.8); White Blood Cell Count 13.1 X10^3/uL (4.5-11.0)
[2023-12-05 08:13] LABS: Hemoglobin A1C% w Est Avg Glu 5.9 % (4.0-6.0)
[2023-12-05 08:18] LABS: Alanine Aminotransferase 14 IU/L (<35); Albumin 4.3 g/dL (3.5-5.0); Albumin Globulin Ratio 1.8 (1.0-2.8); Alkaline Phosphatase 85 U/L (38-126); Aspartate Aminotransferase 21 IU/L (14-36); BUN Creatinine Ratio 22.6 (6-22); Bilirubin Total 0.4 mg/dL (0.2-1.3); Blood Urea Nitrogen 14 mg/dL (7-17); Calcium 10.2 mg/dL (8.4-10.2); Carbon Dioxide 28 mmol/L (22-32); Chloride 100 mmol/L (98-107); Cholesterol 153 mg/dL (140-199); Estimated Glomerular Filt Rate > 60 mL/min (>60); Globulin 2.4 g/dL (1.7-4.1); Glucose 89 mg/dL (80-110); HDL Cholesterol 54 mg/dL (40-60); HEMOLYSIS < 15 (0-50); LDL Cholesterol Calculated 58 mg/dL (<100); Potassium 4.3 mmol/L (3.4-5.1); Sodium 136 mmol/L (137-145); Total Protein 6.7 g/dL (6.3-8.2); Triglycerides 205 mg/dL (35-150)
== END ==
PROVIDERS: PCP Internal Medicine; Referring Provider Internal Medicine; Visit Provider Internal Medicine
DX: C91.10 Chronic lymphocytic leukemia of B-cell type not having achieved remission (principal); E11.9 Type 2 diabetes mellitus without complications; Z79.4 Long term (current) use of insulin; E78.5 Hyperlipidemia, unspecified; I10 Essential (primary) hypertension
CPT/HCPCS: 36415; 80053; 80061; 83036; 85025

== ENCOUNTER 2024-03-16 12:32 | Inpatient (IN) | payer MEDICARE, OTHER, SELFPAY ==
[2022-11-04 09:08] VITALS: BMI 35.2
[2024-03-16] VITALS (14 sets, daily range): BP systolic 135–160; BP diastolic 57–87; PULSE 77–86; RESP 18–36; TEMP 36.6–37.2; O2SAT 86–99; BMI 36.6
--- NOTE | 2024-03-16 12:53 | DI.RAD.S_ITS ---
PROCEDURE: XR CHEST 1V INDICATIONS: Shortness of breath TECHNIQUE: One view of the chest was acquired. COMPARISON: [facility], CR, XR CHEST 1V, 11/04/2022, 2:32. FINDINGS: Surgical changes and devices: None. Lungs and pleura: Mild increased pulmonary vascularity. Mediastinum: Mediastinal contours appear normal. Heart size is normal. Bones and chest wall: No suspicious bony lesions. Overlying soft tissues appear unremarkable. IMPRESSION: Increased vascularity suggestive of edema. Dictated by: Lolly Jones M.D. on 03/16/2024 at 13:27 Approved by: Lolly Jones M.D. on 03/16/2024 at 13:28
--- NOTE | 2024-03-16 13:01 | EKG_ITS ---
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
--- NOTE | 2024-03-16 13:04 | ED.SOB ---
HPI - SOB/Dyspnea General Chief Complaint: Shortness of Breath/Dyspnea Stated Complaint: SOB, sick for over a month Time Seen by Provider: 03/16/24 12:53 Source: patient Mode of arrival: Wheelchair Limitations: no limitations History of Present Illness HPI Narrative: Patient here for shortness of breath and cough for the past 4 weeks. Patient is seen by primary care February 24, 2024. Was given oral steroids for 4 days and helped for a little while but then symptoms returned. 87% room air in walking in her room here. [address] with improvement. Patient denies any prior history of asthma or COPD. Former smoker 50 years ago. Has coarse lung sounds bilaterally. No wheezing. Has had cough cold congestion/productive cough. No recent antibiotics. Patient sees Dr. Velez Related Data Home Medications Medication Instructions Recorded Confirmed aspirin 81 mg tablet,delayed 81 mg PO DAILY 04/28/18 03/16/24 release lactobacillus combination no.8 3 3,000 mmu cells PO DAILY 04/28/18 03/16/24 billion cell capsule (Adult Probiotic) lansoprazole 15 mg capsule,delayed 15 mg PO DAILY 04/28/18 03/16/24 release hydralazine 10 mg tablet 10 mg PO BID 03/16/24 03/16/24 simvastatin 40 mg tablet 40 mg PO DAILY 03/16/24 03/16/24 Previous Rx's Medication Instructions Recorded B-D PEN NEEDLE #100 ea 02/22/19 blood-glucose meter #1 ea 09/23/19 lancets 33 gauge (OneTouch Delica #100 ea 12/05/20 Lancets) Disabled Parking #1 ea 03/26/21 Droplet Pen [place] #250 ea 06/22/21 blood sugar diagnostic (Blood #250 ea 07/31/21 Glucose Test strips) potassium chloride 8 mEq 8 meq PO DAILY #90 caps 06/23/23 capsule,extended release glipizide 5 mg tablet 5 mg PO BID #180 tabs 10/29/23 lisinopril 40 mg tablet 40 mg PO DAILY #90 tabs 12/03/23 amlodipine 5 mg tablet (Norvasc) 10 mg (2 x 5 mg) PO DAILY #180 tabs 12/15/23 insulin glargine 100 unit/mL (3 65 unit (0.65 mL) SUBCUT HS #45 mL 10/14/24 mL) subcutaneous pen (Lantus Solostar U-100 Insulin) metformin 1,000 mg tablet 1,000 mg PO BIDCC #180 tabs 01/23/24 metoprolol succinate 100 mg 100 mg PO BID #180 tabs 02/10/24 tablet,extended release 24 hr hydrocodone 5 mg-acetaminophen 325 1 - 2 tab PO QID PRN pain #125 tabs 02/24/24 mg tablet pioglitazone 30 mg tablet 30 mg PO DAILY #90 tabs 03/11/24 Allergies Allergy/AdvReac Type Severity Reaction Status Date / Time No Known Drug Allergies Allergy Verified 02/24/24 10:54 Review of Systems Review of Systems Narrative: GENERAL: Negative chills, fatigue, malaise, fever, sweats. HEENT: Negative sinus pain, ear pain, sore throat RESPIRATORY: Positive dyspnea, cough CARDIOVASCULAR: Negative chest pain, palpitations GASTROINTESTINAL: Negative nausea, vomiting, abdominal pain : Negative dysuria, frequency, hematuria MUSCULOSKELETAL: Negative muscle or bony pain SKIN: Negative rash, skin lesions NEUROLOGIC: Negative weakness, numbness ROS Unobtainable: All systems reviewed & are unremarkable except as noted in HPI and below Patient History Medical History Uncomplicated opioid dependence Pulmonary nodule Complex renal cyst Kidney stones CLL (chronic lymphocytic leukemia) Cancer Arthritis Right renal mass Cannabis hyperemesis syndrome concurrent with and due to cannabis abuse Diabetic peripheral neuropathy Hyperlipidemia Hypertension Diabetes mellitus, type II, insulin dependent Aortic stenosis Gastrointestinal irritation Chronic back pain IBS (irritable bowel syndrome) Colitis Ankylosing spondylitis (~1994) Anemia Chicken pox Measles Mumps RLS (restless legs syndrome) Sepsis Surgical History Status post transcatheter aortic valve replacement (~08/2022) History of vaginal hysterectomy History of cholecystectomy History of appendectomy Anesthesia Status post breast biopsy (2013) Status post cholecystectomy (1991) Status post hysterectomy (1993) Status post breast biopsy (1991) Status post appendectomy (1964) Family History Father Cancer Diabetes mellitus Hypertension High cholesterol Mother Heart disease Hypertension Brother Ankylosing spondylitis Son Ankylosing spondylitis Social History marital status: number of children: 2 household members: none Smoking Status: Current every day smoker alcohol intake: never caffeine: No Smoking Status: Current every day smoker Exam Narrative Exam Narrative: GENERAL: in no distress, not toxic not dyspneic HEAD: Normocephalic. EYES: Pupils equal round ENT: Mucous membranes moist. NECK: Trachea midline. CARDIOVASCULAR: Regular rate and rhythm RESPIRATORY: Speaking in near full sentences requiring 2 L nasal cannula. Coarse lung sounds bilaterally. No wheezing. GASTROINTESTINAL: Abdomen soft, non-tender EXTREMITIES: No gross deformities. 1+ bilateral ankle edema BACK: No flank tenderness. NEURO: AOx4. SKIN: Warm and dry PSYCH: Not anxious, is cooperative Initial Vital Signs Initial Vital Signs: Vital Signs Temperature 98.2 F 03/16/24 12:43 Pulse Rate 78 03/16/24 12:43 Respiratory Rate 24 03/16/24 12:43 Blood Pressure 144/63 H 03/16/24 12:43 Pulse Oximetry 91 03/16/24 12:43 Oxygen Delivery Method Room Air 03/16/24 12:43 Course Orders Ordered: Acetaminophen (Acetaminophen 325 Mg Tablet) 650 mg PO Q6H PRN PRN Reason: Fever/Mild Pain (1-3) Hydrocodone Bitart/Acetaminophen (Hydrocodone/Acet 5/325 Tablet) 1 tab PO Q4H PRN PRN Reason: Pain, Moderate (4-6) Last Admin: 03/18/24 15:09 Dose: 1 tab Documented By: Admin: 03/18/24 08:31 Dose: 1 tab Documented By: Admin: 03/17/24 16:26 Dose: 1 tab Documented By: Admin: 03/17/24 07:41 Dose: 1 tab Documented By: BT Hydrocodone Bitart/Acetaminophen (Hydrocodone/Acet 5/325 Tablet) 2 tab PO Q4H PRN PRN Reason: Pain, Severe (7-10) Last Admin: 03/19/24 07:04 Dose: 2 tab Documented By: Admin: 03/18/24 21:27 Dose: 2 tab Documented By: Admin: 03/18/24 02:20 Dose: 2 tab Documented By: Admin: 03/17/24 21:16 Dose: 2 tab Documented By: Admin: 03/17/24 02:53 Dose: 2 tab Documented By: Admin: 03/16/24 20:21 Dose: 2 tab Documented By: CT Albuterol (Albuterol 2.5 Mg/3 Ml Neb (Adult)) 2.5 mg INH [id number] PRN PRN Reason: Shortness Of Breath Or Wheezing Last Admin: 03/19/24 01:24 Dose: 2.5 mg Documented By: Admin: 03/18/24 09:16 Dose: 2.5 mg Documented By: Admin: 03/17/24 02:54 Dose: 2.5 mg Documented By: CT Amlodipine Besylate (Amlodipine 5 Mg Tablet) 10 mg PO DAILY [facility] Last Admin: 03/19/24 08:25 Dose: 10 mg Documented By: Admin: 03/18/24 08:23 Dose: 10 mg Documented By: Admin: 03/17/24 08:32 Dose: 10 mg Documented By: BT Aspirin (Aspirin Ec 81 Mg Tablet) 81 mg PO DAILY [facility] Last Admin: 03/19/24 08:23 Dose: 81 mg Documented By: Admin: 03/18/24 08:25 Dose: 81 mg Documented By: Admin: 03/17/24 08:33 Dose: 81 mg Documented By: BT Atorvastatin Calcium (Atorvastatin 20 Mg Tablet) 20 mg PO DAILY [facility] Last Admin: 03/19/24 08:23 Dose: 20 mg Documented By: Admin: 03/18/24 08:23 Dose: 20 mg Documented By: Admin: 03/17/24 08:33 Dose: 20 mg Documented By: BT Enoxaparin Sodium (Enoxaparin 40 Mg/0.4 Ml Syringe) 40 mg SUBCUT BID [facility] Last Admin: 03/19/24 08:26 Dose: 40 mg Documented By: Admin: 03/18/24 21:18 Dose: 40 mg Documented By: Admin: 03/18/24 08:25 Dose: 40 mg Documented By: Admin: 03/17/24 21:15 Dose: 40 mg Documented By: WB Dextrose (D10w) 100 mls @ 999 mls/hr IV PRN PRN PRN Reason: Hypoglycemia Doxycycline Hyclate 100 mg/ (Sodium Chloride) 100 mls @ 100 mls/hr IV Q12H [facility] Last Infusion: 03/19/24 05:44 Dose: Infused Documented By: Admin: 03/19/24 04:24 Dose: 100 mls/hr Documented By: Infusion: 03/18/24 18:22 Dose: Infused Documented By: Admin: 03/18/24 16:08 Dose: 100 mls/hr Documented By: Infusion: 03/18/24 07:17 Dose: Infused Documented By: Admin: 03/18/24 04:47 Dose: 100 mls/hr Documented By: Infusion: 03/17/24 18:00 Dose: Infused Documented By: Admin: 03/17/24 16:26 Dose: 100 mls/hr Documented By: Infusion: 03/17/24 09:07 Dose: Infused Documented By: Admin: 03/17/24 03:39 Dose: 100 mls/hr Documented By: Infusion: 03/16/24 19:00 Dose: Infused Documented By: Admin: 03/16/24 17:28 Dose: 100 mls/hr Documented By: MIRIAN Ceftriaxone Sodium 2,000 mg/ (Sodium Chloride) 100 mls @ 200 mls/hr IV Q24H [facility] Last Infusion: 03/18/24 15:08 Dose: Infused Documented By: Admin: 03/18/24 12:31 Dose: 200 mls/hr Documented By: Infusion: 03/17/24 16:17 Dose: Infused Documented By: Admin: 03/17/24 12:56 Dose: 200 mls/hr Documented By: AMANDEEP Insulin Glargine (Insulin Glargine 100 Unit/Ml 3ml Pen) 65 unit SUBCUT BEDTIME YANN Last Admin: 03/18/24 21:16 Dose: 65 unit Documented By: DANIEL Co-signed By: CASPER Insulin Human Lispro (Insulin Lispro 100 Unit/Ml 3ml Vial) 0 unit SUBCUT ACHS YANN; Protocol Last Admin: 03/19/24 08:22 Dose: 4 unit Documented By: AMANDEEP Co-signed By: LYDIA Admin: 03/18/24 21:17 Dose: 2 unit Documented By: DANIEL Co-signed By: CASPER Admin: 03/18/24 17:11 Dose: 3 unit Documented By: AMANDEEP Co-signed By: PAT Admin: 03/18/24 12:20 Dose: 3 unit Documented By: AMANDEEP Co-signed By: Admin: 03/18/24 08:26 Dose: 3 unit Documented By: AMANDEEP Co-signed By: YAD Admin: 03/17/24 21:14 Dose: 2 unit Documented By: WB Co-signed By: CT Admin: 03/17/24 17:14 Dose: 5 unit Documented By: AMANDEEP Co-signed By: ISAAK Admin: 03/17/24 12:11 Dose: 3 unit Documented By: AMANDEEP Co-signed By: ISAAK Admin: 03/17/24 07:42 Dose: Not Given Documented By: Admin: 03/16/24 21:06 Dose: Not Given Documented By: Admin: 03/16/24 17:00 Dose: Not Given Documented By: MIRIAN Lisinopril (Lisinopril 20 Mg Tablet) 40 mg PO DAILY [facility] Last Admin: 03/19/24 08:25 Dose: 40 mg Documented By: Admin: 03/18/24 08:23 Dose: 40 mg Documented By: Admin: 03/17/24 08:32 Dose: 40 mg Documented By: AMANDEEP Loperamide HCl (Loperamide 2 Mg Capsule) 2 mg PO PRN PRN PRN Reason: Diarrhea Last Admin: 03/19/24 07:05 Dose: 2 mg Documented By: Admin: 03/18/24 21:27 Dose: 2 mg Documented By: Admin: 03/18/24 15:09 Dose: 2 mg Documented By: AMANDEEP Metformin HCl (Metformin Hcl 500 Mg Tablet) 1,000 mg PO BIDAC [facility] Last Admin: 03/19/24 07:05 Dose: 1,000 mg Documented By: Admin: 03/18/24 15:08 Dose: 1,000 mg Documented By: Admin: 03/18/24 07:39 Dose: 1,000 mg Documented By: Admin: 03/17/24 16:26 Dose: 1,000 mg Documented By: Admin: 03/17/24 07:41 Dose: 1,000 mg Documented By: Admin: 03/16/24 17:27 Dose: 1,000 mg Documented By: MIRIAN Methylprednisolone (Methylprednisolone 125 Mg/2 Ml Vial) 60 mg IV Q6H [facility] Last Admin: 03/19/24 05:43 Dose: 60 mg Documented By: Admin: 03/18/24 22:16 Dose: 60 mg Documented By: Admin: 03/18/24 15:09 Dose: 60 mg Documented By: Admin: 03/18/24 10:56 Dose: 60 mg Documented By: Admin: 03/18/24 04:47 Dose: 60 mg Documented By: Admin: 03/17/24 21:19 Dose: 60 mg Documented By: Admin: 03/17/24 16:26 Dose: 60 mg Documented By: Admin: 03/17/24 09:22 Dose: 60 mg Documented By: Admin: 03/17/24 03:47 Dose: 60 mg Documented By: Admin: 03/16/24 21:32 Dose: 60 mg Documented By: CT Metoprolol Succinate (Metoprolol Er 50 Mg Tablet) 100 mg PO BID [facility] Last Admin: 03/19/24 08:23 Dose: 100 mg Documented By: Admin: 03/18/24 21:18 Dose: 100 mg Documented By: Admin: 03/18/24 08:25 Dose: 100 mg Documented By: Admin: 03/17/24 21:16 Dose: 100 mg Documented By: Admin: 03/17/24 08:32 Dose: 100 mg Documented By: Admin: 03/16/24 20:21 Dose: 100 mg Documented By: CT Naloxone HCl (Naloxone 0.4 Mg/Ml Vial) 0.2 mg IV Q2MIN PRN PRN Reason: Opiate Reversal Home Medication (Storage) 0 each PO PRN PRN PRN Reason: Home Medication Storage Sodium Chloride (Sodium Chloride 0.9% Flush) 10 ml IV PRN PRN PRN Reason: Flush Sodium Chloride (Sodium Chloride 0.9% Flush) 10 ml IV BID [facility] Last Admin: 03/19/24 08:26 Dose: 10 ml Documented By: Admin: 03/18/24 21:18 Dose: 10 ml Documented By: DANIEL Discontinued Medications Albuterol (Albuterol 2.5 Mg/3 Ml Neb (Adult)) 2.5 mg INH NOW ONE Stop: 03/16/24 13:03 Last Admin: 03/16/24 13:07 Dose: 2.5 mg Documented By: MATTEO Enoxaparin Sodium (Enoxaparin 40 Mg/0.4 Ml Syringe) 40 mg SUBCUT DAILY [facility] Last Admin: 03/17/24 08:33 Dose: 40 mg Documented By: BT Ceftriaxone Sodium 2,000 mg/ (Sodium Chloride) 100 mls @ 200 mls/hr IV NOW ONE Stop: 03/16/24 15:45 Last Infusion: 03/16/24 16:03 Dose: 200 mls/hr Documented By: Admin: 03/16/24 15:54 Dose: 200 mls/hr Documented By: DESIREE Doxycycline Hyclate 100 mg/ (Sodium Chloride) 100 mls @ 100 mls/hr IV NOW ONE Stop: 03/16/24 15:45 Last Admin: 03/16/24 16:59 Dose: Not Given Documented By: MIRIAN Insulin Glargine (Insulin Glargine 100 Unit/Ml 3ml Pen) 50 unit SUBCUT BEDTIME [facility] Last Admin: 03/17/24 21:13 Dose: 50 unit Documented By: ESTELITA Co-signed By: CT Admin: 03/16/24 20:22 Dose: 50 unit Documented By: KATLIN Co-signed By: MAYNOR Methylprednisolone (Methylprednisolone 125 Mg/2 Ml Vial) 125 mg IV NOW ONE Stop: 03/16/24 16:28 Last Admin: 03/16/24 17:27 Dose: 125 mg Documented By: MIRIAN Vital Signs Vital signs: Vital Signs - 8 hr 03/16/24 12:43 03/16/24 12:51 03/16/24 13:00 Temperature 98.2 F Pulse Rate 78 86 80 Respiratory Rate 24 33 H Blood Pressure 144/63 H Pulse Oximetry 91 86 L 99 Oxygen Delivery Method Room Air Room Air 03/16/24 13:30 03/16/24 13:59 03/16/24 13:59 Temperature Pulse Rate 81 83 Respiratory Rate 30 H 18 Blood Pressure 144/67 H Pulse Oximetry 99 93 Oxygen Delivery Method 03/16/24 14:00 03/16/24 14:01 03/16/24 14:01 Temperature Pulse Rate 80 82 Respiratory Rate 22 Blood Pressure 160/66 H Pulse Oximetry 94 95 Oxygen Delivery Method MDM - SOB/Dyspnea Lab Data 03/16/24 13:00 03/16/24 13:00 Labs: Lab Results 03/16/24 03/16/24 03/16/24 Range/Units 12:56 13:00 13:00 WBC 17.3 H (4.5-11.0) X10^3/uL RBC 3.93 L (4.0-5.2) X10^6/uL Hgb 10.0 L (12.0-16.0) g/dL Hct 31.9 L (36-46) % MCV 81.2 (80-100) fL MCH 25.3 L (26-34) PG MCHC 31.2 (30-36) % RDW 16.3 H (11.6-14.8) % Plt Count 361 (150-400) X10^3/uL Neut % (Auto) 84.0 H (50-75) % Lymph % (Auto) 6.7 L (25-40) % [place] % (Auto) 8.9 (3-14) % Eos % (Auto) 0.0 L (2-4) % Baso % (Auto) 0.4 (0-2) % Neut # (Auto) 56845 H (0146-9683) /uL Lymph # (Auto) 1200 (3415-6653) /uL [place] # (Auto) 1500 H (0-900) /uL Eos # (Auto) 0 (0-450) /uL Baso # (Auto) 100 (0-100) /uL PT 12.6 H (9.4-12.5) SECONDS INR 1.1 (0.9-1.3) Sodium Cancelled 136 L Potassium Cancelled Chloride Carbon Dioxide BUN Creatinine Estimated GFR BUN/Creatinine Ratio Glucose Lactate (0.7-2.1) mmol/L Calcium Total Bilirubin AST ALT Alkaline Phosphatase Troponin I (0.01-0.034) ng/mL NT-Pro-B Natriuret Pep (<450) pg/mL Total Protein Albumin Globulin Albumin/Globulin Ratio Procalcitonin (<0.5) ng/mL Chlamy pneumoniae PCR Not detected (Not Detect) Adenovirus (PCR) Not detected (Not Detect) B. pertussis DNA (PCR) Not detected (Not Detect) B.parapertussis DNA PCR Not detected (Not Detecte) Coronavirus OC43 (PCR) Not detected (Not Detect) Coronavirus HKU1 (PCR) Not detected (Not Detect) Coronavirus 229E (PCR) Not detected (Not Detect) SARS-CoV-2 (PCR) Not detected (Not Detecte) Coronavirus NL63 (PCR) Not detected (Not Detect) Human Metapneumovir PCR Not detected (Not Detect) Influenza Type A (PCR) Not detected (Not Detect) Influenza Type B (PCR) Not detected (Not Detect) M. pneumoniae (PCR) Not detected (Not Detect) Parainfluenza 1 (PCR) Not detected (Not Detect) Parainfluenza 2 (PCR) Not detected (Not Detect) Parainfluenza 3 (PCR) Not detected (Not Detect) Parainfluenza 4 (PCR) Not detected (Not Detect) RSV (PCR) Not detected (Not Detect) Entero/Rhino (PCR) Not detected (Not Detect) 03/16/24 03/16/24 03/16/24 Range/Units 13:00 13:00 13:00 WBC (4.5-11.0) X10^3/uL RBC (4.0-5.2) X10^6/uL Hgb (12.0-16.0) g/dL Hct (36-46) % MCV (80-100) fL MCH (26-34) PG MCHC (30-36) % RDW (11.6-14.8) % Plt Count (150-400) X10^3/uL Neut % (Auto) (50-75) % Lymph % (Auto) (25-40) % [place] % (Auto) (3-14) % Eos % (Auto) (2-4) % Baso % (Auto) (0-2) % Neut # (Auto) (5174-6355) /uL Lymph # (Auto) (8219-3878) /uL [place] # (Auto) (0-900) /uL Eos # (Auto) (0-450) /uL Baso # (Auto) (0-100) /uL PT (9.4-12.5) SECONDS INR (0.9-1.3) Sodium Potassium 4.5 Chloride Cancelled 100 Carbon Dioxide Cancelled 29 BUN Cancelled Creatinine Estimated GFR BUN/Creatinine Ratio Glucose Lactate (0.7-2.1) mmol/L Calcium Total Bilirubin AST ALT Alkaline Phosphatase Troponin I (0.01-0.034) ng/mL NT-Pro-B Natriuret Pep (<450) pg/mL Total Protein Albumin Globulin Albumin/Globulin Ratio Procalcitonin (<0.5) ng/mL Chlamy pneumoniae PCR (Not Detect) Adenovirus (PCR) (Not Detect) B. pertussis DNA (PCR) (Not Detect) B.parapertussis DNA PCR (Not Detecte) Coronavirus OC43 (PCR) (Not Detect) Coronavirus HKU1 (PCR) (Not Detect) Coronavirus 229E (PCR) (Not Detect) SARS-CoV-2 (PCR) (Not Detecte) Coronavirus NL63 (PCR) (Not Detect) Human Metapneumovir PCR (Not Detect) Influenza Type A (PCR) (Not Detect) Influenza Type B (PCR) (Not Detect) M. pneumoniae (PCR) (Not Detect) Parainfluenza 1 (PCR) (Not Detect) Parainfluenza 2 (PCR) (Not Detect) Parainfluenza 3 (PCR) (Not Detect) Parainfluenza 4 (PCR) (Not Detect) RSV (PCR) (Not Detect) Entero/Rhino (PCR) (Not Detect) 03/16/24 03/16/24 03/16/24 Range/Units 13:00 13:00 13:00 WBC (4.5-11.0) X10^3/uL RBC (4.0-5.2) X10^6/uL Hgb (12.0-16.0) g/dL Hct (36-46) % MCV (80-100) fL MCH (26-34) PG MCHC (30-36) % RDW (11.6-14.8) % Plt Count (150-400) X10^3/uL Neut % (Auto) (50-75) % Lymph % (Auto) (25-40) % [place] % (Auto) (3-14) % Eos % (Auto) (2-4) % Baso % (Auto) (0-2) % Neut # (Auto) (9475-3331) /uL Lymph # (Auto) (1010-2271) /uL [place] # (Auto) (0-900) /uL Eos # (Auto) (0-450) /uL Baso # (Auto) (0-100) /uL PT (9.4-12.5) SECONDS INR (0.9-1.3) Sodium Potassium Chloride Carbon Dioxide BUN 15 Creatinine Cancelled 0.65 Estimated GFR Cancelled > 60 BUN/Creatinine Ratio Cancelled Glucose Lactate (0.7-2.1) mmol/L Calcium Total Bilirubin AST ALT Alkaline Phosphatase Troponin I (0.01-0.034) ng/mL NT-Pro-B Natriuret Pep (<450) pg/mL Total Protein Albumin Globulin Albumin/Globulin Ratio Procalcitonin (<0.5) ng/mL Chlamy pneumoniae PCR (Not Detect) Adenovirus (PCR) (Not Detect) B. pertussis DNA (PCR) (Not Detect) B.parapertussis DNA PCR (Not Detecte) Coronavirus OC43 (PCR) (Not Detect) Coronavirus HKU1 (PCR) (Not Detect) Coronavirus 229E (PCR) (Not Detect) SARS-CoV-2 (PCR) (Not Detecte) Coronavirus NL63 (PCR) (Not Detect) Human Metapneumovir PCR (Not Detect) Influenza Type A (PCR) (Not Detect) Influenza Type B (PCR) (Not Detect) M. pneumoniae (PCR) (Not Detect) Parainfluenza 1 (PCR) (Not Detect) Parainfluenza 2 (PCR) (Not Detect) Parainfluenza 3 (PCR) (Not Detect) Parainfluenza 4 (PCR) (Not Detect) RSV (PCR) (Not Detect) Entero/Rhino (PCR) (Not Detect) 03/16/24 03/16/24 03/16/24 Range/Units 13:00 13:00 13:00 WBC (4.5-11.0) X10^3/uL RBC (4.0-5.2) X10^6/uL Hgb (12.0-16.0) g/dL Hct (36-46) % MCV (80-100) fL MCH (26-34) PG MCHC (30-36) % RDW (11.6-14.8) % Plt Count (150-400) X10^3/uL Neut % (Auto) (50-75) % Lymph % (Auto) (25-40) % [place] % (Auto) (3-14) % Eos % (Auto) (2-4) % Baso % (Auto) (0-2) % Neut # (Auto) (7811-3956) /uL Lymph # (Auto) (6528-7130) /uL [place] # (Auto) (0-900) /uL Eos # (Auto) (0-450) /uL Baso # (Auto) (0-100) /uL PT (9.4-12.5) SECONDS INR (0.9-1.3) Sodium Potassium Chloride Carbon Dioxide BUN Creatinine Estimated GFR BUN/Creatinine Ratio 23.1 H Glucose Cancelled 111 H Lactate 1.7 (0.7-2.1) mmol/L Calcium Cancelled 10.4 H Total Bilirubin Cancelled AST ALT Alkaline Phosphatase Troponin I (0.01-0.034) ng/mL NT-Pro-B Natriuret Pep (<450) pg/mL Total Protein Albumin Globulin Albumin/Globulin Ratio Procalcitonin (<0.5) ng/mL Chlamy pneumoniae PCR (Not Detect) Adenovirus (PCR) (Not Detect) B. pertussis DNA (PCR) (Not Detect) B.parapertussis DNA PCR (Not Detecte) Coronavirus OC43 (PCR) (Not Detect) Coronavirus HKU1 (PCR) (Not Detect) Coronavirus 229E (PCR) (Not Detect) SARS-CoV-2 (PCR) (Not Detecte) Coronavirus NL63 (PCR) (Not Detect) Human Metapneumovir PCR (Not Detect) Influenza Type A (PCR) (Not Detect) Influenza Type B (PCR) (Not Detect) M. pneumoniae (PCR) (Not Detect) Parainfluenza 1 (PCR) (Not Detect) Parainfluenza 2 (PCR) (Not Detect) Parainfluenza 3 (PCR) (Not Detect) Parainfluenza 4 (PCR) (Not Detect) RSV (PCR) (Not Detect) Entero/Rhino (PCR) (Not Detect) 03/16/24 03/16/24 03/16/24 Range/Units 13:00 13:00 13:00 WBC (4.5-11.0) X10^3/uL RBC (4.0-5.2) X10^6/uL Hgb (12.0-16.0) g/dL Hct (36-46) % MCV (80-100) fL MCH (26-34) PG MCHC (30-36) % RDW (11.6-14.8) % Plt Count (150-400) X10^3/uL Neut % (Auto) (50-75) % Lymph % (Auto) (25-40) % [place] % (Auto) (3-14) % Eos % (Auto) (2-4) % Baso % (Auto) (0-2) % Neut # (Auto) (1182-7131) /uL Lymph # (Auto) (1591-2923) /uL [place] # (Auto) (0-900) /uL Eos # (Auto) (0-450) /uL Baso # (Auto) (0-100) /uL PT (9.4-12.5) SECONDS INR (0.9-1.3) Sodium Potassium Chloride Carbon Dioxide BUN Creatinine Estimated GFR BUN/Creatinine Ratio Glucose Lactate (0.7-2.1) mmol/L Calcium Total Bilirubin 0.5 AST Cancelled 21 ALT Cancelled 15 Alkaline Phosphatase Cancelled Troponin I (0.01-0.034) ng/mL NT-Pro-B Natriuret Pep (<450) pg/mL Total Protein Albumin Globulin Albumin/Globulin Ratio Procalcitonin (<0.5) ng/mL Chlamy pneumoniae PCR (Not Detect) Adenovirus (PCR) (Not Detect) B. pertussis DNA (PCR) (Not Detect) B.parapertussis DNA PCR (Not Detecte) Coronavirus OC43 (PCR) (Not Detect) Coronavirus HKU1 (PCR) (Not Detect) Coronavirus 229E (PCR) (Not Detect) SARS-CoV-2 (PCR) (Not Detecte) Coronavirus NL63 (PCR) (Not Detect) Human Metapneumovir PCR (Not Detect) Influenza Type A (PCR) (Not Detect) Influenza Type B (PCR) (Not Detect) M. pneumoniae (PCR) (Not Detect) Parainfluenza 1 (PCR) (Not Detect) Parainfluenza 2 (PCR) (Not Detect) Parainfluenza 3 (PCR) (Not Detect) Parainfluenza 4 (PCR) (Not Detect) RSV (PCR) (Not Detect) Entero/Rhino (PCR) (Not Detect) 03/16/24 03/16/24 03/16/24 Range/Units 13:00 13:00 13:00 WBC (4.5-11.0) X10^3/uL RBC (4.0-5.2) X10^6/uL Hgb (12.0-16.0) g/dL Hct (36-46) % MCV (80-100) fL MCH (26-34) PG MCHC (30-36) % RDW (11.6-14.8) % Plt Count (150-400) X10^3/uL Neut % (Auto) (50-75) % Lymph % (Auto) (25-40) % [place] % (Auto) (3-14) % Eos % (Auto) (2-4) % Baso % (Auto) (0-2) % Neut # (Auto) (0737-9397) /uL Lymph # (Auto) (3840-6883) /uL [place] # (Auto) (0-900) /uL Eos # (Auto) (0-450) /uL Baso # (Auto) (0-100) /uL PT (9.4-12.5) SECONDS INR (0.9-1.3) Sodium Potassium Chloride Carbon Dioxide BUN Creatinine Estimated GFR BUN/Creatinine Ratio Glucose Lactate (0.7-2.1) mmol/L Calcium Total Bilirubin AST ALT Alkaline Phosphatase 92 Troponin I < 0.012 (0.01-0.034) ng/mL NT-Pro-B Natriuret Pep 1820 H (<450) pg/mL Total Protein Cancelled 7.3 Albumin Cancelled 4.3 Globulin Cancelled Albumin/Globulin Ratio Procalcitonin (<0.5) ng/mL Chlamy pneumoniae PCR (Not Detect) Adenovirus (PCR) (Not Detect) B. pertussis DNA (PCR) (Not Detect) B.parapertussis DNA PCR (Not Detecte) Coronavirus OC43 (PCR) (Not Detect) Coronavirus HKU1 (PCR) (Not Detect) Coronavirus 229E (PCR) (Not Detect) SARS-CoV-2 (PCR) (Not Detecte) Coronavirus NL63 (PCR) (Not Detect) Human Metapneumovir PCR (Not Detect) Influenza Type A (PCR) (Not Detect) Influenza Type B (PCR) (Not Detect) M. pneumoniae (PCR) (Not Detect) Parainfluenza 1 (PCR) (Not Detect) Parainfluenza 2 (PCR) (Not Detect) Parainfluenza 3 (PCR) (Not Detect) Parainfluenza 4 (PCR) (Not Detect) RSV (PCR) (Not Detect) Entero/Rhino (PCR) (Not Detect) 03/16/24 03/16/24 Range/Units 13:00 13:00 WBC (4.5-11.0) X10^3/uL RBC (4.0-5.2) X10^6/uL Hgb (12.0-16.0) g/dL Hct (36-46) % MCV (80-100) fL MCH (26-34) PG MCHC (30-36) % RDW (11.6-14.8) % Plt Count (150-400) X10^3/uL Neut % (Auto) (50-75) % Lymph % (Auto) (25-40) % [place] % (Auto) (3-14) % Eos % (Auto) (2-4) % Baso % (Auto) (0-2) % Neut # (Auto) (6692-1331) /uL Lymph # (Auto) (7621-9830) /uL [place] # (Auto) (0-900) /uL Eos # (Auto) (0-450) /uL Baso # (Auto) (0-100) /uL PT (9.4-12.5) SECONDS INR (0.9-1.3) Sodium Potassium Chloride Carbon Dioxide BUN Creatinine Estimated GFR BUN/Creatinine Ratio Glucose Lactate (0.7-2.1) mmol/L Calcium Total Bilirubin AST ALT Alkaline Phosphatase Troponin I (0.01-0.034) ng/mL NT-Pro-B Natriuret Pep (<450) pg/mL Total Protein Albumin Globulin 3.0 Albumin/Globulin Ratio Cancelled 1.4 Procalcitonin 0.162 (<0.5) ng/mL Chlamy pneumoniae PCR (Not Detect) Adenovirus (PCR) (Not Detect) B. pertussis DNA (PCR) (Not Detect) B.parapertussis DNA PCR (Not Detecte) Coronavirus OC43 (PCR) (Not Detect) Coronavirus HKU1 (PCR) (Not Detect) Coronavirus 229E (PCR) (Not Detect) SARS-CoV-2 (PCR) (Not Detecte) Coronavirus NL63 (PCR) (Not Detect) Human Metapneumovir PCR (Not Detect) Influenza Type A (PCR) (Not Detect) Influenza Type B (PCR) (Not Detect) M. pneumoniae (PCR) (Not Detect) Parainfluenza 1 (PCR) (Not Detect) Parainfluenza 2 (PCR) (Not Detect) Parainfluenza 3 (PCR) (Not Detect) Parainfluenza 4 (PCR) (Not Detect) RSV (PCR) (Not Detect) Entero/Rhino (PCR) (Not Detect) [facility] Narrative Medical decision making narrative: Patient here for shortness of breath and cough for the past 4 weeks. Patient is seen by primary care February 24, 2024. Was given oral steroids for 4 days and helped for a little while but then symptoms returned. 87% room air in walking in her room here. [address] with improvement. Patient denies any prior history of asthma or COPD. Former smoker 50 years ago. Has coarse lung sounds bilaterally. No wheezing. Has had cough cold congestion/productive cough. No recent antibiotics. Patient sees Dr. Velez After history and exam MDM Medical records reviewed: Differential considered: Includes but not limited to pneumonia CHF asthma COPD bronchitis Lab Test results independently reviewed as above. Pertinent findings: WBC 17.3 hemoglobin 10.0 sodium 136 potassium 4.5 GFR greater than 60 BUN 15 creatinine 0.65 BNP 1820 troponin less than 0.012 procalcitonin 0.162 respiratory panel negative Independently reviewed EKG sinus arrhythmia rate [address] elevation or depression Imaging studies independently reviewed: Chest x-ray pulmonary edema Consultations: 3:47 p.m.. Spoke with primary care on-call for Dr. Velez, I spoke with Dr. Hunt, who will see patient admission. Treatments: Albuterol nebulizer Rocephin doxycycline Re-evaluations: Reviewed results with patient and she does agree for admission. She is requiring supplemental oxygen. Discussion: Appropriate for admission. Patient requiring supplemental oxygen. Primary care group contact for admission. Antibiotics have been started for possible community-acquired pneumonia. No diuretics at this time. Dr. Hunt see patient to evaluate for diuretics and echocardiogram. Diagnosis: Dyspnea. Discharge Plan Departure Patient Disposition: Admitted as Observation Clinical Impression: Acute dyspnea Admit Date/Time: 03/16/24 15:50 Admit Provider: Javed Velez
[2024-03-16] MEDS: ALBUTEROL 2.5 MG/3 ML NEB (ADULT) INH (13:07)
[2024-03-16 13:09] LABS: Add Manual Diff / Slide Review NO; Basophils Absolute Auto 100 /uL (0-100); Basophils Percent Auto 0.4 % (0-2); Eosinophils Absolute Auto 0 /uL (0-450); Hematocrit 31.9 % (36-46); Lymphocytes Absolute Auto 1200 /uL (1100-4500); Lymphocytes Percent Auto 6.7 % (25-40); Mean Corpuscular HGB Conc 31.2 % (30-36); Mean Corpuscular Hemoglobin 25.3 PG (26-34); Mean Corpuscular Volume 81.2 fL (80-100); Monocytes Absolute Auto 1500 /uL (0-900); Monocytes Percent Auto 8.9 % (3-14); Neutrophils Absolute Auto 14500 /uL (1500-7000); Platelet Count 361 X10^3/uL (150-400); Red Blood Cell Count 3.93 X10^6/uL (4.0-5.2); Red Cell Distribution Width 16.3 % (11.6-14.8); White Blood Cell Count 17.3 X10^3/uL (4.5-11.0)
[2024-03-16 13:36] LABS: Lactate (Lactic Acid) 1.7 mmol/L (0.7-2.1)
[2024-03-16 13:37] LABS: Alanine Aminotransferase 15 IU/L (<35); Albumin 4.3 g/dL (3.5-5.0); Albumin Globulin Ratio 1.4 (1.0-2.8); Alkaline Phosphatase 92 U/L (38-126); Aspartate Aminotransferase 21 IU/L (14-36); BUN Creatinine Ratio 23.1 (6-22); Bilirubin Total 0.5 mg/dL (0.2-1.3); Blood Urea Nitrogen 15 mg/dL (7-17); Calcium 10.4 mg/dL (8.4-10.2); Carbon Dioxide 29 mmol/L (22-32); Chloride 100 mmol/L (98-107); Estimated Glomerular Filt Rate > 60 mL/min (>60); Glucose 111 mg/dL (80-110); Potassium 4.5 mmol/L (3.4-5.1); Sodium 136 mmol/L (137-145); Total Protein 7.3 g/dL (6.3-8.2)
[2024-03-16 13:55] LABS: HEMOLYSIS < 15 (0-50); Procalcitonin 0.162 ng/mL (<0.5)
[2024-03-16 13:58] LABS: Adenovirus Not Detected (Not Detect); B. parapertussis Not Detected (Not Detecte); Bordetella pertussis Not Detected (Not Detect); Chlamydophila pneumoniae Not Detected (Not Detect); Coronavirus 229E Not Detected (Not Detect); Coronavirus HKU1 Not Detected (Not Detect); Coronavirus NL 63 Not Detected (Not Detect); Coronavirus OC43 Not Detected (Not Detect); Human Metapneumovirus Not Detected (Not Detect); Human Rhinovirus/Enterovirus Not Detected (Not Detect); Influenza A Not Detected (Not Detect); Influenza B Not Detected (Not Detect); Mycoplasma pneumoniae Not Detected (Not Detect); Parainfluenza Virus 1 Not Detected (Not Detect); Parainfluenza Virus 2 Not Detected (Not Detect); Parainfluenza Virus 3 Not Detected (Not Detect); Parainfluenza Virus 4 Not Detected (Not Detect); Respiratory Syncytial Virus Not Detected (Not Detect); SARS- CoV-2 Not Detected (Not Detecte)
[2024-03-16 14:20] LABS: INR 1.1 (0.9-1.3); Prothrombin Time 12.6 SECONDS (9.4-12.5)
[2024-03-16 14:39] LABS: NT-proBNP (BNP-Adult 18+) 1820 pg/mL (<450); Troponin I < 0.012 ng/mL (0.01-0.034)
[2024-03-16] MEDS: cefTRIAXone 2,000 MG in SODIUM CHLORIDE 0.9% 100 ML 200 MG IV (15:54)
--- NOTE | 2024-03-16 16:28 | P.HP_ITS ---
History of Present Illness History of Present Illness Date Patient Seen: 03/16/24 Time Patient Seen: 16:28 Chief complaint: SOB, sick for over a month Narrative: 73-year-old female presented to the emergency department on day of admission with persistent wheezing shortness of breath coughing etcetera She had been seen by me on the 23 of February with similar symptoms. Describing head pressure congestion sore throat coughing wheezing. She did take a COVID test at that time that was negative. Given her symptoms I felt as though he was more viral infection with a flare of her presumed COPD (she continues smoking up until she got sick). She was given 4 days of prednisone which helped tremendously at that time she says. However over the last 2-3 weeks she has had increasing shortness a breath wheezing coughing etcetera. Denies any fever chills. No GI symptoms. No orthopnea no PND. No chest pain no palpitations. Sometimes having a lot of loose stool when coughing vigorously. She was persists with symptoms ever since to the point where she finally came to the emergency department ER evaluation was remarkable for possible right-sided infiltrate on chest x-ray. She was modestly hypoxic with activity. Patient with persistent leukocytosis related to her CLL essentially unchanged from previous and remainder of her lab work unremarkable with the exception of minimally abnormal BNP. Patient did have an echo done in April of 2023 that showed normal left ventricular function She was admitted for COPD exacerbation and pneumonia [facility] Medical History Uncomplicated opioid dependence Pulmonary nodule Complex renal cyst Kidney stones CLL (chronic lymphocytic leukemia) Cancer Arthritis Right renal mass Cannabis hyperemesis syndrome concurrent with and due to cannabis abuse Diabetic peripheral neuropathy Hyperlipidemia Hypertension Diabetes mellitus, type II, insulin dependent Aortic stenosis Gastrointestinal irritation Chronic back pain IBS (irritable bowel syndrome) Colitis Ankylosing spondylitis (~1994) Anemia Chicken pox Measles Mumps RLS (restless legs syndrome) Sepsis Surgical History Status post transcatheter aortic valve replacement (~08/2022) History of vaginal hysterectomy History of cholecystectomy History of appendectomy Anesthesia Status post breast biopsy (2013) Status post cholecystectomy (1991) Status post hysterectomy (1993) Status post breast biopsy (1991) Status post appendectomy (1964) Family History Father Cancer Diabetes mellitus Hypertension High cholesterol Mother Heart disease Hypertension Brother Ankylosing spondylitis Son Ankylosing spondylitis Social History marital status: number of children: 2 household members: none Smoking Status: Current every day smoker alcohol intake: never caffeine: No Meds Home Medications and Allergies Home Medications Medication Instructions Recorded Confirmed Type aspirin 81 mg tablet,delayed 81 mg PO DAILY 04/28/18 03/16/24 History release lactobacillus combination no.8 3 3,000 mmu cells PO DAILY 04/28/18 03/16/24 History billion cell capsule (Adult Probiotic) lansoprazole 15 mg capsule,delayed 15 mg PO DAILY 04/28/18 03/16/24 History release B-D PEN NEEDLE #100 ea 02/22/19 03/16/24 Rx blood-glucose meter #1 ea 09/23/19 03/16/24 Rx lancets 33 gauge (OneTouch Delica #100 ea 12/05/20 03/16/24 Rx Lancets) Disabled Parking #1 ea 03/26/21 03/16/24 Rx Droplet Pen [place] #250 ea 06/22/21 03/16/24 Rx blood sugar diagnostic (Blood #250 ea 07/31/21 03/16/24 Rx Glucose Test strips) potassium chloride 8 mEq 8 meq PO DAILY #90 caps 06/23/23 03/16/24 Rx capsule,extended release glipizide 5 mg tablet 5 mg PO BID #180 tabs 10/29/23 03/16/24 Rx lisinopril 40 mg tablet 40 mg PO DAILY #90 tabs 12/03/23 03/16/24 Rx amlodipine 5 mg tablet (Norvasc) 10 mg (2 x 5 mg) PO DAILY #180 tabs 12/15/23 03/16/24 Rx insulin glargine 100 unit/mL (3 65 unit (0.65 mL) SUBCUT HS #45 mL 12/22/23 03/16/24 Rx mL) subcutaneous pen (Lantus Solostar U-100 Insulin) metformin 1,000 mg tablet 1,000 mg PO BIDCC #180 tabs 01/23/24 03/16/24 Rx metoprolol succinate 100 mg 100 mg PO BID #180 tabs 02/10/24 03/16/24 Rx tablet,extended release 24 hr hydrocodone 5 mg-acetaminophen 325 1 - 2 tab PO QID PRN pain #125 tabs 02/24/24 03/16/24 Rx mg tablet pioglitazone 30 mg tablet 30 mg PO DAILY #90 tabs 03/11/24 03/16/24 Rx hydralazine 10 mg tablet 10 mg PO BID 03/16/24 03/16/24 History simvastatin 40 mg tablet 40 mg PO DAILY 03/16/24 03/16/24 History Allergies Allergy/AdvReac Type Severity Reaction Status Date / Time No Known Drug Allergies Allergy Verified 02/24/24 10:54 Review of Systems Review of Systems ROS: Yes All systems reviewed with the patient and are negative except as otherwise documented Cardiovascular Cardiovascular: Denies leg edema, Denies orthopnea and Denies paroxysmal nocturnal dyspnea Exam Vital Signs (past 8 hours): - 03/16/24 12:43 03/16/24 12:51 03/16/24 13:00 Temperature 98.2 F Pulse Rate 78 86 80 Respiratory Rate 24 33 H Blood Pressure 144/63 H Pulse Oximetry 91 86 L 99 Oxygen Delivery Method Room Air Room Air Oxygen Flow Rate 03/16/24 13:30 03/16/24 13:59 03/16/24 13:59 Temperature Pulse Rate 81 83 Respiratory Rate 30 H 18 Blood Pressure 144/67 H Pulse Oximetry 99 93 Oxygen Delivery Method Oxygen Flow Rate 03/16/24 14:00 03/16/24 14:01 03/16/24 14:01 Temperature Pulse Rate 80 82 Respiratory Rate 22 Blood Pressure 160/66 H Pulse Oximetry 94 95 Oxygen Delivery Method Oxygen Flow Rate 03/16/24 14:30 03/16/24 14:31 03/16/24 14:31 Temperature Pulse Rate 78 77 Respiratory Rate 27 H 25 H Blood Pressure 141/61 H Pulse Oximetry 95 96 Oxygen Delivery Method Oxygen Flow Rate 03/16/24 15:00 03/16/24 15:00 03/16/24 15:30 Temperature Pulse Rate 80 80 Respiratory Rate 34 H 29 H Blood Pressure 137/87 Pulse Oximetry 95 95 Oxygen Delivery Method Nasal Cannula Oxygen Flow Rate 2 03/16/24 15:30 Temperature Pulse Rate Respiratory Rate Blood Pressure 140/61 Pulse Oximetry Oxygen Delivery Method Oxygen Flow Rate Oxygen Delivery Method Nasal Cannula Oxygen Flow Rate 2 Narrative Exam Narrative: Elderly female in no obvious distress lying in hospital bed HEENT-unremarkable, normocephalic atraumatic Neck-no lymphadenopathy no bruits Lungs-clear anteriorly and posteriorly no wheezes no crackles good breath sounds Heart-regular rate and rhythm, no murmur, rub, or gallop. normal S1-S2 Abdomen-positive bowel tones, soft, nontender, nondistended, no hepatosplenomegaly, no masses palpable Neuro-normal to screening exam, gait not tested Extremities-no cyanosis clubbing or edema Objective Labs 03/16/24 13:00 03/16/24 13:00 Labs: Laboratory Results - last 24 hr 03/16/24 03/16/24 03/16/24 12:56 13:00 13:00 WBC 17.3 H RBC 3.93 L Hgb 10.0 L Hct 31.9 L MCV 81.2 MCH 25.3 L MCHC 31.2 RDW 16.3 H Plt Count 361 Neut % (Auto) 84.0 H Lymph % (Auto) 6.7 L Saline % (Auto) 8.9 Eos % (Auto) 0.0 L Baso % (Auto) 0.4 Neut # (Auto) 77209 H Lymph # (Auto) 1200 Saline # (Auto) 1500 H Eos # (Auto) 0 Baso # (Auto) 100 PT 12.6 H INR 1.1 Sodium Cancelled 136 L Potassium Cancelled Chloride Carbon Dioxide BUN Creatinine Estimated GFR BUN/Creatinine Ratio Glucose Lactate Calcium Total Bilirubin AST ALT Alkaline Phosphatase Troponin I NT-Pro-B Natriuret Pep Total Protein Albumin Globulin Albumin/Globulin Ratio Procalcitonin Chlamy pneumoniae PCR Not detected Adenovirus (PCR) Not detected B. pertussis DNA (PCR) Not detected B.parapertussis DNA PCR Not detected Coronavirus OC43 (PCR) Not detected Coronavirus HKU1 (PCR) Not detected Coronavirus 229E (PCR) Not detected SARS-CoV-2 (PCR) Not detected Coronavirus NL63 (PCR) Not detected Human Metapneumovir PCR Not detected Influenza Type A (PCR) Not detected Influenza Type B (PCR) Not detected M. pneumoniae (PCR) Not detected Parainfluenza 1 (PCR) Not detected Parainfluenza 2 (PCR) Not detected Parainfluenza 3 (PCR) Not detected Parainfluenza 4 (PCR) Not detected RSV (PCR) Not detected Entero/Rhino (PCR) Not detected 03/16/24 03/16/24 03/16/24 13:00 13:00 13:00 WBC RBC Hgb Hct MCV MCH MCHC RDW Plt Count Neut % (Auto) Lymph % (Auto) Saline % (Auto) Eos % (Auto) Baso % (Auto) Neut # (Auto) Lymph # (Auto) Saline # (Auto) Eos # (Auto) Baso # (Auto) PT INR Sodium Potassium 4.5 Chloride Cancelled 100 Carbon Dioxide Cancelled 29 BUN Cancelled Creatinine Estimated GFR BUN/Creatinine Ratio Glucose Lactate Calcium Total Bilirubin AST ALT Alkaline Phosphatase Troponin I NT-Pro-B Natriuret Pep Total Protein Albumin Globulin Albumin/Globulin Ratio Procalcitonin Chlamy pneumoniae PCR Adenovirus (PCR) B. pertussis DNA (PCR) B.parapertussis DNA PCR Coronavirus OC43 (PCR) Coronavirus HKU1 (PCR) Coronavirus 229E (PCR) SARS-CoV-2 (PCR) Coronavirus NL63 (PCR) Human Metapneumovir PCR Influenza Type A (PCR) Influenza Type B (PCR) M. pneumoniae (PCR) Parainfluenza 1 (PCR) Parainfluenza 2 (PCR) Parainfluenza 3 (PCR) Parainfluenza 4 (PCR) RSV (PCR) Entero/Rhino (PCR) 03/16/24 03/16/24 03/16/24 13:00 13:00 13:00 WBC RBC Hgb Hct MCV MCH MCHC RDW Plt Count Neut % (Auto) Lymph % (Auto) Saline % (Auto) Eos % (Auto) Baso % (Auto) Neut # (Auto) Lymph # (Auto) Saline # (Auto) Eos # (Auto) Baso # (Auto) PT INR Sodium Potassium Chloride Carbon Dioxide BUN 15 Creatinine Cancelled 0.65 Estimated GFR Cancelled > 60 BUN/Creatinine Ratio Cancelled Glucose Lactate Calcium Total Bilirubin AST ALT Alkaline Phosphatase Troponin I NT-Pro-B Natriuret Pep Total Protein Albumin Globulin Albumin/Globulin Ratio Procalcitonin Chlamy pneumoniae PCR Adenovirus (PCR) B. pertussis DNA (PCR) B.parapertussis DNA PCR Coronavirus OC43 (PCR) Coronavirus HKU1 (PCR) Coronavirus 229E (PCR) SARS-CoV-2 (PCR) Coronavirus NL63 (PCR) Human Metapneumovir PCR Influenza Type A (PCR) Influenza Type B (PCR) M. pneumoniae (PCR) Parainfluenza 1 (PCR) Parainfluenza 2 (PCR) Parainfluenza 3 (PCR) Parainfluenza 4 (PCR) RSV (PCR) Entero/Rhino (PCR) 03/16/24 03/16/24 03/16/24 13:00 13:00 13:00 WBC RBC Hgb Hct MCV MCH MCHC RDW Plt Count Neut % (Auto) Lymph % (Auto) Saline % (Auto) Eos % (Auto) Baso % (Auto) Neut # (Auto) Lymph # (Auto) Saline # (Auto) Eos # (Auto) Baso # (Auto) PT INR Sodium Potassium Chloride Carbon Dioxide BUN Creatinine Estimated GFR BUN/Creatinine Ratio 23.1 H Glucose Cancelled 111 H Lactate 1.7 Calcium Cancelled 10.4 H Total Bilirubin Cancelled AST ALT Alkaline Phosphatase Troponin I NT-Pro-B Natriuret Pep Total Protein Albumin Globulin Albumin/Globulin Ratio Procalcitonin Chlamy pneumoniae PCR Adenovirus (PCR) B. pertussis DNA (PCR) B.parapertussis DNA PCR Coronavirus OC43 (PCR) Coronavirus HKU1 (PCR) Coronavirus 229E (PCR) SARS-CoV-2 (PCR) Coronavirus NL63 (PCR) Human Metapneumovir PCR Influenza Type A (PCR) Influenza Type B (PCR) M. pneumoniae (PCR) Parainfluenza 1 (PCR) Parainfluenza 2 (PCR) Parainfluenza 3 (PCR) Parainfluenza 4 (PCR) RSV (PCR) Entero/Rhino (PCR) 03/16/24 03/16/24 03/16/24 13:00 13:00 13:00 WBC RBC Hgb Hct MCV MCH MCHC RDW Plt Count Neut % (Auto) Lymph % (Auto) Saline % (Auto) Eos % (Auto) Baso % (Auto) Neut # (Auto) Lymph # (Auto) Saline # (Auto) Eos # (Auto) Baso # (Auto) PT INR Sodium Potassium Chloride Carbon Dioxide BUN Creatinine Estimated GFR BUN/Creatinine Ratio Glucose Lactate Calcium Total Bilirubin 0.5 AST Cancelled 21 ALT Cancelled 15 Alkaline Phosphatase Cancelled Troponin I NT-Pro-B Natriuret Pep Total Protein Albumin Globulin Albumin/Globulin Ratio Procalcitonin Chlamy pneumoniae PCR Adenovirus (PCR) B. pertussis DNA (PCR) B.parapertussis DNA PCR Coronavirus OC43 (PCR) Coronavirus HKU1 (PCR) Coronavirus 229E (PCR) SARS-CoV-2 (PCR) Coronavirus NL63 (PCR) Human Metapneumovir PCR Influenza Type A (PCR) Influenza Type B (PCR) M. pneumoniae (PCR) Parainfluenza 1 (PCR) Parainfluenza 2 (PCR) Parainfluenza 3 (PCR) Parainfluenza 4 (PCR) RSV (PCR) Entero/Rhino (PCR) 03/16/24 03/16/24 03/16/24 13:00 13:00 13:00 WBC RBC Hgb Hct MCV MCH MCHC RDW Plt Count Neut % (Auto) Lymph % (Auto) Saline % (Auto) Eos % (Auto) Baso % (Auto) Neut # (Auto) Lymph # (Auto) Saline # (Auto) Eos # (Auto) Baso # (Auto) PT INR Sodium Potassium Chloride Carbon Dioxide BUN Creatinine Estimated GFR BUN/Creatinine Ratio Glucose Lactate Calcium Total Bilirubin AST ALT Alkaline Phosphatase 92 Troponin I < 0.012 NT-Pro-B Natriuret Pep 1820 H Total Protein Cancelled 7.3 Albumin Cancelled 4.3 Globulin Cancelled Albumin/Globulin Ratio Procalcitonin Chlamy pneumoniae PCR Adenovirus (PCR) B. pertussis DNA (PCR) B.parapertussis DNA PCR Coronavirus OC43 (PCR) Coronavirus HKU1 (PCR) Coronavirus 229E (PCR) SARS-CoV-2 (PCR) Coronavirus NL63 (PCR) Human Metapneumovir PCR Influenza Type A (PCR) Influenza Type B (PCR) M. pneumoniae (PCR) Parainfluenza 1 (PCR) Parainfluenza 2 (PCR) Parainfluenza 3 (PCR) Parainfluenza 4 (PCR) RSV (PCR) Entero/Rhino (PCR) 03/16/24 03/16/24 13:00 13:00 WBC RBC Hgb Hct MCV MCH MCHC RDW Plt Count Neut % (Auto) Lymph % (Auto) Saline % (Auto) Eos % (Auto) Baso % (Auto) Neut # (Auto) Lymph # (Auto) Saline # (Auto) Eos # (Auto) Baso # (Auto) PT INR Sodium Potassium Chloride Carbon Dioxide BUN Creatinine Estimated GFR BUN/Creatinine Ratio Glucose Lactate Calcium Total Bilirubin AST ALT Alkaline Phosphatase Troponin I NT-Pro-B Natriuret Pep Total Protein Albumin Globulin 3.0 Albumin/Globulin Ratio Cancelled 1.4 Procalcitonin 0.162 Chlamy pneumoniae PCR Adenovirus (PCR) B. pertussis DNA (PCR) B.parapertussis DNA PCR Coronavirus OC43 (PCR) Coronavirus HKU1 (PCR) Coronavirus 229E (PCR) SARS-CoV-2 (PCR) Coronavirus NL63 (PCR) Human Metapneumovir PCR Influenza Type A (PCR) Influenza Type B (PCR) M. pneumoniae (PCR) Parainfluenza 1 (PCR) Parainfluenza 2 (PCR) Parainfluenza 3 (PCR) Parainfluenza 4 (PCR) RSV (PCR) Entero/Rhino (PCR) Assessment & Plan Assessment & Plan narrative: 1. COPD exacerbation-patient would benefit from IV steroids, frequent nebulizer treatments and oxygen. Child see needs to quit smoking as well. Underlying pneumonia should also be treated 2. Community-acquired pneumonia-patient was minimal evidence of same mostly based on chest x-ray. She was given a dose of doxycycline a ceftriaxone in the ER. I will continue those for now 3. Diabetes-obviously her blood sugars are likely to be poorly controlled on the IV steroids. Continue her long-acting insulin with coverage insulin as well. I will hold most of her oral meds although plan to continue metformin for now. Given that patient is usually have a much less restrictive diet as an outpatient then we provide as an inpatient I will cut back on her long-acting insulin to start with but if need be will rapidly increase it back towards her baseline and more if necessary based on the steroid effect 4. CLL-no evidence of contributing issues from her leukemia other than perhaps a minimally suppressed immune system issues. CBC essentially unchanged from baseline 5. Uncomplicated opioid dependence-patient uses hydrocodone on a regular basis to treat arthralgias chronic back pain etcetera. Continue that while hospitalized 6. VTE prophylaxis-Lovenox appropriate and ordered 7. Code status-patient requests full code full resuscitation in the event of a sudden cardiac or respiratory arrest. This is not anticipated at this time and we discussed that at some length. 8. Abnormal BNP-I do not believe patient was experiencing acute or chronic congestive heart failure. He was an essentially normal echocardiogram within the last year. Really no symptoms beyond the respiratory symptoms to suggest heart failure and respiratory symptoms I believe are 100% COPD based and not ?cardiac asthma ?or congestive heart failure. Therefore no need for diuretic therapy at this time in my opinion. Time-Based Coding :: [TOTAL MINUTES] spent with patient and on the chart (including review of chart, obtaining history, exam, reviewing outside data, placing orders, documenting exam and treatment plan, and counseling patient) on [DATE]. PROFEE Charge Codes Initial inpatient/observation care: [id number]
[2024-03-16] MEDS: METFORMIN HCL 500 MG TABLET 1000 MG PO (17:27)
[2024-03-16] MEDS: methylPREDNISolone 125 MG/2 ML VIAL IV (17:27)
[2024-03-16] MEDS: DOXYCYCLINE 100 MG in SODIUM CHLORIDE 0.9% 100 ML IV (17:28)
[2024-03-16] MEDS: HYDROCODONE/ACET 5/325 TABLET 2 TAB PO (20:21)
[2024-03-16] MEDS: METOPROLOL ER 50 MG TABLET 100 MG PO (20:21)
[2024-03-16] MEDS: INSULIN GLARGINE 100 UNIT/ML 3ML PEN 50 UNIT SUBCUT (20:22)
[2024-03-16] MEDS: methylPREDNISolone 125 MG/2 ML VIAL 60 MG IV (21:32)
[2024-03-17] MEDS: HYDROCODONE/ACET 5/325 TABLET 2 TAB PO ×2 (02:53→21:16)
[2024-03-17] MEDS: ALBUTEROL 2.5 MG/3 ML NEB (ADULT) INH (02:54)
[2024-03-17 03:22] VITALS: BP 118/74; PULSE 76; RESP 18; TEMP 36.4; O2SAT 90
[2024-03-17] MEDS: DOXYCYCLINE 100 MG in SODIUM CHLORIDE 0.9% 100 ML IV ×2 (03:39→16:26)
[2024-03-17] MEDS: methylPREDNISolone 125 MG/2 ML VIAL 60 MG IV ×4 (03:47→21:19)
[2024-03-17] MEDS: HYDROCODONE/ACET 5/325 TABLET 1 TAB PO ×2 (07:41→16:26)
[2024-03-17] MEDS: METFORMIN HCL 500 MG TABLET 1000 MG PO ×2 (07:41→16:26)
[2024-03-17 07:45] VITALS: TEMP 36
[2024-03-17 08:32] VITALS: BP 128/58; PULSE 69
[2024-03-17] MEDS: METOPROLOL ER 50 MG TABLET 100 MG PO ×2 (08:32→21:16)
[2024-03-17] MEDS: AMLODIPINE 5 MG TABLET 10 MG PO (08:32)
[2024-03-17] MEDS: lisinopriL 20 MG TABLET 40 MG PO (08:32)
[2024-03-17] MEDS: ATORVASTATIN 20 MG TABLET PO (08:33)
[2024-03-17] MEDS: ENOXAPARIN 40 MG/0.4 ML SYRINGE SUBCUT ×2 (08:33→21:15)
[2024-03-17] MEDS: ASPIRIN EC 81 MG TABLET PO (08:33)
--- NOTE | 2024-03-17 09:05 | PM.PN.1 ---
Subjective Subjective Date Patient Seen: 03/17/24 Time Patient Seen: 09:05 Interval history: Patient up in the bedside chair as I see her this morning Says she was still feels better than she did when she came to the emergency department However she was still is pretty weak pretty wheezy had some coughing fits overnight Blood sugars thus far been okay No new complaints or issues. She had been afebrile. Vital signs have been okay including blood pressure. Still has a very minimal oxygen requirement Exam Vital Signs (past 8 hours): - 03/17/24 03:22 03/17/24 08:32 03/17/24 08:32 Temperature 97.6 F Pulse Rate 76 69 69 Respiratory Rate 18 Blood Pressure 118/74 128/58 L 128/58 L Pulse Oximetry 90 L Oxygen Flow Rate 2 Oxygen Delivery Method Nasal Cannula Oxygen Flow Rate 2 Objective Labs 03/16/24 13:00 03/16/24 13:00 Labs: Laboratory Results - last 24 hr 03/16/24 03/16/24 03/16/24 12:56 13:00 13:00 WBC 17.3 H RBC 3.93 L Hgb 10.0 L Hct 31.9 L MCV 81.2 MCH 25.3 L MCHC 31.2 RDW 16.3 H Plt Count 361 Neut % (Auto) 84.0 H Lymph % (Auto) 6.7 L [place] % (Auto) 8.9 Eos % (Auto) 0.0 L Baso % (Auto) 0.4 Neut # (Auto) 42457 H Lymph # (Auto) 1200 [place] # (Auto) 1500 H Eos # (Auto) 0 Baso # (Auto) 100 PT 12.6 H INR 1.1 Sodium Cancelled 136 L Potassium Cancelled Chloride Carbon Dioxide BUN Creatinine Estimated GFR BUN/Creatinine Ratio Glucose Lactate Calcium Total Bilirubin AST ALT Alkaline Phosphatase Troponin I NT-Pro-B Natriuret Pep Total Protein Albumin Globulin Albumin/Globulin Ratio Procalcitonin Chlamy pneumoniae PCR Not detected Adenovirus (PCR) Not detected B. pertussis DNA (PCR) Not detected B.parapertussis DNA PCR Not detected Coronavirus OC43 (PCR) Not detected Coronavirus HKU1 (PCR) Not detected Coronavirus 229E (PCR) Not detected SARS-CoV-2 (PCR) Not detected Coronavirus NL63 (PCR) Not detected Human Metapneumovir PCR Not detected Influenza Type A (PCR) Not detected Influenza Type B (PCR) Not detected M. pneumoniae (PCR) Not detected Parainfluenza 1 (PCR) Not detected Parainfluenza 2 (PCR) Not detected Parainfluenza 3 (PCR) Not detected Parainfluenza 4 (PCR) Not detected RSV (PCR) Not detected Entero/Rhino (PCR) Not detected 03/16/24 03/16/24 03/16/24 13:00 13:00 13:00 WBC RBC Hgb Hct MCV MCH MCHC RDW Plt Count Neut % (Auto) Lymph % (Auto) [place] % (Auto) Eos % (Auto) Baso % (Auto) Neut # (Auto) Lymph # (Auto) [place] # (Auto) Eos # (Auto) Baso # (Auto) PT INR Sodium Potassium 4.5 Chloride Cancelled 100 Carbon Dioxide Cancelled 29 BUN Cancelled Creatinine Estimated GFR BUN/Creatinine Ratio Glucose Lactate Calcium Total Bilirubin AST ALT Alkaline Phosphatase Troponin I NT-Pro-B Natriuret Pep Total Protein Albumin Globulin Albumin/Globulin Ratio Procalcitonin Chlamy pneumoniae PCR Adenovirus (PCR) B. pertussis DNA (PCR) B.parapertussis DNA PCR Coronavirus OC43 (PCR) Coronavirus HKU1 (PCR) Coronavirus 229E (PCR) SARS-CoV-2 (PCR) Coronavirus NL63 (PCR) Human Metapneumovir PCR Influenza Type A (PCR) Influenza Type B (PCR) M. pneumoniae (PCR) Parainfluenza 1 (PCR) Parainfluenza 2 (PCR) Parainfluenza 3 (PCR) Parainfluenza 4 (PCR) RSV (PCR) Entero/Rhino (PCR) 03/16/24 03/16/24 03/16/24 13:00 13:00 13:00 WBC RBC Hgb Hct MCV MCH MCHC RDW Plt Count Neut % (Auto) Lymph % (Auto) [place] % (Auto) Eos % (Auto) Baso % (Auto) Neut # (Auto) Lymph # (Auto) [place] # (Auto) Eos # (Auto) Baso # (Auto) PT INR Sodium Potassium Chloride Carbon Dioxide BUN 15 Creatinine Cancelled 0.65 Estimated GFR Cancelled > 60 BUN/Creatinine Ratio Cancelled Glucose Lactate Calcium Total Bilirubin AST ALT Alkaline Phosphatase Troponin I NT-Pro-B Natriuret Pep Total Protein Albumin Globulin Albumin/Globulin Ratio Procalcitonin Chlamy pneumoniae PCR Adenovirus (PCR) B. pertussis DNA (PCR) B.parapertussis DNA PCR Coronavirus OC43 (PCR) Coronavirus HKU1 (PCR) Coronavirus 229E (PCR) SARS-CoV-2 (PCR) Coronavirus NL63 (PCR) Human Metapneumovir PCR Influenza Type A (PCR) Influenza Type B (PCR) M. pneumoniae (PCR) Parainfluenza 1 (PCR) Parainfluenza 2 (PCR) Parainfluenza 3 (PCR) Parainfluenza 4 (PCR) RSV (PCR) Entero/Rhino (PCR) 03/16/24 03/16/24 03/16/24 13:00 13:00 13:00 WBC RBC Hgb Hct MCV MCH MCHC RDW Plt Count Neut % (Auto) Lymph % (Auto) [place] % (Auto) Eos % (Auto) Baso % (Auto) Neut # (Auto) Lymph # (Auto) [place] # (Auto) Eos # (Auto) Baso # (Auto) PT INR Sodium Potassium Chloride Carbon Dioxide BUN Creatinine Estimated GFR BUN/Creatinine Ratio 23.1 H Glucose Cancelled 111 H Lactate 1.7 Calcium Cancelled 10.4 H Total Bilirubin Cancelled AST ALT Alkaline Phosphatase Troponin I NT-Pro-B Natriuret Pep Total Protein Albumin Globulin Albumin/Globulin Ratio Procalcitonin Chlamy pneumoniae PCR Adenovirus (PCR) B. pertussis DNA (PCR) B.parapertussis DNA PCR Coronavirus OC43 (PCR) Coronavirus HKU1 (PCR) Coronavirus 229E (PCR) SARS-CoV-2 (PCR) Coronavirus NL63 (PCR) Human Metapneumovir PCR Influenza Type A (PCR) Influenza Type B (PCR) M. pneumoniae (PCR) Parainfluenza 1 (PCR) Parainfluenza 2 (PCR) Parainfluenza 3 (PCR) Parainfluenza 4 (PCR) RSV (PCR) Entero/Rhino (PCR) 03/16/24 03/16/24 03/16/24 13:00 13:00 13:00 WBC RBC Hgb Hct MCV MCH MCHC RDW Plt Count Neut % (Auto) Lymph % (Auto) [place] % (Auto) Eos % (Auto) Baso % (Auto) Neut # (Auto) Lymph # (Auto) [place] # (Auto) Eos # (Auto) Baso # (Auto) PT INR Sodium Potassium Chloride Carbon Dioxide BUN Creatinine Estimated GFR BUN/Creatinine Ratio Glucose Lactate Calcium Total Bilirubin 0.5 AST Cancelled 21 ALT Cancelled 15 Alkaline Phosphatase Cancelled Troponin I NT-Pro-B Natriuret Pep Total Protein Albumin Globulin Albumin/Globulin Ratio Procalcitonin Chlamy pneumoniae PCR Adenovirus (PCR) B. pertussis DNA (PCR) B.parapertussis DNA PCR Coronavirus OC43 (PCR) Coronavirus HKU1 (PCR) Coronavirus 229E (PCR) SARS-CoV-2 (PCR) Coronavirus NL63 (PCR) Human Metapneumovir PCR Influenza Type A (PCR) Influenza Type B (PCR) M. pneumoniae (PCR) Parainfluenza 1 (PCR) Parainfluenza 2 (PCR) Parainfluenza 3 (PCR) Parainfluenza 4 (PCR) RSV (PCR) Entero/Rhino (PCR) 03/16/24 03/16/24 03/16/24 13:00 13:00 13:00 WBC RBC Hgb Hct MCV MCH MCHC RDW Plt Count Neut % (Auto) Lymph % (Auto) [place] % (Auto) Eos % (Auto) Baso % (Auto) Neut # (Auto) Lymph # (Auto) [place] # (Auto) Eos # (Auto) Baso # (Auto) PT INR Sodium Potassium Chloride Carbon Dioxide BUN Creatinine Estimated GFR BUN/Creatinine Ratio Glucose Lactate Calcium Total Bilirubin AST ALT Alkaline Phosphatase 92 Troponin I < 0.012 NT-Pro-B Natriuret Pep 1820 H Total Protein Cancelled 7.3 Albumin Cancelled 4.3 Globulin Cancelled Albumin/Globulin Ratio Procalcitonin Chlamy pneumoniae PCR Adenovirus (PCR) B. pertussis DNA (PCR) B.parapertussis DNA PCR Coronavirus OC43 (PCR) Coronavirus HKU1 (PCR) Coronavirus 229E (PCR) SARS-CoV-2 (PCR) Coronavirus NL63 (PCR) Human Metapneumovir PCR Influenza Type A (PCR) Influenza Type B (PCR) M. pneumoniae (PCR) Parainfluenza 1 (PCR) Parainfluenza 2 (PCR) Parainfluenza 3 (PCR) Parainfluenza 4 (PCR) RSV (PCR) Entero/Rhino (PCR) 03/16/24 03/16/24 13:00 13:00 WBC RBC Hgb Hct MCV MCH MCHC RDW Plt Count Neut % (Auto) Lymph % (Auto) [place] % (Auto) Eos % (Auto) Baso % (Auto) Neut # (Auto) Lymph # (Auto) [place] # (Auto) Eos # (Auto) Baso # (Auto) PT INR Sodium Potassium Chloride Carbon Dioxide BUN Creatinine Estimated GFR BUN/Creatinine Ratio Glucose Lactate Calcium Total Bilirubin AST ALT Alkaline Phosphatase Troponin I NT-Pro-B Natriuret Pep Total Protein Albumin Globulin 3.0 Albumin/Globulin Ratio Cancelled 1.4 Procalcitonin 0.162 Chlamy pneumoniae PCR Adenovirus (PCR) B. pertussis DNA (PCR) B.parapertussis DNA PCR Coronavirus OC43 (PCR) Coronavirus HKU1 (PCR) Coronavirus 229E (PCR) SARS-CoV-2 (PCR) Coronavirus NL63 (PCR) Human Metapneumovir PCR Influenza Type A (PCR) Influenza Type B (PCR) M. pneumoniae (PCR) Parainfluenza 1 (PCR) Parainfluenza 2 (PCR) Parainfluenza 3 (PCR) Parainfluenza 4 (PCR) RSV (PCR) Entero/Rhino (PCR) [facility] Medical History Uncomplicated opioid dependence Pulmonary nodule Complex renal cyst Kidney stones CLL (chronic lymphocytic leukemia) Cancer Arthritis Right renal mass Cannabis hyperemesis syndrome concurrent with and due to cannabis abuse Diabetic peripheral neuropathy Hyperlipidemia Hypertension Diabetes mellitus, type II, insulin dependent Aortic stenosis Gastrointestinal irritation Chronic back pain IBS (irritable bowel syndrome) Colitis Ankylosing spondylitis (~1994) Anemia Chicken pox Measles Mumps RLS (restless legs syndrome) Sepsis Surgical History Status post transcatheter aortic valve replacement (~08/2022) History of vaginal hysterectomy History of cholecystectomy History of appendectomy Anesthesia Status post breast biopsy (2013) Status post cholecystectomy (1991) Status post hysterectomy (1993) Status post breast biopsy (1991) Status post appendectomy (1964) Family History Father Cancer Diabetes mellitus Hypertension High cholesterol Mother Heart disease Hypertension Brother Ankylosing spondylitis Son Ankylosing spondylitis Social History marital status: number of children: 2 household members: none Smoking Status: Current every day smoker alcohol intake: never caffeine: No Assessment & Plan Assessment & Plan narrative: 1. Pneumonia with COPD exacerbation-continue current parental antibiotics and parental steroids. Continue with nebulizer treatments. Continue with oxygen replacement therapy for her respiratory failure with hypoxia. Hopefully all of this will begin to improve we can get her off the oxygen switch her to oral meds and discharge her home in the next 24-48 hours 2. Diabetes-continue monitor blood sugar numbers for now. Expect numbers to go up with the institution of the steroids and if need be will give additional insulin. Purposely cut back on long-acting insulin upon admission given hospital diet verses home diet etcetera 3. Hypertension-adequate control for now. No change in meds Time-Based Coding :: [TOTAL MINUTES] spent with patient and on the chart (including review of chart, obtaining history, exam, reviewing outside data, placing orders, documenting exam and treatment plan, and counseling patient) on [DATE]. Quality VTE Deep Vein Thrombosis/Pulmonary Embolism Present on Admission: No IH PROFEE Charge codes Subsequent inpatient/observation care: 28278
[2024-03-17 12:00] VITALS: BP 125/55; PULSE 77; RESP 22; TEMP 36.4; O2SAT 97
[2024-03-17] MEDS: INSULIN LISPRO 100 UNIT/ML 3ML VIAL SUBCUT ×3 (12:11→21:14)
[2024-03-17] MEDS: cefTRIAXone 2,000 MG in SODIUM CHLORIDE 0.9% 100 ML 200 MG IV (12:56)
[2024-03-17 18:00] VITALS: BP 136/58; PULSE 77; RESP 22; TEMP 36.3; O2SAT 96
[2024-03-17 20:00] VITALS: BP 118/63; PULSE 85; RESP 18; TEMP 37.3; O2SAT 95
[2024-03-17] MEDS: INSULIN GLARGINE 100 UNIT/ML 3ML PEN 50 UNIT SUBCUT (21:13)
[2024-03-18] VITALS (8 sets, daily range): BP systolic 122–148; BP diastolic 56–76; PULSE 56–81; RESP 14–27; TEMP 35.9–36.2; O2SAT 90–96
[2024-03-18] MEDS: HYDROCODONE/ACET 5/325 TABLET 2 TAB PO ×2 (02:20→21:27)
[2024-03-18] MEDS: DOXYCYCLINE 100 MG in SODIUM CHLORIDE 0.9% 100 ML IV ×2 (04:47→16:08)
[2024-03-18] MEDS: methylPREDNISolone 125 MG/2 ML VIAL 60 MG IV ×4 (04:47→22:16)
[2024-03-18] MEDS: METFORMIN HCL 500 MG TABLET 1000 MG PO ×2 (07:39→15:08)
--- NOTE | 2024-03-18 08:10 | PM.PN.1 ---
Subjective Subjective Date Patient Seen: 03/18/24 Time Patient Seen: 08:10 Interval history: Patient persists with some diarrhea that began well before she was started on antibiotic therapy. Says with her respiratory illness she had began to have diarrhea especially when she would cough vigorously she would lose control of bowels. Not necessarily any worse now but he was a persistent problem Just feels weak and puny kind of run out still. Admits her breathing is better but does not feel like she was ready to get up and go home as yet Blood sugars have been elevated not surprisingly in the 240+ range Exam Vital Signs (past 8 hours): - 03/18/24 04:54 03/18/24 07:33 Temperature 96.8 F L Pulse Rate 71 Respiratory Rate 16 Blood Pressure 130/58 L Pulse Oximetry 94 Oxygen Delivery Method Nasal Cannula Oxygen Flow Rate 2 Oxygen Delivery Method Nasal Cannula Oxygen Flow Rate 2 Objective Labs 03/16/24 13:00 03/16/24 13:00 [facility] Medical History Uncomplicated opioid dependence Pulmonary nodule Complex renal cyst Kidney stones CLL (chronic lymphocytic leukemia) Cancer Arthritis Right renal mass Cannabis hyperemesis syndrome concurrent with and due to cannabis abuse Diabetic peripheral neuropathy Hyperlipidemia Hypertension Diabetes mellitus, type II, insulin dependent Aortic stenosis Gastrointestinal irritation Chronic back pain IBS (irritable bowel syndrome) Colitis Ankylosing spondylitis (~1994) Anemia Chicken pox Measles Mumps RLS (restless legs syndrome) Sepsis Surgical History Status post transcatheter aortic valve replacement (~08/2022) History of vaginal hysterectomy History of cholecystectomy History of appendectomy Anesthesia Status post breast biopsy (2013) Status post cholecystectomy (1991) Status post hysterectomy (1993) Status post breast biopsy (1991) Status post appendectomy (1964) Family History Father Cancer Diabetes mellitus Hypertension High cholesterol Mother Heart disease Hypertension Brother Ankylosing spondylitis Son Ankylosing spondylitis Social History marital status: number of children: 2 household members: none Smoking Status: Current every day smoker alcohol intake: never caffeine: No Assessment & Plan Assessment & Plan narrative: 1. Respiratory failure/COPD exacerbation/pneumonia-continue current parental steroids and antibiotics as well as nebulizer treatments. Wean off oxygen if able 2. Diarrhea-will check for C diff especially given the initiation of the antibiotics. Use Imodium etcetera assuming there is no significant infection present 3. Diabetes-I have returned her to her usual dose of long-acting insulin and will continue follow with short-acting insulin given the hyperglycemia 4. Hypertension-adequate control blood pressure for now no reason to make any changes 5. Disposition-patient will return home but not yet ready for discharge. Hopefully will be ready in the next 24-48 hours Time-Based Coding :: [TOTAL MINUTES] spent with patient and on the chart (including review of chart, obtaining history, exam, reviewing outside data, placing orders, documenting exam and treatment plan, and counseling patient) on [DATE]. Quality VTE Deep Vein Thrombosis/Pulmonary Embolism Present on Admission: No PROFEE Charge codes Subsequent inpatient/observation care: 16793
[2024-03-18] MEDS: lisinopriL 20 MG TABLET 40 MG PO (08:23)
[2024-03-18] MEDS: AMLODIPINE 5 MG TABLET 10 MG PO (08:23)
[2024-03-18] MEDS: ATORVASTATIN 20 MG TABLET PO (08:23)
[2024-03-18] MEDS: METOPROLOL ER 50 MG TABLET 100 MG PO ×2 (08:25→21:18)
[2024-03-18] MEDS: ENOXAPARIN 40 MG/0.4 ML SYRINGE SUBCUT ×2 (08:25→21:18)
[2024-03-18] MEDS: ASPIRIN EC 81 MG TABLET PO (08:25)
[2024-03-18] MEDS: INSULIN LISPRO 100 UNIT/ML 3ML VIAL SUBCUT ×4 (08:26→21:17)
[2024-03-18] MEDS: HYDROCODONE/ACET 5/325 TABLET 1 TAB PO ×2 (08:31→15:09)
[2024-03-18] MEDS: ALBUTEROL 2.5 MG/3 ML NEB (ADULT) INH (09:16)
[2024-03-18 12:04] LABS: Clostridium Difficile Tox PCR Negative for C. diff (Negative)
[2024-03-18] MEDS: cefTRIAXone 2,000 MG in SODIUM CHLORIDE 0.9% 100 ML 200 MG IV (12:31)
[2024-03-18] MEDS: LOPERAMIDE 2 MG CAPSULE PO ×2 (15:09→21:27)
[2024-03-18] MEDS: INSULIN GLARGINE 100 UNIT/ML 3ML PEN 65 UNIT SUBCUT (21:16)
[2024-03-18] MEDS: SODIUM CHLORIDE 0.9% FLUSH 10 ML IV (21:18)
[2024-03-19] VITALS (12 sets, daily range): BP systolic 116–146; BP diastolic 58–72; PULSE 75–85; RESP 14–20; TEMP 36.4–36.9; O2SAT 91–95
[2024-03-19] MEDS: ALBUTEROL 2.5 MG/3 ML NEB (ADULT) INH (01:24)
[2024-03-19] MEDS: DOXYCYCLINE 100 MG in SODIUM CHLORIDE 0.9% 100 ML IV ×2 (04:24→16:45)
[2024-03-19] MEDS: methylPREDNISolone 125 MG/2 ML VIAL 60 MG IV ×4 (05:43→22:34)
[2024-03-19] MEDS: HYDROCODONE/ACET 5/325 TABLET 2 TAB PO ×2 (07:04→20:04)
[2024-03-19] MEDS: METFORMIN HCL 500 MG TABLET 1000 MG PO ×2 (07:05→15:42)
[2024-03-19] MEDS: LOPERAMIDE 2 MG CAPSULE PO ×2 (07:05→13:04)
--- NOTE | 2024-03-19 08:02 | P.PN_ITS ---
Subjective Subjective Date Patient Seen: 03/19/24 Time Patient Seen: 08:02 Interval history: Patient says she feels much better for the first time. Some time after nebulizer treatment yesterday morning she had began to feel much better. He was less dyspneic up and around. Bowels or somewhat better as well. She was negative for C diff toxin Still has a to oxygen requirement however. Continuing to try and wean that Blood sugars still elevated but somewhat better than this time yesterday. Received higher dose long-acting insulin last evening Exam Vital Signs (past 8 hours): - 03/19/24 01:00 03/19/24 01:00 Temperature 98.5 F Pulse Rate 82 82 Respiratory Rate 18 Blood Pressure 122/63 122/63 Pulse Oximetry 93 Oxygen Flow Rate 1 Oxygen Delivery Method Nasal Cannula Oxygen Flow Rate 1 Objective Labs 03/16/24 13:00 03/16/24 13:00 Labs: Laboratory Results - last 24 hr 03/18/24 10:45 C. difficile Tox (PCR) Negative for c. diff [facility] Medical History Uncomplicated opioid dependence Pulmonary nodule Complex renal cyst Kidney stones CLL (chronic lymphocytic leukemia) Cancer Arthritis Right renal mass Cannabis hyperemesis syndrome concurrent with and due to cannabis abuse Diabetic peripheral neuropathy Hyperlipidemia Hypertension Diabetes mellitus, type II, insulin dependent Aortic stenosis Gastrointestinal irritation Chronic back pain IBS (irritable bowel syndrome) Colitis Ankylosing spondylitis (~1994) Anemia Chicken pox Measles Mumps RLS (restless legs syndrome) Sepsis Surgical History Status post transcatheter aortic valve replacement (~08/2022) History of vaginal hysterectomy History of cholecystectomy History of appendectomy Anesthesia Status post breast biopsy (2013) Status post cholecystectomy (1991) Status post hysterectomy (1993) Status post breast biopsy (1991) Status post appendectomy (1964) Family History Father Cancer Diabetes mellitus Hypertension High cholesterol Mother Heart disease Hypertension Brother Ankylosing spondylitis Son Ankylosing spondylitis Social History marital status: number of children: 2 household members: none Smoking Status: Current every day smoker alcohol intake: never caffeine: No Assessment & Plan Assessment & Plan narrative: 1. Respiratory failure/COPD exacerbation/pneumonia-continue current parental steroids and antibiotics as well as nebulizer treatments. Patient says she feels much better which he was obviously a good sign. Oxygen requirement is diminishing slowly. I think once she can be off oxygen she can likely be discharged. That may or may not be today. 2. Diarrhea-negative for C diff. Continue with the Imodium as needed 3. Diabetes-continue to monitor her numbers today. If need be further increased to her long-acting insulin maybe necessary, probably secondary to the parental steroids 4. Hypertension-adequate control blood pressure for now no reason to make any changes 5. Disposition-patient will return home but not yet ready for discharge. Hopefully will be ready in the next 24-48 hours Time-Based Coding :: [TOTAL MINUTES] spent with patient and on the chart (including review of chart, obtaining history, exam, reviewing outside data, placing orders, documenting exam and treatment plan, and counseling patient) on [DATE]. Quality VTE Deep Vein Thrombosis/Pulmonary Embolism Present on Admission: No PROFEE Charge codes Subsequent inpatient/observation care: 65578
[2024-03-19] MEDS: INSULIN LISPRO 100 UNIT/ML 3ML VIAL SUBCUT ×2 (08:22→17:10)
[2024-03-19] MEDS: ASPIRIN EC 81 MG TABLET PO (08:23)
[2024-03-19] MEDS: ATORVASTATIN 20 MG TABLET PO (08:23)
[2024-03-19] MEDS: METOPROLOL ER 50 MG TABLET 100 MG PO ×2 (08:23→20:04)
[2024-03-19] MEDS: AMLODIPINE 5 MG TABLET 10 MG PO (08:25)
[2024-03-19] MEDS: lisinopriL 20 MG TABLET 40 MG PO (08:25)
[2024-03-19] MEDS: SODIUM CHLORIDE 0.9% FLUSH 10 ML IV ×2 (08:26→21:18)
[2024-03-19] MEDS: ENOXAPARIN 40 MG/0.4 ML SYRINGE SUBCUT ×2 (08:26→20:03)
--- NOTE | 2024-03-19 11:46 | CM.DANOTE ---
DCP Assessment Note: Pt is a 73yo female, resident [facility], is admitted for pneumonia, SOB. Pt lives in a house with adult son. Pt's Primary Care Provider is Dr. Javed Velez and insurance is Medicare and [facility]. Reviewed chart and team rounds for pt's medical status and initial discharge needs. DCP assessment completed, pt admitted on 03.16.24. Per chart review and hand off, pt to discharge home with son when hypoxia resolved and medically cleared. No discharge needs identified at this time. Plan: Anticipating discharge home in 24-48hours, son will transport home. CM team will follow closely for coordination of discharge plans. Diana Chung [facility] Discharge Planning/Care Management Advanced directive, confirm from FAMILY Start: 03/16/24 16:37 Freq: Q24H Status: Complete Protocol: Document 03/16/24 16:37 CM (Rec: 03/16/24 16:38 CM [id number]) Advance Directive, confirm on record Time 16:38 Person contacted Pt Copy received No Advanced directive available on record No CM Discharge Assessment Start: 03/19/24 11:42 Freq: Status: Active Protocol: Document 03/19/24 11:43 MW (Rec: 03/19/24 11:45 MW [id number]) Discharge Planning Assessment Assigned Optical Engineering Technician GARY Ortiz DPOA/Assigned Designee Name Matthew Boyce Contact Information [phone] Advance Directives? Yes Advance Directives on File No History Provided By Patient,Medical Record Prior Living Arrangements House Household Members none Discharge Plan Home Review Status In Process Please Provide Date Initial DC 03/19/24 Assessment Was Performed Next Review Type Continued Stay Review
[2024-03-19] MEDS: cefTRIAXone 2,000 MG in SODIUM CHLORIDE 0.9% 100 ML 200 MG IV (13:04)
[2024-03-19] MEDS: HYDROCODONE/ACET 5/325 TABLET 1 TAB PO (13:04)
[2024-03-19] MEDS: INSULIN GLARGINE 100 UNIT/ML 3ML PEN 65 UNIT SUBCUT (21:21)
[2024-03-20] VITALS (11 sets, daily range): BP systolic 120–153; BP diastolic 68–80; PULSE 66–87; RESP 12–14; TEMP 36.1–36.7; O2SAT 93–95
[2024-03-20] MEDS: HYDROCODONE/ACET 5/325 TABLET 2 TAB PO ×4 (00:06→21:15)
[2024-03-20] MEDS: LOPERAMIDE 2 MG CAPSULE PO (00:10)
[2024-03-20] MEDS: methylPREDNISolone 125 MG/2 ML VIAL 60 MG IV ×4 (04:29→21:36)
[2024-03-20] MEDS: DOXYCYCLINE 100 MG in SODIUM CHLORIDE 0.9% 100 ML IV ×2 (04:31→17:02)
[2024-03-20] MEDS: HYDROCODONE/ACET 5/325 TABLET 1 TAB PO ×3 (06:43→17:01)
[2024-03-20] MEDS: METFORMIN HCL 500 MG TABLET 1000 MG PO ×2 (06:45→16:01)
[2024-03-20] MEDS: INSULIN LISPRO 100 UNIT/ML 3ML VIAL SUBCUT ×2 (08:25→17:03)
[2024-03-20] MEDS: METOPROLOL ER 50 MG TABLET 100 MG PO ×2 (08:26→21:15)
[2024-03-20] MEDS: ATORVASTATIN 20 MG TABLET PO (08:26)
[2024-03-20] MEDS: lisinopriL 20 MG TABLET 40 MG PO (08:28)
[2024-03-20] MEDS: AMLODIPINE 5 MG TABLET 10 MG PO (08:29)
[2024-03-20] MEDS: ASPIRIN EC 81 MG TABLET PO (08:29)
[2024-03-20] MEDS: ENOXAPARIN 40 MG/0.4 ML SYRINGE SUBCUT ×2 (08:29→21:14)
[2024-03-20] MEDS: SODIUM CHLORIDE 0.9% FLUSH 10 ML IV ×3 (08:30→21:39)
--- NOTE | 2024-03-20 10:44 | PC.NURSE ---
Pt is currently on 0.5L to one liter of oxygen via NC. The pt needed to go to the bathroom, when getting the pt up to the bathroom this RN used the opportunity for a road test and took the pt off the oxygen. Pt needed a SBA when getting up from the chair and to the bathroom and back to her chair. When the pt got back to her chair she was very SOB, tachypneic, and pt reported that was a workout, the pt's SpO2 had dropped down to 83% on RA and the pt needed to rest for a couple of minutes before her SpO2 with 1L of O2 via NC was back to 90% or better. Provider is aware.
--- NOTE | 2024-03-20 11:05 | PM.PN.1 ---
Subjective Subjective Date Patient Seen: 03/20/24 Time Patient Seen: 11:05 Interval history: Patient resting comfortably in bedside chair. States she feels much better than when she initially arrived, inquires about possibility of discharge. Still has mild O2 requirement oscillating between 0.5 L to 1 L. Main issue is she continues to desat to low 80s with any exertion when not on O2, as low as 83% and symptomatic when ambulating to/from bathroom this morning, per nursing report. Exam Vital Signs (past 8 hours): - 03/20/24 08:00 03/20/24 08:15 03/20/24 08:26 Temperature 97.0 F L Pulse Rate 72 72 Respiratory Rate 12 Blood Pressure 152/69 H 152/79 H Pulse Oximetry 94 Oxygen Delivery Method Nasal Cannula Oxygen Flow Rate 1 03/20/24 08:28 03/20/24 09:37 Temperature Pulse Rate 72 66 Respiratory Rate Blood Pressure 152/79 H 120/70 Pulse Oximetry Oxygen Delivery Method Oxygen Flow Rate Fraction of Inspired Oxygen 24 SaO2/FiO2 Ratio 395 Oxygen Delivery Method Nasal Cannula Oxygen Flow Rate 1 Glucose POC: 191 Narrative Exam Narrative: General: Pleasant, NAD HEENT: NC/AT, EOMI, moist membranes CV: RRR, normal S1-S2, no m/g/r Resp: CTAB, breath sounds distant, comfortable WOB Abd: Soft, obese, NTND, +BS Ext: No edema Skin: No rash or lesions noted Neuro: A&O x3, moves all extremities, no focal deficits Objective Labs 03/16/24 13:00 03/16/24 13:00 [facility] Medical History Uncomplicated opioid dependence Pulmonary nodule Complex renal cyst Kidney stones CLL (chronic lymphocytic leukemia) Cancer Arthritis Right renal mass Cannabis hyperemesis syndrome concurrent with and due to cannabis abuse Diabetic peripheral neuropathy Hyperlipidemia Hypertension Diabetes mellitus, type II, insulin dependent Aortic stenosis Gastrointestinal irritation Chronic back pain IBS (irritable bowel syndrome) Colitis Ankylosing spondylitis (~1994) Anemia Chicken pox Measles Mumps RLS (restless legs syndrome) Sepsis Surgical History Status post transcatheter aortic valve replacement (~08/2022) History of vaginal hysterectomy History of cholecystectomy History of appendectomy Anesthesia Status post breast biopsy (2013) Status post cholecystectomy (1991) Status post hysterectomy (1993) Status post breast biopsy (1991) Status post appendectomy (1964) Family History Father Cancer Diabetes mellitus Hypertension High cholesterol Mother Heart disease Hypertension Brother Ankylosing spondylitis Son Ankylosing spondylitis Social History marital status: number of children: 2 household members: none Smoking Status: Current every day smoker alcohol intake: never caffeine: No Assessment & Plan Assessment & Plan narrative: #respiratory failure #COPD Patient reports feeling much better. Still desats to low 80s off O2 with exertion. Not likely ready for discharge, perhaps tomorrow. -continue steroids, as needed nebulizer treatments #CAP -continue ceftriaxone daily, doxycycline b.i.d. (03/16- ) -can stop once no O2 requirement #diabetes Continues to be hyperglycemic, likely due to steroids for COPD exacerbation. -continue glargine 65u daily, split dose equally between 2 injection sites for better absorption -high dose SSI for correction #hypertension -continue home amlodipine, hydralazine, lisinopril Diet: Carb consistent DVT ppx: Lovenox Code: FULL PCP: Rosie Dispo: Likely home when weaned from O2 Time-Based Coding :: Twenty-five spent with patient and on the chart (including review of chart, obtaining history, exam, reviewing outside data, placing orders, documenting exam and treatment plan, and counseling patient) on 03/20/2024. Quality VTE Deep Vein Thrombosis/Pulmonary Embolism Present on Admission: No IH PROFEE Charge codes Subsequent inpatient/observation care: [id number]
[2024-03-20] MEDS: cefTRIAXone 2,000 MG in SODIUM CHLORIDE 0.9% 100 ML 200 MG IV (12:19)
[2024-03-20] MEDS: INSULIN GLARGINE 100 UNIT/ML 3ML PEN 65 UNIT SUBCUT (21:19)
[2024-03-21] VITALS (12 sets, daily range): BP systolic 129–164; BP diastolic 66–82; PULSE 72–90; RESP 16–18; TEMP 36.4–37.2; O2SAT 86–95
[2024-03-21] MEDS: HYDROCODONE/ACET 5/325 TABLET 2 TAB PO ×2 (01:17→15:14)
--- NOTE | 2024-03-21 02:26 | PC.NURSE ---
assumed care of patient at 0130.
[2024-03-21] MEDS: methylPREDNISolone 125 MG/2 ML VIAL 60 MG IV ×2 (04:10→10:01)
[2024-03-21] MEDS: DOXYCYCLINE 100 MG in SODIUM CHLORIDE 0.9% 100 ML IV (04:11)
[2024-03-21 06:44] LABS: Add Manual Diff / Slide Review NO; Basophils Absolute Auto 0 /uL (0-100); Basophils Percent Auto 0.3 % (0-2); Eosinophils Absolute Auto 0 /uL (0-450); Hematocrit 31.5 % (36-46); Lymphocytes Absolute Auto 700 /uL (1100-4500); Lymphocytes Percent Auto 7.4 % (25-40); Mean Corpuscular HGB Conc 31.8 % (30-36); Mean Corpuscular Hemoglobin 25.5 PG (26-34); Mean Corpuscular Volume 80.1 fL (80-100); Monocytes Absolute Auto 200 /uL (0-900); Monocytes Percent Auto 2.4 % (3-14); Neutrophils Absolute Auto 9000 /uL (1500-7000); Neutrophils Percent Auto 89.9 % (50-75); Platelet Count 379 X10^3/uL (150-400); Red Blood Cell Count 3.93 X10^6/uL (4.0-5.2); Red Cell Distribution Width 15.5 % (11.6-14.8); White Blood Cell Count 10.1 X10^3/uL (4.5-11.0)
[2024-03-21] MEDS: HYDROCODONE/ACET 5/325 TABLET 1 TAB PO ×3 (06:48→23:01)
[2024-03-21 06:55] LABS: BUN Creatinine Ratio 40.4 (6-22); Blood Urea Nitrogen 23 mg/dL (7-17); Calcium 9.4 mg/dL (8.4-10.2); Carbon Dioxide 37 mmol/L (22-32); Chloride 97 mmol/L (98-107); Estimated Glomerular Filt Rate > 60 mL/min (>60); Glucose 157 mg/dL (80-110); HEMOLYSIS < 15 (0-50); Potassium 3.7 mmol/L (3.4-5.1); Sodium 138 mmol/L (137-145)
--- NOTE | 2024-03-21 06:58 | PC.NURSE ---
Pt was sating in the mid 90's all night with only 0.5 L NC, this nurse took patient off from oxygen around 0500, pt desated to 86% within 15 minutes. pt Pt back on 0.5 L NC.
[2024-03-21] MEDS: METFORMIN HCL 500 MG TABLET 1000 MG PO ×2 (07:31→16:41)
[2024-03-21] MEDS: lisinopriL 20 MG TABLET 40 MG PO (08:42)
[2024-03-21] MEDS: ASPIRIN EC 81 MG TABLET PO (08:42)
[2024-03-21] MEDS: INSULIN LISPRO 100 UNIT/ML 3ML VIAL SUBCUT ×3 (08:42→16:49)
[2024-03-21] MEDS: METOPROLOL ER 50 MG TABLET 100 MG PO ×2 (08:42→21:15)
[2024-03-21] MEDS: ATORVASTATIN 20 MG TABLET PO (08:42)
[2024-03-21] MEDS: AMLODIPINE 5 MG TABLET 10 MG PO (08:42)
[2024-03-21] MEDS: ENOXAPARIN 40 MG/0.4 ML SYRINGE SUBCUT ×2 (08:44→21:16)
[2024-03-21] MEDS: SODIUM CHLORIDE 0.9% FLUSH 10 ML IV ×2 (08:45→21:16)
--- NOTE | 2024-03-21 11:30 | PM.PN.1 ---
Subjective Subjective Date Patient Seen: 03/21/24 Time Patient Seen: 11:00 Interval history: Again resting in bedside chair. Endorses feeling better and on RA at rest, but still gets SOB with ambulation to bathroom. Per nursing, maintains O2 sat 90-91% at rest but dropped to low 80s on exertion and while asleep. Exam Vital Signs (past 8 hours): - 03/21/24 09:04 03/21/24 09:12 Pulse Rate 78 Pulse Oximetry 95 Oxygen Delivery Method Nasal Cannula Oxygen Flow Rate 1 Fraction of Inspired Oxygen 24 SaO2/FiO2 Ratio 395 Oxygen Delivery Method Nasal Cannula Oxygen Flow Rate 1 Narrative Exam Narrative: General: Pleasant, NAD HEENT: NC/AT, EOMI, moist membranes CV: RRR, normal S1-S2, no m/g/r Resp: CTAB, breath sounds distant, comfortable WOB Abd: Soft, obese, NTND, +BS Ext: No edema Skin: No rash or lesions noted Neuro: A&O x3, moves all extremities, no focal deficits Objective Labs 03/21/24 06:25 03/21/24 06:25 Labs: Laboratory Results - last 24 hr 03/21/24 06:25 WBC 10.1 RBC 3.93 L Hgb 10.0 L Hct 31.5 L MCV 80.1 MCH 25.5 L MCHC 31.8 RDW 15.5 H Plt Count 379 Neut % (Auto) 89.9 H Lymph % (Auto) 7.4 L [place] % (Auto) 2.4 L Eos % (Auto) 0.0 L Baso % (Auto) 0.3 Neut # (Auto) 9000 H Lymph # (Auto) 700 L [place] # (Auto) 200 Eos # (Auto) 0 Baso # (Auto) 0 Sodium 138 Potassium 3.7 Chloride 97 L Carbon Dioxide 37 H BUN 23 H Creatinine 0.57 Estimated GFR > 60 BUN/Creatinine Ratio 40.4 H Glucose 157 H Calcium 9.4 PFSH Medical History Uncomplicated opioid dependence Pulmonary nodule Complex renal cyst Kidney stones CLL (chronic lymphocytic leukemia) Cancer Arthritis Right renal mass Cannabis hyperemesis syndrome concurrent with and due to cannabis abuse Diabetic peripheral neuropathy Hyperlipidemia Hypertension Diabetes mellitus, type II, insulin dependent Aortic stenosis Gastrointestinal irritation Chronic back pain IBS (irritable bowel syndrome) Colitis Ankylosing spondylitis (~1994) Anemia Chicken pox Measles Mumps RLS (restless legs syndrome) Sepsis Surgical History Status post transcatheter aortic valve replacement (~08/2022) History of vaginal hysterectomy History of cholecystectomy History of appendectomy Anesthesia Status post breast biopsy (2013) Status post cholecystectomy (1991) Status post hysterectomy (1993) Status post breast biopsy (1991) Status post appendectomy (1964) Family History Father Cancer Diabetes mellitus Hypertension High cholesterol Mother Heart disease Hypertension Brother Ankylosing spondylitis Son Ankylosing spondylitis Social History marital status: number of children: 2 household members: none Smoking Status: Current every day smoker alcohol intake: never caffeine: No Assessment & Plan Assessment and plan (1) COPD (chronic obstructive pulmonary disease): Qualifiers: COPD type: unspecified COPD Qualified Code(s): J44.9 - Chronic obstructive pulmonary disease, unspecified Status: Acute (2) Acute dyspnea: Status: Acute (3) CAP (community acquired pneumonia): Qualifiers: Laterality: unspecified laterality Qualified Code(s): J18.9 - Pneumonia, unspecified organism Status: Acute (4) Diabetes mellitus, type II, insulin dependent: Status: Chronic (5) Hypertension: Qualifiers: Hypertension type: essential hypertension Qualified Code(s): I10 - Essential (primary) hypertension Status: Chronic Assessment & Plan narrative: #respiratory failure #COPD Continues to report feeling better at rest, still desats to low 80s off O2 with exertion. Otherwise medically stable, may need home O2 temporarily to facilitate discharge. -continue prednisone daily -nebulizer treatments PRN #CAP Luekocytosis resolved, may have included stress/steroid-induced component. Minimally symptomatic with no consolidation on CXR. -s/p ceftriaxone daily, doxycycline b.i.d. (03/16-03/21) #diabetes Hyperglycemia due to steroids, improved w/split basal insulin dosing. -continue glargine 65u daily, split dose equally between 2 injection sites for better absorption -high dose SSI for correction #hypertension -continue home amlodipine, lisinopril Diet: Carb consistent DVT ppx: Lovenox Code: FULL PCP: Rosie Dispo: Home, likely tomorrow Time-Based Coding :: 20 minutes spent with patient and on the chart (including review of chart, obtaining history, exam, reviewing outside data, placing orders, documenting exam and treatment plan, and counseling patient) on 03/21/2024. Quality VTE Deep Vein Thrombosis/Pulmonary Embolism Present on Admission: No IH PROFEE Charge codes Subsequent inpatient/observation care: 32382
[2024-03-21] MEDS: predniSONE 20 MG TABLET PO (12:04)
--- NOTE | 2024-03-21 18:07 | PC.NURSE ---
Pt trialed off oxygen in AM with little desaturation after bathroom trip (90% on RA). Pt napped, desaturation to low 80's, remained 84%-88% on RA after awakening, placed back on 2L NC. Pt ambulated to BR on RA, oxygenation upon return from BR 80% sustained until placed back on 1L NC. Provider notified. Care ongoing.
[2024-03-21] MEDS: INSULIN GLARGINE 100 UNIT/ML 3ML PEN 65 UNIT SUBCUT (21:16)
[2024-03-21] MEDS: LOPERAMIDE 2 MG CAPSULE PO (23:01)
[2024-03-22] VITALS (7 sets, daily range): BP systolic 103–171; BP diastolic 73–81; PULSE 63–80; RESP 18–20; TEMP 35.8–36.8; O2SAT 93–98
[2024-03-22] MEDS: HYDROCODONE/ACET 5/325 TABLET 1 TAB PO ×2 (03:23→08:09)
[2024-03-22] MEDS: METFORMIN HCL 500 MG TABLET 1000 MG PO (06:46)
--- NOTE | 2024-03-22 07:41 | PM.PN.1 ---
Subjective Subjective Date Patient Seen: 03/22/24 Time Patient Seen: 07:41 Interval history: Patient is improved but continues to desaturate off and on. Still has a significant oxygen requirement at times least at 2 L even at rest Has completed a course antibiotic therapy. Has been switch to oral corticosteroids on prednisone 40 mg daily Blood sugar somewhat better off the IV steroids Continues to feel better. Continues to think that her oxygen requirement continued slowly diminishes Exam Vital Signs (past 8 hours): - 03/22/24 02:00 Temperature 97.7 F Pulse Rate 80 Respiratory Rate 18 Blood Pressure 147/78 H Pulse Oximetry 95 Oxygen Flow Rate 0.5 Fraction of Inspired Oxygen 24 SaO2/FiO2 Ratio 391 Oxygen Delivery Method Nasal Cannula Oxygen Flow Rate 0.5 Objective Labs 03/21/24 06:25 03/21/24 06:25 [facility] Medical History Uncomplicated opioid dependence Pulmonary nodule Complex renal cyst Kidney stones CLL (chronic lymphocytic leukemia) Cancer Arthritis Right renal mass Cannabis hyperemesis syndrome concurrent with and due to cannabis abuse Diabetic peripheral neuropathy Hyperlipidemia Hypertension Diabetes mellitus, type II, insulin dependent Aortic stenosis Gastrointestinal irritation Chronic back pain IBS (irritable bowel syndrome) Colitis Ankylosing spondylitis (~1994) Anemia Chicken pox Measles Mumps RLS (restless legs syndrome) Sepsis Surgical History Status post transcatheter aortic valve replacement (~08/2022) History of vaginal hysterectomy History of cholecystectomy History of appendectomy Anesthesia Status post breast biopsy (2013) Status post cholecystectomy (1991) Status post hysterectomy (1993) Status post breast biopsy (1991) Status post appendectomy (1964) Family History Father Cancer Diabetes mellitus Hypertension High cholesterol Mother Heart disease Hypertension Brother Ankylosing spondylitis Son Ankylosing spondylitis Social History marital status: number of children: 2 household members: none Smoking Status: Current every day smoker alcohol intake: never caffeine: No Assessment & Plan Assessment & Plan narrative: 1. Respiratory failure/COPD exacerbation/pneumonia-continue with oral steroids. Continue with nebulizer treatments. Will evaluate for home oxygen at this point. Can likely go home with home oxygen, certainly with activity maybe even at rest 2. Diarrhea-negative for C diff. Continue with the Imodium as needed 3. Diabetes-improved off of parental steroids. Continue current treatment 4. Hypertension-adequate control blood pressure for now no reason to make any changes 5. Disposition patient okay to go home once the oxygen issue can be sorted out Time-Based Coding :: [TOTAL MINUTES] spent with patient and on the chart (including review of chart, obtaining history, exam, reviewing outside data, placing orders, documenting exam and treatment plan, and counseling patient) on [DATE]. Quality VTE Deep Vein Thrombosis/Pulmonary Embolism Present on Admission: No IH PROFEE Charge codes Subsequent inpatient/observation care: [id number]
[2024-03-22] MEDS: ATORVASTATIN 20 MG TABLET PO (08:08)
[2024-03-22] MEDS: lisinopriL 20 MG TABLET 40 MG PO (08:08)
[2024-03-22] MEDS: ASPIRIN EC 81 MG TABLET PO (08:08)
[2024-03-22] MEDS: AMLODIPINE 5 MG TABLET 10 MG PO (08:09)
[2024-03-22] MEDS: METOPROLOL ER 50 MG TABLET 100 MG PO (08:09)
[2024-03-22] MEDS: ENOXAPARIN 40 MG/0.4 ML SYRINGE SUBCUT (08:10)
[2024-03-22] MEDS: SODIUM CHLORIDE 0.9% FLUSH 10 ML IV (08:10)
[2024-03-22] MEDS: predniSONE 20 MG TABLET 40 MG PO (08:12)
--- NOTE | 2024-03-22 08:41 | PM.DS.1 ---
History of Present Illness History of Present Illness Date Patient Seen: 03/22/24 Time Patient Seen: 08:41 Chief complaint: SOB, sick for over a month Narrative: 73-year-old female presented to the emergency department on day of admission with persistent wheezing shortness of breath coughing etcetera She had been seen by me on the 23 of February with similar symptoms. Describing head pressure congestion sore throat coughing wheezing. She did take a COVID test at that time that was negative. Given her symptoms I felt as though he was more viral infection with a flare of her presumed COPD (she continues smoking up until she got sick). She was given 4 days of prednisone which helped tremendously at that time she says. However over the last 2-3 weeks she has had increasing shortness a breath wheezing coughing etcetera. Denies any fever chills. No GI symptoms. No orthopnea no PND. No chest pain no palpitations. Sometimes having a lot of loose stool when coughing vigorously. She was persists with symptoms ever since to the point where she finally came to the emergency department ER evaluation was remarkable for possible right-sided infiltrate on chest x-ray. She was modestly hypoxic with activity. Patient with persistent leukocytosis related to her CLL essentially unchanged from previous and remainder of her lab work unremarkable with the exception of minimally abnormal BNP. Patient did have an echo done in April of 2023 that showed normal left ventricular function She was admitted for COPD exacerbation and pneumonia Discharge Providers Provider Date of admission: 03/16/24 15:50 Discharge Date: 03/22/24 Primary care physician: Javed Velez MD Consults: 03/16/24 16:27 Consult to Cardio/Pulmonary Rehabilitation Routine Comment: Physician Instructions: Evaluate and treat Discharge provider: Javed Velez MD Summary Hospital Course Discharge Diagnosis: 1. Acute respiratory failure with hypoxia 2. COPD exacerbation 3. Community-acquired pneumonia 4. Chronic lymphocytic leukemia 5. Diabetes mellitus type 2 with chronic insulin use/insulin-dependent 6. Diabetic peripheral neuropathy 7. Uncomplicated opioid dependence 7. Hypertension 8. Hyperlipidemia Hospital Course: As above patient was admitted to the hospital with COPD exacerbation respiratory failure and pneumonia. She completed a course of parental antibiotics in the hospital and was improved. However she was still had a significant oxygen requirement which seem to be slowly improving but still did not reach a point where she could be sent home safely without oxygen. Therefore she was evaluated for home oxygen replacement therapy which she qualified for and this was set up for her prior to discharge She was continued on parental corticosteroids in the hospital which were eventually switch to oral corticosteroids once her respiratory status improved. She will continue on a tapering course as an outpatient on oral corticosteroids Patient's blood sugars were poorly controlled while on IV corticosteroids improved on the oral corticosteroids. Insulin doses were adjusted but she will return to her normal insulin levels upon return home given the improvement on the oral steroids Blood pressure etcetera were all stable during this hospitalization Status at Discharge Cognitive/behavioral status at discharge: at baseline, oriented Functional status at discharge: independent ambulation Overall status at discharge: patient is progressing back to baseline Time Spent with Patient Time spent: Less than 30 minutes Exam Vital Signs (past 8 hours): - 03/22/24 02:00 03/22/24 08:00 03/22/24 08:08 Temperature 97.7 F Pulse Rate 80 69 69 Respiratory Rate 18 20 Blood Pressure 147/78 H 171/81 H 171/81 H Pulse Oximetry 95 96 Oxygen Delivery Method Oxygen Flow Rate 0.5 0.5 03/22/24 08:09 03/22/24 08:26 Temperature Pulse Rate 69 Respiratory Rate Blood Pressure 171/81 H Pulse Oximetry 96 Oxygen Delivery Method Nasal Cannula Oxygen Flow Rate 0.5 Fraction of Inspired Oxygen 24 SaO2/FiO2 Ratio 391 Oxygen Delivery Method Nasal Cannula Oxygen Flow Rate 0.5 Objective Labs 03/21/24 06:25 03/21/24 06:25 [facility] Medical History Uncomplicated opioid dependence Pulmonary nodule Complex renal cyst Kidney stones CLL (chronic lymphocytic leukemia) Cancer Arthritis Right renal mass Cannabis hyperemesis syndrome concurrent with and due to cannabis abuse Diabetic peripheral neuropathy Hyperlipidemia Hypertension Diabetes mellitus, type II, insulin dependent Aortic stenosis Gastrointestinal irritation Chronic back pain IBS (irritable bowel syndrome) Colitis Ankylosing spondylitis (~1994) Anemia Chicken pox Measles Mumps RLS (restless legs syndrome) Sepsis Surgical History Status post transcatheter aortic valve replacement (~08/2022) History of vaginal hysterectomy History of cholecystectomy History of appendectomy Anesthesia Status post breast biopsy (2013) Status post cholecystectomy (1991) Status post hysterectomy (1993) Status post breast biopsy (1991) Status post appendectomy (1964) Family History Father Cancer Diabetes mellitus Hypertension High cholesterol Mother Heart disease Hypertension Brother Ankylosing spondylitis Son Ankylosing spondylitis Social History marital status: number of children: 2 household members: none Smoking Status: Current every day smoker alcohol intake: never caffeine: No Discharge Plan Discharge Plan Patient Disposition: Home Discharge orders & Medications Prescriptions: New prednisone 20 mg tablet See Rx Instructions .ROUTE .COMPLEX Qty: 30 0RF Rx Instructions: Take 2 tabs by mouth daily for 5 days, then take 1 1/2 tabs daily for 5 days, then take 1 tab daily for 5 days, then take 1/2 tab daily for 5 days then take 1/2 tab every other day for 4 days then stop Continued (DME) B-D PEN NEEDLE Qty: 100 3RF Dose Instruction: As directed Rx Instructions: 5mm mini B-D. Insulin pen needle 31G x 5. USE 1X A DAY (DME) blood-glucose meter Misc See Rx Instructions .ROUTE .MEDSUPPLY Qty: 1 0RF Rx Instructions: One Touch Ultra Blood Glucose Meter - Use as directed to test blood sugar. 4x daily (DME) lancets [OneTouch Delica Lancets] 33 gauge misc See Rx Instructions .Route Qty: 100 12RF Rx Instructions: As directed to test blood sugar 4x daily (DME) Disabled Parking See Rx Instructions .ROUTE .MEDSUPPLY Qty: 1 0RF Rx Instructions: Patient qualifies for disabled parking as per the attached form. (DME) Droplet Pen [place] 32G X 5MM Qty: 250 6RF Dose Instruction: As directed Rx Instructions: Use 1x daily w/Insulin Pen. (DME) Blood Glucose Test Strip See Rx Instructions .ROUTE .MEDSUPPLY Qty: 250 12RF Rx Instructions: use to test blood sugar up to four times daily potassium chloride 8 mEq capsule, extended release 8 meq PO DAILY Qty: 90 3RF glipizide 5 mg tablet 5 mg PO BID Qty: 180 3RF lisinopril 40 mg tablet 40 mg PO DAILY Qty: 90 2RF amlodipine [Norvasc] 5 mg tablet 10 mg PO DAILY Qty: 180 3RF Lantus Solostar U-100 Insulin 100 unit/mL (3 mL) insulin pen 65 unit SUBCUT HS Qty: 45 11RF metformin 1,000 mg tablet 1,000 mg PO BIDCC Qty: 180 3RF metoprolol succinate 100 mg tablet extended release 24 hr 100 mg PO BID Qty: 180 3RF pioglitazone 30 mg tablet 30 mg PO DAILY Qty: 90 3RF lansoprazole 15 mg capsule,delayed release(DR/EC) 15 mg PO DAILY Adult Probiotic 3 billion cell capsule 3,000 mmu cells PO DAILY aspirin 81 mg tablet,delayed release (DR/EC) 81 mg PO DAILY hydrocodone-acetaminophen 5-325 mg tablet 1 - 2 tab PO QID MDD 5 tabs PRN (Reason: pain) Qty: 125 0RF hydralazine 10 mg Tablet 10 mg PO BID simvastatin 40 mg tablet 40 mg PO DAILY Follow up/Referrals: Javed Velez MD [Primary Care Provider] - 1 Week Discharge Health Status Multidrug resistant organism: No MDRO Diet/Activity/Treatments Diet: Diet as Tolerated and Carb-consistent/Diabetic Oxygen: As per RT home O2 eval Visit Report/Discharge Packet Instructions: Pneumonia-Adult, DI for Heart Failure Stand Alone Forms: Patient Portal/API Discharge Data Primary Care Provider: Javed Velez Quality VTE Deep Vein Thrombosis/Pulmonary Embolism Present on Admission: No IH PROFEE Charge Codes Discharge inpatient/observation: [id number]
--- NOTE | 2024-03-22 11:12 | CM.DPC ---
DCP Discharge home Per MD, pt to have RT assess for new home oxygen eval and then plan of likely discharge home this afternoon and no identified barriers to discharge. Per RN, pt getting Home O2 eval now and no concerns noted. Per RT, pt set up with new home oxygen through [facility] and will be delivered to home around 1300. TCM team notified of pt's d/c home and request for outpt f/u with PCP Dr. Velez. Plan: Patient to d/c home with new home O2 via son POV and outpt f/u after discharge. No further SW needs at this time. Renu Paula MSW
[2024-03-22] MEDS: HYDROCODONE/ACET 5/325 TABLET 2 TAB PO (12:32)
== END 2024-03-22 14:26 | disposition home or self-care (01) | DRG 193 ==
LOC: ED 13:07 → AC 15:51
PROVIDERS: Family Medicine; Admitting Provider Internal Medicine; Emergency Provider Emergency Medicine; PCP Internal Medicine; Referring Provider Emergency Medicine; Visit Provider Internal Medicine
DX: J18.9 Pneumonia, unspecified organism (principal); J96.01 Acute respiratory failure with hypoxia; J44.1 Chronic obstructive pulmonary disease with (acute) exacerbation; C91.10 Chronic lymphocytic leukemia of B-cell type not having achieved remission; F11.20 Opioid dependence, uncomplicated; I10 Essential (primary) hypertension; R19.7 Diarrhea, unspecified; E11.65 Type 2 diabetes mellitus with hyperglycemia; T38.0X5A Adverse effect of glucocorticoids and synthetic analogues, initial encounter; E11.42 Type 2 diabetes mellitus with diabetic polyneuropathy; F17.200 Nicotine dependence, unspecified, uncomplicated; E78.5 Hyperlipidemia, unspecified; Z79.4 Long term (current) use of insulin; Z79.85 Long-term (current) use of injectable non-insulin antidiabetic drugs
CPT/HCPCS: 36415; 71045; 80048; 80053; 82962; 83605; 83880; 84145; 84484; 85025; 85610; 87040; 87493; 87633; 93005; 93010; 94618; 94640; 94667; 94760; 96374; 99223; 99232; 99233; 99238; 99284; 99285; J0696; J1650; J1815; J2919; J7613

== ENCOUNTER 2024-04-23 17:02 | Emergency (ER) | payer MEDICARE, OTHER, SELFPAY ==
[2024-03-16 16:23] VITALS: BMI 36.6
[2024-04-23] VITALS (26 sets, daily range): BP systolic 138–174; BP diastolic 63–89; PULSE 74–92; RESP 18–37; TEMP 37.2; O2SAT 77–98; BMI 39.0
--- NOTE | 2024-04-23 17:22 | DI.RAD.S_ITS ---
PROCEDURE: XR CHEST 1V INDICATIONS: Shortness of breath TECHNIQUE: One view of the chest was acquired. COMPARISON: , CR, XR CHEST 1V, 03/16/2024, 12:58. , CR, XR CHEST 1V, 11/04/2022, 2:32. FINDINGS: Surgical changes and devices: TAVR stent. Lungs and pleura: No consolidation. No significant pleural effusions. No pneumothorax. Mediastinum: Mediastinal contours appear normal. Heart size is normal. Bones and chest wall: No suspicious bony lesions. Overlying soft tissues appear unremarkable. IMPRESSION: No acute cardiopulmonary abnormality is seen. Dictated by: Leon Acuna M.D. on 04/23/2024 at 18:24 Approved by: Leon Acuna M.D. on 04/23/2024 at 18:26
[2024-04-23 17:34] LABS: Add Manual Diff / Slide Review NO; Basophils Absolute Auto 100 /uL (0-100); Basophils Percent Auto 0.8 % (0-2); Eosinophils Absolute Auto 0 /uL (0-450); Eosinophils Percent Auto 0.3 % (2-4); Hematocrit 31.9 % (36-46); Hemoglobin 9.8 g/dL (12.0-16.0); Lymphocytes Absolute Auto 1400 /uL (1100-4500); Lymphocytes Percent Auto 9.8 % (25-40); Mean Corpuscular HGB Conc 30.7 % (30-36); Mean Corpuscular Volume 81.5 fL (80-100); Monocytes Absolute Auto 800 /uL (0-900); Monocytes Percent Auto 5.5 % (3-14); Neutrophils Absolute Auto 12000 /uL (1500-7000); Neutrophils Percent Auto 83.6 % (50-75); Platelet Count 448 X10^3/uL (150-400); Red Blood Cell Count 3.92 X10^6/uL (4.0-5.2); Red Cell Distribution Width 17.7 % (11.6-14.8); White Blood Cell Count 14.4 X10^3/uL (4.5-11.0)
--- NOTE | 2024-04-23 17:35 | EKG_ITS ---
[address] [address] Test Date: 2024-04-23 Pat Name: Ben Lamar Department: [facility] Room: Gender: Female [employer]: TROY : 1950 Requested By: Order Number: [id number] Reading MD: Javed Velez MD Measurements Intervals [place] Rate: 79 P: 40 TX: 160 QRS: 46 QRSD: 78 T: 50 QT: 390 QTc: 447 Interpretive Statements Normal sinus rhythm Electronically Signed On 04-23-2024 20:55:20 PST by Javed Velez MD
[2024-04-23 17:41] LABS: INR 1.1 (0.9-1.3); Prothrombin Time 12.5 SECONDS (9.4-12.5)
[2024-04-23 17:44] LABS: Lactate (Lactic Acid) 1.8 mmol/L (0.7-2.1)
[2024-04-23 17:45] LABS: Alanine Aminotransferase 19 IU/L (<35); Albumin 4.4 g/dL (3.5-5.0); Albumin Globulin Ratio 1.7 (1.0-2.8); Alkaline Phosphatase 83 U/L (38-126); Aspartate Aminotransferase 27 IU/L (14-36); BUN Creatinine Ratio 18.9 (6-22); Bilirubin Total 0.7 mg/dL (0.2-1.3); Blood Urea Nitrogen 14 mg/dL (7-17); Calcium 9.7 mg/dL (8.4-10.2); Carbon Dioxide 28 mmol/L (22-32); Chloride 103 mmol/L (98-107); Estimated Glomerular Filt Rate > 60 mL/min (>60); Globulin 2.6 g/dL (1.7-4.1); Glucose 117 mg/dL (80-110); HEMOLYSIS < 15 (0-50); Potassium 4.6 mmol/L (3.4-5.1); Sodium 139 mmol/L (137-145)
--- NOTE | 2024-04-23 17:46 | RT ---
Patient assessed for shortness of breath. Patient states she hasn't smoked in over 40 years, later stating she does currently smoke marijuana through a pipe. Patient shows pedal edema on left +4. Breath sounds are clear bilaterally. Patient is able to speak full sentences. Patient states she does not use oxygen at home, but was sent home with O2 last time she was admitted. Patient states she was told to use it only when she needs it. On room air in the emergency room patient saturation was 77%. On 2L currently, saturation 95%.
--- NOTE | 2024-04-23 17:51 | DI.CT.S_ITS ---
PROCEDURE: CT ANGIO CHEST PE PROTOCOL INDICATIONS: hypoxia recent admission TECHNIQUE: After the administration of intravenous contrast, 2 mm thick sections acquired from the pulmonary apices to the posterior costophrenic angles. 3-dimensional maximum intensity projection (MIP) coronal and sagittal reformats were then acquired through the thorax. For radiation dose reduction, the following was used: automated exposure control, adjustment of mA and/or kV according to patient size. COMPARISON: [facility], CT, CT ABDOMEN RENAL PROTOCOL, 10/22/2023, 10:42. [facility], CT, CT CHEST W CON, 03/24/2023, 11:01. [facility], CR, XR CHEST 1V, 04/23/2024, 17:30. [facility], CT, CT ANGIO CHEST PE PROTOCOL, 11/04/2022, 3:32. FINDINGS: Image quality: Diagnostic. Pulmonary arteries: Pulmonary arteries are normal in size, and demonstrate no intraluminal filling defects to suggest central pulmonary embolism. Lower Neck: No enlarged lymph nodes. Thyroid: No thyroid nodules which require sonographic follow up, per consensus guidelines. Axillae: No enlarged lymph nodes. Chest Wall: Unremarkable. Bones: Bridging vertebral body syndesmophytes. No suspicious osseous lesion. Lungs and Pleura: No pneumothorax. Small bilateral pleural effusions. -Right upper lobe pulmonary nodule measuring 0.5 cm, (5/161). -Right upper lobe pulmonary nodule measuring 0.6 cm, (5/108), unchanged. Bilateral patchy airspace opacity. Interlobular septal thickening. Heart: Heart size is normal. TAVR stent. No pericardial effusion. Thoracic Vessels: No aortic aneurysm. Mediastinum and Neva: -Right hilar node measuring 1.8 cm, (4/74), previously 1.4 cm. -Precarinal node measuring 1.6 cm, (4/76), previously 1.1 cm. -Prevascular lymph node measuring 1.3 cm, (4/57), previously 1.3 cm. Esophagus: No wall thickening. No hiatal hernia. Upper Abdomen: Left renal cyst partially visualized. Post cholecystectomy. IMPRESSION: 1. No pulmonary embolism. 2. Small bilateral pleural effusions. Fluid overload/CHF. 3. Small pulmonary nodules. Not well evaluated on this exam. 4. Enlarged mediastinal and hilar lymph nodes. Dictated by: Leon Acuna M.D. on 04/23/2024 at 19:34 Approved by: Leon Acuna M.D. on 04/23/2024 at 19:46
[2024-04-23 17:57] LABS: NT-proBNP (BNP-Adult 18+) 992 pg/mL (<450); Troponin I 0.082 ng/mL (0.01-0.034)
[2024-04-23] MEDS: ALBUTEROL/IPRATROPIUM 3 ML AMPUL INH (18:04)
--- NOTE | 2024-04-23 20:01 | ED.SOB ---
HPI - SOB/Dyspnea <Jennifer Andino, - Last Filed: 04/25/24 04:57> General Chief Complaint: Shortness of Breath/Dyspnea Stated Complaint: SOB, O2 isn't helping Time Seen by Provider: 04/23/24 17:46 Source: patient, RN notes reviewed and old records reviewed History of Present Illness HPI Narrative: 74-year-old female history of TAVR, CLL, hypertension, diabetes on insulin, COPD, dyslipidemia aspirin 81 mg daily. Patient returns after recent admission patient was admitted on 03/16/2024 and discharged home on 03/22/[address] Velez was sent home with home O2 but has not required it until recently. Has had increasing shortness of breath using in the last day 4 L. 77% on room air, 94% on 4 L. patient presents with complaint of increasing shortness of breath over the past several days. She was noticed increasing swelling of her lower extremities as well. Denies fevers or chills. No chest pain or pressure but has had more shortness of breath particularly with exertion but even at rest. She has not appreciate any orthopnea but states show a sits upright. Patient states no nausea or vomiting. No issues with bowel movements or urination. She denies any drug allergies. Has had a TAVR in the past but states no other cardiac interventions. Patient does not use any tobacco, alcohol recreational drugs other than occasional marijuana. She is seen Cardiology at [facility] in the past and follows with Dr. Velez locally. Related Data Home Medications Medication Instructions Recorded Confirmed aspirin 81 mg tablet,delayed 81 mg PO DAILY 04/28/18 03/30/24 release lactobacillus combination no.8 3 3,000 mmu cells PO DAILY 04/28/18 03/30/24 billion cell capsule (Adult Probiotic) lansoprazole 15 mg capsule,delayed 15 mg PO DAILY 04/28/18 03/30/24 release hydralazine 10 mg tablet 10 mg PO BID 03/16/24 03/30/24 simvastatin 40 mg tablet 40 mg PO DAILY 03/16/24 03/30/24 Previous Rx's Medication Instructions Recorded B-D PEN NEEDLE #100 ea 02/22/19 blood-glucose meter #1 ea 09/23/19 Disabled Parking #1 ea 03/26/21 Droplet Pen [place] #250 ea 06/22/21 potassium chloride 8 mEq 8 meq PO DAILY #90 caps 06/23/23 capsule,extended release glipizide 5 mg tablet 5 mg PO BID #180 tabs 10/29/23 lisinopril 40 mg tablet 40 mg PO DAILY #90 tabs 12/03/23 amlodipine 5 mg tablet (Norvasc) 10 mg (2 x 5 mg) PO DAILY #180 tabs 12/15/23 insulin glargine 100 unit/mL (3 65 unit (0.65 mL) SUBCUT HS #45 mL 12/22/23 mL) subcutaneous pen (Lantus Solostar U-100 Insulin) metformin 1,000 mg tablet 1,000 mg PO BIDCC #180 tabs 01/23/24 metoprolol succinate 100 mg 100 mg PO BID #180 tabs 02/10/24 tablet,extended release 24 hr hydrocodone 5 mg-acetaminophen 325 1 - 2 tab PO QID PRN pain #125 tabs 02/24/24 mg tablet pioglitazone 30 mg tablet 30 mg PO DAILY #90 tabs 03/11/24 blood sugar diagnostic (Blood #250 ea 03/23/24 Glucose Test strips) lancets 33 gauge #100 ea 03/23/24 prednisone 20 mg tablet See Rx Instructions .Route 03/23/24 .COMPLEX #30 tabs Allergies Allergy/AdvReac Type Severity Reaction Status Date / Time No Known Drug Allergies Allergy Verified 02/24/24 10:54 Review of Systems <Jennifer Andino DO - Last Filed: 04/25/24 04:57> Review of Systems ROS Unobtainable: All systems reviewed & are unremarkable except as noted in HPI and below Patient History <Jennifer Andino DO - Last Filed: 04/25/24 04:57> Medical History COPD (chronic obstructive pulmonary disease) Uncomplicated opioid dependence Pulmonary nodule Complex renal cyst Kidney stones CLL (chronic lymphocytic leukemia) Cancer Arthritis Right renal mass Cannabis hyperemesis syndrome concurrent with and due to cannabis abuse Diabetic peripheral neuropathy Hyperlipidemia Hypertension Diabetes mellitus, type II, insulin dependent Aortic stenosis Gastrointestinal irritation Chronic back pain IBS (irritable bowel syndrome) Colitis Ankylosing spondylitis (~1994) Anemia Chicken pox Measles Mumps RLS (restless legs syndrome) Sepsis Surgical History Status post transcatheter aortic valve replacement (~08/2022) History of vaginal hysterectomy History of cholecystectomy History of appendectomy Anesthesia Status post breast biopsy (2013) Status post cholecystectomy (1991) Status post hysterectomy (1993) Status post breast biopsy (1991) Status post appendectomy (1964) Family History Father Cancer Diabetes mellitus Hypertension High cholesterol Mother Heart disease Hypertension Brother Ankylosing spondylitis Son Ankylosing spondylitis Social History marital status: number of children: 2 household members: none Smoking Status: Current every day smoker alcohol intake: never caffeine: No Smoking Status: Current every day smoker Exam <Jennifer Andino DO - Last Filed: 04/25/24 04:57> Narrative Exam Narrative: GENERAL: Alert and oriented x three, female in mild distress HEENT: Head normocephalic, atraumatic, EOMI, pupils reactive, face symmetric, moist mucous membranes, nasal cannula in place NECK: Supple, full range of motion CARDIOVASCULAR: Regular rate and rhythm without murmurs, rubs or gallops. Bilateral lower extremity edema. RESPIRATORY: Breath sounds equal bilaterally, no wheezes rales or rhonchi. No tachypnea but patient had received medications prior to evaluation. Speaks in full sentences. ABDOMEN: Soft, nontender. Normoactive bowel sounds all 4 quadrants. No guarding or rebound, rigidity, no mass : No CVA tenderness EXTREMITIES: Normal range of motion, no clubbing or edema. Neurovascularly intact NEUROLOGICAL: Cranial nerves II through XII grossly intact. Moving all extremities SKIN: Warm, dry, no petechiae, no rashes or lesions. Initial Vital Signs Initial Vital Signs: Vital Signs Pulse Rate 92 H 04/23/24 17:14 <Lea Seay DO - Last Filed: 04/24/24 09:01> Initial Vital Signs Initial Vital Signs: Vital Signs Pulse Rate 92 H 04/23/24 17:14 Course <Jennifer Andino DO - Last Filed: 04/25/24 04:57> Orders Ordered: Discontinued Medications Hydrocodone Bitart/Acetaminophen (Hydrocodone/Acet 5/325 Tablet) 1 tab PO NOW ONE Stop: 04/24/24 00:36 Last Admin: 04/24/24 01:09 Dose: 1 tab Documented By: LUCY Albuterol/Ipratropium (Albuterol/Ipratropium 3 Ml Ampul) 3 ml INH NOW ONE Stop: 04/23/24 17:47 Last Admin: 04/23/24 18:04 Dose: 3 ml Documented By: HARITHA Aspirin (Aspirin 81 Mg Chew Tab) 324 mg PO NOW ONE Stop: 04/23/24 21:34 Last Admin: 04/23/24 22:14 Dose: 243 mg Documented By: EVETET Atorvastatin Calcium (Atorvastatin 20 Mg Tablet) 40 mg PO NOW ONE Stop: 04/23/24 22:49 Last Admin: 04/23/24 23:30 Dose: 40 mg Documented By: EVETTE Furosemide (Furosemide 40 Mg/4 Ml Vial) 40 mg IV NOW ONE Stop: 04/23/24 20:07 Last Admin: 04/23/24 20:25 Dose: 40 mg Documented By: EVETTE Heparin Sodium (Porcine) (Heparin 5,000 Unit/Ml Vial) 5,500 unit 60 unit/kg (5500 unit) IV NOW ONE Stop: 04/23/24 21:53 Last Admin: 04/23/24 22:05 Dose: 5,500 unit Documented By: EVETTE Hydralazine HCl (Hydralazine 25 Mg Tablet) 25 mg PO BIDWM YANN Last Admin: 04/23/24 23:32 Dose: 25 mg Documented By: EVETTE Heparin Sodium/Dextrose (Heparin Drip) 25,000 unit in 500 mls @ 21.772 mls/hr IV CONT YANN; Protocol Last Titration: 04/24/24 05:19 Dose: 9.1 units/kg/hr, 16.511 mls/hr Documented By: LUCY Co-signed By: Titration: 04/24/24 04:45 Dose: 0 units/kg/hr, 0 mls/hr Documented By: LUCY Co-signed By: JACKLYN Titration: 04/23/24 22:18 Dose: 11.1 units/kg/hr, 20.139 mls/hr Documented By: EVETTE Co-signed By: MALIK Admin: 04/23/24 22:04 Dose: 12 units/kg/hr, 21.772 mls/hr Documented By: EVETTE Co-signed By: JEFFERSON Metformin HCl (Metformin Hcl 500 Mg Tablet) 1,000 mg PO 0800,1700 YANN Last Admin: 04/23/24 23:32 Dose: 1,000 mg Documented By: EVETTE Methylprednisolone (Methylprednisolone 125 Mg/2 Ml Vial) 125 mg IV NOW ONE Stop: 04/23/24 20:06 Last Admin: 04/23/24 20:26 Dose: 125 mg Documented By: EVETTE Vital Signs Vital signs: Vital Signs - 8 hr 04/24/24 01:30 04/24/24 01:41 04/24/24 01:41 Pulse Rate 84 83 Respiratory Rate 21 20 Blood Pressure 127/58 L Pulse Oximetry 97 96 Oxygen Delivery Method Nasal Cannula Nasal Cannula Oxygen Flow Rate 2 2 04/24/24 01:43 04/24/24 02:00 04/24/24 02:00 Pulse Rate 78 81 Respiratory Rate 23 Blood Pressure 127/58 L 130/60 Pulse Oximetry 96 Oxygen Delivery Method Nasal Cannula Oxygen Flow Rate 2 04/24/24 02:30 04/24/24 02:30 04/24/24 03:00 Pulse Rate 73 78 Respiratory Rate 16 26 H Blood Pressure 137/63 Pulse Oximetry 96 96 Oxygen Delivery Method Nasal Cannula Nasal Cannula Oxygen Flow Rate 2 2 04/24/24 03:00 04/24/24 03:30 04/24/24 03:30 Pulse Rate 80 Respiratory Rate 18 Blood Pressure 120/59 L 127/57 L Pulse Oximetry 97 Oxygen Delivery Method Nasal Cannula Oxygen Flow Rate 2 04/24/24 04:00 04/24/24 04:00 04/24/24 04:30 Pulse Rate 72 Respiratory Rate 15 Blood Pressure 113/54 L 117/57 L Pulse Oximetry 97 Oxygen Delivery Method Nasal Cannula Oxygen Flow Rate 2 04/24/24 04:30 04/24/24 05:00 04/24/24 05:00 Pulse Rate 71 69 Respiratory Rate 15 13 Blood Pressure 109/55 L Pulse Oximetry 97 96 Oxygen Delivery Method Nasal Cannula Nasal Cannula Nasal Cannula Oxygen Flow Rate 2 2 04/24/24 05:30 04/24/24 05:30 04/24/24 06:00 Pulse Rate 66 Respiratory Rate 14 Blood Pressure 126/61 126/60 Pulse Oximetry 97 Oxygen Delivery Method Nasal Cannula Oxygen Flow Rate 2 04/24/24 06:00 04/24/24 06:30 04/24/24 06:30 Pulse Rate 65 72 Respiratory Rate 14 15 Blood Pressure 132/61 Pulse Oximetry 97 97 Oxygen Delivery Method Nasal Cannula Oxygen Flow Rate 2 04/24/24 07:00 04/24/24 07:00 04/24/24 07:30 Pulse Rate 82 84 Respiratory Rate 15 Blood Pressure 153/67 H Pulse Oximetry 97 96 Oxygen Delivery Method Oxygen Flow Rate 2 04/24/24 07:30 04/24/24 08:00 04/24/24 08:00 Pulse Rate 89 Respiratory Rate 32 H Blood Pressure 151/68 H 157/72 H Pulse Oximetry 97 Oxygen Delivery Method Oxygen Flow Rate 2 04/24/24 08:30 04/24/24 08:30 Pulse Rate 89 Respiratory Rate 20 Blood Pressure 150/69 H Pulse Oximetry 99 94 Oxygen Delivery Method Nasal Cannula Oxygen Flow Rate 2 <Lea Seay DO - Last Filed: 04/24/24 09:01> Orders Ordered: Discontinued Medications Hydrocodone Bitart/Acetaminophen (Hydrocodone/Acet 5/325 Tablet) 1 tab PO NOW ONE Stop: 04/24/24 00:36 Last Admin: 04/24/24 01:09 Dose: 1 tab Documented By: LUCY Albuterol/Ipratropium (Albuterol/Ipratropium 3 Ml Ampul) 3 ml INH NOW ONE Stop: 04/23/24 17:47 Last Admin: 04/23/24 18:04 Dose: 3 ml Documented By: HARITHA Aspirin (Aspirin 81 Mg Chew Tab) 324 mg PO NOW ONE Stop: 04/23/24 21:34 Last Admin: 04/23/24 22:14 Dose: 243 mg Documented By: EVETTE Atorvastatin Calcium (Atorvastatin 20 Mg Tablet) 40 mg PO NOW ONE Stop: 04/23/24 22:49 Last Admin: 04/23/24 23:30 Dose: 40 mg Documented By: EVETTE Furosemide (Furosemide 40 Mg/4 Ml Vial) 40 mg IV NOW ONE Stop: 04/23/24 20:07 Last Admin: 04/23/24 20:25 Dose: 40 mg Documented By: EVETTE Heparin Sodium (Porcine) (Heparin 5,000 Unit/Ml Vial) 5,500 unit 60 unit/kg (5500 unit) IV NOW ONE Stop: 04/23/24 21:53 Last Admin: 04/23/24 22:05 Dose: 5,500 unit Documented By: EVETTE Hydralazine HCl (Hydralazine 25 Mg Tablet) 25 mg PO BIDWM [facility] Last Admin: 04/23/24 23:32 Dose: 25 mg Documented By: EVETTE Heparin Sodium/Dextrose (Heparin Drip) 25,000 unit in 500 mls @ 21.772 mls/hr IV CONT YANN; Protocol Last Titration: 04/24/24 05:19 Dose: 9.1 units/kg/hr, 16.511 mls/hr Documented By: LUCY Co-signed By: Titration: 04/24/24 04:45 Dose: 0 units/kg/hr, 0 mls/hr Documented By: LUCY Co-signed By: JACKLYN Titration: 04/23/24 22:18 Dose: 11.1 units/kg/hr, 20.139 mls/hr Documented By: EVETTE Co-signed By: MALIK Admin: 04/23/24 22:04 Dose: 12 units/kg/hr, 21.772 mls/hr Documented By: EVETTE Co-signed By: JEFFERSON Metformin HCl (Metformin Hcl 500 Mg Tablet) 1,000 mg PO 0800,1700 [facility] Last Admin: 04/23/24 23:32 Dose: 1,000 mg Documented By: EVETTE Methylprednisolone (Methylprednisolone 125 Mg/2 Ml Vial) 125 mg IV NOW ONE Stop: 04/23/24 20:06 Last Admin: 04/23/24 20:26 Dose: 125 mg Documented By: EVETTE Vital Signs Vital signs: Vital Signs - 8 hr 04/24/24 01:30 04/24/24 01:41 04/24/24 01:41 Pulse Rate 84 83 Respiratory Rate 21 20 Blood Pressure 127/58 L Pulse Oximetry 97 96 Oxygen Delivery Method Nasal Cannula Nasal Cannula Oxygen Flow Rate 2 2 04/24/24 01:43 04/24/24 02:00 04/24/24 02:00 Pulse Rate 78 81 Respiratory Rate 23 Blood Pressure 127/58 L 130/60 Pulse Oximetry 96 Oxygen Delivery Method Nasal Cannula Oxygen Flow Rate 2 04/24/24 02:30 04/24/24 02:30 04/24/24 03:00 Pulse Rate 73 78 Respiratory Rate 16 26 H Blood Pressure 137/63 Pulse Oximetry 96 96 Oxygen Delivery Method Nasal Cannula Nasal Cannula Oxygen Flow Rate 2 2 04/24/24 03:00 04/24/24 03:30 04/24/24 03:30 Pulse Rate 80 Respiratory Rate 18 Blood Pressure 120/59 L 127/57 L Pulse Oximetry 97 Oxygen Delivery Method Nasal Cannula Oxygen Flow Rate 2 04/24/24 04:00 04/24/24 04:00 04/24/24 04:30 Pulse Rate 72 Respiratory Rate 15 Blood Pressure 113/54 L 117/57 L Pulse Oximetry 97 Oxygen Delivery Method Nasal Cannula Oxygen Flow Rate 2 04/24/24 04:30 04/24/24 05:00 04/24/24 05:00 Pulse Rate 71 69 Respiratory Rate 15 13 Blood Pressure 109/55 L Pulse Oximetry 97 96 Oxygen Delivery Method Nasal Cannula Nasal Cannula Nasal Cannula Oxygen Flow Rate 2 2 04/24/24 05:30 04/24/24 05:30 04/24/24 06:00 Pulse Rate 66 Respiratory Rate 14 Blood Pressure 126/61 126/60 Pulse Oximetry 97 Oxygen Delivery Method Nasal Cannula Oxygen Flow Rate 2 04/24/24 06:00 04/24/24 06:30 04/24/24 06:30 Pulse Rate 65 72 Respiratory Rate 14 15 Blood Pressure 132/61 Pulse Oximetry 97 97 Oxygen Delivery Method Nasal Cannula Oxygen Flow Rate 2 04/24/24 07:00 04/24/24 07:00 04/24/24 07:30 Pulse Rate 82 84 Respiratory Rate 15 Blood Pressure 153/67 H Pulse Oximetry 97 96 Oxygen Delivery Method Oxygen Flow Rate 2 04/24/24 07:30 04/24/24 08:00 04/24/24 08:00 Pulse Rate 89 Respiratory Rate 32 H Blood Pressure 151/68 H 157/72 H Pulse Oximetry 97 Oxygen Delivery Method Oxygen Flow Rate 2 04/24/24 08:30 04/24/24 08:30 Pulse Rate 89 Respiratory Rate 20 Blood Pressure 150/69 H Pulse Oximetry 99 94 Oxygen Delivery Method Nasal Cannula Oxygen Flow Rate 2 MDM - SOB/Dyspnea <Jennifer Andino, DO - Last Filed: 04/25/24 04:57> Lab Data 04/23/24 17:23 04/23/24 17:23 Labs: Lab Results 04/23/24 04/23/24 04/23/24 Range/Units 17:23 19:06 19:30 WBC 14.4 H (4.5-11.0) X10^3/uL RBC 3.92 L (4.0-5.2) X10^6/uL Hgb 9.8 L (12.0-16.0) g/dL Hct 31.9 L (36-46) % MCV 81.5 (80-100) fL MCH 25.0 L (26-34) PG MCHC 30.7 (30-36) % RDW 17.7 H (11.6-14.8) % Plt Count 448 H (150-400) X10^3/uL Neut % (Auto) 83.6 H (50-75) % Lymph % (Auto) 9.8 L (25-40) % Nelson % (Auto) 5.5 (3-14) % Eos % (Auto) 0.3 L (2-4) % Baso % (Auto) 0.8 (0-2) % Neut # (Auto) 14299 H (9008-7360) /uL Lymph # (Auto) 1400 (5568-8450) /uL Nelson # (Auto) 800 (0-900) /uL Eos # (Auto) 0 (0-450) /uL Baso # (Auto) 100 (0-100) /uL PT 12.5 (9.4-12.5) SECONDS INR 1.1 (0.9-1.3) APTT (25.1-36.5) SECONDS Sodium 139 (137-145) mmol/L Potassium 4.6 (3.4-5.1) mmol/L Chloride 103 (98-107) mmol/L Carbon Dioxide 28 (22-32) mmol/L BUN 14 (7-17) mg/dL Creatinine 0.74 (0.52-1.04) mg/dL Estimated GFR > 60 (>60) mL/min BUN/Creatinine Ratio 18.9 (6-22) Glucose 117 H (80-110) mg/dL Lactate 1.8 (0.7-2.1) mmol/L Calcium 9.7 (8.4-10.2) mg/dL Total Bilirubin 0.7 (0.2-1.3) mg/dL AST 27 (14-36) IU/L ALT 19 (<35) IU/L Alkaline Phosphatase 83 (38-126) U/L Troponin I 0.082 H 0.176 H* (0.01-0.034) ng/mL NT-Pro-B Natriuret Pep 992 H (<450) pg/mL Total Protein 7.0 (6.3-8.2) g/dL Albumin 4.4 (3.5-5.0) g/dL Globulin 2.6 (1.7-4.1) g/dL Albumin/Globulin Ratio 1.7 (1.0-2.8) SARS-CoV-2 (PCR) Negative (Negative) Influenza A (RT-PCR) Flu a negative (NEGATIVE) Influenza B (RT-PCR) Flu b negative (NEGATIVE) RSV (PCR) Negative (Negative) 04/24/24 04/24/24 Range/Units 04:08 07:49 WBC (4.5-11.0) X10^3/uL RBC (4.0-5.2) X10^6/uL Hgb (12.0-16.0) g/dL Hct (36-46) % MCV (80-100) fL MCH (26-34) PG MCHC (30-36) % RDW (11.6-14.8) % Plt Count (150-400) X10^3/uL Neut % (Auto) (50-75) % Lymph % (Auto) (25-40) % Nelson % (Auto) (3-14) % Eos % (Auto) (2-4) % Baso % (Auto) (0-2) % Neut # (Auto) (8040-4048) /uL Lymph # (Auto) (4240-0815) /uL Nelson # (Auto) (0-900) /uL Eos # (Auto) (0-450) /uL Baso # (Auto) (0-100) /uL PT (9.4-12.5) SECONDS INR (0.9-1.3) APTT 83 H* (25.1-36.5) SECONDS Sodium (137-145) mmol/L Potassium (3.4-5.1) mmol/L Chloride (98-107) mmol/L Carbon Dioxide (22-32) mmol/L BUN (7-17) mg/dL Creatinine (0.52-1.04) mg/dL Estimated GFR (>60) mL/min BUN/Creatinine Ratio (6-22) Glucose (80-110) mg/dL Lactate (0.7-2.1) mmol/L Calcium (8.4-10.2) mg/dL Total Bilirubin (0.2-1.3) mg/dL AST (14-36) IU/L ALT (<35) IU/L Alkaline Phosphatase (38-126) U/L Troponin I 0.352 H* (0.01-0.034) ng/mL NT-Pro-B Natriuret Pep (<450) pg/mL Total Protein (6.3-8.2) g/dL Albumin (3.5-5.0) g/dL Globulin (1.7-4.1) g/dL Albumin/Globulin Ratio (1.0-2.8) SARS-CoV-2 (PCR) (Negative) Influenza A (RT-PCR) (NEGATIVE) Influenza B (RT-PCR) (NEGATIVE) RSV (PCR) (Negative) ECG Data Attestation: I personally reviewed and interpreted this ECG as follows: Interpretation: Normal sinus rhythm rate of 79, WI 160 QRS is 78 QTC of 447, no acute ST elevation. MDM Narrative Medical decision making narrative: 4-year-old female with increasing shortness of breath no chest pain or pressure but possible cardiac anginal equivalent versus heart failure most likely causes she was discharged home on oxygen but has not used in the past month until yesterday when she had increasing shortness of breath. Patient feels improved here after meds, DuoNebs Lasix and Solu-Medrol. Troponin is trending upwards. EKG did not show any acute ST changes. Sinus rhythm rate of 79, no acute ST changes appreciated White count 14, hemoglobin of 9.8 appears consistent with priors, platelets are 448. INR is 1.1 electrolytes are otherwise appropriate creatinine 0.74 glucose is 117 lactate 1.8 LFTs are appropriate troponin 0.082 with repeat troponin is 0.176, BNP is 992. COVID/influenza/RSV is negative Chest x-ray shows no acute change CTA showed no pulmonary embolism, small bilateral pleural effusions/fluid overload/CHF small but pulmonary nodules enlarged mediastinal and hilar lymph nodes. Patient received DuoNeb, Lasix and methylprednisolone. Patient given aspirin and started on heparin. [id number] Peralta, cardiology at [facility] discussed CHF versus NSTEMI feels patient would probably benefit from transfer with her history of TAVR, rising troponin recommends aspirin, echo and heparin drip Lasdeja call to see if there are beds available at [facility] he would be happy to see her. Called to [facility] no beds available we will call around to see who has beds available. Discussed with patient she was agreeable to transfer as needed. Calls out to multiple facilities. Possible bed at [facility] awaiting callback from cardiology. Spoke with Dr. Contreras cardiology, [facility] suspects more demand ischemia. We will reach out to coordinator for transfer. Patient signed out to Dr. Seay while awaiting callback from hospitalist. [id number] Dr. Seay, patient signed out to me by Dr. Andino I have seen evaluated patient myself. Patient was history of TAVR CHF exacerbation requiring O2 has an elevated troponin. Due to history of TAVR and CHF exacerbation cardiology recommended transfer to higher level of care [address] Iraheta, at [facility] updated on patient's symptoms test results kindly accepts patient trop 0.352 <Lea Seay, DO - Last Filed: 04/24/24 09:01> Lab Data Labs: Lab Results 04/23/24 04/23/24 04/23/24 Range/Units 17:23 19:06 19:30 WBC 14.4 H (4.5-11.0) X10^3/uL RBC 3.92 L (4.0-5.2) X10^6/uL Hgb 9.8 L (12.0-16.0) g/dL Hct 31.9 L (36-46) % MCV 81.5 (80-100) fL MCH 25.0 L (26-34) PG MCHC 30.7 (30-36) % RDW 17.7 H (11.6-14.8) % Plt Count 448 H (150-400) X10^3/uL Neut % (Auto) 83.6 H (50-75) % Lymph % (Auto) 9.8 L (25-40) % Nelson % (Auto) 5.5 (3-14) % Eos % (Auto) 0.3 L (2-4) % Baso % (Auto) 0.8 (0-2) % Neut # (Auto) 70530 H (7184-4010) /uL Lymph # (Auto) 1400 (1536-6161) /uL Nelson # (Auto) 800 (0-900) /uL Eos # (Auto) 0 (0-450) /uL Baso # (Auto) 100 (0-100) /uL PT 12.5 (9.4-12.5) SECONDS INR 1.1 (0.9-1.3) APTT (25.1-36.5) SECONDS Sodium 139 (137-145) mmol/L Potassium 4.6 (3.4-5.1) mmol/L Chloride 103 (98-107) mmol/L Carbon Dioxide 28 (22-32) mmol/L BUN 14 (7-17) mg/dL Creatinine 0.74 (0.52-1.04) mg/dL Estimated GFR > 60 (>60) mL/min BUN/Creatinine Ratio 18.9 (6-22) Glucose 117 H (80-110) mg/dL Lactate 1.8 (0.7-2.1) mmol/L Calcium 9.7 (8.4-10.2) mg/dL Total Bilirubin 0.7 (0.2-1.3) mg/dL AST 27 (14-36) IU/L ALT 19 (<35) IU/L Alkaline Phosphatase 83 (38-126) U/L Troponin I 0.082 H 0.176 H* (0.01-0.034) ng/mL NT-Pro-B Natriuret Pep 992 H (<450) pg/mL Total Protein 7.0 (6.3-8.2) g/dL Albumin 4.4 (3.5-5.0) g/dL Globulin 2.6 (1.7-4.1) g/dL Albumin/Globulin Ratio 1.7 (1.0-2.8) SARS-CoV-2 (PCR) Negative (Negative) Influenza A (RT-PCR) Flu a negative (NEGATIVE) Influenza B (RT-PCR) Flu b negative (NEGATIVE) RSV (PCR) Negative (Negative) 04/24/24 04/24/24 Range/Units 04:08 07:49 WBC (4.5-11.0) X10^3/uL RBC (4.0-5.2) X10^6/uL Hgb (12.0-16.0) g/dL Hct (36-46) % MCV (80-100) fL MCH (26-34) PG MCHC (30-36) % RDW (11.6-14.8) % Plt Count (150-400) X10^3/uL Neut % (Auto) (50-75) % Lymph % (Auto) (25-40) % Nelson % (Auto) (3-14) % Eos % (Auto) (2-4) % Baso % (Auto) (0-2) % Neut # (Auto) (0921-7893) /uL Lymph # (Auto) (6772-1539) /uL Nelson # (Auto) (0-900) /uL Eos # (Auto) (0-450) /uL Baso # (Auto) (0-100) /uL PT (9.4-12.5) SECONDS INR (0.9-1.3) APTT 83 H* (25.1-36.5) SECONDS Sodium (137-145) mmol/L Potassium (3.4-5.1) mmol/L Chloride (98-107) mmol/L Carbon Dioxide (22-32) mmol/L BUN (7-17) mg/dL Creatinine (0.52-1.04) mg/dL Estimated GFR (>60) mL/min BUN/Creatinine Ratio (6-22) Glucose (80-110) mg/dL Lactate (0.7-2.1) mmol/L Calcium (8.4-10.2) mg/dL Total Bilirubin (0.2-1.3) mg/dL AST (14-36) IU/L ALT (<35) IU/L Alkaline Phosphatase (38-126) U/L Troponin I 0.352 H* (0.01-0.034) ng/mL NT-Pro-B Natriuret Pep (<450) pg/mL Total Protein (6.3-8.2) g/dL Albumin (3.5-5.0) g/dL Globulin (1.7-4.1) g/dL Albumin/Globulin Ratio (1.0-2.8) SARS-CoV-2 (PCR) (Negative) Influenza A (RT-PCR) (NEGATIVE) Influenza B (RT-PCR) (NEGATIVE) RSV (PCR) (Negative) MDM Narrative Medical decision making narrative: 4-year-old female with increasing shortness of breath no chest pain or pressure but possible cardiac anginal equivalent versus heart failure most likely causes she was discharged home on oxygen but has not used in the past month until yesterday when she had increasing shortness of breath. Patient feels improved here after meds, DuoNebs Lasix and Solu-Medrol. Troponin is trending upwards. EKG did not show any acute ST changes. Sinus rhythm rate of 79, no acute ST changes appreciated White count 14, hemoglobin of 9.8 appears consistent with priors, platelets are 448. INR is 1.1 electrolytes are otherwise appropriate creatinine 0.74 glucose is 117 lactate 1.8 LFTs are appropriate troponin 0.082 with repeat troponin is 0.176, BNP is 992. COVID/influenza/RSV is negative Chest x-ray shows no acute change CTA showed no pulmonary embolism, small bilateral pleural effusions/fluid overload/CHF small but pulmonary nodules enlarged mediastinal and hilar lymph nodes. Patient received DuoNeb, Lasix and methylprednisolone. Patient given aspirin and started on heparin. [id number] Peralta, cardiology at [facility] discussed CHF versus NSTEMI feels patient would probably benefit from transfer with her history of TAVR, rising troponin recommends aspirin, echo and heparin suraj Proctor call to see if there are beds available at [facility] he would be happy to see her. Called to [facility] no beds available we will call around to see who has beds available. Discussed with patient she was agreeable to transfer as needed. Calls out to multiple facilities. Possible bed at [facility] awaiting callback from cardiology. Spoke with Dr. Contreras cardiology, [facility] suspects more demand ischemia. We will reach out to coordinator for transfer. Patient signed out to Dr. Seay 0724 Dr. Seay, patient signed out to me by Dr. Andino I have seen evaluated patient myself. Patient was history of TAVR CHF exacerbation requiring O2 has an elevated troponin. Due to history of TAVR and CHF exacerbation cardiology recommended transfer to higher level of care [address] Iraheta, at [facility] updated on patient's symptoms test results kindly accepts patient trop 0.352 Critical Care Time <Jennifer Andino, DO - Last Filed: 04/25/24 04:57> Critical Care Time Critical Care Time: Yes Total Critical Care Time: 35 Attestation: The high probability of a clinically significant, sudden or life threatening deterioration of the cardiac system(s) required my full and direct attention, intervention and personal management. The aggregate critical care time was [--] minutes. This time is in addition to time spent performing reported procedures but includes the following: [x] Data Review and interpretation [x] Patient assessment and monitoring of vital signs [x] Documentation [x] Medication orders and management Discharge Plan Departure Patient Disposition: [facility] Clinical Impression: Multiple pulmonary nodules, Pleural effusion, CHF (congestive heart failure), Non-ST elevation RI (NSTEMI) Prescriptions: No Action (DME) B-D PEN NEEDLE Qty: 100 3RF Dose Instruction: As directed Rx Instructions: 5mm mini B-D. Insulin pen needle 31G x 5. USE 1X A DAY (DME) blood-glucose meter Misc See Rx Instructions .ROUTE .MEDSUPPLY Qty: 1 0RF Rx Instructions: One Touch Ultra Blood Glucose Meter - Use as directed to test blood sugar. 4x daily (DME) Disabled Parking See Rx Instructions .ROUTE .MEDSUPPLY Qty: 1 0RF Rx Instructions: Patient qualifies for disabled parking as per the attached form. (DME) Droplet Pen [place] 32G X 5MM Qty: 250 6RF Dose Instruction: As directed Rx Instructions: Use 1x daily w/Insulin Pen. potassium chloride 8 mEq capsule, extended release 8 meq PO DAILY Qty: 90 3RF glipizide 5 mg tablet 5 mg PO BID Qty: 180 3RF lisinopril 40 mg tablet 40 mg PO DAILY Qty: 90 2RF amlodipine [Norvasc] 5 mg tablet 10 mg PO DAILY Qty: 180 3RF Lantus Solostar U-100 Insulin 100 unit/mL (3 mL) insulin pen 65 unit SUBCUT HS Qty: 45 11RF metformin 1,000 mg tablet 1,000 mg PO BIDCC Qty: 180 3RF metoprolol succinate 100 mg tablet extended release 24 hr 100 mg PO BID Qty: 180 3RF pioglitazone 30 mg tablet 30 mg PO DAILY Qty: 90 3RF prednisone 20 mg tablet See Rx Instructions .ROUTE .COMPLEX Qty: 30 0RF Rx Instructions: Take 2 tabs by mouth daily for 5 days, then take 1 1/2 tabs daily for 5 days, then take 1 tab daily for 5 days, then take 1/2 tab daily for 5 days then take 1/2 tab every other day for 4 days then stop (DME) Blood Glucose Test Strip See Rx Instructions .ROUTE .MEDSUPPLY Qty: 250 12RF Rx Instructions: use to test blood sugar up to four times daily (DME) lancets 33 gauge misc See Rx Instructions .Route Qty: 100 12RF Rx Instructions: As directed to test blood sugar 4x daily lansoprazole 15 mg capsule,delayed release(DR/EC) 15 mg PO DAILY Adult Probiotic 3 billion cell capsule 3,000 mmu cells PO DAILY aspirin 81 mg tablet,delayed release (DR/EC) 81 mg PO DAILY hydrocodone-acetaminophen 5-325 mg tablet 1 - 2 tab PO QID MDD 5 tabs PRN (Reason: pain) Qty: 125 0RF hydralazine 10 mg Tablet 10 mg PO BID simvastatin 40 mg tablet 40 mg PO DAILY Referrals: Javed Velez MD [Primary Care Provider] -
[2024-04-23 20:06] LABS: Influenza A - CEPHEID Flu A NEGATIVE (NEGATIVE); Influenza B - CEPHEID Flu B NEGATIVE (NEGATIVE); Respiratory Syncytial Virus Negative (Negative)
[2024-04-23 20:11] LABS: COVID-19 CEPHEID 4-PLEX PCR Negative (Negative)
[2024-04-23] MEDS: FUROSEMIDE 40 MG/4 ML VIAL IV (20:25)
[2024-04-23] MEDS: methylPREDNISolone 125 MG/2 ML VIAL IV (20:26)
[2024-04-23 20:34] LABS: Troponin I 0.176 ng/mL (0.01-0.034)
--- NOTE | 2024-04-23 20:57 | PC.NURSE ---
patient has been on 2L while at rest, Patient is requiring more oxygen when moving from bed to bed side commode, 4L NC. Patient is tachypenic after any exertion
[2024-04-23] MEDS: HEPARIN DRIP 25,000 UNIT/500 ML IV.SOLN 21.772 UNIT IV (22:04)
[2024-04-23] MEDS: HEPARIN 5,000 UNIT/ML VIAL 5500 UNIT IV (22:05)
[2024-04-23] MEDS: ASPIRIN 81 MG CHEW TAB 324 MG PO (22:14)
[2024-04-23] MEDS: ATORVASTATIN 20 MG TABLET 40 MG PO (23:30)
--- NOTE | 2024-04-23 23:30 | PC.NURSE ---
Pt sitting in ED stretcher reading book. No distress noted at this time. Pt denies concern, complaint, or need at this time. Pt remains connected to cardiac, resp, blood pressure, and pulse ox monitors with alarms on and audible. Call light within reach.
[2024-04-23] MEDS: METFORMIN HCL 500 MG TABLET 1000 MG PO (23:32)
[2024-04-23] MEDS: HYDRALAZINE 25 MG TABLET PO (23:32)
[2024-04-24] VITALS (20 sets, daily range): BP systolic 109–157; BP diastolic 54–72; PULSE 65–89; RESP 13–41; O2SAT 94–99
[2024-04-24] MEDS: HYDROCODONE/ACET 5/325 TABLET 1 TAB PO (01:09)
--- NOTE | 2024-04-24 01:30 | PC.NURSE ---
No change in patient condition or status. Pt sitting in ED stretcher reading. No concerns, complaints, or needs noted at this time. No distress noted at this time. Pt remians connected to cardiac, resp, blood pressure, and pulse ox monitors with alarms on and audible. Call light within reach.
--- NOTE | 2024-04-24 03:07 | PC.NURSE ---
Pt moved to inpatient hospital bed for comfort.
[2024-04-24 04:42] LABS: PTT Partial Thromboplastin Tim 83 SECONDS (25.1-36.5)
--- NOTE | 2024-04-24 05:00 | PC.NURSE ---
No change in patient condition or status. Pt resting quietly with eyes closed, resps even and not labored. No distress noted at this time. Pt remains connected to cardiac, resp, blood pressure, and pulse ox monitors with alarms on and audible. Call light within reach.
[2024-04-24 08:25] LABS: Troponin I 0.352 ng/mL (0.01-0.034)
== END 2024-04-24 08:30 | disposition short-term general hospital (02) ==
PROVIDERS: Emergency Medicine; Emergency Provider Emergency Medicine; PCP Internal Medicine
DX: I21.4 Non-ST elevation (NSTEMI) myocardial infarction (principal); I50.9 Heart failure, unspecified; J90 Pleural effusion, not elsewhere classified; R91.8 Other nonspecific abnormal finding of lung field; I10 Essential (primary) hypertension; E11.9 Type 2 diabetes mellitus without complications; Z79.4 Long term (current) use of insulin; Z79.82 Long term (current) use of aspirin
CPT/HCPCS: 0241U; 36415; 71045; 71275; 80053; 83605; 83880; 84484; 85025; 85610; 85730; 93005; 93010; 94640; 96365; 96366; 96375; 99285; 99291; J1644; J1940; J2919; Q9967

== ENCOUNTER → 2024-05-05 11:31 | Outpatient (CLI) | payer MEDICARE, OTHER, SELFPAY ==
[2024-03-16 16:23] VITALS: BMI 36.6
[2024-05-05 11:56] LABS: Add Manual Diff / Slide Review NO; Basophils Absolute Auto 100 /uL (0-100); Basophils Percent Auto 0.7 % (0-2); Eosinophils Absolute Auto 100 /uL (0-450); Eosinophils Percent Auto 0.5 % (2-4); Hematocrit 33.6 % (36-46); Hemoglobin 10.4 g/dL (12.0-16.0); Lymphocytes Absolute Auto 3300 /uL (1100-4500); Lymphocytes Percent Auto 24.5 % (25-40); Mean Corpuscular HGB Conc 31.1 % (30-36); Mean Corpuscular Hemoglobin 25.2 PG (26-34); Mean Corpuscular Volume 81.2 fL (80-100); Monocytes Absolute Auto 1000 /uL (0-900); Neutrophils Absolute Auto 9200 /uL (1500-7000); Neutrophils Percent Auto 67.3 % (50-75); Platelet Count 546 X10^3/uL (150-400); Red Blood Cell Count 4.14 X10^6/uL (4.0-5.2); Red Cell Distribution Width 17.8 % (11.6-14.8); White Blood Cell Count 13.7 X10^3/uL (4.5-11.0)
[2024-05-05 12:10] LABS: Hemoglobin A1C% w Est Avg Glu 6.3 % (4.0-6.0)
[2024-05-05 12:23] LABS: Alanine Aminotransferase 18 IU/L (<35); Alkaline Phosphatase 72 U/L (38-126); Aspartate Aminotransferase 19 IU/L (14-36); BUN Creatinine Ratio 22.4 (6-22); Bilirubin Total 0.3 mg/dL (0.2-1.3); Blood Urea Nitrogen 33 mg/dL (7-17); Calcium 9.6 mg/dL (8.4-10.2); Carbon Dioxide 33 mmol/L (22-32); Chloride 96 mmol/L (98-107); Estimated Glomerular Filt Rate 37 mL/min (>60); Glucose 164 mg/dL (80-110); HEMOLYSIS < 15 (0-50); Potassium 4.8 mmol/L (3.4-5.1); Sodium 137 mmol/L (137-145)
== END ==
LOC: LAB 11:32
PROVIDERS: PCP Internal Medicine; Referring Provider Urology; Visit Provider Urology
DX: I10 Essential (primary) hypertension (principal); E11.9 Type 2 diabetes mellitus without complications; E78.5 Hyperlipidemia, unspecified; C91.10 Chronic lymphocytic leukemia of B-cell type not having achieved remission; Z79.4 Long term (current) use of insulin
CPT/HCPCS: 36415; 80053; 83036; 85025

== ENCOUNTER → 2024-05-06 10:24 | Outpatient (CLI) | payer MEDICARE, OTHER, SELFPAY ==
[2024-03-16 16:23] VITALS: BMI 36.6
--- NOTE | 2024-05-06 10:25 | DI.CT.S_ITS ---
PROCEDURE: CT ABDOMEN RENAL PROTOCOL INDICATIONS: Follow-up right renal lesion/left complex cyst TECHNIQUE: Optional 5 mm thick noncontrast images acquired from the diaphragm to the iliac crests. After the administration of intravenous contrast, 5 mm thick images again acquired from the diaphragm to the iliac crests in the arterial and urographic phases. 5 mm thick coronal and sagittal reformats were then acquired. For radiation dose reduction, the following was used: automated exposure control, adjustment of mA and/or kV according to patient size. COMPARISON: [facility], CT, CT ABDOMEN RENAL PROTOCOL, 10/22/2023, 10:42. [facility], CT, CT ABDOMEN RENAL PROTOCOL, 03/24/2023, 11:01. FINDINGS: Image quality: Diagnostic. Kidneys and Ureters: No hydronephrosis. No change in the 1.5 cm rounded solid mass showing mild enhancement at the inferior pole right posterolateral renal cortex. This was measured at 23.7 Hounsfield units on precontrast imaging and increased in radiodensity after contrast infusion, measuring 61.5 Hounsfield units. A stable mild complex left posterior mid kidney partially exophytic renal cortical cyst has not significantly enlarged, measuring 2.9-3.0 cm in maximal dimension. This also warrants follow-up follow up. OTHER: Lower chest: Unremarkable. Stable linear scarring posterior right lower lobe. Liver: No solid mass. Gallbladder: Previously resected. Biliary ducts: No biliary dilation. Pancreas: No ductal dilation. Spleen: Size is within normal limits. Adrenal Glands: No adrenal nodules. Stomach and Bowel: Normal colonic caliber, without significant wall thickening. Peritoneum: No abnormal intraperitoneal fluid. No free air. Ventral Wall: No hernia. Abdominal Nodes: No retroperitoneal or mesenteric adenopathy by size criteria. Vessels: Aorta and inferior vena cava are normal in size. Bones: No aggressive osseous abnormality. IMPRESSION: The right lower renal exophytic solid enhancing mass has not enlarged in size but warrants follow-up, at a frequency determine by the urologist caring for the patient. Given the sequence of prior CTs yearly follow-up may be warranted at this time. As was previously the case the complex left mid kidney posterior renal cortical cyst also warrants follow-up at the same interval. Targeted bilateral ultrasound assessment likely would not provide adequately visualization for follow-up given patient body habitus. Dictated by: Henry Yanez M.D. on 05/06/2024 at 12:41 Approved by: Henry Yanez M.D. on 05/06/2024 at 12:52
== END ==
PROVIDERS: PCP Internal Medicine; Referring Provider Urology; Visit Provider Urology
DX: N28.89 Other specified disorders of kidney and ureter (principal); N28.1 Cyst of kidney, acquired; Z90.49 Acquired absence of other specified parts of digestive tract
CPT/HCPCS: 74170; Q9967

== ENCOUNTER → 2024-05-12 11:39 | Outpatient (CLI) | payer MEDICARE, OTHER, SELFPAY ==
[2024-03-16 16:23] VITALS: BMI 36.6
--- NOTE | 2024-05-12 11:42 | DI.RAD.S_ITS ---
PROCEDURE: XR KUB INDICATIONS: Follow-up right kidney stones TECHNIQUE: One view of the abdomen acquired. COMPARISON: Merged With [facility], CR, XR KUB, 10/22/2023, 10:27. Merged With [facility], CR, XR KUB, 04/16/2023, 10:09. FINDINGS: Surgical changes and devices: Right upper quadrant surgical clips. Bowel: Bowel gas pattern is normal. Soft tissues: No suspicious abdominal calcifications. Visualized solid organ contours appear normal in size. Bones: No suspicious bony lesions. IMPRESSION: No nephrolithiasis are appreciated. Dictated by: Dc Sanchez M.D. on 05/12/2024 at 15:28 Approved by: Dc Sanchez M.D. on 05/12/2024 at 15:39
== END ==
LOC: RAD 11:41
PROVIDERS: PCP Internal Medicine; Referring Provider Urology; Visit Provider Urology
DX: N20.0 Calculus of kidney (principal)
CPT/HCPCS: 74018

== ENCOUNTER → 2024-05-13 10:53 | Outpatient (CLI) | payer MEDICARE, OTHER, SELFPAY ==
[2024-03-16 16:23] VITALS: BMI 36.6
== END ==
PROVIDERS: PCP Internal Medicine; Visit Provider Urology
DX: N20.0 Calculus of kidney (principal); N28.89 Other specified disorders of kidney and ureter; N28.1 Cyst of kidney, acquired; R39.9 Unspecified symptoms and signs involving the genitourinary system; Z87.442 Personal history of urinary calculi
CPT/HCPCS: 81002; 87077; 87086; 87186; 99214

== ENCOUNTER → 2024-07-06 16:17 | Outpatient (CLI) | payer MEDICARE, OTHER, SELFPAY ==
[2024-03-16 16:23] VITALS: BMI 36.6
== END ==
PROVIDERS: PCP Internal Medicine; Referring Provider Internal Medicine; Visit Provider Internal Medicine
DX: J44.9 Chronic obstructive pulmonary disease, unspecified (principal); I10 Essential (primary) hypertension; E78.5 Hyperlipidemia, unspecified; Z87.891 Personal history of nicotine dependence; R94.2 Abnormal results of pulmonary function studies
CPT/HCPCS: 94060; 94726; 94729

== ENCOUNTER → 2024-12-30 11:07 | Outpatient (CLI) | payer MEDICARE, OTHER, SELFPAY ==
[2024-03-16 16:23] VITALS: BMI 36.6
--- NOTE | 2024-12-30 11:09 | DI.RAD.S_ITS ---
PROCEDURE: XR KNEE LT 3V INDICATIONS: left knee pain TECHNIQUE: 3 views of the knee were acquired. COMPARISON: None. FINDINGS: Bones: There are no osseous abnormalities. 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 There is a small effusion the suprapatellar bursa. . Soft tissues: Normal IMPRESSION: Degeneration. Dictated by: Javed Fields M.D. on 12/31/2024 at 11:53 Approved by: Javed Fields M.D. on 12/31/2024 at 11:54
== END ==
PROVIDERS: PCP Internal Medicine; Referring Provider Internal Medicine; Visit Provider Internal Medicine
DX: M17.12 Unilateral primary osteoarthritis, left knee (principal); M25.562 Pain in left knee
CPT/HCPCS: 73562